=== PATIENT | male | born 1940 | race Caucasian/White ===

== ENCOUNTER → 2016-12-02 | Outpatient (CLI) | payer MEDICARE ==
[2016-12-02 19:44] LABS: Prothrombin Time 19.6 sec (9.0-12.0)
== END ==
LOC: MMGSC 13:55
PROVIDERS: ATTEND Family Medicine
DX: Z51.81 Encounter for therapeutic drug level monitoring (principal); Z79.01 Long term (current) use of anticoagulants
CPT/HCPCS: 36415; 85610

== ENCOUNTER → 2017-01-29 | Outpatient (CLI) | payer MEDICARE ==
[2017-01-29 20:29] LABS: INR 2.3 (<1.2); Prothrombin Time 22.4 sec (9.0-12.0)
== END | disposition home or self-care (01) ==
LOC: MMGSC 10:08
PROVIDERS: ATTEND Family Medicine
DX: Z51.81 Encounter for therapeutic drug level monitoring (principal); Z79.01 Long term (current) use of anticoagulants
CPT/HCPCS: 36415; 85610

== ENCOUNTER → 2017-03-23 | Outpatient (CLI) | payer MEDICARE ==
[2017-03-23 20:25] LABS: INR 3.1 (<1.2); Prothrombin Time 29.9 sec (9.0-12.0)
== END ==
LOC: MMGSC 11:16
PROVIDERS: ATTEND Family Medicine
DX: Z51.81 Encounter for therapeutic drug level monitoring (principal); Z79.01 Long term (current) use of anticoagulants
CPT/HCPCS: 36415; 85610

== ENCOUNTER → 2017-06-02 | Outpatient (CLI) | payer MEDICARE ==
[2017-06-02 19:25] LABS: INR 2.2 (<1.2); Prothrombin Time 19.9 sec (9.0-12.0)
== END | disposition home or self-care (01) ==
LOC: MMGSC 11:02
PROVIDERS: ATTEND Family Medicine
DX: Z51.81 Encounter for therapeutic drug level monitoring (principal); Z79.01 Long term (current) use of anticoagulants
CPT/HCPCS: 36415; 85610

== ENCOUNTER → 2017-08-04 | Outpatient (CLI) | payer MEDICARE ==
[2017-08-04 19:41] LABS: INR 2.3 (<1.2); Prothrombin Time 20.9 sec (9.0-12.0)
== END | disposition home or self-care (01) ==
LOC: MMGSC 13:33
PROVIDERS: ATTEND Family Medicine
DX: Z51.81 Encounter for therapeutic drug level monitoring (principal); Z79.01 Long term (current) use of anticoagulants
CPT/HCPCS: 36415; 85610

== ENCOUNTER 2018-11-29 10:50 | Day surgery (SDC) | payer MEDICARE ==
[2018-11-24 14:55] VITALS: BMI 33.2
[~2018-11-29 10:50] MED LIST: ALBUTEROL NEB (CONC) 2.5 MG/0.5 ML INHALATION ONE; ATROPINE SULFATE 0.4 MG/ML 1 ML VIAL IM ONE; LACTATED RINGERS 1,000 ML IV SCH; LIDOCAINE 2% (PF) 20 MG/ML 5 ML VIAL INHALATION ONE; LIDOCAINE VISCOUS 300 MG/15 ML CUP MUCOUS MEM ONE; SODIUM CHLORIDE 0.9% 1,000 ML IV SCH
[2018-11-29 11:26] LABS: Glucose,Whole Blood 105 mg/dL (75-99)
[2018-11-29 11:27] VITALS: RESP 16; TEMP 97.4
[2018-11-29] MEDS ORDERED: MIDAZOLAM 2 MG/2 ML VIAL ONE (11:53)
[2018-11-29] MEDS ORDERED: KETAMINE 10 MG/ML 20 ML VIAL ONE (11:53)
[2018-11-29] MEDS ORDERED: PROPOFOL 10 MG/ML 20 ML VIAL IV ONE (11:53)
[2018-11-29] MEDS ORDERED: LIDOCAINE 1% INJ 10MG/ML (20 ML MDV) ONE (11:53)
[2018-11-29] MEDS ORDERED: LIDOCAINE 2% INJ 20 MG/ML INTRATRACH ONE (12:01)
--- NOTE | 2018-11-29 12:42 | PCN ---
PROCEDURE NOTE PROCEDURE: Bronchoscopy, airway examination, therapeutic lavage and BAL. PREOPERATIVE DIAGNOSIS: Severe chronic obstructive pulmonary disease, chronic obstructive pulmonary disease exacerbation, retained secretions, rule out infection. POSTOPERATIVE DIAGNOSIS: Severe chronic obstructive pulmonary disease, chronic obstructive pulmonary disease exacerbation, retained secretions, rule out infection. OPERATORS: Dr. Adamson and Dr. Bland. DESCRIPTION OF PROCEDURE: There was informed consent and universal timeout. Anesthesia provided general anesthesia/unconscious sedation. This was provided by both the STOCK ROOM MANAGER and the anesthesiologist. After the patient was adequately sedated and being fully monitored, the bronchoscope was inserted through the right nostril. It passed through the right nasopharynx into the oropharynx. The hypopharynx was then evaluated. The hypopharyngeal structures including anterior commissure, true cords, false cords, arytenoids, piriform sinuses, right and left vallecula and epiglottis all appeared relatively normal. There were some pooled secretions noted in the hypopharynx which were purulent in color. Next, after topicalization, bronchoscope was pushed through the glottic opening into the trachea. There were thick secretions noted throughout the entire trachea. They were difficult for the patient to cough up. Hence, I suctioned them up. They were very thick and viscid. After topicalization of the right and left mainstem, the bronchoscope was used to evaluate the right and left mainstem and the right and left lungs. The right upper lobe and its 3 segments, the right middle lobe and its 2 segments, the right lower lobe and its 5 segments, all appeared relatively normal except for the right middle lobe which did have a fishmouth appearance with its opening. 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 On the left side, the left upper lobe and its 2 segments, the lingula and its 2 segments, the left lower lobe and its 4 segments appeared relatively normal. There was diffuse bronchitis noted throughout. There was mucosal erythema and hyperemia. The mucosa was mildly friable. There were purulent secretions noted throughout. They were suctioned. Afterwards, the bronchoscope was wedged into the right middle lobe. The BAL took place. The patient tolerated the procedure well. After that, the bronchoscope was withdrawn. The patient will be recovered. I will pass on the information to the patient's . MMODL / IJN: [id number] /
[2018-11-29 12:58] VITALS: BP 148/78; PULSE 72
[2018-11-29 16:03] LABS: Color,BF Pink
[2018-11-29 16:04] LABS: Appearance,BF Cloudy; Nucleated Cells, Body Fluid 820 /uL; RBC, Body Fluid 19200 /uL
[2018-11-29 16:11] LABS: Mononuclear WBC,Body Fluid 4 %; Polynuclear WBC,Body Fluid 96 %; Total Cells Counted,Body Fluid 100
== END 2018-11-29 13:10 | disposition home or self-care (01) ==
LOC: ORWHC2ENDO 10:50
PROVIDERS: ATTEND Internal Medicine Critical Care Medicine
DX: J96.11 Chronic respiratory failure with hypoxia (principal); J44.1 Chronic obstructive pulmonary disease with (acute) exacerbation; J40 Bronchitis, not specified as acute or chronic; R05 Cough; I10 Essential (primary) hypertension; E78.5 Hyperlipidemia, unspecified; E11.51 Type 2 diabetes mellitus with diabetic peripheral angiopathy without gangrene; Z79.84 Long term (current) use of oral hypoglycemic drugs; D68.59 Other primary thrombophilia; Z86.718 Personal history of other venous thrombosis and embolism; Z86.73 Personal history of transient ischemic attack (TIA), and cerebral infarction without residual deficits; Z86.711 Personal history of pulmonary embolism; Z99.81 Dependence on supplemental oxygen; Z79.82 Long term (current) use of aspirin; Z79.890 Hormone replacement therapy; Z79.891 Long term (current) use of opiate analgesic; Z79.52 Long term (current) use of systemic steroids; Z79.899 Other long term (current) drug therapy; Z79.01 Long term (current) use of anticoagulants
CPT/HCPCS: 94640; 88108; 88305; 89050; 87252; 87070; 87205; 87116; 87102; 87077; 87186; 87206; 31624; J2001 ×3; J2250; J0461; J2704; 87496; 87498; 87502; 87529; 87634; 87798

== ENCOUNTER 2018-11-30 15:27 | Observation (INO) | payer MEDICARE ==
[2018-11-30] MEDS ORDERED: IPRATROPIUM-ALBUTEROL 3 ML NEB INHALATION STA (15:48)
--- NOTE | 2018-11-30 15:51 | ED ---
General Adult HPI - General Chief complaint: Shortness of Breath Stated complaint: Sob Time Seen by Provider: 11/30/18 15:38 Source: patient, family, RN notes reviewed Mode of arrival: ambulatory Limitations: no limitations - History of Present Illness Initial comments: Patient is a pleasant 78-year-old male presenting to the emergency Department with complaints of difficulty in breathing. Onset of symptoms was this morning. Patient does have chronic dyspnea and COPD. Patient has had cough. Cough has occasional clear/white mucus. Patient did have bronchoscopy done with suctioning yesterday with Dr. Longo. Patient was finally went home however has been short of breath all day today. Patient gets more short of breath with exertion. states patient has been on oxygen all day where normally he only wears it at night. also states patient does have a to the 70s with ambulation. Patient amiss to feeling fatigued as well. No fevers. No chest pain. - Related Data Home Medications Medication Instructions Recorded Confirmed Aspirin 81 mg PO HS 11/24/18 11/30/18 Fluticasone/Salmeterol [Advair 1 puff PO RT-BID 11/24/18 11/30/18 500-50 Diskus] Folic Acid 1 mg PO DAILY 11/24/18 11/30/18 Levothyroxine Sodium [Synthroid] 50 mcg PO DAILY 11/24/18 11/30/18 Metoprolol Succinate (ER) [Toprol 25 mg PO DAILY 11/24/18 11/30/18 Xl] Multivitamins, Thera [Multivitamin 1 tab PO DAILY 11/24/18 11/30/18 (formulary)] Simvastatin [Zocor] 40 mg PO HS 11/24/18 11/30/18 metFORMIN HCL [Glucophage] 500 mg PO HS 11/24/18 11/30/18 predniSONE 5 mg PO DAILY 11/24/18 11/30/18 traMADol HCL [Ultram] 50 mg PO BID 11/24/18 11/30/18 Calcium Carbonate/Vitamin D3 1 tab PO DAILY 11/30/18 11/30/18 [Calcium 600-Vit D3 400 Tablet] Warfarin Sodium [Coumadin] 10 mg PO MOFR 11/30/18 11/30/18 Warfarin Sodium [Coumadin] 10 mg PO SUTUWETHSA 11/30/18 11/30/18 Allergies Allergy/AdvReac Type Severity Reaction Status Date / Time No Known Allergies Allergy Verified 11/30/18 16:39 Review of Systems ROS Statement: Those systems with pertinent positive or pertinent negative responses have been documented in the HPI. ROS Other: All systems not noted in ROS Statement are negative. Constitutional: Denies: fever Eyes: Denies: eye pain Respiratory: Reports: cough, dyspnea Cardiovascular: Denies: chest pain Endocrine: Reports: fatigue Gastrointestinal: Denies: abdominal pain Genitourinary: Denies: dysuria Musculoskeletal: Denies: back pain Skin: Denies: rash Neurological: Denies: headache Past Medical History Past Medical History: COPD, CVA/TIA, Hyperlipidemia, Hypertension, Thyroid Diso rder Additional Past Medical History / Comment(s): Wears oxygen @ 3 L per nc. Hyperhomocysteinemia. Chronic cough. History of Any Multi-Drug Resistant Organisms: MRSA Date of last positivie culture/infection: 02/09/18 MDRO Source:: LEG Past Surgical History: Tonsillectomy Additional Past Surgical History / Comment(s): Carotid Endarterectomy. Past Anesthesia/Blood Transfusion Reactions: No Reported Reaction Past Psychological History: No Psychological Hx Reported Smoking Status: Former smoker Past Alcohol Use History: Daily Past Drug Use History: None Reported - Past Family History Mother Family Medical History: No Reported History General Exam Limitations: no limitations General appearance: alert, in no apparent distress Head exam: Present: atraumatic Eye exam: Present: normal appearance, PERRL ENT exam: Present: normal oropharynx Neck exam: Present: normal inspection Respiratory exam: Present: wheezes, decreased breath sounds Cardiovascular Exam: Present: regular rate, normal rhythm GI/Abdominal exam: Present: soft. Absent: tenderness Extremities exam: Present: normal inspection. Absent: calf tenderness Neurological exam: Present: alert Psychiatric exam: Present: normal affect, normal mood Skin exam: Present: normal color Course Vital Signs 11/30/18 11/30/18 11/30/18 15:32 15:44 15:52 Temperature 98.4 F Pulse Rate 88 86 Respiratory 20 Rate Blood Pressure 107/68 O2 Sat by Pulse 87 L 91 L Oximetry 11/30/18 11/30/18 11/30/18 16:00 16:05 16:30 Temperature Pulse Rate 77 86 79 Respiratory 18 22 12 Rate Blood Pressure 117/87 109/68 O2 Sat by Pulse 95 90 L Oximetry 11/30/18 11/30/18 11/30/18 16:40 17:10 17:40 Temperature Pulse Rate 79 74 78 Respiratory 18 16 14 Rate Blood Pressure 107/66 112/65 114/62 O2 Sat by Pulse 93 L 91 L 92 L Oximetry EKG Findings - EKG Comments: EKG Findings:: Normal sinus rhythm 81. WI 200. QRS 104. QT 378. QTC 439. Left axis. Normal QRS. No acute ST change. Medical Decision Making - Medical Decision Making Patient reevaluated and resting comfortably in bed. Pulse ox low 90s on 2 L. Case was discussed with Dr. Longo, who will consult and recommends admission to medicine. [facility] has been paged. - Lab Data Result diagrams: 11/30/18 16:10 11/30/18 16:10 Lab Results 11/30/18 11/30/18 11/30/18 Range/Units 16:10 16:10 16:10 WBC 18.5 H (3.8-10.6) k/uL RBC 4.72 (4.30-5.90) m/uL Hgb 14.7 (13.0-17.5) gm/dL Hct 43.8 (39.0-53.0) % MCV 92.6 (80.0-100.0) fL MCH 31.1 (25.0-35.0) pg MCHC 33.6 (31.0-37.0) g/dL RDW 13.8 (11.5-15.5) % Plt Count 266 (150-450) k/uL Neutrophils % 83 % Lymphocytes % 8 % Monocytes % 6 % Eosinophils % 1 % Basophils % 0 % Neutrophils # 15.4 H (1.3-7.7) k/uL Lymphocytes # 1.4 (1.0-4.8) k/uL Monocytes # 1.1 H (0-1.0) k/uL Eosinophils # 0.3 (0-0.7) k/uL Basophils # 0.1 (0-0.2) k/uL Sodium 140 (137-145) mmol/L Potassium 4.2 (3.5-5.1) mmol/L Chloride 106 (98-107) mmol/L Carbon Dioxide 28 (22-30) mmol/L Anion Gap 6 mmol/L BUN 28 H (9-20) mg/dL Creatinine 1.02 (0.66-1.25) mg/dL Est GFR (CKD-EPI)AfAm 81 (>60 ml/min/1.73 sqM) Est GFR (CKD-EPI)NonAf 70 (>60 ml/min/1.73 sqM) Glucose 104 H (74-99) mg/dL Calcium 9.5 (8.4-10.2) mg/dL Total Bilirubin 0.5 (0.2-1.3) mg/dL AST 24 (17-59) U/L ALT 31 (21-72) U/L Alkaline Phosphatase 51 (38-126) U/L NT-Pro-B Natriuret Pep 226 pg/mL Total Protein 6.5 (6.3-8.2) g/dL Albumin 3.6 (3.5-5.0) g/dL - Radiology Data Radiology results: image reviewed (Chest x-ray shows COPD. No acute process.) Disposition Clinical Impression: COPD exacerbation Disposition: ADMITTED IP TO THIS HOSP Is patient prescribed a controlled substance at d/c from ED?: No Referrals: Mariza Hou MD [Primary Care Provider] - 1-2 days Decision Time: 18:24
[2018-11-30 16:30] LABS: Basophils # (A) 0.1 k/uL (0-0.2); Basophils % (A) 0 %; Eosinophils # (A) 0.3 k/uL (0-0.7); Eosinophils % (A) 1 %; HCT 43.8 % (39.0-53.0); HGB 14.7 gm/dL (13.0-17.5); Lymphocytes # (A) 1.4 k/uL (1.0-4.8); Lymphocytes % (A) 8 %; MCH 31.1 pg (25.0-35.0); MCHC 33.6 g/dL (31.0-37.0); MCV 92.6 fL (80.0-100.0); Mean Platelet Volume 6.8; Monocytes # (A) 1.1 k/uL (0-1.0); Monocytes % (A) 6 %; Neutrophils # (A) 15.4 k/uL (1.3-7.7); Neutrophils % (A) 83 %; Platelet Count 266 k/uL (150-450); RBC 4.72 m/uL (4.30-5.90); RDW 13.8 % (11.5-15.5); WBC 18.5 k/uL (3.8-10.6)
--- NOTE | 2018-11-30 16:34 | XR ---
EXAMINATION TYPE: XR chest 2V DATE OF EXAM: 11/30/2018 COMPARISON: 07/02/2018 INDICATION: Difficulty breathing TECHNIQUE: Frontal and lateral views of the chest are obtained. FINDINGS: The heart size is normal. The pulmonary vasculature is normal. The lungs are clear. There is hyperinflation flattening the diaphragms compatible COPD IMPRESSION: 1. COPD. 2. An acute pulmonary process not radiographically apparent.
[2018-11-30 16:39] LABS: Albumin 3.6 g/dL (3.5-5.0); Calcium 9.5 mg/dL (8.4-10.2); Potassium 4.2 mmol/L (3.5-5.1); Total Bilirubin 0.5 mg/dL (0.2-1.3); Total Protein 6.5 g/dL (6.3-8.2)
[2018-11-30] MEDS ORDERED: IPRATROPIUM-ALBUTEROL 3 ML NEB INHALATION PRN (18:29)
[2018-11-30] MEDS ORDERED: methylPREDNISolone SOD SUCCI 125 MG/2 ML VIAL IV STA (18:29)
[2018-11-30] MEDS: SODIUM CHLORIDE 0.9% 1,000 ML IV SCH (18:45)
[2018-11-30] MEDS: IPRATROPIUM-ALBUTEROL 3 ML NEB INHALATION SCH (18:52)
[2018-11-30] MEDS ORDERED: SYMBICORT 160-4.5 MCG INHALER INHALATION STA (19:00)
[2018-11-30 19:48] LABS: INR 1.6 (<1.2); Prothrombin Time 15.9 sec (9.0-12.0)
[2018-11-30] MEDS: CEFDINIR 300 MG CAP PO SCH (20:56)
[2018-11-30] MEDS: ATORVASTATIN 20 MG TAB PO SCH (20:56)
[2018-11-30] MEDS: ASPIRIN 81 MG PO SCH (20:56)
[2018-11-30] MEDS ORDERED: traMADol 50 MG TAB PO PRN (21:00)
[2018-11-30] MEDS ORDERED: WARFARIN 10 MG TAB PO ONE (21:00)
[2018-11-30] MEDS: INSULIN ASPART (NovoLOG) 100 UNIT/ML VIAL SQ SCH (21:20)
[2018-11-30 21:30] LABS: Glucose,Whole Blood 227 mg/dL (75-99)
[2018-11-30] MEDS: SYMBICORT 160-4.5 MCG INHALER INHALATION SCH (21:44)
--- NOTE | 2018-11-30 22:53 | P.HPIM ---
History of Present Illness H&P Date: 11/30/18 Chief Complaint: Worsening exertional dyspnea and hypoxemia 78-year-old male with history of diabetes and end-stage COPD the chronic hypoxic respiratory failure Patient presented to the hospital due to worsening exertional dyspnea and acute hypoxic respiratory failure with hypoxemia despite supplemental oxygen at home. Patient reports that yesterday he had bronchoscopy done with BAL due to worsening symptoms since April despite increasing his home oxygen and being: L ow dose maintenance dose of steroids. However over the 7 month his condition has been deteriorating constantly. However since the procedure yesterday he's been having increased shortness of breath and dyspnea with increased oxygen requirements. He was noticing that his oxygen dropping to the 70s percent despite being on supplemental oxygen while walking. However denies any fevers or chills denies any changes in his sputum consistency or color denies any changes in his cough denies any chest pain. Denies any nausea vomiting denies any abdominal pain denies any sick contacts or recent traveling. Review of Systems Pertinent positives as noted in HPI. All other systems were reviewed and are negative Past Medical History Past Medical History: COPD, CVA/TIA, Hyperlipidemia, Hypertension, Thyroid Disorder Additional Past Medical History / Comment(s): Wears oxygen @ 3 L per nc. Hyperhomocysteinemia. Chronic cough. History of Any Multi-Drug Resistant Organisms: MRSA Date of last positivie culture/infection: 02/09/18 MDRO Source:: LEG Past Surgical History: Tonsillectomy Additional Past Surgical History / Comment(s): Carotid Endarterectomy. Past Anesthesia/Blood Transfusion Reactions: No Reported Reaction Past Psychological History: No Psychological Hx Reported Smoking Status: Former smoker Past Alcohol Use History: Daily Past Drug Use History: None Reported - Past Family History Mother Family Medical History: No Reported History Medications and Allergies Home Medications Medication Instructions Recorded Confirmed Type Aspirin 81 mg PO HS 11/24/18 11/30/18 History Fluticasone/Salmeterol [Advair 1 puff PO RT-BID 11/24/18 11/30/18 History 500-50 Diskus] Folic Acid 1 mg PO DAILY 11/24/18 11/30/18 History Levothyroxine Sodium [Synthroid] 50 mcg PO DAILY 11/24/18 11/30/18 History Metoprolol Succinate (ER) [Toprol 25 mg PO DAILY 11/24/18 11/30/18 History Xl] Multivitamins, Thera [Multivitamin 1 tab PO DAILY 11/24/18 11/30/18 History (formulary)] Simvastatin [Zocor] 40 mg PO HS 11/24/18 11/30/18 History metFORMIN HCL [Glucophage] 500 mg PO HS 11/24/18 11/30/18 History predniSONE 5 mg PO DAILY 11/24/18 11/30/18 History traMADol HCL [Ultram] 50 mg PO BID 11/24/18 11/30/18 History Calcium Carbonate/Vitamin D3 1 tab PO DAILY 11/30/18 11/30/18 History [Calcium 600-Vit D3 400 Tablet] Warfarin Sodium [Coumadin] 10 mg PO MOFR 11/30/18 11/30/18 History Warfarin Sodium [Coumadin] 10 mg PO SUTUWETHSA 11/30/18 11/30/18 History Allergies Allergy/AdvReac Type Severity Reaction Status Date / Time No Known Allergies Allergy Verified 11/30/18 16:39 Physical Exam Vitals: Vital Signs Temp Pulse Resp BP Pulse Ox 11/30/18 18:52 72 11/30/18 18:40 74 28 H 117/66 91 L 11/30/18 18:30 73 17 102/75 91 L 11/30/18 18:10 75 19 102/75 92 L 11/30/18 17:50 77 49 H 114/62 92 L 11/30/18 17:40 78 14 114/62 92 L 11/30/18 17:10 74 16 112/65 91 L 11/30/18 16:40 79 18 107/66 93 L 11/30/18 16:30 79 12 109/68 90 L 11/30/18 16:05 86 22 11/30/18 16:00 77 18 117/87 95 11/30/18 15:52 86 11/30/18 15:44 91 L 11/30/18 15:32 98.4 F 88 20 107/68 87 L Intake and Output 11/30/18 11/30/18 11/30/18 06:59 14:59 22:59 Other: Weight 111.13 kg Constitutional: No acute distress, conversant, pleasant Eyes: Anicteric sclerae, moist conjunctiva, no lid-lag Pupils equal round reactive to light ENMT: NC/AT Oropharynx clear, no erythema, exudates Neck: Supple, FROM, no masses, or JVD No carotid bruits No thyromegaly Lungs: Diminished breath sounds throughout, prolonged expiratory phase with wheezing Clear to percussion Normal respiratory effort, no accessory muscle use , oxygen 2 L via nasal cannula Cardiovascular: Distant heart sounds regular, No murmurs, gallops, or rubs No peripheral edema Abdominal: Soft Nontender, no guarding, rebound or rigidity Abdomen moving with respiration Normoactive bowel sounds No hepatomegaly, No splenomegaly No palpable mass No abdominal wall hernia noted Skin: Normal temperature, tone, texture, turgor No induration No subcutaneous nodules No rash, lesions No ulcers Extremities: No digital cyanosis Positive clubbing Pedal pulses intact and symmetrical Radial pulses intact and symmetrical No calf tenderness Psychiatric: Alert and oriented to person, place and time Appropriate affect fair judgment Neuro Muscles Strength 5/5 in all 4 extremities Sensation to light touch grossly present throughout Cranial nerves II-XII grossly intact No focal sensory deficits Lymphatics: no palpable cervical or supraclavicular , or inguinal lymph nodes Results CBC & Chem 7: 11/30/18 16:10 11/30/18 16:10 Labs: Abnormal Lab Results - Last 24 Hours (Table) 11/30/18 11/30/18 Range/Units 16:10 16:10 WBC 18.5 H (3.8-10.6) k/uL Neutrophils # 15.4 H (1.3-7.7) k/uL Monocytes # 1.1 H (0-1.0) k/uL BUN 28 H (9-20) mg/dL Glucose 104 H (74-99) mg/dL Assessment and Plan Assessment: 78-year-old male with advanced COPD and chronic hypoxic respiratory failure on home oxygen. Admitted in inpatient with anticipated length of stay more than 48 hours due to acute hypoxic respiratory failure and ambulatory exertional dyspnea. Patient had bronchoscopy with BAL yesterday since then he's been short of breath with worsening coughing and increased requirement of oxygen for which she decided to come the hospital today. short of breath with worsening coughing and increased requirement of oxygen for which she decided to come the hospital today. 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
[2018-11-30] MEDS: methylPREDNISolone SOD SUCCI 125 MG/2 ML VIAL IV SCH (23:14)
--- NOTE | 2018-11-30 23:26 | P.HPADDEND ---
H&P Addendum H&P Addendum Date: 11/30/18 Advanced Care Planning Active diagnoses: End-stage COPD Chronic hypoxic respiratory failure Background: The patient was admitted for treatment of acute hypoxic respiratory failure and worsening exertional dyspnea Discussion: Person(s) present and participating in discussion: The patient, myself, and RN Summary: Patient does not want long-term respiratory support on a ventilator however he is willing to pursue CPR and resuscitation if needed if outcomes are thought to be positive. He does not want to be disabled or bedridden after any resuscitation measures if outcomes are poor he would not like to continue supportive measures. Patient will be full code for now and patient opted in for all medically necessary measures to to treat his condition at this time Time spent: Total time spent face to face in education and discussion directly related to advanced care plannin minutes
[2018-12-01] MEDS: LEVOTHYROXINE 50 MCG TAB PO SCH (05:19)
[2018-12-01] MEDS: SODIUM CHLORIDE 0.9% 1,000 ML IV SCH ×2 (05:19→12:17)
[2018-12-01] MEDS: methylPREDNISolone SOD SUCCI 125 MG/2 ML VIAL IV SCH ×3 (05:20→17:41)
[2018-12-01 07:03] LABS: Glucose,Whole Blood 181 mg/dL (75-99)
[2018-12-01] MEDS: IPRATROPIUM-ALBUTEROL 3 ML NEB INHALATION SCH ×4 (07:26→20:13)
[2018-12-01] MEDS: SYMBICORT 160-4.5 MCG INHALER INHALATION SCH ×2 (07:26→20:13)
[2018-12-01] MEDS: METOPROLOL SUCCINATE (ER) 25 MG TAB.ER.24H PO SCH (07:53)
[2018-12-01] MEDS: CEFDINIR 300 MG CAP PO SCH ×2 (07:53→21:17)
[2018-12-01] MEDS: INSULIN ASPART (NovoLOG) 100 UNIT/ML VIAL SQ SCH ×4 (07:53→22:05)
[2018-12-01 09:20] LABS: INR 1.6 (<1.2); Prothrombin Time 15.9 sec (9.0-12.0)
--- NOTE | 2018-12-01 09:53 | CONS ---
CONSULTATION PULMONARY/CRITICAL CARE CONSULTATION: DATE OF CONSULTATION: December 01, 2018 This is a pleasant 78-year-old white male who presented to the emergency department with complaints of shortness of breath. I saw him on Thursday for bronchoscopy. Everything was uneventful and went well. He had lots of airway secretions and evidence of acute bronchitis on bronchoscopy. Samples are mostly pending. Anyway, he apparently on Thursday even before the procedure was not feeling well. He describes feeling weak and fatigued. Subsequent to that, he noted that when he walked around his saturations dropped. He felt like he had to wear the oxygen a bit more. He was coughing. Not producing much or any phlegm. Anyway, because of that, the patient went to the emergency room where he saw Dr. Barnard. Dr. Barnard called me on the phone. Because of the patient's desaturations, he was admitted to the hospital. He was started on some IV steroids and breathing treatments and Symbicort and some oral antibiotics. He also was receiving IV Solu-Medrol. Currently, the patient feels well. He looks much better actually that he did on Thursday when I saw him for bronchoscopy. His chest x-ray was normal, did not show any acute disease. Denies any chest pain or chest discomfort. There is no fever or chills. It is mostly shortness of breath, desaturation with exertion, and cough. Occasional white or clear phlegm is produced. HOME MEDICATIONS: His home medications include aspirin, Advair, folic acid, Synthroid, metoprolol, multivitamin, Zocor, metformin, prednisone, tramadol, calcium carbonate, and warfarin. ALLERGIES: Allergies are denied. PAST MEDICAL HISTORY: His past medical history includes COPD, CVA, hyperlipidemia, hypertension, and hypothyroidism. In addition, he has chronic hypoxemic respiratory failure and does have a history of hyperhomocysteinemia. He also has a previous history of MRSA infection. SURGICAL HISTORY: Surgical history includes carotid endarterectomy and tonsillectomy. SOCIAL HISTORY: Positive for previous tobacco use. He drinks alcohol daily. Denies any illicit drug use. FAMILY HISTORY: Family history is unremarkable. States his mother was healthy. REVIEW OF SYSTEMS: CONSTITUTIONAL: Weakness. NEUROLOGIC: Negative. HEENT: Negative. CARDIOVASCULAR: Negative. PULMONARY: Shortness of breath, cough. GI: Negative. : Negative. RHEUMATOLOGIC: Negative. IMMUNOLOGIC: Negative. ENDOCRINOLOGIC: Negative. PHYSICAL EXAMINATION: VITAL SIGNS: Current vital signs are reviewed. Temperature is 97.7, heart rate 73, respiratory rate 20, blood pressure 126/73, mean 90, and 3 L saturation 93%. Appears in no acute distress. Actually looks very well. HEENT: Examination is grossly unremarkable. Membranes are moist. Nasal O2 in place. NECK: Supple. Full range of motion. No adenopathy or thyromegaly. Neck veins are flat. CARDIOVASCULAR: Examination reveals regular rhythm and rate. Heart rate 80. S1, S2 normal. LUNGS: Are surprisingly clear. No wheezes, rhonchi, or crackles. ABDOMEN: Soft bowel sounds are heard. No masses or tenderness. EXTREMITIES: Are intact. No cyanosis, clubbing, or edema. SKIN: Without rash. NEUROLOGIC: Examination is brief but nonfocal. White count 18.5. Hemoglobin, hematocrit and platelet count all normal. PT 15.9. INR 1.6. Sodium, potassium, chloride and CO2 all normal. Anion gap 6. BUN and creatinine were 28 and 1.02. The rest of the labs look good. N terminal proBNP 226. X-RAY: Chest x-ray shows no acute disease. MEDICATIONS: Medications are reviewed. He is on appropriate medications including DuoNeb, Symbicort, Solu-Medrol and antibiotics. ASSESSMENT: 1. Shortness of breath with desaturation on exertion, of unclear etiology. This may relate to his underlying chronic obstructive pulmonary disease or something more ominous such as pulmonary embolism or myocardial ischemia. 2. History of chronic obstructive pulmonary disease. 3. Cerebrovascular accident. 4. Recent bronchoscopy this past Thursday for airway secretion control. 5. Hyperlipidemia. 6. Hypertension. 7. Hypothyroidism. 8. Hyperhomocysteinemia. 9. History of chronic cough. 10.Previous history of methicillin-resistant Staphylococcus aureus infection. PLAN: The patient will have a troponin drawn. In addition, we will order a CT angiogram. Additional recommendations and suggestions are forthcoming. He is on appropriate medications. He might be well enough to be discharged in a day or so. MMODL / IJN: [id number] /
[2018-12-01 11:44] LABS: Glucose,Whole Blood 212 mg/dL (75-99)
--- NOTE | 2018-12-01 12:05 | CT ---
CT CHEST FOR PULMONARY EMBOLISM. EXAMINATION TYPE: CT angio chest DATE OF EXAM: 12/01/2018 INDICATION: PE CT DLP: 481.40 mGycm, Automated exposure control for dose reduction was used. CONTRAST: Patient injected with 100 ML mL of Isovue 370. COMPARISON: None TECHNIQUE: CT of the chest is performed on a spiral scan at 2 mm thick sections. Study is performed with intravenous contrast timed for evaluation for pulmonary embolism. This will limit additional po rtions of the evaluation. 3-D MIP images reconstructed by the technologist are reviewed on the compu ter in the coronal and sagittal planes. FINDINGS: No persistent filling defects are evident to suggest an acute pulmonary embolism. No mediastinal or hilar adenopathy enlarged by CT criteria is evident. The ascending aorta diameter at the level of the main pulmonary artery is 4.1 cm. The main pulmonary artery diameter at the bifur cation is 3.4 cm. On lung windows there is a irregular density with spiculated margins on lung windows measuring 1.4 x 2.5 cm. Underlying soft tissue density is evident on mediastinal windows. Consider PET CT for additio nal workup. Neoplasm is not excluded. Limited CT section through the upper abdomen reflux into the portal system and inferior vena cava is evident suggesting some right heart strain. IMPRESSIONS: 1. No acute pulmonary embolism. Some right heart strain however is noted. 2. Ascending thoracic aortic aneurysm measuring 4.1 cm. 3. Irregular density within the posterior left midlung measuring 1.4 x 2.5 cm. Follow-up CT should be considered. Neoplasm is not excluded.
--- NOTE | 2018-12-01 16:45 | P.PN ---
Subjective Progress Note Date: 12/01/18 Principal diagnosis: COPD exacerbation Patient was seen and examined. No acute events overnight. Patient reports slight improvement in his breathing since admission. He denies any chest pain or palpitations. No nausea or vomiting. No fever or chills. Objective - Vital Signs Vital signs: Vital Signs Temp 98.1 F 12/01/18 13:06 Pulse 89 12/01/18 13:06 Resp 20 12/01/18 13:06 BP 136/75 12/01/18 13:06 Pulse Ox 90 L 12/01/18 13:06 Intake & Output 11/30/18 12/01/18 12/01/18 18:59 06:59 18:59 Intake Total 300 800 Balance 300 800 Weight 111.13 kg Intake: IV 800 Sodium Chloride 0.9% 1, 800 000 ml @ 100 mls/hr IV . Q10H ROBBIE Rx#:[id number] Oral 300 Other: # Voids 1 - Exam General: [non toxic], [no distress], [appears at stated age] Derm: [warm], [dry] Head: [atraumatic], [normocephalic], [symmetric] Eyes: [EOMI], [no lid lag], [anicteric sclera] Mouth: [no lip lesion], [mucus membranes moist] Cardiovascular: [S1S2 reg], [no murmur], [positive posterior tibial pulse bilateral], Lungs: [decreased breath sounds bilateral], [no rhonchi, no rales] , [no accessory muscle use] Ext: [no gross muscle atrophy], [no edema], [no contractures] Neuro: [no focal neuro deficits] Psych: [Alert], [oriented], [appropriate affect] - Labs CBC & Chem 7: 11/30/18 16:10 11/30/18 16:10 Labs: Abnormal Lab Results - Last 24 Hours (Table) 11/30/18 11/30/18 11/30/18 Range/Units 16:10 16:10 21:18 PT 15.9 H (9.0-12.0) sec INR 1.6 H (<1.2) BUN 28 H (9-20) mg/dL Glucose 104 H (74-99) mg/dL POC Glucose (mg/dL) 227 H (75-99) mg/dL 12/01/18 12/01/18 12/01/18 Range/Units 06:55 08:46 11:32 PT 15.9 H (9.0-12.0) sec INR 1.6 H (<1.2) BUN (9-20) mg/dL Glucose (74-99) mg/dL POC Glucose (mg/dL) 181 H 212 H (75-99) mg/dL Assessment and Plan Assessment: Assessment and Plan COPD exacerbation Acute on chronic hypoxic respiratory failure Leukocytosis Hypothyroidism Diabetes mellitus Hyper homocystinemia with history of VTE Plans: Continue Symbicort. DuoNeb scheduled and as needed for shortness of breath and wheezing. Start Solu-Medrol 60 mg IV every 6 hours. Follow pulmonology recommendations. O2 per NC to maintain O2 saturation greater than 92%. Plans: Management as above. Plans: Nothing to do. Likely secondary to steroids. Plans: Continue Synthroid. Plans: Insulin sliding-scale. Regular Accu-Cheks. Hypoglycemic precautions. Diabetic diet. Plans: Continue warfarin, dosing as per pharmacy. Patient has shown mild improvement since admission. He is pending clinical improvement. Follow pulmonology recommendations. Likely DC in 1-2 days.
[2018-12-01 17:16] LABS: Glucose,Whole Blood 233 mg/dL (75-99)
[2018-12-01] MEDS ORDERED: WARFARIN 10 MG TAB PO ONE (18:00)
[2018-12-01] MEDS ORDERED: WARFARIN 1 MG TAB PO ONE (18:00)
[2018-12-01 20:41] LABS: Glucose,Whole Blood 292 mg/dL (75-99)
[2018-12-01] MEDS: ASPIRIN 81 MG PO SCH (21:17)
[2018-12-01] MEDS: ATORVASTATIN 20 MG TAB PO SCH (21:17)
[2018-12-02] MEDS: methylPREDNISolone SOD SUCCI 125 MG/2 ML VIAL IV SCH ×2 (00:40→06:21)
[2018-12-02] MEDS: SODIUM CHLORIDE 0.9% 1,000 ML IV SCH (02:56)
[2018-12-02] MEDS: LEVOTHYROXINE 50 MCG TAB PO SCH (06:21)
[2018-12-02 06:52] LABS: INR 2.1 (<1.2); Prothrombin Time 20.9 sec (9.0-12.0)
[2018-12-02 07:18] LABS: Glucose,Whole Blood 175 mg/dL (75-99)
[2018-12-02] MEDS: CEFDINIR 300 MG CAP PO SCH (07:25)
[2018-12-02] MEDS: METOPROLOL SUCCINATE (ER) 25 MG TAB.ER.24H PO SCH (07:25)
[2018-12-02] MEDS: INSULIN ASPART (NovoLOG) 100 UNIT/ML VIAL SQ SCH (07:25)
[2018-12-02] MEDS: SYMBICORT 160-4.5 MCG INHALER INHALATION SCH (07:34)
[2018-12-02] MEDS: IPRATROPIUM-ALBUTEROL 3 ML NEB INHALATION SCH ×2 (07:34→10:44)
[2018-12-02 07:49] VITALS: BP 138/84; RESP 16; TEMP 97.9
--- NOTE | 2018-12-02 09:06 | PN ---
PROGRESS NOTE PULMONARY/CRITICAL CARE PROGRESS NOTE: DATE OF SERVICE: 12/02/2018 A 78-year-old male who presents to the emergency for shortness of breath. He underwent bronchoscopy Thursday by me. We did this for airway secretion control and therapeutic suction. Apparently, subsequent to that, he developed increasing shortness of breath. He was seen by Dr. Barnard in the emergency room, admitted to the hospital for further treatment and management. The patient did receive IV Solu-Medrol. He did receive some breathing treatments. The patient is doing much better today. I did do a CT angiogram. It did not show a pulmonary embolism. It did show a lesion in the left posterior lung which will have to be followed as an outpatient. He is feeling much better. Off of oxygen. Saturations are 88%, which is about his baseline. He has no other complaints. There is nothing of significance seen on the CT scan. He is currently on appropriate medications. He was admitted to one the hospital group. I told him that he could be discharged home today if okay with the hospital group, but he would have to be at home all day, taking it easy, taking oral prednisone and so forth. PHYSICAL EXAMINATION: Current vital signs are reviewed. Temperature 97.9, heart rate 72, respiratory rate 16, blood pressure 138/84. He has 3 L saturations at 93%. Appears in no acute distress. No tami respiratory distress. No audible wheezing. No use of accessory muscles. No conversational dyspnea. HEENT: Examination is grossly unremarkable. Mucous membranes moist. No oral lesions. NECK: Supple. Full range of motion. No adenopathy or thyromegaly. Neck veins are flat. CARDIOVASCULAR: Examination reveals regular rhythm and rate. Heart rate is 72. Heart sounds distant. S1, S2 normal. LUNGS: Reveal mostly clear breath sounds. Breath sounds are diminished. Very mild high-pitched expiratory wheezes are noted. ABDOMEN: Soft. Bowel sounds are heard. EXTREMITIES: Intact. No cyanosis, clubbing, or edema. SKIN: Without rash. NEUROLOGIC: Examination is brief but nonfocal. LAB DATA: Reviewed. Nothing new from today other than a PT of 20.9 and an INR of 2.1. Troponin was less than 0.012. Chest x-ray and CT scans were reviewed. Medications are reviewed. ASSESSMENT: 1. Shortness of breath, likely related to underlying chronic obstructive pulmonary disease exacerbation. Pulmonary embolism has been ruled out, myocardial ischemia seems much less likely. 2. History of chronic obstructive pulmonary disease. 3. History of cerebrovascular accident. 4. Recent bronchoscopy, this past Thursday for airway secretions, therapeutic lavage. Specimens are currently pending. 5. Hyperlipidemia. 6. Hypertension. 7. Hypothyroidism. 8. Hyperhomocystinemia. 9. History of chronic cough. 10.Previous history of methicillin-resistant Staphylococcus aureus infection. PLAN: The patient could be discharged home. He will be discharged home on his usual medications. A CT angiogram was negative except for a small lesion in the posterior left lung area. This will be followed in the outpatient setting. I told him if he did get discharged home, he would have takes it easy today and stay indoors. He should be discharged home on 40 mg a day and decrease the dose by 10 mg every fourth day until he gets back down to his maintenance dose of 5 mg a day. He could be discharged with a short course of oral antibiotics pending his bronchoscopy results. He should also be using his Advair 500/50 one puff twice a day and his nebulizer machine 4 times a day. I did tell him to wear his oxygen therapy when I saw him in the office. No additional recommendations are made. His prognosis is guarded. MMODL / IJN: [id number] / MTDD
--- NOTE | 2018-12-02 10:01 | P.DS ---
Providers Date of admission: 11/30/18 18:24 Expected date of discharge: 12/02/18 Attending physician: Kristine Bermeo MD Consults: 11/30/18 18:29 Consult Physician Routine Consulting Provider: Aristides Adamson Consult Reason/Comments: dyspnea Do you want consulting provider notified?: Already Contacted Primary care physician: [facility] Course: 78-year-old male with PMH of COPD, hypertension, hypothyroidism, hyperlipidemia on home O2 presents to the ED for worsening exertional dyspnea and hypoxemia despite supplemental oxygen at home. Of note, patient had recently undergone bronchoscopy with BAL due to worsening symptoms April. Patient reports that his condition has been deteriorating over the past 7 months. Patient had noted his O2 saturation to be as low as in the 70s despite being on supplemental oxygen while walking. Patient was admitted for acute on chronic respiratory failure and COPD exacerbation with pulmonology consulted. Chest x-ray showed findings of COPD and no pneumonia. Pulmonology recommended CTA of the chest which showed no PE, ascending thoracic aneurysm 4.1 cm and an irregular density within the posterior left midlung measuring 1.4 x 2.5 cm. Patient was evaluated by pulmonology and cleared for discharge. Patient was seen and examined. No acute events overnight. Patient reports slight improvement in his breathing since admission. Was able to take a shower this morning, desaturated into the 80s but recovered very quickly. He denies any chest pain or palpitations. No nausea or vomiting. No fever or chills. General: [non toxic], [no distress], [appears at stated age] Derm: [warm], [dry] Head: [atraumatic], [normocephalic], [symmetric] Eyes: [EOMI], [no lid lag], [anicteric sclera] Mouth: [no lip lesion], [mucus membranes moist] Cardiovascular: [S1S2 reg], [no murmur] Lungs: [decreased breath sounds bilateral], [no rhonchi, no rales] , [no accessory muscle use] Ext: [no gross muscle atrophy], [no edema], [no contractures] Neuro: [no focal neuro deficits] Psych: [Alert], [oriented], [appropriate affect] Assessment and Plan COPD exacerbation Ascending thoracic aneurysm Pulmonary nodule Acute on chronic hypoxic respiratory failure Leukocytosis Hypothyroidism Diabetes mellitus Hyper homocystinemia with history of VTE Plans: Continue Symbicort. DuoNeb scheduled and as needed for shortness of breath and wheezing. As per pulmonology, DC on prednisone taper. O2 per NC to maintain O2 saturation greater than 92%. Plans: Patient asymptomatic. Vascular surgery outpatient. Plans: As seen on chest CTA. Follow pulmonology outpatient. Plans: Management as above. Plans: Nothing to do. Likely secondary to steroids. Plans: Continue Synthroid. Plans: Insulin sliding-scale. Regular Accu-Cheks. Hypoglycemic precautions. Diabetic diet. Plans: Continue warfarin, dosing as per pharmacy. Patient has shown mild improvement since admission. Cleared by pulmonology. DC today. Pertinent Studies: Chest x-ray, chest CTA Patient Condition at Discharge: Stable Plan - Discharge Summary Discharge Rx Participant: No New Discharge Prescriptions: New Ipratropium-Albuterol Nebulize [Duoneb 0.5 mg-3 mg/3 ml Soln] 3 ml INHALATION RT-QID ampul.neb Ipratropium-Albuterol Nebulize [Duoneb 0.5 mg-3 mg/3 ml Soln] 3 ml INHALATION RT-Q4H PRN ampul.neb PRN Reason: Shortness Of Breath Or Wheezing Cefdinir [Omnicef] 300 mg PO BID #10 cap predniSONE See Taper PO DIRECTED #40 tab Continue Aspirin 81 mg PO HS Simvastatin [Zocor] 40 mg PO HS Multivitamins, Thera [Multivitamin (formulary)] 1 tab PO DAILY Fluticasone/Salmeterol [Advair 500-50 Diskus] 1 puff PO RT-BID traMADol HCL [Ultram] 50 mg PO BID Folic Acid 1 mg PO DAILY Metoprolol Succinate (ER) [Toprol XL] 25 mg PO DAILY Levothyroxine Sodium [Synthroid] 50 mcg PO DAILY metFORMIN HCL [Glucophage] 500 mg PO HS Warfarin Sodium [Coumadin] 10 mg PO MOFR Warfarin Sodium [Coumadin] 10 mg PO SUTUWETHSA Calcium Carbonate/Vitamin D3 [Calcium 600-Vit D3 400 Tablet] 1 tab PO DAILY Discontinued predniSONE 5 mg PO DAILY Discharge Medication List Aspirin 81 mg PO HS 11/24/18 [History] Fluticasone/Salmeterol [Advair 500-50 Diskus] 1 puff PO RT-BID 11/24/18 [History] Folic Acid 1 mg PO DAILY 11/24/18 [History] Levothyroxine Sodium [Synthroid] 50 mcg PO DAILY 11/24/18 [History] Metoprolol Succinate (ER) [Toprol XL] 25 mg PO DAILY 11/24/18 [History] Multivitamins, Thera [Multivitamin (formulary)] 1 tab PO DAILY 11/24/18 [History] Simvastatin [Zocor] 40 mg PO HS 11/24/18 [History] metFORMIN HCL [Glucophage] 500 mg PO HS 11/24/18 [History] traMADol HCL [Ultram] 50 mg PO BID 11/24/18 [History] Calcium Carbonate/Vitamin D3 [Calcium 600-Vit D3 400 Tablet] 1 tab PO DAILY 11/30/18 [History] Warfarin Sodium [Coumadin] 10 mg PO MOFR 11/30/18 [History] Warfarin Sodium [Coumadin] 10 mg PO SUTUWETHSA 11/30/18 [History] Cefdinir [Omnicef] 300 mg PO BID #10 cap 12/02/18 [Rx] Ipratropium-Albuterol Nebulize [Duoneb 0.5 mg-3 mg/3 ml Soln] 3 ml INHALATION RT-Q4H PRN ampul.neb 12/02/18 [Rx] Ipratropium-Albuterol Nebulize [Duoneb 0.5 mg-3 mg/3 ml Soln] 3 ml INHALATION RT -QID ampul.neb 12/02/18 [Rx] predniSONE See Taper PO DIRECTED #40 tab 12/02/18 [Rx] Follow up Appointment(s)/Referral(s): Mariza Hou MD [Primary Care Provider] - 1-2 days Aristides Adamson DO [Doctor of Osteopathic Medicine] - 1 Week Abdifatah Osorio MD [STAFF PHYSICIAN] - 1 Week Patient Instructions/Handouts: COPD (Chronic Obstructive Pulmonary Disease) (DC) Activity/Diet/Wound Care/Special Instructions: Diet: Heart healthy Follow-up PCP within 1-2 days discharge. Follow-up pulmonology within 1 week of discharge. You will need to follow-up the pulmonary nodule with pulmonology. Please take all medications as advised. Please see vascular surgery within 1 week of discharge regarding a descending thoracic aneurysm of 4.1 cm. Discharge Disposition: HOME SELF-CARE
[2018-12-02 10:43] VITALS: PULSE 96
[2018-12-02] MEDS ORDERED: WARFARIN 10 MG TAB PO ONE (18:00)
== END 2018-12-02 11:07 | disposition home or self-care (01) ==
LOC: EC 15:27 → 4MS4W 18:24
PROVIDERS: ADMIT Family Medicine; ATTEND Family Medicine
DX: J44.1 Chronic obstructive pulmonary disease with (acute) exacerbation (principal); I10 Essential (primary) hypertension; E03.9 Hypothyroidism, unspecified; E78.5 Hyperlipidemia, unspecified; Z99.81 Dependence on supplemental oxygen; I71.2 Thoracic aortic aneurysm, without rupture; R91.1 Solitary pulmonary nodule; J96.21 Acute and chronic respiratory failure with hypoxia; E11.9 Type 2 diabetes mellitus without complications; E72.11 Homocystinuria; Z86.718 Personal history of other venous thrombosis and embolism; Z86.14 Personal history of Methicillin resistant Staphylococcus aureus infection; Z86.73 Personal history of transient ischemic attack (TIA), and cerebral infarction without residual deficits; Z87.891 Personal history of nicotine dependence; Z79.82 Long term (current) use of aspirin; Z79.890 Hormone replacement therapy; Z79.84 Long term (current) use of oral hypoglycemic drugs; Z79.899 Other long term (current) drug therapy; Z79.52 Long term (current) use of systemic steroids; Z79.891 Long term (current) use of opiate analgesic; Z79.01 Long term (current) use of anticoagulants
CPT/HCPCS: 96376 ×3; 96361 ×2; 96374; 99285; 36415; 94640 ×5; 93005; 83880; 80053; 84484; 85025; 85610 ×3; 71046; 71275; G0378 ×3; J2930 ×3; Q9967

== ENCOUNTER 2019-01-06 17:37 | Inpatient (IN) | payer MEDICARE ==
[2019-01-06] MEDS ORDERED: SODIUM CHLORIDE 0.9% 1,000 ML IV STA ×2 (17:46)
[2019-01-06] MEDS ORDERED: LORazepam 2 MG/ML INJ IV STA (17:46)
[2019-01-06] MEDS ORDERED: methylPREDNISolone SOD SUCCI 125 MG/2 ML VIAL IV STA (17:46)
[2019-01-06] MEDS ORDERED: ALBUTEROL NEBULIZED 2.5 MG/3 ML INHALATION STA (17:46)
[2019-01-06] MEDS ORDERED: IPRATROPIUM 0.5 MG/2.5 ML NEBU INHALATION STA (17:46)
[2019-01-06] MEDS ORDERED: AZITHROMYCIN 500 MG in SODIUM CHLORIDE 0.9% 250 ML IVPB STA (17:51)
[2019-01-06] MEDS ORDERED: IBUPROFEN 800 MG TAB PO STA (17:53)
[2019-01-06] MEDS ORDERED: ACETAMINOPHEN TAB 500 MG TAB PO STA (17:53)
--- NOTE | 2019-01-06 18:04 | XR ---
EXAMINATION TYPE: XR chest 1V portable DATE OF EXAM: 01/06/2019 COMPARISON: 11/30/2018 HISTORY: Short of breath TECHNIQUE: Single frontal view of the chest is obtained. FINDINGS: Heart size is normal. There is no heart failure. There is some patchy airspace consolidati on right lower lobe. There is a minimal infiltrate and atelectasis left lung base. Thoracic aorta thai ws mild atheromatous change. There are chest leads. IMPRESSION: There is new right lower lobe pneumonia compared to old exam. New mild atelectasis and m inimal infiltrate left lung base compared to old exam.
--- NOTE | 2019-01-06 18:09 | ED ---
SOB HPI - General Chief Complaint: Shortness of Breath Stated Complaint: Chest pain, KRISS Time Seen by Provider: 01/06/19 17:46 Source: patient, RN notes reviewed, old records reviewed Mode of arrival: ambulatory Limitations: no limitations - History of Present Illness Initial Comments: This is a 78-year-old male the ER for evaluation severe shortness of breath increased cough or congestion. No recent travel history severe chest pain. He does have history of severe COPD is on home O2 oxygenation has been decreasing. Patient denies significant swelling of lower extremities. He does feel febrile and diaphoretic. Denies any recent travel history sick contacts. Multiple recent hospitalizations. Patient resents by family to front door but is st eadily shortness of breath difficulty by history secondary to respiratory distress MD Complaint: shortness of breath, cough, pain with inspiration, anxiety -: hour(s) Severity: severe Severity scale (1-10): 9 Consistency: constant Improves With: nothing Worsens With: exertion Known History Of: COPD Context: recent URI, anxiety Associated Symptoms: denies other symptoms, chest pain, fever, cough, sputum production Treatments Prior to Arrival: oxygen, bronchodilator - Related Data Home Medications Medication Instructions Recorded Confirmed Aspirin 81 mg PO HS 11/24/18 01/06/19 Fluticasone/Salmeterol [Advair 1 puff PO RT-BID 11/24/18 01/06/19 500-50 Diskus] Folic Acid 1 mg PO DAILY 11/24/18 01/06/19 Levothyroxine Sodium [Synthroid] 50 mcg PO DAILY 11/24/18 01/06/19 Metoprolol Succinate (ER) [Toprol 25 mg PO DAILY 11/24/18 01/06/19 XL] Multivitamins, Thera [Multivitamin 1 tab PO DAILY 11/24/18 01/06/19 (formulary)] Simvastatin [Zocor] 40 mg PO HS 11/24/18 01/06/19 metFORMIN HCL [Glucophage] 500 mg PO HS 11/24/18 01/06/19 traMADol HCL [Ultram] 50 mg PO BID 11/24/18 01/06/19 Calcium Carbonate/Vitamin D3 1 tab PO DAILY 11/30/18 01/06/19 [Calcium 600-Vit D3 400 Tablet] Warfarin Sodium [Coumadin] 10 mg PO SUTUWETHSA 11/30/18 01/06/19 Warfarin [Coumadin] 5 mg PO MOFR 01/06/19 01/06/19 predniSONE 5 mg PO DAILY 01/06/19 01/06/19 Previous Rx's Medication Instructions Recorded Ipratropium-Albuterol Nebulize 3 ml INHALATION RT-QID ampul.neb 12/02/18 [Duoneb 0.5 mg-3 mg/3 ml Soln] Allergies Allergy/AdvReac Type Severity Reaction Status Date / Time No Known Allergies Allergy Verified 01/06/19 18:12 Review of Systems ROS Statement: Those systems with pertinent positive or pertinent negative responses have been documented in the HPI. ROS Other: All systems not noted in ROS Statement are negative. Past Medical History Past Medical History: COPD, CVA/TIA, Hyperlipidemia, Hypertension, Thyroid Disorder Additional Past Medical History / Comment(s): Wears oxygen @ 3 L per nc. Hyperhomocysteinemia. Chronic cough. History of Any Multi-Drug Resistant Organisms: MRSA Date of last positivie culture/infection: 02/09/18 MDRO Source:: LEG Past Surgical History: Tonsillectomy Additional Past Surgical History / Comment(s): Carotid Endarterectomy. Past Anesthesia/Blood Transfusion Reactions: No Reported Reaction Past Psychological History: No Psychological Hx Reported Smoking Status: Former smoker Past Alcohol Use History: Daily Past Drug Use History: None Reported - Past Family History Mother Family Medical History: No Reported History General Exam Limitations: no limitations General appearance: alert, anxious, in distress Head exam: Present: atraumatic, normocephalic, normal inspection Eye exam: Present: normal appearance, PERRL, EOMI. Absent: scleral icterus, conjunctival injection, periorbital swelling ENT exam: Present: normal exam, mucous membranes moist Neck exam: Present: normal inspection. Absent: tenderness, meningismus, lymphadenopathy Respiratory exam: Present: respiratory distress, wheezes, rhonchi, accessory muscle use, decreased breath sounds, prolonged expiratory. Absent: rales, stridor Cardiovascular Exam: Present: normal rhythm, tachycardia, normal heart sounds. Absent: systolic murmur, diastolic murmur, rubs, gallop, clicks GI/Abdominal exam: Present: soft, normal bowel sounds. Absent: distended, tenderness, guarding, rebound, rigid Extremities exam: Present: normal inspection, full ROM, normal capillary refill. Absent: tenderness, pedal edema, joint swelling, calf tenderness Back exam: Present: normal inspection Neurological exam: Present: alert, oriented X3, CN II-XII intact Psychiatric exam: Present: normal affect, normal mood Skin exam: Present: warm, intact, normal color, diaphoretic. Absent: rash Course Vital Signs 01/06/19 01/06/19 17:39 18:05 Temperature 99.7 F H Pulse Rate 121 H 112 H Respiratory 36 H Rate O2 Sat by Pulse 77 L Oximetry - Reevaluation(s) Reevaluation #1: 01/06/19 18:55 Medical records reviewed, Reevaluation #2: 01/06/19 18:55 Patient placed on BiPAP upon arrival in emergency room, after an hour and half he is feeling better will remain on BiPAP currently due to borderline low oxygen Reevaluation #3: 01/06/19 18:55 Work of breathing is significantly improved - Consultations Consultation #1: Spoke with Dr. Ragland of [facility] who admits for the COPD. We'll admit patient Medical Decision Making - Medical Decision Making 78 male the ER for evaluation of significant respiratory distress, patient of COPD and Pneumonia and respiratory failure, positive fever no signs of significant sepsis or septic shock. Patient will admit for respiratory failure on BiPAP with broad-spectrum antibiotics secondary to hospitalization 1 month ago - Lab Data Result diagrams: 01/06/19 18:01 01/06/19 18:01 Lab Results 01/06/19 01/06/19 01/06/19 Range/Units 18:01 18:01 18:01 WBC 14.6 H (3.8-10.6) k/uL RBC 5.20 (4.30-5.90) m/uL Hgb 15.8 (13.0-17.5) gm/dL Hct 47.3 (39.0-53.0) % MCV 91.0 D (80.0-100.0) fL MCH 30.3 (25.0-35.0) pg MCHC 33.3 (31.0-37.0) g/dL RDW 13.8 (11.5-15.5) % Plt Count 316 (150-450) k/uL Neutrophils % 85 % Lymphocytes % 7 % Monocytes % 3 % Eosinophils % 2 % Basophils % 2 % Neutrophils # 12.5 H (1.3-7.7) k/uL Lymphocytes # 1.1 (1.0-4.8) k/uL Monocytes # 0.5 (0-1.0) k/uL Eosinophils # 0.2 (0-0.7) k/uL Basophils # 0.2 (0-0.2) k/uL PT 17.7 H (9.0-12.0) sec INR 1.8 H (<1.2) APTT 29.0 (22.0-30.0) sec Sodium 140 (137-145) mmol/L Potassium 4.8 (3.5-5.1) mmol/L Chloride 100 (98-107) mmol/L Carbon Dioxide 28 (22-30) mmol/L Anion Gap 12 mmol/L BUN 24 H (9-20) mg/dL Creatinine 0.92 (0.66-1.25) mg/dL Est GFR (CKD-EPI)AfAm >90 (>60 ml/min/1.73 sqM) Est GFR (CKD-EPI)NonAf 79 (>60 ml/min/1.73 sqM) Glucose 118 H (74-99) mg/dL Calcium 10.1 (8.4-10.2) mg/dL Magnesium 1.8 (1.6-2.3) mg/dL Total Bilirubin 0.6 (0.2-1.3) mg/dL AST 36 (17-59) U/L ALT 43 (21-72) U/L Alkaline Phosphatase 85 (38-126) U/L Creatine Kinase 198 H (55-170) U/L Troponin I (0.000-0.034) ng/mL Total Protein 8.3 H (6.3-8.2) g/dL Albumin 4.8 (3.5-5.0) g/dL 01/06/19 Range/Units 18:01 WBC (3.8-10.6) k/uL RBC (4.30-5.90) m/uL Hgb (13.0-17.5) gm/dL Hct (39.0-53.0) % MCV (80.0-100.0) fL MCH (25.0-35.0) pg MCHC (31.0-37.0) g/dL RDW (11.5-15.5) % Plt Count (150-450) k/uL Neutrophils % % Lymphocytes % % Monocytes % % Eosinophils % % Basophils % % Neutrophils # (1.3-7.7) k/uL Lymphocytes # (1.0-4.8) k/uL Monocytes # (0-1.0) k/uL Eosinophils # (0-0.7) k/uL Basophils # (0-0.2) k/uL PT (9.0-12.0) sec INR (<1.2) APTT (22.0-30.0) sec Sodium (137-145) mmol/L Potassium (3.5-5.1) mmol/L Chloride (98-107) mmol/L Carbon Dioxide (22-30) mmol/L Anion Gap mmol/L BUN (9-20) mg/dL Creatinine (0.66-1.25) mg/dL Est GFR (CKD-EPI)AfAm (>60 ml/min/1.73 sqM) Est GFR (CKD-EPI)NonAf (>60 ml/min/1.73 sqM) Glucose (74-99) mg/dL Calcium (8.4-10.2) mg/dL Magnesium (1.6-2.3) mg/dL Total Bilirubin (0.2-1.3) mg/dL AST (17-59) U/L ALT (21-72) U/L Alkaline Phosphatase (38-126) U/L Creatine Kinase (55-170) U/L Troponin I <0.012 (0.000-0.034) ng/mL Total Protein (6.3-8.2) g/dL Albumin (3.5-5.0) g/dL - EKG Data -: EKG Interpreted by Me (EKG shows sinus tachycardia rate of 113, ME 180, QRS 94, QTC 440) - Radiology Data Radiology results: report reviewed (Chest x-rays positive for right lower lobe pneumonia), image reviewed Critical Care Time Critical Care Time: Yes Total Critical Care Time: 31 Disposition Clinical Impression: COPD exacerbation, Acute respiratory failure, Nosocomial pneumonia Disposition: ADMITTED IP TO THIS [facility] Condition: Serious Is patient prescribed a controlled substance at d/c from ED?: No Referrals: Mariza Hou MD [Primary Care Provider] - 1-2 days
[2019-01-06 18:15] LABS: Basophils # (A) 0.2 k/uL (0-0.2); Basophils % (A) 2 %; Eosinophils # (A) 0.2 k/uL (0-0.7); Eosinophils % (A) 2 %; HCT 47.3 % (39.0-53.0); HGB 15.8 gm/dL (13.0-17.5); Lymphocytes # (A) 1.1 k/uL (1.0-4.8); Lymphocytes % (A) 7 %; MCH 30.3 pg (25.0-35.0); MCHC 33.3 g/dL (31.0-37.0); Mean Platelet Volume 6.7; Monocytes # (A) 0.5 k/uL (0-1.0); Monocytes % (A) 3 %; Neutrophils # (A) 12.5 k/uL (1.3-7.7); Neutrophils % (A) 85 %; Platelet Count 316 k/uL (150-450); RDW 13.8 % (11.5-15.5); WBC 14.6 k/uL (3.8-10.6)
[2019-01-06 18:21] LABS: ALT 43 U/L (21-72); AST 36 U/L (17-59); African American GFR (CKD) >90 (>60 ml/min/1.73 sqM); Albumin 4.8 g/dL (3.5-5.0); Alkaline Phosphatase 85 U/L (38-126); Anion Gap 12 mmol/L; Blood Urea Nitrogen 24 mg/dL (9-20); Calcium 10.1 mg/dL (8.4-10.2); Carbon Dioxide 28 mmol/L (22-30); Chloride 100 mmol/L (98-107); Creatine Kinase 198 U/L (55-170); Glucose 118 mg/dL (74-99); Magnesium 1.8 mg/dL (1.6-2.3); Potassium 4.8 mmol/L (3.5-5.1); Sodium 140 mmol/L (137-145); Total Bilirubin 0.6 mg/dL (0.2-1.3); Total Protein 8.3 g/dL (6.3-8.2)
[2019-01-06 18:27] LABS: INR 1.8 (<1.2); Prothrombin Time 17.7 sec (9.0-12.0)
[2019-01-06] MEDS ORDERED: LEVOFLOXACIN 750MG-D5W PMX 750 MG in DEXTROSE/WATER 1 150ML.BAG IVPB STA (18:51)
[2019-01-06] MEDS ORDERED: IPRATROPIUM-ALBUTEROL 3 ML NEB INHALATION STA (18:51)
[2019-01-06] MEDS ORDERED: PNEUMONIA PROTOCOL UTILIZED 1 EACH MISC PO PRN (18:51)
[2019-01-06] MEDS ORDERED: ALBUTEROL NEBULIZED 2.5 MG/3 ML INHALATION PRN (18:51)
[2019-01-06] MEDS ORDERED: PIPERACILLIN-TAZOBACTAM 3.375 GM in SODIUM CHLORIDE 0.9% 100 ML IVPB STA (18:51)
[2019-01-06] MEDS: SODIUM CHLORIDE 0.9% 1,000 ML IV SCH (21:05)
[2019-01-06] MEDS: IPRATROPIUM-ALBUTEROL 3 ML NEB INHALATION SCH (21:37)
[2019-01-06 21:48] VITALS: BMI 33.2
[2019-01-07] MEDS ORDERED: VANCOMYCIN IV PER PHARMACY 1 EACH MISC MISCELLANE PRN (01:26)
[2019-01-07] MEDS ORDERED: VANCOMYCIN 1,750 MG in SODIUM CHLORIDE 0.9% 500 ML 500 ML IVPB SCH ×2 (01:45→12:00)
--- NOTE | 2019-01-07 01:47 | P.HPIM ---
History of Present Illness H&P Date: 01/06/19 Chief Complaint: shortness of breath 78-year-old male with history of COPD and chronic hypoxic respiratory failure on 3 L oxygen throughnasal cannula Patient was having some shortness of breath and currently on BiPAP he was feeling more comfortable well breathing through the BiPAP however that limited his ability to provide meaningful history at this time his provided most of the history at his bedside patient confirmed the information provided by the . 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 Eventually last month he had a bronchoscopy done which identified a bacterial infection for which he received antibiotics. Since then he's been doing fine until today. While driving around the area patient suddenlyhad chills and fevers start sweating and then had some trouble breathing, noticed labored breathing with increased rates of respiration patient looked very sick and febrile he started complaining of sudden onset right-sided pleuritic chest pain with deep breaths rated the pain as 8 out of 10 in severity. Patient concerned and decided to come to the hospital for evaluation. Patient denies any recent traveling or sick contacts no exposure to any allergens for the patient. Denies any trauma to the chest currently denies any chest pain. Denies any hemoptysis or bleeding. Denies any leg swelling or pain. 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 Patient claims to be compliant with his medications he is on a chronic dose of low-dose steroid and he is on home oxygen was has been increased recently he's been using 3 L 24 7, denies any history of cancer or weight loss denies any sick contacts or bleeding denies any hemoptysis. Patient also has history of diabetes hypertension and hypothyroid. In the ED chest x-ray revealed right middle lobe pneumonia and infiltrates, he had an elevated white count fevers and tachycardia patient admitted for treatment of healthcare associated pneumonia. An COPD exacerbation Review of Systems Pertinent positives as noted in HPI. All other systems were reviewed and are negative Past Medical History Past Medical History: COPD, CVA/TIA, Hyperlipidemia, Hypertension, Thyroid Disorder Additional Past Medical History / Comment(s): Wears oxygen @ 3 L per nc. Hyperhomocysteinemia. Chronic cough. History of Any Multi-Drug Resistant Organisms: MRSA Date of last positivie culture/infection: 02/09/18 MDRO Source:: LEG Past Surgical History: Tonsillectomy Additional Past Surgical History / Comment(s): Carotid Endarterectomy. Past Anesthesia/Blood Transfusion Reactions: No Reported Reaction Past Psychological History: No Psychological Hx Reported Smoking Status: Former smoker Past Alcohol Use History: Daily Past Drug Use History: None Reported - Past Family History Mother Family Medical History: No Reported History Medications and Allergies Home Medications Medication Instructions Recorded Confirmed Type Aspirin 81 mg PO HS 11/24/18 01/06/19 History Fluticasone/Salmeterol [Advair 1 puff PO RT-BID 11/24/18 01/06/19 History 500-50 Diskus] Folic Acid 1 mg PO DAILY 11/24/18 01/06/19 History Levothyroxine Sodium [Synthroid] 50 mcg PO DAILY 11/24/18 01/06/19 History Metoprolol Succinate (ER) [Toprol 25 mg PO DAILY 11/24/18 01/06/19 History XL] Multivitamins, Thera [Multivitamin 1 tab PO DAILY 11/24/18 01/06/19 History (formulary)] Simvastatin [Zocor] 40 mg PO HS 11/24/18 01/06/19 History metFORMIN HCL [Glucophage] 500 mg PO HS 11/24/18 01/06/19 History traMADol HCL [Ultram] 50 mg PO BID 11/24/18 01/06/19 History Calcium Carbonate/Vitamin D3 1 tab PO DAILY 11/30/18 01/06/19 History [Calcium 600-Vit D3 400 Tablet] Warfarin Sodium [Coumadin] 10 mg PO SUTUWETHSA 11/30/18 01/06/19 History Ipratropium-Albuterol Nebulize 3 ml INHALATION RT-QID ampul.neb 12/02/18 01/06/19 Rx [Duoneb 0.5 mg-3 mg/3 ml Soln] Warfarin [Coumadin] 5 mg PO MOFR 01/06/19 01/06/19 History predniSONE 5 mg PO DAILY 01/06/19 01/06/19 History Allergies Allergy/AdvReac Type Severity Reaction Status Date / Time No Known Allergies Allergy Verified 01/06/19 18:12 Physical Exam Vitals: Vital Signs Temp Pulse Pulse Resp BP BP Pulse Ox 01/07/19 00:00 85 18 122/78 95 01/06/19 20:00 105 H 20 111/60 95 01/06/19 19:52 98.8 F 95 18 117/72 94 L 01/06/19 19:30 111 H 24 158/94 98 01/06/19 19:25 114 H 01/06/19 19:14 118 H 01/06/19 19:03 118 H 01/06/19 18:45 117 H 01/06/19 18:20 117 H 01/06/19 18:05 112 H 01/06/19 17:39 99.7 F H 121 H 36 H 77 L Intake and Output 01/06/19 01/06/19 01/07/19 14:59 22:59 06:59 Other: Weight 111.13 kg Constitutional: No acute distress, currently breathing comfortably through BiPAP wasn't able to provide much of the history due to shortness of breath Eyes: Anicteric sclerae, moist conjunctiva, no lid-lag Pupils equal round reactive to light ENMT: NC/AT Oropharynx clear, no erythema, exudates Neck: Supple, FROM, no masses, or JVD No carotid bruits No thyromegaly Lungs: prolonged expiratory phase with expiratory wheezes Clear to percussion using accessory muscles of respiration Cardiovascular: Heart rtachycardia, No murmurs, gallops, or rubs No peripheral edema Abdominal: Soft Nontender, no guarding, rebound or rigidity Abdomen moving with respiration Normoactive bowel sounds No hepatomegaly, No splenomegaly No palpable mass No abdominal wall hernia noted Skin: Normal temperature, tone, texture, turgor No induration No subcutaneous nodules No rash, lesions No ulcers Extremities: No digital cyanosis No clubbing Pedal pulses intact and symmetrical Radial pulses intact and symmetrical No calf tenderness Psychiatric: Alert and oriented to person, place and time Appropriate affect fair judgment Neuro Muscles Strength 5/5 in all 4 extremities Sensation to light touch grossly present throughout Cranial nerves II-XII grossly intact No focal sensory deficits Lymphatics: no palpable cervical or supraclavicular , or inguinal lymph nodes Results CBC & Chem 7: 01/06/19 18:01 01/06/19 18:01 Labs: Abnormal Lab Results - Last 24 Hours (Table) 01/06/19 01/06/19 01/06/19 Range/Units 18:01 18:01 18:01 WBC 14.6 H (3.8-10.6) k/uL Neutrophils # 12.5 H (1.3-7.7) k/uL PT 17.7 H (9.0-12.0) sec INR 1.8 H (<1.2) BUN 24 H (9-20) mg/dL Glucose 118 H (74-99) mg/dL Creatine Kinase 198 H (55-170) U/L Total Protein 8.3 H (6.3-8.2) g/dL Thrombosis Risk Factor Assmnt - Choose All That Apply Any of the Below Risk Factors Present?: Yes Each Factor Represents 1 point: Abnormal pulmonary function (COPD), Medical pt on bed rest, Obesity (BMI >25) Other Risk Factors: Yes Each Risk Factor Represents 3 Points: Age 75 years or older Thrombosis Risk Factor Assessment Total Risk Factor Score: 6 Thrombosis Risk Factor Assessment Level: High Risk Assessment and Plan Assessment: 78-year-old male with history of COPD on home oxygen 3 L, hyper-homocystinemia with history of venous thromboembolic's and on Coumadin. Admitted as an inpatient with anticipated length of stay more than 2 midnights due to acute healthcare associated pneumonia recurrent with hypoxemia and difficulty breathing. Plan: acute on chronic hypoxic respiratory failure, patient on home oxygen 3 L nasal cannula Sepsis lobarPneumonia healthcare associated History of venous thromboembolic some with history of hyper-homocystinemia, on Coumadin Hypothyroid Diabetes mellitus Hypertension Thoracic aortic aneurysm 4.1 cm Plan Supportive care supplemental oxygen and BiPAP as needed Follow-up blood cultures Antibiotics with vancomycin and Zosyn IV fluid hydration continue Coumadin dosing by pharmacy for history of venous thromboembolism multiple Resume home medications Breathing treatments around the clock Patient on chronic prednisone will increase that to 40 mg daily Pulmonary consult Insulin sliding scale for history of diabetes Continue statin and aspirin Preformed a thorough record review from recent hospitalization history of chronic cough worsening since April 2018 patient had bronchoscopy done 1 month ago and was given antibiotics for bacterial infection at that time Surrogate decision-maker: patient CODE STATUS:no code Discussed with: Patient, ER, RN Anticipated length of stay more than [address]: home A total of 65minutes was spent on the care of this complex patient more than 50% of the time was spent in counseling and care coordination.
--- NOTE | 2019-01-07 01:50 | P.HPADDEND ---
H&P Addendum H&P Addendum Date: 01/06/19 Advanced Care Planning Active diagnoses: acute on chronic hypoxic respiratory failure secondary to healthcare associated pneumonia resulting in COPD exacerbation Background: The patient was admitted for treatment of acute respiratory distress secondary to pneumonia and COPD exacerbation. Confirmation and clarification of wishes upon admission. Discussion: Person(s) present and participating in discussion: The patient, myself, and Summary: patient has been dealing with recurrent episodes of COPD exacerbations and pneumonia with increased requirement of home oxygen. Since April 2018 with chronic lingering cough productive of clear sputum. He's been on a chronic low dose of steroid. He's been hoping for some improvement in his symptoms however his pulmonary status has been slowly deteriorating. He had a bronchoscopy done last month which identified an infectious process for which she received antibiotics seems like every time he finishes a course of antibiotics he will get worse. Patient also has history of thoracic aortic aneurysm for which he's been following up with cardiology however he decided that he doesn't want to follow-up anymore as he doesn't want any procedures to be done most recent test showed a diameter of 4.1 cm. Patient would like to improve and return back to his baseline where he can function and stay away from hospitals and antibiotics. However he is getting frustrated as he doesn't seem to get better and no more and he's been slowly deteriorating from a pulmonary status. Patient when asked about wishes chose a no CODE STATUS he is not interested in pursuing CPR resuscitation if he sustained a cardiopulmonary arrest. He is willing to continue to try the BiPAP to help get some improvement however if his pulmonary status worsens and he would require intubation then he would rather let go peacefully and declined the option for intubation and ventilatory support even if needed. confirmed patient wishes and being a DO NOT RESUSCITATE and DO NOT INTUBATE status. Time spent: Total time spent face to face in education and discussion directly related to advanced care plannin minutes
[2019-01-07] MEDS: INSULIN ASPART (NovoLOG) 100 UNIT/ML VIAL SQ SCH ×5 (03:07→20:17)
[2019-01-07] MEDS: PIPERACILLIN-TAZOBACTAM 3.375 GM in SODIUM CHLORIDE 0.9% 100 ML IVPB SCH ×3 (05:38→21:52)
[2019-01-07] MEDS: SODIUM CHLORIDE 0.9% 1,000 ML IV SCH ×2 (05:39→12:40)
[2019-01-07] MEDS: LEVOTHYROXINE 50 MCG TAB PO SCH (05:40)
[2019-01-07 05:58] LABS: Glucose,Whole Blood 202 mg/dL (75-99)
[2019-01-07 06:52] LABS: INR 2.2 (<1.2); Prothrombin Time 21.3 sec (9.0-12.0)
[2019-01-07 06:53] LABS: Albumin 3.3 g/dL (3.5-5.0); Potassium 4.6 mmol/L (3.5-5.1); Total Bilirubin 0.3 mg/dL (0.2-1.3)
[2019-01-07 06:59] LABS: HCT 38.3 % (39.0-53.0); MCH 30.8 pg (25.0-35.0); MCHC 33.1 g/dL (31.0-37.0); MCV 93.1 fL (80.0-100.0); Platelet Count 266 k/uL (150-450); RBC 4.11 m/uL (4.30-5.90); WBC 18.4 k/uL (3.8-10.6)
[2019-01-07 07:00] LABS: Basophils % (A) 0 %; Eosinophils % (A) 0 %; Lymphocytes # (A) 0.7 k/uL (1.0-4.8); Lymphocytes % (A) 4 %; Mean Platelet Volume 6.8; Monocytes # (A) 0.6 k/uL (0-1.0); Monocytes % (A) 3 %; Neutrophils # (A) 16.9 k/uL (1.3-7.7); Neutrophils % (A) 92 %
[2019-01-07 07:04] LABS: HGB 12.7 gm/dL (13.0-17.5)
[2019-01-07] MEDS: METOPROLOL SUCCINATE (ER) 25 MG TAB.ER.24H PO SCH (07:54)
[2019-01-07] MEDS: IPRATROPIUM-ALBUTEROL 3 ML NEB INHALATION SCH ×4 (07:55→20:32)
[2019-01-07] MEDS: predniSONE 20 MG TAB PO SCH (07:55)
[2019-01-07] MEDS ORDERED: SYMBICORT 160-4.5 MCG INHALER INHALATION SCH (08:00)
[2019-01-07] MEDS ORDERED: ENOXAPARIN 40 MG/0.4 ML SYRINGE SQ SCH (09:00)
[2019-01-07 12:03] LABS: Glucose,Whole Blood 147 mg/dL (75-99)
--- NOTE | 2019-01-07 14:04 | P.CNPUL ---
History of Present Illness Consult date: 01/07/19 Requesting physician: Tej Nolasco Reason for consult: dyspnea (and cough), cough, COPD, pneumonia, abnormal CXR/CT Chief complaint: Shortness of breath, chills, History of present illness: This is a 78-year-old white male patient with past medical history of advanced COPD oxygen dependent, patient has a baseline FEV1 of 39% of predicted, previous history of MRSA and pseudomonal pulmonary infections, pulmonary embolism on chronic Coumadin related to history of hyperhomocysteinemia, and left mid lung lesion that is being followed in outpatient basis by Dr. Adamson. Patient has a recent admission in November 2018 for shortness of breath related to acute exacerbation of COPD with purulent tracheobronchitis requiring bronchoscopy and BAL with bronchial wash cultures positive for pseudomonas group B streptococcus. Patient was treated with antibiotics and discharged home on Cefdinir, he fol lowed up with Dr. Adamson in the office, and he was clinically improving. Yesterday he was out doing errands, and was feeling good until later in the afternoon he was back in his house, he started having chills, increased shortness of breath, his took his temperature and noted a low-grade fever, in addition patient was coughing and having some right chest discomfort with coughing. Patient normally wears 3 L of oxygen at home, he felt increasingly more short of breath, requiring his oxygen flow increased to 5 L. Patient decided to go to the hospital, and by the time he got to the hospital he was in respiratory distress requiring BiPAP support. His O2 sat was noted to be only 77% on 4 L on arrival, patient was tachycardic, had a low-grade fever of 99.7F. Chest x-ray showed new right lower lobe pneumonia and atelectasis and minimal infiltration at the left lung base. His labs revealed white blood cell count of 14.6, hemoglobin of 15.8, INR of 1.8, electrolytes are within normal limits, BUN of 24 creatinine 0.92. Troponin was negative, proBNP was 113. Patient was started on a combination of Zosyn and Levaquin, steroids, and nebulized bronchodilators. On today's exam patient states his breathing is much improved, he is off the BiPAP, he is tolerating nasal cannula at 3 L and his pulse ox is 92%. Review of Systems All systems: negative Constitutional: Reports chills, Reports malaise, Denies fever Eyes: denies blurred vision, denies pain Ears, nose, mouth and throat: Denies headache, Denies sore throat Cardiovascular: Denies chest pain, Denies shortness of breath Respiratory: Reports cough with sputum, Reports dyspnea, Reports home oxygen, Reports pain on inspiration, Reports respiratory infections, Reports wheezing, Denies cough Gastrointestinal: Denies abdominal pain, Denies diarrhea, Denies nausea, Denies vomiting Musculoskeletal: Denies myalgias Integumentary: Denies pruritus, Denies rash Neurological: Denies numbness, Denies weakness Psychiatric: Denies anxiety, Denies depression Endocrine: Denies fatigue, Denies weight change Past Medical History Past Medical History: COPD, CVA/TIA, Hyperlipidemia, Hypertension, Thyroid Disorder Additional Past Medical History / Comment(s): Wears oxygen @ 3 L per nc. Hyperhomocysteinemia. Chronic cough. History of Any Multi-Drug Resistant Organisms: MRSA Date of last positivie culture/infection: 02/09/18 MDRO Source:: LEG Past Surgical History: Tonsillectomy Additional Past Surgical History / Comment(s): Carotid Endarterectomy. Past Anesthesia/Blood Transfusion Reactions: No Reported Reaction Past Psychological History: No Psychological Hx Reported Smoking Status: Former smoker Past Alcohol Use History: Daily Past Drug Use History: None Reported - Past Family History Mother Family Medical History: No Reported History Medications and Allergies Home Medications Medication Instructions Recorded Confirmed Type Aspirin 81 mg PO HS 11/24/18 01/06/19 History Fluticasone/Salmeterol [Advair 1 puff PO RT-BID 11/24/18 01/06/19 History 500-50 Diskus] Folic Acid 1 mg PO DAILY 11/24/18 01/06/19 History Levothyroxine Sodium [Synthroid] 50 mcg PO DAILY 11/24/18 01/06/19 History Metoprolol Succinate (ER) [Toprol 25 mg PO DAILY 11/24/18 01/06/19 History XL] Multivitamins, Thera [Multivitamin 1 tab PO DAILY 11/24/18 01/06/19 History (formulary)] Simvastatin [Zocor] 40 mg PO HS 11/24/18 01/06/19 History metFORMIN HCL [Glucophage] 500 mg PO HS 11/24/18 01/06/19 History traMADol HCL [Ultram] 50 mg PO BID 11/24/18 01/06/19 History Calcium Carbonate/Vitamin D3 1 tab PO DAILY 11/30/18 01/06/19 History [Calcium 600-Vit D3 400 Tablet] Warfarin Sodium [Coumadin] 10 mg PO SUTUWETHSA 11/30/18 01/06/19 History Ipratropium-Albuterol Nebulize 3 ml INHALATION RT-QID ampul.neb 12/02/18 01/06/19 Rx [Duoneb 0.5 mg-3 mg/3 ml Soln] Warfarin [Coumadin] 5 mg PO MOFR 01/06/19 01/06/19 History predniSONE 5 mg PO DAILY 01/06/19 01/06/19 History Allergies Allergy/AdvReac Type Severity Reaction Status Date / Time No Known Allergies Allergy Verified 01/06/19 18:12 Physical Exam Vitals: Vital Signs Temp Pulse Pulse Resp BP BP Pulse Ox 01/07/19 12:40 84 01/07/19 12:26 84 01/07/19 11:38 98.0 F 81 20 134/76 92 L 01/07/19 11:31 85 22 01/07/19 08:09 88 01/07/19 08:00 98.0 F 85 22 127/77 95 01/07/19 07:56 84 01/07/19 03:13 98.2 F 82 18 128/72 96 01/07/19 00:00 85 18 122/78 95 01/06/19 20:00 105 H 20 111/60 95 01/06/19 19:52 98.8 F 95 18 117/72 94 L 01/06/19 19:30 111 H 24 158/94 98 01/06/19 19:25 114 H 01/06/19 19:14 118 H 01/06/19 19:03 118 H 01/06/19 18:45 117 H 01/06/19 18:20 117 H 01/06/19 18:05 112 H 01/06/19 17:39 99.7 F H 121 H 36 H 77 L Intake and Output 01/06/19 01/07/19 01/07/19 22:59 06:59 14:59 Intake Total 2280 Output Total 300 450 Balance -300 1830 Intake: Intake, IV Titration 1800 Amount Piperacillin-Tazobactam 3 100 .375 gm In Sodium Chloride 0.9% 100 ml @ 200 mls/hr IVPB ONCE STA Rx#:[id number] Sodium Chloride 0.9% 1, 1200 000 ml @ 100 mls/hr IV . Q10H STA Rx#:[id number] Vancomycin 1,750 mg In 500 Sodium Chloride 0.9% 500 ml 500 ml @ 167 mls/hr IVPB Q12H ROBBIE Rx#: [id number] Oral 480 Output: Urine 300 450 Other: Voiding Method Toilet # Voids 1 1 # Bowel Movements 1 Weight 111.13 kg 114.5 kg GENERAL EXAM: Alert, pleasant, 78-year-old white male, osteoarthritis of oxygen with a pulse ox of 92% comfortable in no apparent distress. HEAD: Normocephalic/atraumatic. EYES: Normal reaction of pupils, equal size. Conjunctiva pink, sclera white. NOSE: Clear with pink turbinates. THROAT: No erythema or exudates. NECK: No masses, no JVD, no thyroid enlargement, no adenopathy. CHEST: No chest wall deformity. Symmetrical expansion. LUNGS: Equal air entry with diminished air entry, expiratory wheezes, and diffuse rhonchi and rales CVS: Regular rate and rhythm, normal S1 and S2, no gallops, no murmurs, no rubs ABDOMEN: Soft, nontender. No hepatosplenomegaly, normal bowel sounds, no guarding or rigidity. EXTREMITIES: No clubbing, no edema, no cyanosis, 2+ pulses and upper and lower extremities. Chronic venous stasis changes noted to bilateral lower extremities MUSCULOSKELETAL: Muscle strength and tone normal. SPINE: No scoliosis or deformity SKIN: No rashes CENTRAL NERVOUS SYSTEM: Alert and oriented -3. No focal deficits, tone is normal in all 4 extremities. PSYCHIATRIC: Alert and oriented -3. Appropriate affect. Intact judgment and insight. Results - Laboratory Findings CBC and BMP: 01/07/19 06:14 01/07/19 06:14 PT/INR, D-dimer PT 21.3 sec (9.0-12.0) H 01/07/19 06:14 INR 2.2 (<1.2) H 01/07/19 06:14 Abnormal lab findings: Abnormal Labs 01/06/19 01/06/19 01/06/19 18:01 18:01 18:01 WBC 14.6 H RBC Hgb Hct Neutrophils # 12.5 H Lymphocytes # PT 17.7 H INR 1.8 H BUN 24 H Glucose 118 H POC Glucose (mg/dL) Creatine Kinase 198 H Total Protein 8.3 H Albumin 01/07/19 01/07/19 01/07/19 05:56 06:14 06:14 WBC 18.4 H RBC 4.11 L Hgb 12.7 L D Hct 38.3 L Neutrophils # 16.9 H Lymphocytes # 0.7 L PT INR BUN 23 H Glucose 211 H POC Glucose (mg/dL) 202 H Creatine Kinase Total Protein 6.0 L Albumin 3.3 L 01/07/19 01/07/19 06:14 11:57 WBC RBC Hgb Hct Neutrophils # Lymphocytes # PT 21.3 H INR 2.2 H BUN Glucose POC Glucose (mg/dL) 147 H Creatine Kinase Total Protein Albumin - Diagnostic Findings Chest x-ray: report reviewed, image reviewed Additional studies: EKG reviewed Assessment and Plan Plan: Assessment: #1. Acute pneumonia, possibly healthcare acquired, involving the right lower lobe and possibly left lung base #2. Recent admission for COPD and tracheobronchitis, patient had a broad with bronchoalveolar lavage with cultures positive for pseudomonas and group B strep #3. Advanced stage III COPD, with a baseline FEV1 of 39% of predicted with home oxygen #4. Chronic hypoxemic respiratory failure #5. 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 Hypothyroidism #8. Hypertension #9. Hyperlipidemia #10. Previous history of methicillin-resistant Staphylococcus aureus infection Plan: Patient is feeling better today, he is tolerating nasal cannula, off the BiPAP support, sputum culture has been sent and is pending at this time, continue Levaquin and Zosyn, continue steroids, nebulized bronchodilators, was switched to Symbicort to Pulmicort and Perforomist. Today's follow-up chest x-ray shows some improvement in the appearance of right lower lobe infiltrate. Influenza screen has been negative. Will await the results of the cultures, we'll c ontinue with medical treatment. Will follow I performed a history & physical examination of the patient and discussed their management with my nurse practitioner, Keren To. I reviewed the nurse practitioner's note and agree with the documented findings and plan of care. Lung sounds are positive for end expiratory wheezes, rhonchi and rales. The findings and the impression was discussed with the patient. I attest to the documentation by the nurse practitioner. Time with Patient: Greater than 30
[2019-01-07 14:40] LABS: Appearance,Urine Clear (Clear); Bilirubin,Urine Negative (Negative); Blood,Urine Trace (Negative); Color,Urine Light Yellow; Glucose,Urine (UA) 2+ (Negative); Ketones,Urine Negative (Negative); Leukocyte Esterase,Urine Negative (Negative); Mucus,Urine Rare /hpf; Nitrite,Urine Negative (Negative); PH, Urine 5.5 (5.0-8.0); Protein,Urine Negative (Negative); RBC,Urine 3 /hpf (0-5); Specific Gravity,Urine 1.016 (1.001-1.035); Urobilinogen,Urine <2.0 mg/dL (<2.0)
--- NOTE | 2019-01-07 16:27 | XR ---
EXAMINATION TYPE: XR chest 2V DATE OF EXAM: 01/07/2019 COMPARISON: Prior chest x-ray dated 01/06/2019 HISTORY: Pneumonia TECHNIQUE: Frontal and lateral views of the chest are obtained. FINDINGS: Some improvement in aeration at the lung bases is suspected allowing for differences in te chnique, patient is rotated, there is spinal curvature. No evident pneumothorax. Aorta is dense. Hear t size is stable. There are overlying cardiac leads. IMPRESSION: There is some improvement in aeration. Additional follow-up is recommended.
[2019-01-07 17:04] LABS: Glucose,Whole Blood 144 mg/dL (75-99)
--- NOTE | 2019-01-07 17:13 | P.PN ---
Subjective Progress Note Date: 01/07/19 Patient seen and examined follow-up, the patient seems to be breathing much better reports that he is back down to his baseline of 3 L via nasal cannula, the white count was up from 14.6-18.4, chest x-ray showed right middle lobe pneumonia. No acute events overnight, the patient continues to be afebrile Objective - Vital Signs Vital signs: Vital Signs Temp 98.2 F 01/07/19 15:56 Pulse 92 01/07/19 16:46 Resp 20 01/07/19 15:56 BP 130/69 01/07/19 15:56 Pulse Ox 95 01/07/19 15:56 Intake & Output 01/06/19 01/07/19 01/07/19 18:59 06:59 18:59 Intake Total 2280 Output Total 300 450 Balance -300 1830 Weight 111.13 kg 114.5 kg Intake: Intake, IV Titration 1800 Amount Piperacillin-Tazobactam 3 100 .375 gm In Sodium Chloride 0.9% 100 ml @ 200 mls/hr IVPB ONCE STA Rx#:[id number] Sodium Chloride 0.9% 1, 1200 000 ml @ 100 mls/hr IV . Q10H STA Rx#:[id number] Vancomycin 1,750 mg In 500 Sodium Chloride 0.9% 500 ml 500 ml @ 167 mls/hr IVPB Q12H ROBBIE Rx#: [id number] Oral 480 Output: Urine 300 450 Other: Voiding Method Toilet # Voids 1 1 # Bowel Movements 1 - Exam Constitutional: No acute distress, conversant, pleasant Eyes: Anicteric sclerae, moist conjunctiva, no lid-lag, PERRLA ENMT: NC/AT,Oropharynx clear, no erythema, exudates Neck:Supple, FROM, no masses, or JVD, No carotid bruits; No thyromegaly Lungs: Mild expiratory wheezes with diffuse rhonchi and diminished in the bases on 3 L via nasal cannula with pulse ox of 92% Cardiovascular: Heart regular in rate and rhythm, No murmurs, gallops, or rubs no peripheral edema Abdominal: Soft Nontender, nom distended, no guarding, no rebound or rigidity, Normoactive bowel sounds No hepatomegaly, No splenomegaly, No palpable mass No abdominal wall hernia noted Skin: Normal temperature, tone, texture, turgor, No induration No subcutaneous n odules, No rash, lesions, No ulcers Extremities:No digital cyanosis No clubbing, Pedal pulses intact and symmetrical Radial pulses intact and symmetrical Normal gait and station, No calf tenderness Psychiatric: Alert and oriented to person, place and time, Appropriate affect Intact judgement Neuro: Muscles Strength 5/5 in all 4 extremities, Sensation to light touch grossly present throughout, Cranial nerves II-XII grossly intact. No focal sensory deficits - Labs CBC & Chem 7: 01/07/19 06:14 01/07/19 06:14 Labs: Abnormal Lab Results - Last 24 Hours (Table) 01/06/19 01/06/19 01/06/19 Range/Units 18:01 18:01 18:01 WBC 14.6 H (3.8-10.6) k/uL RBC (4.30-5.90) m/uL Hgb (13.0-17.5) gm/dL Hct (39.0-53.0) % Neutrophils # 12.5 H (1.3-7.7) k/uL Lymphocytes # (1.0-4.8) k/uL PT 17.7 H (9.0-12.0) sec INR 1.8 H (<1.2) BUN 24 H (9-20) mg/dL Glucose 118 H (74-99) mg/dL POC Glucose (mg/dL) (75-99) mg/dL Creatine Kinase 198 H (55-170) U/L Total Protein 8.3 H (6.3-8.2) g/dL Albumin (3.5-5.0) g/dL Urine Glucose (UA) (Negative) Urine Blood (Negative) Urine Mucus (None) /hpf 01/07/19 01/07/19 01/07/19 Range/Units 05:56 06:14 06:14 WBC 18.4 H (3.8-10.6) k/uL RBC 4.11 L (4.30-5.90) m/uL Hgb 12.7 L D (13.0-17.5) gm/dL Hct 38.3 L (39.0-53.0) % Neutrophils # 16.9 H (1.3-7.7) k/uL Lymphocytes # 0.7 L (1.0-4.8) k/uL PT (9.0-12.0) sec INR (<1.2) BUN 23 H (9-20) mg/dL Glucose 211 H (74-99) mg/dL POC Glucose (mg/dL) 202 H (75-99) mg/dL Creatine Kinase (55-170) U/L Total Protein 6.0 L (6.3-8.2) g/dL Albumin 3.3 L (3.5-5.0) g/dL Urine Glucose (UA) (Negative) Urine Blood (Negative) Urine Mucus (None) /hpf 01/07/19 01/07/19 01/07/19 Range/Units 06:14 11:57 14:05 WBC (3.8-10.6) k/uL RBC (4.30-5.90) m/uL Hgb (13.0-17.5) gm/dL Hct (39.0-53.0) % Neutrophils # (1.3-7.7) k/uL Lymphocytes # (1.0-4.8) k/uL PT 21.3 H (9.0-12.0) sec INR 2.2 H (<1.2) BUN (9-20) mg/dL Glucose (74-99) mg/dL POC Glucose (mg/dL) 147 H (75-99) mg/dL Creatine Kinase (55-170) U/L Total Protein (6.3-8.2) g/dL Albumin (3.5-5.0) g/dL Urine Glucose (UA) 2+ H (Negative) Urine Blood Trace H (Negative) Urine Mucus Rare H (None) /hpf Microbiology - Last 24 Hours (Table) 01/07/19 11:01 Sputum Culture - Preliminary Sputum Assessment and Plan (1) Sepsis Narrative/Plan: * Likely secondary to pneumonia possibly healthcare associated * Patient afebrile leukocytosis worsening to 18.2 possibly related to steroids patient afebrile * Continue on empiric IV antibiotic treatment with Zosyn and Levaquin and vancomycin * Appreciate ID recommendations patient to have CT of his chest without contrast * Blood cultures sputum culture is pending Current Visit: Yes Status: Acute Code(s): A41.9 - SEPSIS, UNSPECIFIED ORGANISM SNOMED Code(s): 45062986 (2) Pneumonia Narrative/Plan: * Antibiotic regimen above * We'll follow-up CT chest results Current Visit: Yes Status: Acute Code(s): J18.9 - PNEUMONIA, UNSPECIFIED ORGANISM SNOMED Code(s): 436341418 (3) Chronic respiratory failure Narrative/Plan: * Presented with dyspnea of multifactorial etiology secondary to pneumonia superimposed on a COPD exacerbation now back to baseline O2 requirements * Continue supplemental oxygen at 3 L by nasal cannula, continue breathing treatments, we'll add Mucinex Current Visit: Yes Status: Chronic Code(s): J96.10 - CHRONIC RESPIRATORY FAILURE, UNSP W HYPOXIA OR HYPERCAPNIA SNOMED Code(s): 62532114 (4) COPD with acute exacerbation Narrative/Plan: * History of advanced stage III COPD with a baseline FEV1 of 39% of predicted with home oxygen * Triggered by pneumonia and sepsis * Antibiotic regimen above, continue systemic steroids with prednisone, sche duled and PRN duo Nebs breating treatments, Pulmicort and Perforomist * Appreciate pulmonary recommendations Current Visit: Yes Status: Acute Code(s): J44.1 - CHRONIC OBSTRUCTIVE PULMONARY DISEASE W (ACUTE) EXACERBATION SNOMED Code(s): 262329010 (5) Essential hypertension Narrative/Plan: * Blood pressure stable at goal * Continue current regimen Current Visit: Yes Status: Chronic Code(s): I10 - ESSENTIAL (PRIMARY) HYPERTENSION SNOMED Code(s): 12213562 (6) Personal history of thromboembolic disease Narrative/Plan: * Continue anticoagulation regimen with Coumadin Current Visit: Yes Status: Acute Code(s): Z86.718 - PERSONAL HISTORY OF OTHER VENOUS THROMBOSIS AND EMBOLISM SNOMED Code(s): 415505297 Plan: * Disposition * Patient stabilizing continue current treatment plan follow-up consultants recommendations and imaging studies * Anticipated discharge 2-3 days
--- NOTE | 2019-01-07 17:28 | CT ---
EXAMINATION TYPE: CT chest wo con DATE OF EXAM: 01/07/2019 COMPARISON: CTA chest December 01, 2018 HISTORY: dyspnea, pneumonia CT DLP: 644.6 mGycm. Automated Exposure Control for Dose Reduction was Utilized. TECHNIQUE: CT scan of the thorax is performed without IV contrast. FINDINGS: LUNGS: Background moderate chronic emphysematous changes redemonstrated. New dependent atelectasis al angelo the fissure right upper lobe. Increasing right middle lobe masslike consolidation is present. New tiny right pleural effusion. New dependent atelectasis and/or consolidation left lung base. New mult ifocal areas of irregular consolidation in the lingula. No pneumothorax is seen bilaterally. MEDIASTINUM: Lack of IV contrast is noted to limit evaluation for mediastinal and especially hilar ad enopathy. There are no definitive greater than 1 cm hilar or mediastinal lymph nodes. No cardiomega ly or pericardial effusion is seen. Enlarged main pulmonary artery at 3.5 cm axial image 28. Coronary artery calcification. Adjacent ascending aorta measures up to 3.8 cm in diameter. OTHER: Spine is straightened with multilevel spurring. Slight scoliotic curvature. IMPRESSION: New tiny right pleural effusion. Background moderate underlying emphysematous change rede monstrated. Increasing multifocal bilateral lower lung areas of irregular consolidation and/or atelec tatic change. Of most suspicion is worsening right middle lobe consolidation. Underlying neoplasm is not excluded. Bronchoscopy follow-up should be considered.
[2019-01-07] MEDS ORDERED: WARFARIN 10 MG TAB PO ONE (18:00)
[2019-01-07] MEDS: guaiFENesin 600 MG TABLET.ER PO SCH (20:18)
[2019-01-07] MEDS: ASPIRIN 81 MG PO SCH (20:18)
[2019-01-07] MEDS: ATORVASTATIN 20 MG TAB PO SCH (20:18)
[2019-01-07 20:23] LABS: Glucose,Whole Blood 159 mg/dL (75-99)
[2019-01-07] MEDS: FORMOTEROL FUMARATE 20 MCG/2 ML NEBU INHALATION SCH (20:32)
[2019-01-07] MEDS: BUDESONIDE 1 MG/2 ML NEBU INHALATION SCH (20:32)
[2019-01-07] MEDS ORDERED: LEVOFLOXACIN 750MG-D5W PMX 750 MG in DEXTROSE/WATER 1 150ML.BAG IVPB SCH (21:00)
--- NOTE | 2019-01-08 00:02 | P.CONS ---
History of Present Illness - Reason for Consult Consult date: 01/07/19 antibiotic recommendation Requesting physician: Tej Nolasco - Chief Complaint rigors chills and shortness of breath x one day - History of Present Illness patient is 78 year male with a past medical history signifant for COPD in this patient who was recently admitted at this facility in the beginning of November 2018 with an episode of COPD exacerbation with tracheobronchitis, patient did have bronchoscopy done that admission which grew pseudomonas aeruginosa strep and the patient apparently was discharged on oral Cefdinar, apparently the patient was doing well until yesterdaywhen he still having rigors and chillsand the patient did have increasing shortness of breath, the patient also have a cough which is moderate in intensity and is productive of sputum not clear about the color, but denies hemoptysis, patient did have right-sided chest discomfort more of a dull aching pain about 3 out of 10 and no radiation, the patient denies any nausea no vomiting no choking on the food and no diarrhea, with these symptoms the patient presented to [facility], patient on arrival to the ER did have low-grade ever of 99.7, did have elevated white count, chest x-ray with right middle lobe pneumonia, follow-up chest x-ray today did show some improvement in aeration, the patient has been treated with Zosyn and Levaquin infectious disease was consulted for further recommendation regarding antibiotic therapy Review of Systems Positive points has been mentioned in HPI rest of the systems are negative Past Medical History Past Medical History: COPD, CVA/TIA, Hyperlipidemia, Hypertension, Thyroid Disorder Additional Past Medical History / Comment(s): Wears oxygen @ 3 L per nc. Hyperhomocysteinemia. Chronic cough. History of Any Multi-Drug Resistant Organisms: MRSA Year Discovered:: 02/09/18 MDRO Source:: LEG Past Surgical History: Tonsillectomy Additional Past Surgical History / Comment(s): Carotid Endarterectomy. Past Anesthesia/Blood Transfusion Reactions: No Reported Reaction Past Psychological History: No Psychological Hx Reported Smoking Status: Former smoker Past Alcohol Use History: Daily Past Drug Use History: None Reported - Past Family History Mother Family Medical History: No Reported History Medications and Allergies Home Medications Medication Instructions Recorded Confirmed Type Aspirin 81 mg PO HS 11/24/18 01/06/19 History Fluticasone/Salmeterol [Advair 1 puff PO RT-BID 11/24/18 01/06/19 History 500-50 Diskus] Folic Acid 1 mg PO DAILY 11/24/18 01/06/19 History Levothyroxine Sodium [Synthroid] 50 mcg PO DAILY 11/24/18 01/06/19 History Metoprolol Succinate (ER) [Toprol 25 mg PO DAILY 11/24/18 01/06/19 History XL] Multivitamins, Thera [Multivitamin 1 tab PO DAILY 11/24/18 01/06/19 History (formulary)] Simvastatin [Zocor] 40 mg PO HS 11/24/18 01/06/19 History metFORMIN HCL [Glucophage] 500 mg PO HS 11/24/18 01/06/19 History traMADol HCL [Ultram] 50 mg PO BID 11/24/18 01/06/19 History Calcium Carbonate/Vitamin D3 1 tab PO DAILY 11/30/18 01/06/19 History [Calcium 600-Vit D3 400 Tablet] Warfarin Sodium [Coumadin] 10 mg PO SUTUWETHSA 11/30/18 01/06/19 History Ipratropium-Albuterol Nebulize 3 ml INHALATION RT-QID ampul.neb 12/02/18 01/06/19 Rx [Duoneb 0.5 mg-3 mg/3 ml Soln] Warfarin [Coumadin] 5 mg PO MOFR 01/06/19 01/06/19 History predniSONE 5 mg PO DAILY 01/06/19 01/06/19 History Allergies Allergy/AdvReac Type Severity Reaction Status Date / Time No Known Allergies Allergy Verified 01/06/19 18:12 Physical Exam Vitals: Vital Signs Temp Pulse Pulse Resp BP BP Pulse Ox 01/07/19 12:40 84 01/07/19 12:26 84 01/07/19 11:38 98.0 F 81 20 134/76 92 L 01/07/19 11:31 85 22 01/07/19 08:09 88 01/07/19 08:00 98.0 F 85 22 127/77 95 01/07/19 07:56 84 01/07/19 03:13 98.2 F 82 18 128/72 96 01/07/19 00:00 85 18 122/78 95 01/06/19 20:00 105 H 20 111/60 95 01/06/19 19:52 98.8 F 95 18 117/72 94 L 01/06/19 19:30 111 H 24 158/94 98 01/06/19 19:25 114 H 01/06/19 19:14 118 H 01/06/19 19:03 118 H 01/06/19 18:45 117 H 01/06/19 18:20 117 H 01/06/19 18:05 112 H 01/06/19 17:39 99.7 F H 121 H 36 H 77 L Intake and Output 01/06/19 01/07/19 01/07/19 22:59 06:59 14:59 Intake Total 2040 Output Total 300 450 Balance -300 1590 Intake: Intake, IV Titration 1800 Amount Piperacillin-Tazobactam 3 100 .375 gm In Sodium Chloride 0.9% 100 ml @ 200 mls/hr IVPB ONCE STA Rx#:[id number] Sodium Chloride 0.9% 1, 1200 000 ml @ 100 mls/hr IV . Q10H STA Rx#:[id number] Vancomycin 1,750 mg In 500 Sodium Chloride 0.9% 500 ml 500 ml @ 167 mls/hr IVPB Q12H ROBBIE Rx#: [id number] Oral 240 Output: Urine 300 450 Other: Voiding Method Toilet # Voids 1 1 # Bowel Movements 1 Weight 111.13 kg 114.5 kg GENERAL DESCRIPTION: anteriorly male lying in bed, no distress. No tachypnea or accessory muscle of respiration use. HEENT: Shows Pallor , no scleral icterus. Oral mucous membrane is dry. No pharyngeal erythema or thrush NECK: Trachea central, no thyromegaly. LUNGS: Unlabored breathing. decreased breath sound at the base. No wheeze or crackle. HEART: S1, S2, regular rate and rhythm. No loud murmur ABDOMEN: Soft, no tenderness , guarding or rigidity, no organomegaly EXTREMITIES: No edema of feet. SKIN: No rash, no masses palpable. NEUROLOGICAL: The patient is awake, alert, oriented x3, mood and affect normal. Results CBC & Chem 7: 01/07/19 06:14 01/07/19 06:14 Labs: Abnormal Lab Results - Last 24 Hours (Table) 01/06/19 01/06/19 01/06/19 Range/Units 18:01 18:01 18:01 WBC 14.6 H (3.8-10.6) k/uL RBC (4.30-5.90) m/uL Hgb (13.0-17.5) gm/dL Hct (39.0-53.0) % Neutrophils # 12.5 H (1.3-7.7) k/uL Lymphocytes # (1.0-4.8) k/uL PT 17.7 H (9.0-12.0) sec INR 1.8 H (<1.2) BUN 24 H (9-20) mg/dL Glucose 118 H (74-99) mg/dL POC Glucose (mg/dL) (75-99) mg/dL Creatine Kinase 198 H (55-170) U/L Total Protein 8.3 H (6.3-8.2) g/dL Albumin (3.5-5.0) g/dL 01/07/19 01/07/19 01/07/19 Range/Units 05:56 06:14 06:14 WBC 18.4 H (3.8-10.6) k/uL RBC 4.11 L (4.30-5.90) m/uL Hgb 12.7 L D (13.0-17.5) gm/dL Hct 38.3 L (39.0-53.0) % Neutrophils # 16.9 H (1.3-7.7) k/uL Lymphocytes # 0.7 L (1.0-4.8) k/uL PT (9.0-12.0) sec INR (<1.2) BUN 23 H (9-20) mg/dL Glucose 211 H (74-99) mg/dL POC Glucose (mg/dL) 202 H (75-99) mg/dL Creatine Kinase (55-170) U/L Total Protein 6.0 L (6.3-8.2) g/dL Albumin 3.3 L (3.5-5.0) g/dL 01/07/19 01/07/19 Range/Units 06:14 11:57 WBC (3.8-10.6) k/uL RBC (4.30-5.90) m/uL Hgb (13.0-17.5) gm/dL Hct (39.0-53.0) % Neutrophils # (1.3-7.7) k/uL Lymphocytes # (1.0-4.8) k/uL PT 21.3 H (9.0-12.0) sec INR 2.2 H (<1.2) BUN (9-20) mg/dL Glucose (74-99) mg/dL POC Glucose (mg/dL) 147 H (75-99) mg/dL Creatine Kinase (55-170) U/L Total Protein (6.3-8.2) g/dL Albumin (3.5-5.0) g/dL Assessment and Plan Assessment: 1-patient presenting to the hospital with increasing shortness of breath or productive cough and right-sided chest pain, patient did have rigors and chills and low-grade fever with evidence of right middle lobe pneumonia, and this patient recently bronchoscopy did show Pseudomonas could be the same pathogen 2-the patient bronchoscopy done in November also show some penicillium species , questionable contamination as patient is not immunocompromised and apparently he did well until yes which could not have been the case in an untreated case of fungal pneumonia (1) Pneumonia Current Visit: Yes Status: Acute Code(s): J18.9 - PNEUMONIA, UNSPECIFIED ORGANISM SNOMED Code(s): 353293177 (2) Sepsis Current Visit: Yes Status: Acute Code(s): A41.9 - SEPSIS, UNSPECIFIED ORGANISM SNOMED Code(s): 97951455 Plan: 1-obtain sputum for Gram stain and cultures 2-check a CT of the chest for better identification of his lung pathology 3-zosyn 3.375 g every 8 hours we will follow on clinical condition and culture to further adjust medication if needed Thank you for this consultation will follow this patient along with you Time with Patient: Greater than 30
[2019-01-08] MEDS: PIPERACILLIN-TAZOBACTAM 3.375 GM in SODIUM CHLORIDE 0.9% 100 ML IVPB SCH ×3 (04:55→19:35)
[2019-01-08 06:07] LABS: Glucose,Whole Blood 116 mg/dL (75-99)
[2019-01-08] MEDS: LEVOTHYROXINE 50 MCG TAB PO SCH (06:16)
[2019-01-08] MEDS: INSULIN ASPART (NovoLOG) 100 UNIT/ML VIAL SQ SCH ×4 (06:16→20:09)
[2019-01-08 07:29] LABS: INR 2.7 (<1.2); Prothrombin Time 26.5 sec (9.0-12.0)
[2019-01-08] MEDS: IPRATROPIUM-ALBUTEROL 3 ML NEB INHALATION SCH ×4 (07:58→19:48)
[2019-01-08] MEDS: FORMOTEROL FUMARATE 20 MCG/2 ML NEBU INHALATION SCH ×2 (07:59→19:48)
[2019-01-08] MEDS: BUDESONIDE 1 MG/2 ML NEBU INHALATION SCH ×2 (07:59→19:48)
[2019-01-08] MEDS: METOPROLOL SUCCINATE (ER) 25 MG TAB.ER.24H PO SCH (09:00)
[2019-01-08] MEDS: predniSONE 20 MG TAB PO SCH (09:00)
[2019-01-08] MEDS: guaiFENesin 600 MG TABLET.ER PO SCH ×2 (09:00→19:36)
[2019-01-08] MEDS: SODIUM CHLORIDE 0.9% 1,000 ML IV SCH ×2 (09:01→12:12)
[2019-01-08 09:42] LABS: Basophils # (A) 0.2 k/uL (0-0.2); Basophils % (A) 1 %; Eosinophils # (A) 0.1 k/uL (0-0.7); Eosinophils % (A) 1 %; HCT 41.4 % (39.0-53.0); HGB 13.3 gm/dL (13.0-17.5); Lymphocytes # (A) 1.6 k/uL (1.0-4.8); Lymphocytes % (A) 10 %; MCH 30.1 pg (25.0-35.0); MCHC 32.3 g/dL (31.0-37.0); MCV 93.4 fL (80.0-100.0); Mean Platelet Volume 7.4; Monocytes # (A) 0.9 k/uL (0-1.0); Monocytes % (A) 6 %; Neutrophils # (A) 12.1 k/uL (1.3-7.7); Neutrophils % (A) 80 %; Platelet Count 304 k/uL (150-450); RBC 4.43 m/uL (4.30-5.90); RDW 14.1 % (11.5-15.5); WBC 15.1 k/uL (3.8-10.6)
[2019-01-08 09:55] LABS: Calcium 9.4 mg/dL (8.4-10.2); Potassium 4.3 mmol/L (3.5-5.1)
--- NOTE | 2019-01-08 11:20 | P.PN ---
Subjective Progress Note Date: 01/08/19 Patient today's exam and follow up sitting up bedside and reports that he's been up and ambulatory to the restroom with some desaturations, currently on baseline O2 requirements of 3 L and reports to be feeling much better and that his breathing is not as labored. White count down from 18.4-15.1, afebrile overnight. CT of the chest suggesting multifocal pneumonia with some atelectatic changes and worsening right middle lobe consolidation. No acute events overnight Objective - Vital Signs Vital signs: Vital Signs Temp 97.8 F 01/08/19 08:00 Pulse 84 01/08/19 08:24 Resp 16 01/08/19 08:24 BP 137/74 01/08/19 08:00 Pulse Ox 92 L 01/08/19 08:00 Intake & Output 01/07/19 01/08/19 01/08/19 18:59 06:59 18:59 Intake Total 2640 100 Output Total 450 Balance 2190 100 Weight 112.8 kg Intake: Intake, IV Titration 1800 100 Amount Piperacillin-Tazobactam 3 100 .375 gm In Sodium Chloride 0.9% 100 ml @ 200 mls/hr IVPB ONCE STA Rx#:[id number] Piperacillin-Tazobactam 3 100 .375 gm In Sodium Chloride 0.9% 100 ml @ 25 mls/hr IVPB Q8H ROBBIE Rx#: [id number] Sodium Chloride 0.9% 1, 1200 000 ml @ 100 mls/hr IV . Q10H STA Rx#:[id number] Vancomycin 1,750 mg In 500 Sodium Chloride 0.9% 500 ml 500 ml @ 167 mls/hr IVPB Q12H ROBBIE Rx#: [id number] Oral 840 Output: Urine 450 Other: Voiding Method Toilet Toilet # Voids 1 3 # Bowel Movements 1 - Exam Constitutional: No acute distress, conversant, pleasant Eyes: Anicteric sclerae, moist conjunctiva, no lid-lag, PERRLA ENMT: NC/AT,Oropharynx clear, no erythema, exudates Neck:Supple, FROM, no masses, or JVD, No carotid bruits; No thyromegaly Lungs: Mild expiratory wheezes with diffuse rhonchi and diminished in the bases on 3 L via nasal cannula with pulse ox of 92% Cardiovascular: Heart regular in rate and rhythm, No murmurs, gallops, or rubs no peripheral edema Abdominal: Soft Nontender, nom distended, no guarding, no rebound or rigidity, Normoactive bowel sounds No hepatomegaly, No splenomegaly, No palpable mass No abdominal wall hernia noted Skin: Normal temperature, tone, texture, turgor, No induration No subcutaneous nodules, No rash, lesions, No ulcers Extremities:No digital cyanosis No clubbing, Pedal pulses intact and symmetrical Radial pulses intact and symmetrical Normal gait and station, No calf tenderness Psychiatric: Alert and oriented to person, place and time, Appropriate affect Intact judgement Neuro: Muscles Strength 5/5 in all 4 extremities, Sensation to light touch grossly present throughout, Cranial nerves II-XII grossly intact. No focal sensory deficits - Labs CBC & Chem 7: 01/08/19 06:38 01/08/19 06:38 Labs: Abnormal Lab Results - Last 24 Hours (Table) 01/07/19 01/07/19 01/07/19 Range/Units 11:57 14:05 16:54 WBC (3.8-10.6) k/uL Neutrophils # (1.3-7.7) k/uL PT (9.0-12.0) sec INR (<1.2) BUN (9-20) mg/dL Glucose (74-99) mg/dL POC Glucose (mg/dL) 147 H 144 H (75-99) mg/dL Urine Glucose (UA) 2+ H (Negative) Urine Blood Trace H (Negative) Urine Mucus Rare H (None) /hpf 01/07/19 01/08/19 01/08/19 Range/Units 20:13 06:06 06:38 WBC (3.8-10.6) k/uL Neutrophils # (1.3-7.7) k/uL PT 26.5 H (9.0-12.0) sec INR 2.7 H (<1.2) BUN (9-20) mg/dL Glucose (74-99) mg/dL POC Glucose (mg/dL) 159 H 116 H (75-99) mg/dL Urine Glucose (UA) (Negative) Urine Blood (Negative) Urine Mucus (None) /hpf 01/08/19 01/08/19 Range/Units 06:38 06:38 WBC 15.1 H (3.8-10.6) k/uL Neutrophils # 12.1 H (1.3-7.7) k/uL PT (9.0-12.0) sec INR (<1.2) BUN 22 H (9-20) mg/dL Glucose 117 H (74-99) mg/dL POC Glucose (mg/dL) (75-99) mg/dL Urine Glucose (UA) (Negative) Urine Blood (Negative) Urine Mucus (None) /hpf Microbiology - Last 24 Hours (Table) 01/07/19 11:01 Gram Stain - Preliminary Sputum Sputum Culture - Preliminary 01/06/19 18:01 Blood Culture - Preliminary Blood No Growth after 24 hours Assessment and Plan (1) Sepsis Narrative/Plan: * Likely secondary to pneumonia possibly healthcare associated * Patient afebrile leukocytosis trending down to 15.3 from 18.2 * Continue on empiric IV antibiotic treatment with Zosyn and Levaquin and vancomycin * CT of the chest suggesting multifocal pneumonia and worsening right middle lobe consolidation * Blood cultures sputum culture is pending Current Visit: Yes Status: Acute Code(s): A41.9 - SEPSIS, UNSPECIFIED ORGANISM SNOMED Code(s): 28093775 (2) Pneumonia Narrative/Plan: * Antibiotic regimen above * We'll follow-up CT chest results Current Visit: Yes Status: Acute Code(s): J18.9 - PNEUMONIA, UNSPECIFIED ORGANISM SNOMED Code(s): 701790041 (3) Chronic respiratory failure Narrative/Plan: * Presented with dyspnea of multifactorial etiology secondary to pneumonia superimposed on a COPD exacerbation now back to baseline O2 requirements * Continue supplemental oxygen at 3 L by nasal cannula, continue breathing treatments, we'll add Mucinex Current Visit: Yes Status: Chronic Code(s): J96.10 - CHRONIC RESPIRATORY FAILURE, UNSP W HYPOXIA OR HYPERCAPNIA SNOMED Code(s): 30419826 (4) COPD with acute exacerbation Narrative/Plan: * History of advanced stage III COPD with a baseline FEV1 of 39% of predicted with home oxygen * Triggered by pneumonia and sepsis * Antibiotic regimen above, continue systemic steroids with prednisone, scheduled and PRN duo Nebs breating treatments, Pulmicort and Perforomist * Appreciate pulmonary recommendations Current Visit: Yes Status: Acute Code(s): J44.1 - CHRONIC OBSTRUCTIVE PULMONARY DISEASE W (ACUTE) EXACERBATION SNOMED Code(s): 347391282 (5) Essential hypertension Narrative/Plan: * Blood pressure stable at goal * Continue current regimen Current Visit: Yes Status: Chronic Code(s): I10 - ESSENTIAL (PRIMARY) HYPERTENSION SNOMED Code(s): 24224098 (6) Personal history of thromboembolic disease Narrative/Plan: * Continue anticoagulation regimen with Coumadin * INR therapeutic at 2.7 Current Visit: Yes Status: Chronic Code(s): Z86.718 - PERSONAL HISTORY OF OTHER VENOUS THROMBOSIS AND EMBOLISM SNOMED Code(s): 209912734 Plan: * Disposition * Patient stabilizing continue current treatment plan follow-up consultants recommendations * Anticipated discharge 2-3 days
[2019-01-08 12:10] LABS: Glucose,Whole Blood 126 mg/dL (75-99)
--- NOTE | 2019-01-08 14:11 | P.PN ---
Subjective Progress Note Date: 01/08/19 Principal diagnosis: Acute pneumonia, suspect healthcare acquired. This is a 78-year-old white male patient with past medical history of advanced COPD oxygen dependent, patient has a baseline FEV1 of 39% of predicted, previous history of MRSA and pseudomonal pulmonary infections, pulmonary embolism on chronic Coumadin related to history of hyperhomocysteinemia, and left mid lung lesion that is being followed in outpatient basis by Dr. Adamson. Patient has a recent admission in November 2018 for shortness of breath related to acute exacerbation of COPD with purulent tracheobronchitis requiring bronchoscopy and BAL with bronchial wash cultures positive for pseudomonas group B streptococcus. Patient was treated with antibiotics and discharged home on Cefdinir, he followed up with Dr. Adamson in the office, and he was clinically improving. Yesterday he was out doing errands, and was feeling good until later in the afternoon he was back in his house, he started having chills, increased shortness of breath, his took his temperature and noted a low-grade fever, in addition patient was coughing and having some right chest discomfort with coughing. Patient normally wears 3 L of oxygen at home, he felt increasingly more short of breath, requiring his oxygen flow increased to 5 L. Patient decided to go to the hospital, and by the time he got to the hospital he was in respiratory distress requiring BiPAP support. His O2 sat was noted to be only 77% on 4 L on arrival, patient was tachycardic, had a low-grade fever of 99.7F. Chest x-ray showed new right lower lobe pneumonia and atelectasis and minimal infiltration at the left lung base. His labs revealed white blood cell count of 14.6, hemoglobin of 15.8, INR of 1.8, electrolytes are within normal limits, BUN of 24 creatinine 0.92. Troponin was negative, proBNP was 113. Patient was started on a combination of Zosyn and Levaquin, steroids, and nebulized bronchodilators. On today's exam patient states his breathing is much improved, he is off the BiPAP, he is tolerating nasal cannula at 3 L and his pulse ox is 92%. The patient is seen today 01/08/2019 in follow-up on the selective care unit. Brittny whitley is currently sitting up in a chair at the bedside. Awake and alert in no acute distress. He is breathing a bit easier today as compared to yesterday. Continues with a loose productive cough. Sputum cultures pending. He is afebrile. Hemodynamic stable. Maintaining O2 saturations in the low 90s on 3 L/m per nasal cannula. White count 15.1. Hemoglobin 13.3. INR 2.7. Creatinine 0.96. Currently on Zosyn and Levaquin along with DuoNeb inhalations, Pulmicort and Perforomist inhalations. Objective - Vital Signs Vital signs: Vital Signs Temp 97 F L 01/08/19 12:00 Pulse 77 01/08/19 12:00 Resp 20 01/08/19 12:00 BP 142/81 01/08/19 12:00 Pulse Ox 92 L 01/08/19 12:00 Intake & Output 01/07/19 01/08/19 01/08/19 18:59 06:59 18:59 Intake Total 2640 100 Output Total 450 Balance 2190 100 Weight 112.8 kg Intake: Intake, IV Titration 1800 100 Amount Piperacillin-Tazobactam 3 100 .375 gm In Sodium Chloride 0.9% 100 ml @ 200 mls/hr IVPB [facility] Rx#:[id number] Piperacillin-Tazobactam 3 100 .375 gm In Sodium Chloride 0.9% 100 ml @ 25 mls/hr IVPB Q8H [facility] Rx#: [id number] Sodium Chloride 0.9% 1, 1200 000 ml @ 100 mls/hr IV . Q10H [facility] Rx#:[id number] Vancomycin 1,750 mg In 500 Sodium Chloride 0.9% 500 ml 500 ml @ 167 mls/hr IVPB Q12H [facility] Rx#: [id number] Oral 840 Output: Urine 450 Other: Voiding Method Toilet Toilet # Voids 1 3 # Bowel Movements 1 - Exam GENERAL EXAM: Alert, pleasant, 78-year-old gentleman, on 3 L of oxygen with a pulse ox of 92%, comfortable in no apparent distress. HEAD: Normocephalic/atraumatic. EYES: Normal reaction of pupils, equal size. Conjunctiva pink, sclera white. NOSE: Clear with pink turbinates. THROAT: No erythema or exudates. NECK: No masses, no JVD, no thyroid enlargement, no adenopathy. CHEST: No chest wall deformity. Symmetrical expansion. LUNGS: Equal air entry with diminished air entry, expiratory wheezes, and diffuse rhonchi and rales CVS: Regular rate and rhythm, normal S1 and S2, no gallops, no murmurs, no rubs ABDOMEN: Soft, nontender. No hepatosplenomegaly, normal bowel sounds, no guarding or rigidity. EXTREMITIES: No clubbing, no edema, no cyanosis, 2+ pulses and upper and lower extremities. Chronic venous stasis changes noted to bilateral lower extremities MUSCULOSKELETAL: Muscle strength and tone normal. SPINE: No scoliosis or deformity SKIN: No rashes CENTRAL NERVOUS SYSTEM: No focal deficits, tone is normal in all 4 extremities. PSYCHIATRIC: Alert and oriented -3. Appropriate affect. Intact judgment and insight. - Labs CBC & Chem 7: 01/08/19 06:38 01/08/19 06:38 Labs: Abnormal Lab Results - Last 24 Hours (Table) 01/07/19 01/07/19 01/07/19 Range/Units 14:05 16:54 20:13 WBC (3.8-10.6) k/uL Neutrophils # (1.3-7.7) k/uL PT (9.0-12.0) sec INR (<1.2) BUN (9-20) mg/dL Glucose (74-99) mg/dL POC Glucose (mg/dL) 144 H 159 H (75-99) mg/dL Urine Glucose (UA) 2+ H (Negative) Urine Blood Trace H (Negative) Urine Mucus Rare H (None) /hpf 01/08/19 01/08/19 01/08/19 Range/Units 06:06 06:38 06:38 WBC (3.8-10.6) k/uL Neutrophils # (1.3-7.7) k/uL PT 26.5 H (9.0-12.0) sec INR 2.7 H (<1.2) BUN 22 H (9-20) mg/dL Glucose 117 H (74-99) mg/dL POC Glucose (mg/dL) 116 H (75-99) mg/dL Urine Glucose (UA) (Negative) Urine Blood (Negative) Urine Mucus (None) /hpf 01/08/19 01/08/19 Range/Units 06:38 11:48 WBC 15.1 H (3.8-10.6) k/uL Neutrophils # 12.1 H (1.3-7.7) k/uL PT (9.0-12.0) sec INR (<1.2) BUN (9-20) mg/dL Glucose (74-99) mg/dL POC Glucose (mg/dL) 126 H (75-99) mg/dL Urine Glucose (UA) (Negative) Urine Blood (Negative) Urine Mucus (None) /hpf Microbiology - Last 24 Hours (Table) 01/07/19 11:01 Gram Stain - Preliminary Sputum Sputum Culture - Preliminary 01/06/19 18:01 Blood Culture - Preliminary Blood No Growth after 24 hours Assessment and Plan Assessment: Assessment: #1. Acute pneumonia, possibly healthcare acquired, involving the right lower lobe and possibly left lung base #2. Recent admission for COPD and tracheobronchitis, patient had a broad with bronchoalveolar lavage with cultures positive for pseudomonas and group B strep #3. Advanced stage III COPD, with a baseline FEV1 of 39% of predicted with home oxygen #4. Chronic hypoxemic respiratory failure #5. 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 Hypothyroidism #8. Hypertension #9. Hyperlipidemia #10. Previous history of methicillin-resistant Staphylococcus aureus infection Plan: The patient was seen and evaluated by Dr. Breaux. He is improved today as compared to yesterday. Computed tomography scan and labs reviewed. Sputum culture pending. We'll continue with the current treatment plan for now. Increase his activity as tolerated. We'll continue to follow make further recommendations based on his clinical status. I, the cosigning physician, performed a history & physical examination of the patient. Lungs sounds bilateral scattered rhonchi, wheeze. Maintaining good O2 saturations in the 90s on 3 L/m per nasal cannula I discussed the assessment and plan of care with my nurse practitioner, Juanita Bland. I attest to the above note as dictated by her.
[2019-01-08 17:28] LABS: Glucose,Whole Blood 204 mg/dL (75-99)
[2019-01-08] MEDS ORDERED: WARFARIN 7.5 MG TAB PO ONE (18:00)
[2019-01-08] MEDS: ASPIRIN 81 MG PO SCH (19:36)
[2019-01-08] MEDS: LEVOFLOXACIN 750 MG TAB PO SCH (19:36)
[2019-01-08] MEDS: ATORVASTATIN 20 MG TAB PO SCH (19:36)
[2019-01-08 20:08] LABS: Glucose,Whole Blood 197 mg/dL (75-99)
--- NOTE | 2019-01-08 23:37 | PN ---
PROGRESS NOTE DATE OF SERVICE: 01/08/2019 REASON FOR FOLLOWUP: Pneumonia. INTERVAL HISTORY: The patient is currently afebrile. Patient has been breathing more comfortably. The patient denies having any chest pain. He currently has some cough, bringing up some sputum. No nausea, no vomiting. No abdominal pain. No diarrhea. PHYSICAL EXAMINATION: Blood pressure 143/80 with a pulse of 87, temperature 98.7. She is 91% on 3 L nasal cannula. General description is an elderly male lying in bed in no distress. Respiratory system: Unlabored breathing with decreased breath sounds at bases. No wheeze. Heart S1, S2. Regular rate and rhythm. Abdomen soft. No tenderness. Extremities: No edema of the feet. LABS: Hemoglobin 13.1, white count 15.9, BUN of 22, creatinine 0.96. Sputum cultures currently pending. Blood cultures so far negative. DIAGNOSTIC IMPRESSION AND PLAN: Patient with left lower lobe pneumonia with . Culture positive for Pseudomonas and strep concern for possible gram-negative pneumonia. The patient at this time is to continue with Zosyn, Levaquin, waiting for the culture to finalize. Continue supportive care. MMODL / IJN: [id number] /
[2019-01-09] MEDS: PIPERACILLIN-TAZOBACTAM 3.375 GM in SODIUM CHLORIDE 0.9% 100 ML IVPB SCH ×3 (04:33→19:54)
[2019-01-09] MEDS: INSULIN ASPART (NovoLOG) 100 UNIT/ML VIAL SQ SCH ×4 (06:20→20:04)
[2019-01-09 06:21] LABS: Glucose,Whole Blood 113 mg/dL (75-99)
[2019-01-09] MEDS: LEVOTHYROXINE 50 MCG TAB PO SCH (06:21)
[2019-01-09 06:41] LABS: INR 2.9 (<1.2)
[2019-01-09 06:52] LABS: African American GFR (CKD) >90 (>60 ml/min/1.73 sqM)
[2019-01-09] MEDS: BUDESONIDE 1 MG/2 ML NEBU INHALATION SCH ×2 (07:48→18:49)
[2019-01-09] MEDS: IPRATROPIUM-ALBUTEROL 3 ML NEB INHALATION SCH ×4 (07:48→18:49)
[2019-01-09] MEDS: FORMOTEROL FUMARATE 20 MCG/2 ML NEBU INHALATION SCH ×2 (07:48→18:49)
[2019-01-09] MEDS: SODIUM CHLORIDE 0.9% 1,000 ML IV SCH ×2 (08:25→08:26)
[2019-01-09] MEDS: guaiFENesin 600 MG TABLET.ER PO SCH ×2 (08:38→20:04)
[2019-01-09] MEDS: predniSONE 20 MG TAB PO SCH (08:38)
[2019-01-09] MEDS: METOPROLOL SUCCINATE (ER) 25 MG TAB.ER.24H PO SCH (08:38)
[2019-01-09] MEDS ORDERED: VANCOMYCIN TROUGH DUE 1 EACH MISC MISCELLANE ONE (11:00)
--- NOTE | 2019-01-09 11:00 | P.PN ---
Subjective Progress Note Date: 01/09/19 Patient today's exam and follow up sitting up bedside and reports that he's been up and ambulatory down the [facility] with desaturation into the mid 80s on 4 L nasal cannula, at rest he feels pretty good and is able to be at his baseline O2 requirements at 3 L and that his breathing is not as labored. White count down from 18.4-15.1, afebrile overnight. CT of the chest suggesting multifocal pneumonia with some atelectatic changes and worsening right middle lobe consolidation. No acute events overnight Objective - Vital Signs Vital signs: Vital Signs Temp 97.6 F 01/09/19 08:42 Pulse 82 01/09/19 08:44 Resp 18 01/09/19 08:44 BP 118/66 01/09/19 08:42 Pulse Ox 92 L 01/09/19 08:42 Intake & Output 01/08/19 01/09/19 01/09/19 18:59 06:59 18:59 Intake Total 530 340 Output Total 500 350 Balance 530 -500 -10 Weight 111.4 kg Intake: Intake, IV Titration 100 100 Amount Piperacillin-Tazobactam 3 100 100 .375 gm In Sodium Chloride 0.9% 100 ml @ 25 mls/hr IVPB Q8H [facility] Rx#: [id number] Oral 430 240 Output: Urine 500 350 Other: Voiding Method Toilet Toilet Urinal # Voids 3 1 - Exam Constitutional: No acute distress, conversant, pleasant Eyes: Anicteric sclerae, moist conjunctiva, no lid-lag, PERRLA ENMT: NC/AT,Oropharynx clear, no erythema, exudates Neck:Supple, FROM, no masses, or JVD, No carotid bruits; No thyromegaly Lungs: Mild expiratory wheezes with diffuse rhonchi and diminished in the bases on 3 L via nasal cannula with pulse ox of 92% Cardiovascular: Heart regular in rate and rhythm, No murmurs, gallops, or rubs no peripheral edema Abdominal: Soft Nontender, nom distended, no guarding, no rebound or rigidity, Normoactive bowel sounds No hepatomegaly, No splenomegaly, No palpable mass No abdominal wall hernia noted Skin: Normal temperature, tone, texture, turgor, No induration No subcutaneous nodules, No rash, lesions, No ulcers Extremities:No digital cyanosis No clubbing, Pedal pulses intact and symmetrical Radial pulses intact and symmetrical Normal gait and station, No calf tenderness Psychiatric: Alert and oriented to person, place and time, Appropriate affect Intact judgement Neuro: Muscles Strength 5/5 in all 4 extremities, Sensation to light touch grossly present throughout, Cranial nerves II-XII grossly intact. No focal se nsory deficits - Labs CBC & Chem 7: 01/08/19 06:38 01/09/19 06:26 Labs: Abnormal Lab Results - Last 24 Hours (Table) 01/08/19 01/08/19 01/08/19 Range/Units 11:48 17:11 20:07 PT (9.0-12.0) sec INR (<1.2) POC Glucose (mg/dL) 126 H 204 H 197 H (75-99) mg/dL 01/09/19 01/09/19 Range/Units 06:19 06:26 PT 28.0 H (9.0-12.0) sec INR 2.9 H (<1.2) POC Glucose (mg/dL) 113 H (75-99) mg/dL Microbiology - Last 24 Hours (Table) 01/07/19 11:01 Gram Stain - Final Sputum Sputum Culture - Final 01/06/19 18:01 Blood Culture - Preliminary Blood No Growth after 48 hours Assessment and Plan (1) Sepsis Narrative/Plan: * Likely secondary to pneumonia possibly healthcare associated * Patient afebrile leukocytosis trending down to 15.3 from 18.2 * Continue on empiric IV antibiotic treatment with Zosyn and Levaquin * CT of the chest suggesting multifocal pneumonia and worsening right middle lobe consolidation * Blood cultures negative 2 days, sputum culture grew moderate normal chidi and Gram stain with moderate gram-positive bacilli Current Visit: Yes Status: Acute Code(s): A41.9 - SEPSIS, UNSPECIFIED OR GANISM SNOMED Code(s): 03841866 (2) Pneumonia Narrative/Plan: * Antibiotic regimen above * We'll follow-up CT chest results Current Visit: Yes Status: Acute Code(s): J18.9 - PNEUMONIA, UNSPECIFIED ORGANISM SNOMED Code(s): 203157593 (3) Chronic respiratory failure Narrative/Plan: * Presented with dyspnea of multifactorial etiology secondary to pneumonia superimposed on a COPD exacerbation now back to baseline O2 requirements * Continue supplemental oxygen at 3 L by nasal cannula, continue breathing treatments, we'll add Mucinex Current Visit: Yes Status: Chronic Code(s): J96.10 - CHRONIC RESPIRATORY FAILURE, UNSP W HYPOXIA OR HYPERCAPNIA SNOMED Code(s): 67947120 (4) COPD with acute exacerbation Narrative/Plan: * History of advanced stage III COPD with a baseline FEV1 of 39% of predicted with home oxygen * Triggered by pneumonia and sepsis * Antibiotic regimen above, continue systemic steroids with prednisone, scheduled and PRN duo Nebs breating treatments, Pulmicort and Perforomist * Appreciate pulmonary recommendations Current Visit: Yes Status: Acute Code(s): J44.1 - CHRONIC OBSTRUCTIVE PULMONARY DISEASE W (ACUTE) EXACERBATION SNOMED Code(s): 473160336 (5) Essential hypertension Narrative/Plan: * Blood pressure stable at goal * Continue current regimen Current Visit: Yes Status: Chronic Code(s): I10 - ESSENTIAL (PRIMARY) HYPERTENSION SNOMED Code(s): 50680986 (6) Personal history of thromboembolic disease Narrative/Plan: * Continue anticoagulation regimen with Coumadin * INR therapeutic at 2.9 Current Visit: Yes Status: Chronic Code(s): Z86.718 - PERSONAL HISTORY OF OTHER VENOUS THROMBOSIS AND EMBOLISM SNOMED Code(s): 778850720 Plan: * Disposition * Patient stabilizing continue current treatment plan follow-up consultants recommendations * Anticipated discharge 1-2 days
--- NOTE | 2019-01-09 11:28 | P.PN ---
Subjective Progress Note Date: 01/09/19 Principal diagnosis: Acute pneumonia, suspect healthcare acquired This is a 78-year-old white male patient with past medical history of advanced COPD oxygen dependent, patient has a baseline FEV1 of 39% of predicted, previous history of MRSA and pseudomonal pulmonary infections, pulmonary embolism on chronic Coumadin related to history of hyperhomocysteinemia, and left mid lung lesion that is being followed in outpatient basis by Dr. Adamson. Patient has a recent admission in November 2018 for shortness of breath related to acute exacerbation of COPD with purulent tracheobronchitis requiring bronchoscopy and BAL with bronchial wash cultures positive for pseudomonas group B streptococcus. Patient was treated with antibiotics and discharged home on Cefdinir, he followed up with Dr. Adamson in the office, and he was clinically improving. Yesterday he was out doing errands, and was feeling good until later in the afternoon he was back in his house, he started having chills, increased shortness of breath, his took his temperature and noted a low-grade fever, in addition patient was coughing and having some right chest discomfort with coughing. Patient normally wears 3 L of oxygen at home, he felt increasingly more short of breath, requiring his oxygen flow increased to 5 L. Patient decided to go to the hospital, and by the time he got to the hospital he was in respiratory distress requiring BiPAP support. His O2 sat was noted to be only 77% on 4 L on arrival, patient was tachycardic, had a low-grade fever of 99.7F. Chest x-ray showed new right lower lobe pneumonia and atelectasis and minimal infiltration at the left lung base. His labs revealed white blood cell count of 14.6, hemoglobin of 15.8, INR of 1.8, electrolytes are within normal limits, BUN of 24 creatinine 0.92. Troponin was negative, proBNP was 113. Patient was started on a combination of Zosyn and Levaquin, steroids, and nebulized bronchodilators. On today's exam patient states his breathing is much improved, he is off the BiPAP, he is tolerating nasal cannula at 3 L and his pulse ox is 92%. The patient is seen today 01/08/2019 in follow-up on the selective care unit. He is currently sitting up in a chair at the bedside. Awake and alert in no acute distress. He is breathing a bit easier today as compared to yesterday. Continues with a loose productive cough. Sputum cultures pending. He is afebrile. Hemodynamic stable. Maintaining O2 saturations in the low 90s on 3 L/m per nasal cannula. White count 15.1. Hemoglobin 13.3. INR 2.7. Creatinine 0.96. Currently on Zosyn and Levaquin along with DuoNeb inhalations, Pulmicort and Perforomist inhalations. On 01/09/2019 patient seen in follow-up on selective care unit, he is awake and alert, he is up in the recliner, he is on 3 L of oxygen and the pulse ox of 92%, he is afebrile, hemodynamically stable, he states his breathing is improving, no fever or chills, his blood and sputum cultures showed no growth at the 48 hour jabier. He is on a combination of Levaquin and Zosyn. His IV steroids have been transitioned to oral prednisone. No acute complaints, has not required BiPAP support last night. Complaints of chest pain, chest wall tenderness or hemoptysis. Cough is improving. Objective - Vital Signs Vital signs: Vital Signs Temp 97.6 F 01/09/19 08:42 Pulse 82 01/09/19 08:44 Resp 18 01/09/19 08:44 BP 118/66 01/09/19 08:42 Pulse Ox 92 L 01/09/19 08:42 Intake & Output 01/08/19 01/09/19 01/09/19 18:59 06:59 18:59 Intake Total 530 340 Output Total 500 350 Balance 530 -500 -10 Weight 111.4 kg Intake: Intake, IV Titration 100 100 Amount Piperacillin-Tazobactam 3 100 100 .375 gm In Sodium Chloride 0.9% 100 ml @ 25 mls/hr IVPB Q8H [facility] Rx#: [id number] Oral 430 240 Output: Urine 500 350 Other: Voiding Method Toilet Toilet Urinal # Voids 3 1 - Exam GENERAL EXAM: Alert, pleasant, 78-year-old white male, osteoarthritis of oxygen with a pulse ox of 92% comfortable in no apparent distress. HEAD: Normocephalic/atraumatic. EYES: Normal reaction of pupils, equal size. Conjunctiva pink, sclera white. NOSE: Clear with pink turbinates. THROAT: No erythema or exudates. NECK: No masses, no JVD, no thyroid enlargement, no adenopathy. CHEST: No chest wall deformity. Symmetrical expansion. LUNGS: Equal air entry with diminished air entry, a few expiratory wheezes CVS: Regular rate and rhythm, normal S1 and S2, no gallops, no murmurs, no rubs ABDOMEN: Soft, nontender. No hepatosplenomegaly, normal bowel sounds, no guarding or rigidity. EXTREMITIES: No clubbing, no edema, no cyanosis, 2+ pulses and upper and lower extremities. Chronic venous stasis changes noted to bilateral lower extremities MUSCULOSKELETAL: Muscle strength and tone normal. SPINE: No scoliosis or deformity SKIN: No rashes CENTRAL NERVOUS SYSTEM: Alert and oriented -3. No focal deficits, tone is normal in all 4 extremities. PSYCHIATRIC: Alert and oriented -3. Appropriate affect. Intact judgment and insight. - Labs CBC & Chem 7: 01/08/19 06:38 01/09/19 06:26 Labs: Abnormal Lab Results - Last 24 Hours (Table) 01/08/19 01/08/19 01/08/19 Range/Units 11:48 17:11 20:07 PT (9.0-12.0) sec INR (<1.2) POC Glucose (mg/dL) 126 H 204 H 197 H (75-99) mg/dL 01/09/19 01/09/19 Range/Units 06:19 06:26 PT 28.0 H (9.0-12.0) sec INR 2.9 H (<1.2) POC Glucose (mg/dL) 113 H (75-99) mg/dL Microbiology - Last 24 Hours (Table) 01/07/19 11:01 Gram Stain - Final Sputum Sputum Culture - Final 01/06/19 18:01 Blood Culture - Preliminary Blood No Growth after 48 hours Assessment and Plan Plan: Assessment: #1. Acute pneumonia, possibly healthcare acquired, involving the right lower lobe and possibly left lung base #2. Recent admission for COPD and tracheobronchitis, patient had a broad with bronchoalveolar lavage with cultures positive for pseudomonas and group B strep #3. Advanced stage III COPD, with a baseline FEV1 of 39% of predicted with home oxygen #4. Chronic hypoxemic respiratory failure #5. 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 Hypothyroidism #8. Hypertension #9. Hyperlipidemia #10. Previous history of methicillin-resistant Staphylococcus aureus infection Plan: Patient continues to improve, breathing easier, his cough is improving, continue oral prednisone, continue current antibiotic coverage, nebulized bronchodilators, cultures are negative thus far, clinically feeling better. We'll obtain follow-up chest x-ray tomorrow, increase activity as tolerated, possible discharge home in the next 24 hours. I performed a history & physical examination of the patient and discussed their management with my nurse practitioner, Keren To. I reviewed the nurse practitioner's note and agree with the documented findings and plan of care. Lung sounds are positive for end expiratory wheezes, rhonchi and rales. The findings and the impression was discussed with the patient. I attest to the documentation by the nurse practitioner. Time with Patient: Less than 30
[2019-01-09 12:06] LABS: Glucose,Whole Blood 139 mg/dL (75-99)
[2019-01-09 16:42] LABS: Glucose,Whole Blood 208 mg/dL (75-99)
[2019-01-09] MEDS ORDERED: WARFARIN 5 MG TAB PO ONE (18:00)
[2019-01-09 19:59] LABS: Glucose,Whole Blood 236 mg/dL (75-99)
[2019-01-09] MEDS: ASPIRIN 81 MG PO SCH (20:04)
[2019-01-09] MEDS: LEVOFLOXACIN 750 MG TAB PO SCH (20:04)
[2019-01-09] MEDS: ATORVASTATIN 20 MG TAB PO SCH (20:04)
--- NOTE | 2019-01-09 23:24 | PN ---
PROGRESS NOTE DATE OF SERVICE: 01/09/2019. REASON FOR FOLLOWUP: Pneumonia. INTERVAL HISTORY: The patient is currently afebrile. The patient has been breathing more comfortably. The patient's cough has decreased in intensity. No productive. No hemoptysis. No chest pain. No nausea, no vomiting. No abdominal pain. No diarrhea. PHYSICAL EXAMINATION: Blood pressure 133/66, pulse of 79, temperature 97.7. He is 92% on 3 L nasal cannula. General description is an elderly male up in the chair in no distress. Respiratory system: Unlabored breathing with decreased intensity of breath sounds. No wheeze. Heart S1, S2. Regular rate and rhythm. Abdomen soft. No tenderness. LAB: Creatinine 0.855. INR is 2.9. Sputum has been usual respiratory chidi. DIAGNOSTIC IMPRESSION AND PLAN: Patient admitted to the hospital with pneumonia. Previous sputum positive for Pseudomonas and strep. However culture has been negative for any resistant pathogen on this admission. Currently on Zosyn and Levaquin. Will be able to finish a course of oral antibiotics on discharge. Continue supportive care. MMODL / IJN: [id number] /
[2019-01-10] MEDS: PIPERACILLIN-TAZOBACTAM 3.375 GM in SODIUM CHLORIDE 0.9% 100 ML IVPB SCH ×2 (02:56→13:16)
[2019-01-10] MEDS: LEVOTHYROXINE 50 MCG TAB PO SCH (05:12)
[2019-01-10 05:57] LABS: INR 2.7 (<1.2); Prothrombin Time 26.3 sec (9.0-12.0)
[2019-01-10 06:31] LABS: Glucose,Whole Blood 116 mg/dL (75-99)
[2019-01-10] MEDS: INSULIN ASPART (NovoLOG) 100 UNIT/ML VIAL SQ SCH ×2 (06:35→12:04)
--- NOTE | 2019-01-10 07:45 | XR ---
EXAMINATION TYPE: XR chest 2V DATE OF EXAM: 01/10/2019 COMPARISON: Prior chest x-ray and chest CT 01/07/2019 HISTORY: Follow-up pneumonia TECHNIQUE: Frontal and lateral views of the chest are obtained. FINDINGS: Patchy density noted at the right lung base greater than left, there is blunting the right costophrenic angle, right middle lobe airspace disease. No pneumothorax. Heart size is stable. Patie nt is rotated. Aorta is dense. There are overlying cardiac leads. IMPRESSION: Findings similar to prior exam.
[2019-01-10] MEDS: BUDESONIDE 1 MG/2 ML NEBU INHALATION SCH (08:45)
[2019-01-10] MEDS: FORMOTEROL FUMARATE 20 MCG/2 ML NEBU INHALATION SCH (08:45)
[2019-01-10] MEDS: IPRATROPIUM-ALBUTEROL 3 ML NEB INHALATION SCH ×2 (08:45→12:38)
[2019-01-10] MEDS: METOPROLOL SUCCINATE (ER) 25 MG TAB.ER.24H PO SCH (09:49)
[2019-01-10] MEDS: guaiFENesin 600 MG TABLET.ER PO SCH (09:49)
[2019-01-10] MEDS: predniSONE 20 MG TAB PO SCH (09:49)
[2019-01-10 11:55] LABS: Glucose,Whole Blood 111 mg/dL (75-99)
[2019-01-10 14:08] VITALS: BP 120/66; PULSE 83; RESP 18; TEMP 97.1
--- NOTE | 2019-01-10 15:19 | P.PN ---
Subjective Progress Note Date: 01/10/19 Principal diagnosis: Acute pneumonia, suspect healthcare acquired This is a 78-year-old white male patient with past medical history of advanced COPD oxygen dependent, patient has a baseline FEV1 of 39% of predicted, previous history of MRSA and pseudomonal pulmonary infections, pulmonary embolism on chronic Coumadin related to history of hyperhomocysteinemia, and left mid lung lesion that is being followed in outpatient basis by Dr. Adamson. Patient has a recent admission in November 2018 for shortness of breath related to acute exacerbation of COPD with purulent tracheobronchitis requiring bronchoscopy and BAL with bronchial wash cultures positive for pseudomonas group B streptococcus. Patient was treated with antibiotics and discharged home on Cefdinir, he followed up with Dr. Adamson in the office, and he was clinically improving. Yesterday he was out doing errands, and was feeling good until later in the afternoon he was back in his house, he started having chills, increased shortness of breath, his took his temperature and noted a low-grade fever, in addition patient was coughing and having some right chest discomfort with coughing. Patient normally wears 3 L of oxygen at home, he felt increasingly more short of breath, requiring his oxygen flow increased to 5 L. Patient decided to go to the hospital, and by the time he got to the hospital he was in respiratory distress requiring BiPAP support. His O2 sat was noted to be only 77% on 4 L on arrival, patient was tachycardic, had a low-grade fever of 99.7F. Chest x-ray showed new right lower lobe pneumonia and atelectasis and minimal infiltration at the left lung base. His labs revealed white blood cell count of 14.6, hemoglobin of 15.8, INR of 1.8, electrolytes are within normal limits, BUN of 24 creatinine 0.92. Troponin was negative, proBNP was 113. Patient was started on a combination of Zosyn and Levaquin, steroids, and nebulized bronchodilators. On today's exam patient states his breathing is much improved, he is off the BiPAP, he is tolerating nasal cannula at 3 L and his pulse ox is 92%. The patient is seen today 01/08/2019 in follow-up on the selective care unit. He is currently sitting up in a chair at the bedside. Awake and alert in no acute distress. He is breathing a bit easier today as compared to yesterday. Continues with a loose productive cough. Sputum cultures pending. He is afebrile. Hemodynamic stable. Maintaining O2 saturations in the low 90s on 3 L/m per nasal cannula. White count 15.1. Hemoglobin 13.3. INR 2.7. Creatinine 0.96. Currently on Zosyn and Levaquin along with DuoNeb inhalations, Pulmicort and Perforomist inhalations. On 01/09/2019 patient seen in follow-up on selective care unit, he is awake and alert, he is up in the recliner, he is on 3 L of oxygen and the pulse ox of 92%, he is afebrile, hemodynamically stable, he states his breathing is improving, no fever or chills, his blood and sputum cultures showed no growth at the 48 hour jabier. He is on a combination of Levaquin and Zosyn. His IV steroids have been transitioned to oral prednisone. No acute complaints, has not required BiPAP support last night. Complaints of chest pain, chest wall tenderness or hemoptysis. Cough is improving. On 01/10/2019 patient seen in follow-up on selective care unit, he is awake and alert, feeling much better, breathing easier, has been up ambulating, tolerating it quite well. He is on 3 L of oxygen and his pulse ox is 90%, afebrile, no significant cough or congestion, follow-up chest x-ray shows patchy density at the right lung base greater than the left overall his chest x-ray findings are improving, as well as his clinical condition. He is on commission of Levaquin and Zosyn. Blood and sputum culture showed no growth. Objective - Vital Signs Vital signs: Vital Signs Temp 97.1 F L 01/10/19 12:00 Pulse 80 01/10/19 12:48 Resp 18 01/10/19 12:00 BP 120/66 01/10/19 12:00 Pulse Ox 90 L 01/10/19 12:00 Intake & Output 01/09/19 01/10/19 01/10/19 18:59 06:59 18:59 Intake Total 1880 460 222 Output Total 750 150 Balance 1130 310 222 Weight 110.4 kg Intake: Intake, IV Titration 1400 100 Amount Piperacillin-Tazobactam 3 200 100 .375 gm In Sodium Chloride 0.9% 100 ml @ 25 mls/hr IVPB Q8H ROBBIE Rx#: [id number] Sodium Chloride 0.9% 1, 1200 000 ml @ 100 mls/hr IV . Q10H ROBBIE Rx#:[id number] Oral 480 360 222 Output: Urine 750 150 Other: Voiding Method Toilet Toilet # Voids 1 1 - Exam GENERAL EXAM: Alert, pleasant, 78-year-old white male, on 3 L of oxygen with a pulse ox of 93% comfortable in no apparent distress. HEAD: Normocephalic/atraumatic. EYES: Normal reaction of pupils, equal size. Conjunctiva pink, sclera white. NOSE: Clear with pink turbinates. THROAT: No erythema or exudates. NECK: No masses, no JVD, no thyroid enlargement, no adenopathy. CHEST: No chest wall deformity. Symmetrical expansion. LUNGS: Equal air entry with diminished air entry, minimal scattered crackles at the bases CVS: Regular rate and rhythm, normal S1 and S2, no gallops, no murmurs, no rubs ABDOMEN: Soft, nontender. No hepatosplenomegaly, normal bowel sounds, no guarding or rigidity. EXTREMITIES: No clubbing, no edema, no cyanosis, 2+ pulses and upper and lower extremities. Chronic venous stasis changes noted to bilateral lower extremities MUSCULOSKELETAL: Muscle strength and tone normal. SPINE: No scoliosis or deformity SKIN: No rashes CENTRAL NERVOUS SYSTEM: Alert and oriented -3. No focal deficits, tone is normal in all 4 extremities. PSYCHIATRIC: Alert and oriented -3. Appropriate affect. Intact judgment and insight. - Labs CBC & Chem 7: 01/08/19 06:38 01/09/19 06:26 Labs: Abnormal Lab Results - Last 24 Hours (Table) 01/09/19 01/09/19 01/10/19 Range/Units 16:41 19:58 05:37 PT 26.3 H (9.0-12.0) sec INR 2.7 H (<1.2) POC Glucose (mg/dL) 208 H 236 H (75-99) mg/dL 01/10/19 01/10/19 Range/Units 06:30 11:53 PT (9.0-12.0) sec INR (<1.2) POC Glucose (mg/dL) 116 H 111 H (75-99) mg/dL Microbiology - Last 24 Hours (Table) 01/06/19 18:01 Blood Culture - Preliminary Blood No Growth after 72 hours Assessment and Plan Plan: Assessment: #1. Acute pneumonia, possibly healthcare acquired, involving the right lower lobe and possibly left lung base #2. Recent admission for COPD and tracheobronchitis, patient had a broad with bronchoalveolar lavage with cultures positive for pseudomonas and group B strep #3. Advanced stage III COPD, with a baseline FEV1 of 39% of predicted with home oxygen #4. Chronic hypoxemic respiratory failure #5. 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 Hypothyroidism #8. Hypertension #9. Hyperlipidemia #10. Previous history of methicillin-resistant Staphylococcus aureus infection Plan: Follow-up chest x-ray reviewed showing some patchy density at the right lung base and right middle lobe airspace disease, clinically patient is improving, tolerating ambulation, he is afebrile, cultures have shown no growth. His been treated with a combination of Zosyn and Levaquin, he complete outpatient course of oral antibiotics, he will need close follow-up with Dr. Adamson next week. I performed a history & physical examination of the patient and discussed their management with my nurse practitioner, Keren To. I reviewed the nurse pr actitioner's note and agree with the documented findings and plan of care. Lung sounds are positive for end expiratory wheezes, rhonchi and rales. The findings and the impression was discussed with the patient. I attest to the documentation by the nurse practitioner. Time with Patient: Less than 30
[2019-01-10] MEDS ORDERED: WARFARIN 5 MG TAB PO ONE (18:00)
--- NOTE | 2019-01-10 18:26 | PN ---
PROGRESS NOTE DATE OF SERVICE: 01/10/2019. REASON FOR FOLLOWUP: Pneumonia. INTERVAL HISTORY: The patient is currently afebrile. The patient has been breathing comfortably. The patient denies having any chest pain or shortness of breath, cough has decreased in intensity. No nausea, no vomiting. No abdominal pain. No diarrhea. PHYSICAL EXAMINATION: Blood pressure 120/56, pulse of 83. Temperature 97.1. He is 90% on 3 L nasal cannula. General description is an elderly male lying in bed in no distress. Respiratory system: Unlabored breathing. Decreased breath sounds in the bases. No wheeze. Heart S1, S2. Regular rate and rhythm. ABDOMEN: Soft. No tenderness. LABS: No new labs have been obtained. Sputum has been usual respiratory chidi. Blood culture has been negative. DIAGNOSTIC IMPRESSION AND PLAN: Patient admitted to the hospital with pneumonia, previous history of Pseudomonas and strep. However, culture this admission has been negative. He will be able to finish therapy with short course of oral Ceftin and close outpatient followup. MMODL / IJN: [id number] /
--- NOTE | 2019-01-10 21:17 | P.DS ---
Providers Date of admission: 01/06/19 18:51 Expected date of discharge: 01/10/19 Attending physician: Tej Nolasco MD Consults: 01/06/19 18:51 Consult Physician Routine Consulting Provider: Kristen Talley Consult Reason/Comments: known Do you want consulting provider notified?: Yes 01/07/19 13:00 Consult Physician Routine Consulting Provider: Hernan Lino Consult Reason/Comments: antibitoic guidance Do you want consulting provider notified?: Yes Primary care physician: Mariza Hou [facility] Course: Discharge Diagnosis: Pneumonia, possibly healthcare acquired and gram-negative involving the right base Acute exacerbation for COPD with tracheobronchitis Acute on chronic hypoxic respiratory failure Hyperhomocystinemia Hypothyroidism Hypertension Dyslipidemia Sepsis ruled out Hospital Course: Patient is a 78-year-old male past medical history of COPD, chronic hypoxic respiratory failure on 3 L nasal cannula, hypertension, dyslipidemia, and hypothyroidism who presented to the emergency Department complaints of shortness of breath. In the ER he was found have significant worsening of reading and was hypoxic and was subsequently placed on BiPAP therapy. He was found have an acute exacerbation of COPD and a right-sided pneumonia. He was started on IV antibiotics, steroids, bronchodilators and was admitted for further monitoring and care. Pulmonary was consulted and he sees Dr. Jackson at baseline. Infectious disease was consulted. Sputum culture came back with normal chidi. He quickly improved with the use of IV steroids and bronchodilators. She was transitioned to oral steroids. By the morning of 01/10 he was back to his home 3 L, was up and walking in the hallways, and felt significantly improved. He was determined stable for discharge home. Per ID recommendations he will complete an additional 7 days of Ceftin. He'll also complete a course of oral steroids. He'll follow-up with Dr. Adamson on 01/[address] Hou 01/11. Patient seen and examined at bedside. Shortness of breath improved, no chest pain, no nausea, no vomiting, no diarrhea Vital signs reviewed and stable. General: non toxic, no distress, appears at stated age Derm: warm, dry Head: atraumatic, normocephalic, symmetric Eyes: EOMI, no lid lag, anicteric sclera Mouth: no lip lesion, mucus membranes moist Cardiovascular: S1S2 reg, no murmur, positive posterior tibial pulse bilateral, Lungs: Decreased breath sounds bilateral , no accessory muscle use Abdominal: soft, nontender to palpation, no guarding, no appreciable organomegaly Ext: no gross muscle atrophy, no edema, no contractures Neuro: CN II-XI grossly intact, no focal neuro deficits Psych: Alert, oriented, appropriate affect A total of 25 minutes of time were spent preparing this complex discharge summary . Pertinent Studies: Chest CT-right pleural effusion, underlying emphysematous changes, multifocal bilateral lower lung consolidation or atelectasis, worsening right middle lobe consolidation, underlying neoplasm not excluded Patient Condition at Discharge: Stable Plan - Discharge Summary New Discharge Prescriptions: New predniSONE 40 mg PO DAILY #8 tab Cefuroxime Axetil [Ceftin] 500 mg PO BID #14 tab Continue Aspirin 81 mg PO HS Simvastatin [Zocor] 40 mg PO HS Multivitamins, Thera [Multivitamin (formulary)] 1 tab PO DAILY Fluticasone/Salmeterol [Advair 500-50 Diskus] 1 puff PO RT-BID traMADol HCL [Ultram] 50 mg PO BID Folic Acid 1 mg PO DAILY Metoprolol Succinate (ER) [Toprol XL] 25 mg PO DAILY Levothyroxine Sodium [Synthroid] 50 mcg PO DAILY metFORMIN HCL [Glucophage] 500 mg PO HS Warfarin Sodium [Coumadin] 10 mg PO SUTUWETHSA Calcium Carbonate/Vitamin D3 [Calcium 600-Vit D3 400 Tablet] 1 tab PO DAILY Ipratropium-Albuterol Nebulize [Duoneb 0.5 mg-3 mg/3 ml Soln] 3 ml INHALATION RT-QID ampul.neb predniSONE 5 mg PO DAILY Warfarin [Coumadin] 5 mg PO MOFR Discharge Medication List Aspirin 81 mg PO HS 11/24/18 [History] Fluticasone/Salmeterol [Advair 500-50 Diskus] 1 puff PO RT-BID 11/24/18 [History] Folic Acid 1 mg PO DAILY 11/24/18 [History] Levothyroxine Sodium [Synthroid] 50 mcg PO DAILY 11/24/18 [History] Metoprolol Succinate (ER) [Toprol XL] 25 mg PO DAILY 11/24/18 [History] Multivitamins, Thera [Multivitamin (formulary)] 1 tab PO DAILY 11/24/18 [History] Simvastatin [Zocor] 40 mg PO HS 11/24/18 [History] metFORMIN HCL [Glucophage] 500 mg PO HS 11/24/18 [History] traMADol HCL [Ultram] 50 mg PO BID 11/24/18 [History] Calcium Carbonate/Vitamin D3 [Calcium 600-Vit D3 400 Tablet] 1 tab PO DAILY 11/30/18 [History] Warfarin Sodium [Coumadin] 10 mg PO SUTUWETHSA 11/30/18 [History] Ipratropium-Albuterol Nebulize [Duoneb 0.5 mg-3 mg/3 ml Soln] 3 ml INHALATION RT-QID ampul.neb 12/02/18 [Rx] Warfarin [Coumadin] 5 mg PO MOFR 01/06/19 [History] predniSONE 5 mg PO DAILY 01/06/19 [History] Cefuroxime Axetil [Ceftin] 500 mg PO BID #14 tab 01/10/19 [Rx] predniSONE 40 mg PO DAILY #8 tab 01/10/19 [Rx] Follow up Appointment(s)/Referral(s): Mariza Hou MD [Primary Care Provider] - 01/11/19 10:15 am Aristides Adamson DO [Doctor of Osteopathic Medicine] - 01/18/19 9:45 am [facility] Visiting Nurse, [NON-STAFF] - Patient Instructions/Handouts: Heart Healthy Diet (DC), Pneumonia (DC), Chronic Lung Disease and Infection Prevention (DC) Activity/Diet/Wound Care/Special Instructions: Activity: tolerated Diet: Heart Healthy Special Instructions: Resume your Prednisone 5 mg daily once you have completed your Prednisone 40 mg Daily for 4 days Discharge Disposition: HOME WITH HOME HEALTH SERVICES
== END 2019-01-10 15:08 | disposition home health service (06) | DRG 177 ==
LOC: EC 17:37 → 3SCARD 18:51
PROVIDERS: ADMIT Family Medicine; ATTEND Family Medicine
PROC: 5A09457 Assistance with Respiratory Ventilation, 24-96 Consecutive Hours, Continuous Positive Airway Pressure (ICD-10-PCS; principal; 2019-01-06)
DX: J15.6 Pneumonia due to other Gram-negative bacteria (principal); J96.21 Acute and chronic respiratory failure with hypoxia; E72.11 Homocystinuria; J98.11 Atelectasis; J44.0 Chronic obstructive pulmonary disease with (acute) lower respiratory infection; J44.1 Chronic obstructive pulmonary disease with (acute) exacerbation; I71.2 Thoracic aortic aneurysm, without rupture; E11.9 Type 2 diabetes mellitus without complications; Y95 Nosocomial condition; Z66 Do not resuscitate; I87.8 Other specified disorders of veins; I10 Essential (primary) hypertension; E03.9 Hypothyroidism, unspecified; E78.5 Hyperlipidemia, unspecified; F41.9 Anxiety disorder, unspecified; Z99.81 Dependence on supplemental oxygen; Z79.82 Long term (current) use of aspirin; Z79.51 Long term (current) use of inhaled steroids; Z79.890 Hormone replacement therapy; Z79.84 Long term (current) use of oral hypoglycemic drugs; Z79.52 Long term (current) use of systemic steroids; Z79.01 Long term (current) use of anticoagulants; Z79.899 Other long term (current) drug therapy; Z86.73 Personal history of transient ischemic attack (TIA), and cerebral infarction without residual deficits; Z86.14 Personal history of Methicillin resistant Staphylococcus aureus infection; Z98.890 Other specified postprocedural states; Z86.79 Personal history of other diseases of the circulatory system; Z87.891 Personal history of nicotine dependence; Z86.718 Personal history of other venous thrombosis and embolism; Z86.711 Personal history of pulmonary embolism
CPT/HCPCS: 36415; 71045; 71046; 71250; 80048; 80053; 81001; 82550; 82565; 83735; 83880; 84484; 85025; 85610; 85730; 87040; 87070; 87205; 87502; 93005; 94640; 94644; 94660; 96365; 96366; 96367; 96368; 96375; 99291

== ENCOUNTER 2019-02-22 10:58 | Day surgery (SDC) | payer MEDICARE ==
[2019-02-21 09:05] VITALS: BMI 32.8
[~2019-02-22 10:58] MED LIST changes: +LIDOCAINE 1% 20 ML VIAL (10MG/ML) FOR IV START INTRADERMA PRN
[2019-02-22 11:39] VITALS: TEMP 97.1
[2019-02-22 11:51] LABS: Glucose,Whole Blood 93 mg/dL (75-99)
[2019-02-22] MEDS ORDERED: LIDOCAINE 1% INJ 10MG/ML (20 ML MDV) ONE (12:18)
[2019-02-22] MEDS ORDERED: PROPOFOL 10 MG/ML 20 ML VIAL IV ONE (12:18)
[2019-02-22] MEDS ORDERED: LIDOCAINE 2% INJ 20 MG/ML INTRATRACH ONE (12:26)
[2019-02-22 12:40] VITALS: RESP 16
[2019-02-22 12:53] VITALS: BP 127/71; PULSE 83
[2019-02-22 18:11] LABS: Appearance,BF Cloudy; Color,BF Red
[2019-02-22 18:39] LABS: Nucleated Cells, Body Fluid 160 /uL; RBC, Body Fluid 1080 /uL
[2019-02-22 18:41] LABS: Mononuclear WBC,Body Fluid 2 %; Polynuclear WBC,Body Fluid 98 %; Total Cells Counted,Body Fluid 100
--- NOTE | 2019-02-22 22:46 | PCN ---
PROCEDURE NOTE PROCEDURE PERFORMED: Bronchoscopy, airway examination, therapeutic lavage, BAL. PREOP DIAGNOSIS: Acute bronchitis and right middle lobe syndrome. POSTOP DIAGNOSIS: Acute bronchitis and right middle lobe syndrome. COLOR CONTROL SUPERVISOR: Dr. Adamson and Dr. Bland. DESCRIPTION OF PROCEDURE: There was informed consent. There was universal timeout. The museum director was Romana Crews. She provided unconscious sedation and general anesthesia. After the patient was adequately sedated and being fully monitored, the bronchoscope was inserted through the left nostril. It passed through the left nasopharynx into the oropharynx. The hypopharynx was identified and topicalized. The hypopharyngeal structures appeared relatively normal including anterior commissure, true cords, false cords, arytenoids, piriform sinuses, right and left valleculae and epiglottis. There appeared to be some yeast noted in the hypopharyngeal area. That will be treated before his discharge. After topicalization, bronchoscope was pushed through the glottic opening into the trachea. Trachea appeared relatively normal. There was some thick purulent secretions noted in the trachea, though. Tracheal sofia was sharp. The right and left mainstem were topicalized. There were thick secretions noted throughout both lungs. The right upper lobe and its 3 segments, right middle lobe and its 2 segments, right lower lobe and its 5 segments, the left upper lobe proper and its 2 segments, the lingula and its 2 segments and left lower lobe and its 4 segments all had similar findings of diffuse airway erythema and hyperemia. The mucosa was friable. It bled easily. There were thick secretions noted throughout. The patient tolerated the procedure well. The secretions were suctioned. The bronchoscope was wedged into the right middle lobe/right lower lobe area. The BAL took place. The patient's any additional secretions were suctioned. The bronchoscope was withdrawn. The patient tolerated the procedure well. There was no immediate complication. The patient will be recovered. MMODL / IJN: [id number] /
== END 2019-02-22 13:10 | disposition home or self-care (01) ==
LOC: ORWHC2ENDO 10:58
PROVIDERS: ATTEND Internal Medicine Critical Care Medicine
DX: J44.0 Chronic obstructive pulmonary disease with (acute) lower respiratory infection (principal); J20.9 Acute bronchitis, unspecified; J98.19 Other pulmonary collapse; B37.89 Other sites of candidiasis; J96.11 Chronic respiratory failure with hypoxia; E66.9 Obesity, unspecified; Z68.33 Body mass index [BMI] 33.0-33.9, adult; E78.5 Hyperlipidemia, unspecified; H40.9 Unspecified glaucoma; E03.9 Hypothyroidism, unspecified; E11.9 Type 2 diabetes mellitus without complications; I10 Essential (primary) hypertension; E72.11 Homocystinuria; Z79.51 Long term (current) use of inhaled steroids; Z79.82 Long term (current) use of aspirin; Z79.899 Other long term (current) drug therapy; Z79.890 Hormone replacement therapy; Z79.84 Long term (current) use of oral hypoglycemic drugs; Z79.01 Long term (current) use of anticoagulants; Z87.891 Personal history of nicotine dependence; Z98.890 Other specified postprocedural states; Z90.89 Acquired absence of other organs; Z86.2 Personal history of diseases of the blood and blood-forming organs and certain disorders involving the immune mechanism; Z86.711 Personal history of pulmonary embolism; Z86.718 Personal history of other venous thrombosis and embolism; Z99.81 Dependence on supplemental oxygen; Z86.19 Personal history of other infectious and parasitic diseases; Z79.52 Long term (current) use of systemic steroids; Z86.73 Personal history of transient ischemic attack (TIA), and cerebral infarction without residual deficits; Z79.891 Long term (current) use of opiate analgesic
CPT/HCPCS: 94640; 87798 ×3; 87496; 87498; 87529; 88108; 88305; 89050; 87252; 87502; 87634; 87070; 87205; 87116; 87102; 87077; 87186; 87206; 31624; J2001 ×3; J0461; J2704

== ENCOUNTER → 2020-02-20 | Outpatient (CLI) | payer MEDICARE ==
[2020-02-20 09:41] LABS: Prothrombin Time 10.6 sec (9.0-12.0)
== END | disposition home or self-care (01) ==
LOC: LABWHC1 09:03
PROVIDERS: ATTEND Dentist Oral and Maxillofacial Surgery
DX: Z51.81 Encounter for therapeutic drug level monitoring (principal); Z79.01 Long term (current) use of anticoagulants
CPT/HCPCS: 36415; 85610

== ENCOUNTER → 2020-07-20 | Outpatient (CLI) | payer MEDICARE ==
--- NOTE | 2020-07-20 17:04 | CT ---
EXAMINATION TYPE: CT urogram wo/w con DATE OF EXAM: 07/20/2020 COMPARISON: CT chest 01/07/2019. HISTORY: hematuria CT DLP: 5752.3 mGycm, Automated Exposure Control for Dose Reduction was Utilized. CONTRAST: CT scan of the abdomen and pelvis is performed with oral and without and with IV Contrast, patient in jected with 100 mL of Isovue 300. FINDINGS: LUNG BASES: Focal opacity in the right lower lobe. Additional mild bibasilar peripheral hazy opacity. No pleural effusions. LIVER/GB: Hepatic steatosis. Otherwise no significant abnormality is appreciated. PANCREAS: No significant abnormality is seen. SPLEEN: No significant abnormality is seen. ADRENALS: No significant abnormality is seen. KIDNEYS: Few nonobstructing bilateral renal calculi measuring up to 4 mm on the left and 3 mm on the right. Mild right hydroureteronephrosis with transition point in the distal ureter and without obstru cting calculus seen. No left hydronephrosis. Urinary bladder is grossly unremarkable. A few low atten uating right renal cortical foci measuring up to 0.4 cm and statistically favored to represent benign cysts BOWEL: No significant abnormality is seen. PROSTATE/SEMINAL VESICLES: No gross abnormality seen. LYMPH NODES: No greater than 1cm abdominal or pelvic lymph nodes are appreciated. OSSEOUS STRUCTURES: No acute abnormality is seen. Moderate to severe lumbar spondylosis. OTHER: Advanced atherosclerotic disease is seen. IMPRESSION: Mild right hydronephrosis with transition point in the distal ureter and without obstruct ing calculus seen. Findings may relate to stricture. Recommend follow-up. Bilateral nonobstructing renal calculi. Right renal cysts. Focal right lower lobe opacity with additional mild bibasilar opacities. Correlate for infiltrates. A ttention on follow-up.
== END | disposition home or self-care (01) ==
LOC: RADCTMAIN 14:53
PROVIDERS: ATTEND Urology
DX: N20.0 Calculus of kidney (principal); N28.1 Cyst of kidney, acquired; N13.30 Unspecified hydronephrosis
CPT/HCPCS: 82565; 84520; 74178; 36415; 74400; Q9967

== ENCOUNTER 2020-11-08 03:04 | Inpatient (IN) | payer MEDICARE ==
[2020-11-08] MEDS ORDERED: NITROGLYCERIN SL TABS 0.4 MG TAB SUBLINGUAL PRN (03:12)
[2020-11-08] MEDS ORDERED: NITROGLYCERIN SL TABS 0.4 MG TAB SUBLINGUAL STA (03:13)
[2020-11-08] MEDS ORDERED: MORPHINE SULFATE 4 MG/ML SYRINGE IV STA (03:13)
--- NOTE | 2020-11-08 03:22 | ED ---
SOB HPI - General Chief Complaint: Shortness of Breath Stated Complaint: STEMI Time Seen by Provider: 11/08/20 03:10 Source: patient, EMS Mode of arrival: EMS Limitations: no limitations - History of Present Illness Initial Comments: This patient is an 80-year-old man with history of COPD and homocysteinemia, who states that he started becoming more short of breath than his usual around midnight. The patient states that the symptoms worsened and they phoned EMS. EMS arrived to find the patient very take hip neck, hypertensive and in respiratory distress. They placed the patient on CPAP, administered albuterol treatment and transported him here. The patient states she is feeling a little better since being placed on the mask. Patient denies having had fever or chills. No change in cough. Patient denies chest or back pain. MD Complaint: shortness of breath Onset/Timin -: hour(s) Improves With: nothing Worsens With: lying flat Known History Of: COPD Associated Symptoms: denies other symptoms Treatments Prior to Arrival: oxygen, NIPPV - Related Data Home Oxygen Therapy: No Home Medications Medication Instructions Recorded Confirmed Aspirin 81 mg PO HS 11/24/18 11/08/20 Fluticasone/Salmeterol [Advair 2 puff PO RT-BID 11/24/18 11/08/20 500-50 Diskus] Folic Acid 1 mg PO DAILY 11/24/18 11/08/20 Levothyroxine Sodium [Synthroid] 50 mcg PO DAILY 11/24/18 11/08/20 Metoprolol Succinate (ER) [Toprol 25 mg PO DAILY 11/24/18 11/08/20 XL] Simvastatin [Zocor] 40 mg PO HS 11/24/18 11/08/20 metFORMIN HCL [Glucophage] 500 mg PO HS 11/24/18 11/08/20 traMADol HCL [Ultram] 50 mg PO BID 11/24/18 11/08/20 Calcium Carbonate/Vitamin D3 1 tab PO DAILY 11/30/18 11/08/20 [Calcium 600-Vit D3 10 mcg (400 Iu)] Warfarin Sodium [Coumadin] 10 mg PO HS 11/30/18 11/08/20 Acetaminophen [Tylenol Arthritis] 650 mg PO BID 11/08/20 11/08/20 Albuterol Nebulized [Ventolin 2.5 mg INHALATION RT-Q6H PRN 11/08/20 11/08/20 Nebulized] Azithromycin [Zithromax] 250 mg PO MOWEFR 11/08/20 11/08/20 Multivit-Min/FA/Lycopen/Lutein 1 tab PO DAILY 11/08/20 11/08/20 [Centrum Silver Tablet] Ubidecarenone [Co Q-10] 100 mg PO DAILY 11/08/20 11/08/20 predniSONE 30 mg PO DAILY 11/08/20 11/08/20 Allergies Allergy/AdvReac Type Severity Reaction Status Date / Time No Known Allergies Allergy Verified 11/08/20 08:50 Review of Systems ROS Statement: Those systems with pertinent positive or pertinent negative responses have been documented in the HPI. ROS Other: All systems not noted in ROS Statement are negative. Constitutional: Denies: fever, chills Respiratory: Reports: cough (Chronic), dyspnea. Denies: wheezes, hemoptysis Cardiovascular: Reports: orthopnea. Denies: chest pain, palpitations, edema Gastrointestinal: Denies: abdominal pain, nausea, vomiting, diarrhea Genitourinary: Denies: dysuria, hematuria Musculoskeletal: Denies: back pain Skin: Denies: rash Neurological: Denies: headache, weakness Past Medical History Past Medical History: COPD, CVA/TIA, Hyperlipidemia, Hypertension, Thyroid Disorder Additional Past Medical History / Comment(s): Wears oxygen @ 3 L per nc.-17/11, Hyperhomocysteinemia. Chronic cough. History of Any Multi-Drug Resistant Organisms: MRSA Date of last positivie culture/infection: 02/09/18 MDRO Source:: LT LEG Past Surgical History: Tonsillectomy Additional Past Surgical History / Comment(s): Carotid Endarterectomy. BRONCH OSCOPY, COLONOSCOPY, BILAT CATARACTS REMOVED Past Anesthesia/Blood Transfusion Reactions: No Reported Reaction Past Psychological History: No Psychological Hx Reported Smoking Status: Former smoker Past Alcohol Use History: None Reported, Occasional Past Drug Use History: None Reported - Past Family History Mother Family Medical History: No Reported History General Exam Limitations: no limitations General appearance: alert, in distress Head exam: Present: atraumatic, normocephalic Eye exam: Present: normal appearance. Absent: scleral icterus, conjunctival injection Neck exam: Present: normal inspection Respiratory exam: Present: respiratory distress, rales, accessory muscle use. Absent: wheezes, rhonchi, stridor, chest wall tenderness, decreased breath sounds Cardiovascular Exam: Present: tachycardia. Absent: systolic murmur, diastolic murmur, rubs, gallop GI/Abdominal exam: Present: soft. Absent: distended, tenderness, guarding, rebound, rigid, mass Extremities exam: Present: normal inspection, normal capillary refill. Absent: pedal edema, calf tenderness Back exam: Present: normal inspection. Absent: CVA tenderness (R), CVA tend erness (L) Neurological exam: Present: alert Skin exam: Present: warm, dry, intact, normal color. Absent: rash Course Vital Signs 11/08/20 11/08/20 11/08/20 03:05 03:15 03:23 Temperature 100.1 F H Pulse Rate 125 H 122 H Respiratory 38 H 38 H 38 H Rate Blood Pressure 169/109 143/96 O2 Sat by Pulse 96 92 L Oximetry 11/08/20 03:29 Temperature Pulse Rate 117 H Respiratory 34 H Rate Blood Pressure 137/85 O2 Sat by Pulse 92 L Oximetry Medical Decision Making - Lab Data Result diagrams: 11/09/20 04:43 11/10/20 03:18 Lab Results 11/08/20 11/08/20 11/08/20 Range/Units 03:15 03:15 03:15 WBC 10.2 (3.8-10.6) k/uL RBC 4.94 (4.30-5.90) m/uL Hgb 14.9 (13.0-17.5) gm/dL Hct 45.6 (39.0-53.0) % MCV 92.4 (80.0-100.0) fL MCH 30.2 (25.0-35.0) pg MCHC 32.6 (31.0-37.0) g/dL RDW 14.2 (11.5-15.5) % Plt Count 229 (150-450) k/uL MPV 7.3 Neutrophils % 84 % Lymphocytes % 11 % Monocytes % 3 % Eosinophils % 1 % Basophils % 0 % Neutrophils # 8.6 H (1.3-7.7) k/uL Lymphocytes # 1.1 (1.0-4.8) k/uL Monocytes # 0.3 (0-1.0) k/uL Eosinophils # 0.1 (0-0.7) k/uL Basophils # 0.0 (0-0.2) k/uL PT 40.2 H (9.0-12.0) sec INR 4.2 H (<1.2) APTT 30.7 H (22.0-30.0) sec Sodium 140 (137-145) mmol/L Potassium 4.5 (3.5-5.1) mmol/L Chloride 100 (98-107) mmol/L Carbon Dioxide 32 H (22-30) mmol/L Anion Gap 8 mmol/L BUN 33 H (9-20) mg/dL Creatinine 0.97 (0.66-1.25) mg/dL Est GFR (CKD-EPI)AfAm 85 (>60 ml/min/1.73 sqM) Est GFR (CKD-EPI)NonAf 74 (>60 ml/min/1.73 sqM) Glucose 178 H (74-99) mg/dL POC Glucose (mg/dL) (75-99) mg/dL POC Glu Gasoline Tester ID Calcium 9.3 (8.4-10.2) mg/dL Total Bilirubin 0.4 (0.2-1.3) mg/dL AST 43 (17-59) U/L ALT 33 (4-49) U/L Alkaline Phosphatase 65 (38-126) U/L Troponin I (0.000-0.034) ng/mL NT-Pro-B Natriuret Pep pg/mL Total Protein 6.7 (6.3-8.2) g/dL Albumin 4.0 (3.5-5.0) g/dL 11/08/20 11/08/20 11/08/20 Range/Units 03:15 03:15 03:21 WBC (3.8-10.6) k/uL RBC (4.30-5.90) m/uL Hgb (13.0-17.5) gm/dL Hct (39.0-53.0) % MCV (80.0-100.0) fL MCH (25.0-35.0) pg MCHC (31.0-37.0) g/dL RDW (11.5-15.5) % Plt Count (150-450) k/uL MPV Neutrophils % % Lymphocytes % % Monocytes % % Eosinophils % % Basophils % % Neutrophils # (1.3-7.7) k/uL Lymphocytes # (1.0-4.8) k/uL Monocytes # (0-1.0) k/uL Eosinophils # (0-0.7) k/uL Basophils # (0-0.2) k/uL PT (9.0-12.0) sec INR (<1.2) APTT (22.0-30.0) sec Sodium (137-145) mmol/L Potassium (3.5-5.1) mmol/L Chloride (98-107) mmol/L Carbon Dioxide (22-30) mmol/L Anion Gap mmol/L BUN (9-20) mg/dL Creatinine (0.66-1.25) mg/dL Est GFR (CKD-EPI)AfAm (>60 ml/min/1.73 sqM) Est GFR (CKD-EPI)NonAf (>60 ml/min/1.73 sqM) Glucose (74-99) mg/dL POC Glucose (mg/dL) 160 H (75-99) mg/dL POC Glu Gasoline Tester ID Deanna Waterman Calcium (8.4-10.2) mg/dL Total Bilirubin (0.2-1.3) mg/dL AST (17-59) U/L ALT (4-49) U/L Alkaline Phosphatase (38-126) U/L Troponin I 0.079 H* (0.000-0.034) ng/mL NT-Pro-B Natriuret Pep 176 pg/mL Total Protein (6.3-8.2) g/dL Albumin (3.5-5.0) g/dL - EKG Data -: EKG Interpreted by [facility] EKG shows normal: sinus rhythm, axis (Normal), intervals (Normal), ST-T waves (In comparison with the previous ECG from 2019, the patient does appear to have some ST elevations in 2, aVF, and V3 V4.) Rate: tachycardia Critical Care Time Critical Care Time: Yes (30 minutes) Disposition Clinical Impression: Pneumonia, Hypertension, Acute coronary syndrome Disposition: ADMITTED IP TO THIS [facility] Condition: Serious
[2020-11-08 03:24] LABS: Glucose,Whole Blood 160 mg/dL (75-99)
[2020-11-08 03:34] LABS: Calcium 9.3 mg/dL (8.4-10.2); Potassium 4.5 mmol/L (3.5-5.1); Total Bilirubin 0.4 mg/dL (0.2-1.3); Total Protein 6.7 g/dL (6.3-8.2)
--- NOTE | 2020-11-08 03:36 | XR ---
EXAMINATION TYPE: XR chest 1V portable DATE OF EXAM: 11/08/2020 COMPARISON: 01/10/2019 HISTORY: Chest pain TECHNIQUE: Single view FINDINGS: There is airspace consolidation in the right lower lobe. Left lung shows coarse interstitia l density. There is no heart failure. Heart size is normal. Mediastinum appears normal. IMPRESSION: There is right lower lobe pneumonia that is significantly increased compared to old exam. No heart failure.
[2020-11-08] MEDS ORDERED: LIDOCAINE 1% INJ 10MG/ML (20 ML MDV) ONE (03:44)
[2020-11-08] MEDS ORDERED: VERAPAMIL 2.5 MG/ML 2 ML AMP ONE (03:44)
[2020-11-08] MEDS ORDERED: HEPARIN SODIUM 1,000 UN/ML (10ML VL) ONE (03:44)
[2020-11-08 03:55] LABS: Basophils % (A) 0 %; Eosinophils # (A) 0.1 k/uL (0-0.7); Eosinophils % (A) 1 %; HCT 45.6 % (39.0-53.0); HGB 14.9 gm/dL (13.0-17.5); Lymphocytes # (A) 1.1 k/uL (1.0-4.8); Lymphocytes % (A) 11 %; MCH 30.2 pg (25.0-35.0); MCHC 32.6 g/dL (31.0-37.0); MCV 92.4 fL (80.0-100.0); Mean Platelet Volume 7.3; Monocytes # (A) 0.3 k/uL (0-1.0); Monocytes % (A) 3 %; Neutrophils # (A) 8.6 k/uL (1.3-7.7); Neutrophils % (A) 84 %; Platelet Count 229 k/uL (150-450); RBC 4.94 m/uL (4.30-5.90); RDW 14.2 % (11.5-15.5); WBC 10.2 k/uL (3.8-10.6)
[2020-11-08] MEDS ORDERED: MIDAZOLAM 2 MG/2 ML VIAL IVP ONE (04:01)
[2020-11-08] MEDS ORDERED: LIDOCAINE 1% INJ 10MG/ML (10 ML MDV) SQ ONE (04:02)
[2020-11-08] MEDS ORDERED: IV FLUID CONTINUATION 1,000 ML IV ONE ×2 (04:05→08:23)
[2020-11-08 04:12] LABS: INR 4.2 (<1.2); Partial Thromboplastin Time 30.7 sec (22.0-30.0); Prothrombin Time 40.2 sec (9.0-12.0)
[2020-11-08] MEDS ORDERED: fentaNYL (PF) 50 MCG/ML 2 ML AMP ONE (04:14)
[2020-11-08] MEDS ORDERED: fentaNYL (PF) 50 MCG/ML 2 ML AMP IVP ONE (04:15)
[2020-11-08] MEDS ORDERED: RX INFO: IV CONTRAST WAS GIVEN 1 EACH MISC MISCELLANE PRN (04:29)
[2020-11-08] MEDS ORDERED: ATORVASTATIN 40 MG TAB PO STA (04:31)
[2020-11-08] MEDS ORDERED: ASPIRIN 81 MG PO STA (04:31)
[2020-11-08] MEDS ORDERED: IOPAMIDOL-370 100ML BTL INJ ONE ×2 (04:33→09:37)
[2020-11-08 04:51] LABS: Glucose,Whole Blood 154 mg/dL (75-99)
[2020-11-08] MEDS: SODIUM CHLORIDE 0.9% 1,000 ML IV SCH ×2 (06:08→22:15)
--- NOTE | 2020-11-08 06:23 | CONS ---
CONSULTATION CHIEF COMPLAINT: Shortness of breath. HISTORY OF PRESENT ILLNESS: This is an 80-year-old gentleman with history of hypertension, diabetes, and coronary artery disease, who presented to hospital complaining of sudden onset of shortness of breath. He did not have any chest pain. His EKG showed a subtle ST elevation in the inferolateral leads due to which a STEMI team was activated and we were called in. At the time of my evaluation in the [place] patient appears comfortable at rest. He has a BiPAP on. His shortness of breath was improving. PAST MEDICAL HISTORY: Significant for coronary artery disease, diabetes and hypertension. MEDICATIONS: I do not have the list with me. ALLERGIES: None. FAMILY HISTORY: Negative for premature coronary artery disease. SOCIAL HISTORY: Negative for smoking, EtOH abuse, or drug abuse. REVIEW OF SYSTEMS: HEENT: Is unremarkable. CARDIAC: As described above. RESPIRATORY: Negative. GI: Negative. : Negative. ALLERGY/IMMUNOLOGY: Negative. SKIN: Negative. MUSCULOSKELETAL: Significant for arthritis. PSYCHOSOCIAL: Negative. CONSTITUTIONAL: Negative. DERM: Negative. CONSTITUTIONAL: Negative. ONCOLOGICAL: Negative. ENVELOPE ADDRESSER: Negative. PHYSICAL EXAM: Comfortable at rest in mild respiratory distress. Chest exam reveals good air entry bilaterally. I do not hear any crackles or rhonchi. Heart exam reveals first and second heart sounds. An S4 is heard. Abdomen is soft. Examination of extremities reveals mild bilateral leg edema with chronic stasis changes and pigmentation. Foot pulses are diminished. ASSESSMENT: 1. Shortness of breath with possible inferolateral myocardial infarction in a patient with known coronary artery disease. 2. Uncontrolled hypertension. PLAN: The patient will undergo emergent cardiac catheterization with a view to performing angioplasty. MMODL / IJN: [id number] /
--- NOTE | 2020-11-08 06:27 | CC ---
CARDIAC CATHETERIZATION REPORT PROCEDURE: Cardiac catheterization. INDICATION: Acute coronary syndrome. PROCEDURE NOTE: After obtaining informed consent, left heart catheterization and coronary angiogram were performed via the right femoral artery using standard Amber catheters. Patient tolerated the procedure well without any obvious immediate complications. We obtained subselective images of the right coronary artery. I could not selectively engage it even with a destiny catheter. Patient received moderate conscious sedation. Total sedation time was 15 minutes. The femoral artery catheter was sutured in place with a view to performing an IVUS on him later in the day. HEMODYNAMICS: 1. Left ventricular end-diastolic pressure is 16-18 mm. There is no significant gradient across the aortic valve. 2. Left ventriculogram is not performed. ANGIOGRAPHIC DATA: Left main coronary artery: Left main coronary artery is a normal-sized vessel, appears calcified, divides into left anterior descending coronary artery and circumflex coronary artery. Distal left main appears stenosed and there is at least a 50% stenosis. Proximal LAD right at the origin of the diagonal branch also has a 70% stenosis. Circumflex coronary artery and its branches are free of significant stenosis. There are collaterals to the distal right coronary artery from the left system. Right coronary artery appears subtotally occluded proximally. CONCLUSIONS: 1. Distal left main stenosis with significant proximal LAD disease. 2. Chronic subtotal occlusion of the proximal LAD with extensive [id number] collaterals. PLAN: The exact significance of left main is not clear. However, we have a second STEMI in the emergency room at this time. The patient has good SHAWNA-3 flow distally and does not have any acute ST-segment elevation at the moment and he is doing much better. He does not have any chest pain and shortness of breath is improving. The plan is to sutures the sheath in, take him off the table, continue to treat him with IV heparin and bring him back later in the morning with a view to performing an IVUS to assess the significance of the left main stenosis. If it is significant then consult surgery for bypass or consider high risk left main stenosis. If it is not, then tackle the proximal LAD lesion. I discussed these issues with the patient. He understands and is in agreement with the plan. MMODL / IJN: [id number] /
[2020-11-08] MEDS: MIDAZOLAM 2 MG/2 ML VIAL IV ONE ×2 (08:33→08:39)
[2020-11-08] MEDS ORDERED: HYDROmorphone 0.5 MG/0.5 ML SYRINGE IVP ONE ×3 (08:33→09:12)
[2020-11-08] MEDS ORDERED: FLUMAZENIL 0.1 MG/ML 5 ML VIAL IVP ONE (08:47)
[2020-11-08] MEDS ORDERED: IOPAMIDOL-370 125ML BTL INJ ONE (09:15)
[2020-11-08] MEDS ORDERED: CLOPIDOGREL 75 MG TAB PO ONE (09:28)
[2020-11-08] MEDS ORDERED: SODIUM CHLORIDE 0.9% 1,000 ML IV ONE (09:37)
--- NOTE | 2020-11-08 10:16 | PTCA ---
PERCUTANEOUSTRANS CORORONARY ANGIOGRAPHY DATE OF SERVICE: November 08, 2020. PERFORMING PHYSICIAN: Jese Kahn MD. PROCEDURE PERFORMED: 1. Successful stenting of the proximal left anterior descending artery using a 4.0 x 15 mm Xience drug-eluting stent with an excellent angiographic results and reduction of stenosis from 70% to 0%. 2. Fractional flow reserve FFR of the LAD and left main coronary artery. 3. Intravascular ultrasound (IVUS) of the left main and left anterior descending artery. 4. Selective right common femoral artery angiogram. INDICATION: This is a pleasant 80-year-old gentleman who presented earlier today complaining of chest discomfort and also complaining of shortness of breath. The EKG showed ST changes concerning for ischemia. The troponin came in to be abnormal. He underwent earlier a heart catheterization by Dr. Melendez and that revealed intermediate lesion involving the left main coronary artery and intermediate to severe lesion involving the LAD. The decision was made towards bring the patient back for IVUS/FFR. APPROACH: Right common femoral artery. COMPLICATION: None. LEVEL OF SEDATION: Moderate with sedation length of 15 minutes. PROCEDURE DESCRIPTION: After obtaining an informed consent, the patient was brought to the cardiac lab technician. I did exchange the old sheath using wire and I placed a 6-Georgian sheath there. Anticoagulation was continued using heparin with continuous ACT monitoring throughout the case. I did engage the left main using an EBU guide. I did wire the LAD initially using a run-through wire. I did intravascular ultrasound initially and that showed minimal luminal area of the left main of 8.0 mm2 and for the LAD 4.2 mm2. Because the LAD lesion was quite concerning, angiographically, we decided to do an FFR and we did after zeroing the Doppler wire and equalizing between the Doppler wire and the guiding catheter, IFR was performed and came into be at 0.80 for the LAD and was normal for the left main. Because of that, I decided to go after the LAD. I did predilatation using 3.5 x 12 mm balloon before I deployed 4.0 x 15 mm Xience drug-eluting stent where the stent was positioned under fluoroscopy guidance and deployed under 14 atmospheres for 20 seconds with the following angiogram showing excellent angiographic results. CONCLUSION: 1. Mild to moderate disease involving the left main coronary artery confirmed to be non flow-limiting using IVUS as well as FFR. 2. Severe disease involving the proximal LAD confirmed to be flow-limiting using an IFR. 3. Successful stenting of the LAD as described above. MMODL / IJN: [id number] /
[2020-11-08] MEDS ORDERED: FUROSEMIDE 10 MG/ML 4 ML VIAL IV STA (10:19)
[2020-11-08] MEDS ORDERED: MORPHINE SULFATE 2 MG/ML SYRINGE IVP STA (10:19)
--- NOTE | 2020-11-08 10:53 | XR ---
EXAMINATION TYPE: XR chest 1V portable DATE OF EXAM: 11/08/2020 COMPARISON: 11/08/2020 INDICATION: Short of breath, lung crackles previous abnormal TECHNIQUE: Single frontal view of the chest is obtained. FINDINGS: The heart size is normal. The pulmonary vasculature is normal. Right lower lobe consolidation is present. This is smaller but more focal in the comparison. Correlat e for pneumonia. Continued follow-up is recommended to clearing IMPRESSION: 1. Right lower lobe consolidation. Correlate for pneumonia. Follow-up to clearing is recommended.
[2020-11-08 11:45] LABS: Glucose,Whole Blood 203 mg/dL (75-99)
[2020-11-08] MEDS: METOPROLOL SUCCINATE (ER) 25 MG TAB.ER.24H PO SCH (12:36)
--- NOTE | 2020-11-08 13:01 | ECHOF ---
Referral Reason:STEMI, LV function MEASUREMENTS -------- HEIGHT: 182.9 cm WEIGHT: 116.1 kg BP: 113/75 IVSd: 1.5 cm (0.6 - 1.1) LVIDd: 4.1 cm (3.9 - 5.3) LVPWd: 1.4 cm (0.6 - 1.1) EDV(Teich): 76 ml IVSs: 2.1 cm LVIDs: 3.4 cm LVPWs: 1.4 cm %IVS Thck: 43 % ESV(Teich): 47 ml EF(Teich): 39 % %FS: 19 % SV(Teich): 29 ml LA Diam: 3.2 cm (2.7 - 3.8) RVIDd: 3.5 cm (< 3.3) IVC: 18.32 mm LALs A4C: 4.0 cm LAAs A4C: 12.1 cm LAESV A-L A4C: 31 ml LAESV MOD A4C: 25 ml Ao Diam: 3.8 cm (2.0 - 3.7) AV Cusp: 1.6 cm (1.5 - 2.6) EPSS: 1.2 cm MV E Ernie: 0.63 m/s MV DecT: 152 ms MV Dec Mifflin: 4.1 m/s MV A Ernie: 1.35 m/s MV E/A Ratio: 0.47 MV PHT: 44 ms AV Vmax: 1.44 m/s AV maxP.25 mmHg MV EF SLOPE: 199.74 mm/s (70 - 150) MV EXCURSION: 20.48 mm (> 18.000) FINDINGS -------- Resting tachycardia (HR>100bpm). This was a technically difficult study with suboptimal views. The left ventricular size is normal. There is moderate concentric left ventricular hypertrophy. O verall left ventricular systolic function is moderate-severely impaired with, an EF between 30 - 35 % . Apical anterior LV wall motion is hypokinetic. Apical lateral LV wall motion is hypokinetic. Apical inferior LV wall motion is hypokinetic. Apical septum LV wall motion is hypokinetic. The right ventricle is mildly enlarged. The left atrium is normal in size. The right atrium was not well visualized. 5 ml of Lumason was utilized for enhancement of images. Interatrial and interventricular septum intact. The aortic valve is trileaflet, and appears structurally normal. No aortic stenosis or regurgitation. Mild mitral annular calcification present. Unable to estimate RVSP due to inadequate TR jet spectral doppler profile. The pulmonic valve was not well visualized. The aortic root is dilated measuring 3.8cm. Echo free space indicative of a pericardial fat pad. There is no pericardial effusion. CONCLUSIONS -------- 1. The left ventricular size is normal. 2. There is moderate concentric left ventricular hypertrophy. 3. Overall left ventricular systolic function is moderate-severely impaired with, an EF between 30 - 35 %. 4. Apical anterior LV wall motion is hypokinetic. 5. Apical lateral LV wall motion is hypokinetic. 6. Apical inferior LV wall motion is hypokinetic. 7. Apical septum LV wall motion is hypokinetic. 8. The right ventricle is mildly enlarged. 9. 5 ml of Lumason was utilized for enhancement of images. 10. The aortic valve is trileaflet, and appears structurally normal. No aortic stenosis or regurgitat ion. 11. Mild mitral annular calcification present. 12. The aortic root is dilated measuring 3.8cm. 13. Echo free space indicative of a pericardial fat pad. 14. There is no pericardial effusion. SIDEWALK INSPECTOR: Cristine Pina RDCS
--- NOTE | 2020-11-08 14:56 | P.HPIM ---
History of Present Illness H&P Date: 11/08/20 Chief Complaint: Shortness of breath This is a 80-year-old male with complex past medical history noted below significant for severe COPD on home O2 that presented to the emergency room with worsening shortness of breath. Patient was evaluated in the ER and 12-lead EKG showed nonspecific ST segment changes. Troponin was found to be elevated and patient was taken by cardiology to the [facility] where he underwent left heart catheterization with successful stent placement to the proximal LAD using drug- eluting stents. Patient was seen and evaluated by me this morning in the ICU. He was wearing a BiPAP. His and son at bedside. Patient is awake and alert. He denies any chest pain. He said that he is feeling comfortable. His was surprised that patient had a heart attack despite not having chest pain. Patient himself does not have any specific complaints at this time. Review of Systems Review of system: 14 points review of systems were obtained and were negative except to what were mentioned in the HPI. Past Medical History Past Medical History: COPD, CVA/TIA, Hyperlipidemia, Hypertension, Thyroid Disorder Additional Past Medical History / Comment(s): Wears oxygen @ 3 L per nc.-17/11, Hyperhomocysteinemia. Chronic cough. History of Any Multi-Drug Resistant Organisms: MRSA Date of last positivie culture/infection: 02/09/18 MDRO Source:: LT LEG Past Surgical History: Tonsillectomy Additional Past Surgical History / Comment(s): Carotid Endarterectomy. BRONCHOSCOPY, COLONOSCOPY, BILAT CATARACTS REMOVED Past Anesthesia/Blood Transfusion Reactions: No Reported Reaction Past Psychological History: No Psychological Hx Reported Smoking Status: Former smoker Past Alcohol Use History: None Reported, Occasional Past Drug Use History: None Reported - Past Family History Mother Family Medical History: No Reported History Medications and Allergies Home Medications Medication Instructions Recorded Confirmed Type Aspirin 81 mg PO HS 11/24/18 11/08/20 History Fluticasone/Salmeterol [Advair 2 puff PO RT-BID 11/24/18 11/08/20 History 500-50 Diskus] Folic Acid 1 mg PO DAILY 11/24/18 11/08/20 History Levothyroxine Sodium [Synthroid] 50 mcg PO DAILY 11/24/18 11/08/20 History Metoprolol Succinate (ER) [Toprol 25 mg PO DAILY 11/24/18 11/08/20 History XL] Simvastatin [Zocor] 40 mg PO HS 11/24/18 11/08/20 History metFORMIN HCL [Glucophage] 500 mg PO HS 11/24/18 11/08/20 History traMADol HCL [Ultram] 50 mg PO BID 11/24/18 11/08/20 History Calcium Carbonate/Vitamin D3 1 tab PO DAILY 11/30/18 11/08/20 History [Calcium 600-Vit D3 10 mcg (400 Iu)] Warfarin Sodium [Coumadin] 10 mg PO HS 11/30/18 11/08/20 History Acetaminophen [Tylenol Arthritis] 650 mg PO BID 11/08/20 11/08/20 History Albuterol Nebulized [Ventolin 2.5 mg INHALATION RT-Q6H PRN 11/08/20 11/08/20 History Nebulized] Azithromycin [Zithromax] 250 mg PO MOWEFR 11/08/20 11/08/20 History Multivit-Min/FA/Lycopen/Lutein 1 tab PO DAILY 11/08/20 11/08/20 History [Centrum Silver Tablet] Ubidecarenone [Co Q-10] 100 mg PO DAILY 11/08/20 11/08/20 History predniSONE 30 mg PO DAILY 11/08/20 11/08/20 History Allergies Allergy/AdvReac Type Severity Reaction Status Date / Time No Known Allergies Allergy Verified 11/08/20 08:50 Physical Exam Vitals: Vital Signs Temp Pulse Resp BP Pulse Ox 11/08/20 14:00 84 15 107/63 94 L 11/08/20 13:45 87 18 92/63 94 L 11/08/20 13:30 84 15 85/58 96 11/08/20 13:15 87 23 126/89 94 L 11/08/20 13:00 94 22 117/73 92 L 11/08/20 12:45 90 20 110/68 94 L 11/08/20 12:30 88 11 L 117/75 94 L 11/08/20 12:15 87 12 105/74 93 L 11/08/20 12:00 98.0 F 89 12 106/74 93 L 11/08/20 11:45 90 12 117/77 93 L 11/08/20 11:30 92 22 133/84 93 L 11/08/20 11:15 93 15 116/76 95 07/15/21 11:00 92 12 128/82 93 L 11/08/20 10:45 91 12 120/78 93 L 11/08/20 10:30 95 22 147/90 92 L 11/08/20 10:15 95 14 125/80 92 L 11/08/20 10:00 97 14 125/80 85 L 11/08/20 07:30 99.3 F 100 18 103/61 88 L 11/08/20 07:00 98 14 113/75 92 L 11/08/20 06:30 98 15 111/71 93 L 11/08/20 06:00 100 15 115/72 93 L 11/08/20 05:30 105 H 15 91 L 11/08/20 05:00 110 H 24 133/76 92 L 11/08/20 04:51 112 H 21 11/08/20 03:29 117 H 34 H 137/85 92 L 11/08/20 03:23 38 H 11/08/20 03:15 122 H 38 H 143/96 92 L 11/08/20 03:05 100.1 F H 125 H 38 H 169/109 96 Intake and Output 11/07/20 11/08/20 11/08/20 22:59 06:59 14:59 Intake Total 125 900 Output Total 200 850 Balance -75 50 Intake: IV 50 825 Sodium Chloride 0.9% 1, 375 000 ml @ 75 mls/hr IV . [id number] [facility] Rx#:[id number] Intake, IV Titration 75 75 Amount Sodium Chloride 0.9% 1, 75 75 000 ml @ 75 mls/hr IV . [id number] [facility] Rx#:[id number] Output: Urine 200 850 Other: Voiding Method Urinal Urinal # Voids 1 Weight 116.12 kg General: The patient is awake and alert, in no distress Eye: there is normal conjunctiva bilaterally. Neck: The neck is supple, there is no JVD. Cardiovascular: Normal S1-S2, no S3-S4, no murmurs. Respiratory: Lungs clear to auscultation bilaterally Gastrointestinal: Abdomen is soft, nontender Musculoskeletal: There is no pedal edema. Neurological:. Speech is normal. Skin: Skin is warm and dry Results CBC & Chem 7: 11/08/20 03:15 11/08/20 03:15 Labs: Abnormal Lab Results - Last 24 Hours (Table) 11/08/20 11/08/20 11/08/20 Range/Units 03:15 03:15 03:15 Neutrophils # 8.6 H (1.3-7.7) k/uL PT 40.2 H (9.0-12.0) sec INR 4.2 H (<1.2) APTT 30.7 H (22.0-30.0) sec Carbon Dioxide 32 H (22-30) mmol/L BUN 33 H (9-20) mg/dL Glucose 178 H (74-99) mg/dL POC Glucose (mg/dL) (75-99) mg/dL Troponin I (0.000-0.034) ng/mL 11/08/20 11/08/20 11/08/20 Range/Units 03:15 03:21 04:50 Neutrophils # (1.3-7.7) k/uL PT (9.0-12.0) sec INR (<1.2) APTT (22.0-30.0) sec Carbon Dioxide (22-30) mmol/L BUN (9-20) mg/dL Glucose (74-99) mg/dL POC Glucose (mg/dL) 160 H 154 H (75-99) mg/dL Troponin I 0.079 H* (0.000-0.034) ng/mL 11/08/20 Range/Units 11:34 Neutrophils # (1.3-7.7) k/uL PT (9.0-12.0) sec INR (<1.2) APTT (22.0-30.0) sec Carbon Dioxide (22-30) mmol/L BUN (9-20) mg/dL Glucose (74-99) mg/dL POC Glucose (mg/dL) 203 H (75-99) mg/dL Troponin I (0.000-0.034) ng/mL Thrombosis Risk Factor Assmnt - Choose All That Apply Any of the Below Risk Factors Present?: Yes Each Factor Represents 1 point: Abnormal pulmonary function (COPD), Obesity (BMI >25) Other Risk Factors: Yes Each Risk Factor Represents 3 Points: Age 75 years or older Thrombosis Risk Factor Assessment Total Risk Factor Score: 5 Thrombosis Risk Factor Assessment Level: High Risk Assessment and Plan Assessment: This is a 80-year-old male with complex past medical history noted below who presented to the hospital with worsening shortness of breath. Patient was evaluated in the ER and admitted for further management of his medical problems noted below. 1. Non-ST elevation ID status post left heart catheterization with successful stenting of the proximal LAD. Patient is on optimal medical management. Dual antiplatelet therapy with aspirin and Plavix. Continue metoprolol and Lipitor. Cardiology following closely. 2. Ischemic cardiomyopathy with ejection fraction of 30-35%. There is also diffuse hypokinesia involving left ventricular wall. 3. Severe COPD on home O2, chronically maintained on prednisone 10 mg daily and azithromycin 3 times a week. Prednisone dose increased during this hospitalization by pulmonology 4. Chronic hypoxic respiratory failure on 3 L of oxygen at home. Patient was put on BiPAP this morning secondary to increased work of breathing. He is relatively stable otherwise. 5. Chronic medical problems: Hypothyroidism, hypertension, hyperlipidemia Today, I reviewed his medication list and lab work results. Continue current re gimen. Repeat lab work in the morning. Patient and his family updated about his current clinical condition. All of their questions answered to their satisfaction.
[2020-11-08 16:45] LABS: Glucose,Whole Blood 185 mg/dL (75-99)
[2020-11-08] MEDS: INSULIN ASPART (NovoLOG) 100 UNIT/ML VIAL SQ SCH ×2 (16:46→22:15)
[2020-11-08 18:03] LABS: Glucose,Whole Blood 177 mg/dL (75-99)
[2020-11-08 21:12] LABS: Glucose,Whole Blood 132 mg/dL (75-99)
[2020-11-08] MEDS: ALBUTEROL NEBULIZED 2.5 MG/3 ML INHALATION PRN (21:37)
[2020-11-08] MEDS: SYMBICORT 160-4.5 MCG INHALER INHALATION SCH (21:37)
[2020-11-08] MEDS: traMADol 50 MG TAB PO SCH (22:13)
[2020-11-09 05:31] LABS: Basophils # (A) 0.1 k/uL (0-0.2); Basophils % (A) 0 %; Eosinophils # (A) 0.1 k/uL (0-0.7); Eosinophils % (A) 1 %; HCT 40.1 % (39.0-53.0); HGB 13.1 gm/dL (13.0-17.5); Lymphocytes % (A) 7 %; MCH 30.6 pg (25.0-35.0); MCHC 32.7 g/dL (31.0-37.0); MCV 93.3 fL (80.0-100.0); Mean Platelet Volume 7.4; Monocytes # (A) 0.6 k/uL (0-1.0); Monocytes % (A) 4 %; Neutrophils # (A) 12.7 k/uL (1.3-7.7); Neutrophils % (A) 87 %; Platelet Count 175 k/uL (150-450); RDW 14.1 % (11.5-15.5); WBC 14.6 k/uL (3.8-10.6)
[2020-11-09 05:43] LABS: INR 4.7 (<1.2); Prothrombin Time 44.9 sec (9.0-12.0)
[2020-11-09 05:47] LABS: African American GFR (CKD) >90 (>60 ml/min/1.73 sqM); Anion Gap 2 mmol/L; Blood Urea Nitrogen 24 mg/dL (9-20); Carbon Dioxide 37 mmol/L (22-30); Chloride 100 mmol/L (98-107); Glucose 134 mg/dL (74-99); Non-African American GFR(CKD) 83 (>60 ml/min/1.73 sqM); Potassium 4.1 mmol/L (3.5-5.1); Sodium 139 mmol/L (137-145)
[2020-11-09 06:54] LABS: Glucose,Whole Blood 138 mg/dL (75-99)
[2020-11-09] MEDS: LEVOTHYROXINE 50 MCG TAB PO SCH (07:08)
[2020-11-09] MEDS: INSULIN ASPART (NovoLOG) 100 UNIT/ML VIAL SQ SCH ×4 (07:11→21:30)
[2020-11-09] MEDS: SYMBICORT 160-4.5 MCG INHALER INHALATION SCH ×2 (07:44→20:01)
[2020-11-09] MEDS: ALBUTEROL NEBULIZED 2.5 MG/3 ML INHALATION PRN (07:44)
[2020-11-09] MEDS: SODIUM CHLORIDE 0.9% 1,000 ML IV SCH (08:06)
[2020-11-09] MEDS: ATORVASTATIN 40 MG TAB PO SCH (08:21)
[2020-11-09] MEDS: traMADol 50 MG TAB PO SCH ×2 (08:21→20:47)
[2020-11-09] MEDS: FOLIC ACID 1 MG TAB PO SCH (08:22)
[2020-11-09] MEDS: MULTIVITAMINS, THERA 1 EACH TAB PO SCH (08:22)
[2020-11-09] MEDS: CLOPIDOGREL 75 MG TAB PO SCH (08:22)
[2020-11-09] MEDS: CALCIUM CARB-VIT D 500 MG-5 MCG TAB PO SCH (08:22)
[2020-11-09] MEDS: METOPROLOL SUCCINATE (ER) 25 MG TAB.ER.24H PO SCH (08:22)
[2020-11-09] MEDS ORDERED: AZITHROMYCIN 250 MG TAB PO SCH (09:00)
[2020-11-09] MEDS ORDERED: predniSONE 10 MG TAB PO SCH ×2 (09:00)
[2020-11-09] MEDS ORDERED: FUROSEMIDE 10 MG/ML 4 ML VIAL IV STA (09:24)
[2020-11-09] MEDS: PIPERACILLIN-TAZOBACTAM 3.375 GM in SODIUM CHLORIDE 0.9% 100 ML IVPB SCH ×2 (09:36→17:20)
--- NOTE | 2020-11-09 10:15 | XR ---
EXAMINATION TYPE: XR chest 1V portable DATE OF EXAM: 11/09/2020 CLINICAL HISTORY: PNA. TECHNIQUE: Portable frontal view of the chest. COMPARISON: 11/08/2020 chest x-ray. CT urogram 07/20/2020. CT chest 01/07/2019. FINDINGS: The cardiomediastinal silhouette is within normal limits for size. Pulmonary vasculature i s normal. Focal airspace opacity over the right lung base. Right basilar interstitial reticular opaci ties and coarsening. No pleural effusion. No pneumothorax seen. No acute displaced osseous fracture. IMPRESSION: Redemonstrated focal airspace opacity over the right lung base and interstitial reticular opacities. Spiculated opacity seen on 07/20/2020 CT urogram was suspicious for infiltrates, however given persist ence, differential includes neoplastic etiology. Recommend CT of the chest for further characterizati on and assessment of stability.
[2020-11-09] MEDS: SPIRONOLACTONE 25 MG TAB PO SCH (10:56)
[2020-11-09] MEDS ORDERED: predniSONE 20 MG TAB PO STA (11:12)
[2020-11-09 11:23] LABS: Glucose,Whole Blood 153 mg/dL (75-99)
[2020-11-09] MEDS: IPRATROPIUM-ALBUTEROL 3 ML NEB INHALATION SCH ×3 (12:14→20:01)
--- NOTE | 2020-11-09 13:22 | P.CNPUL ---
History of Present Illness Consult date: 11/09/20 Requesting physician: Chichi Mora Reason for consult: COPD Chief complaint: Shortness of breath History of present illness: This is an 80-year-old white male with history of hypertension, diabetes, COPD, normally sees Dr. Adamson for COPD, patient is known to be on home oxygen at 3 L/m, FEV1 is in the range of 39%, patient has been on a course of prednisone taper for recent symptoms of COPD exacerbation, his prednisone was prescribed by Dr. Adamson over the phone. Patient is presently on 25 mg of prednisone daily. He presented to the ER on 11/08/2020, and he was complaining of worsening shortness of breath. No chest pain, he had chronic cough, no fever, no chills, no hemoptysis. Patient was seen by cardiology on consultation for his abnormal EKG which showed subtle ST elevation in the inferior lateral leads, and he was felt to have an acute ST elevation myocardial infarction. Patient underwent successful stenting of the proximal LAD, he was found to have a 70% stenosis. He also underwent selective right common femoral artery arteriogram. According to the note by cardiology, patient had some selective images of the right coronary artery, could not selectively engage it even with a destiny catheter. Post cardiac catheterization and stenting, patient was sent to the ICU, he is now on BiPAP, with IPAP of 12 and EPAP of 6, FiO2 of 60%, O2 saturation is in the low 90s, chest x-ray is showing right lower lobe airspace disease, and going back to recent CT of the chest, which was done a few months ago, there is a spiculated opacity seen on 07/20/2020, and the radiologist raised the possibility of neoplastic etiology, patient is being followed closely by Dr. Adamson on outpa tient basis. He did have previous bronchoscopies for his right lower lobe pneumonia. Considering the findings on the chest x-ray and recent CT of the, I am recommending empiric antibiotics. His WBC count is 14.6 hemoglobin is 13.1 INR is 4.7, patient is on Coumadin. He'll try some normal renal profile is normal. Review of Systems Constitutional: Negative. Eyes: denies blurred vision, denies pain Ears, nose, mouth and throat: Denies headache, Denies sore throat Cardiovascular: As noted in HPI mostly shortness of breath but no chest pain. Respiratory: Intermittent cough and wheezing. Relatively chronic. Gastrointestinal: Denies abdominal pain, Denies diarrhea, Denies nausea, Denies vomiting Musculoskeletal: Denies myalgias Integumentary: Denies pruritus, Denies rash Neurological: Denies numbness, Denies weakness Psychiatric: Denies anxiety, Denies depression Endocrine: Denies fatigue, Denies weight change Past Medical History Past Medical History: COPD, CVA/TIA, Hyperlipidemia, Hypertension, Thyroid Disorder Additional Past Medical History / Comment(s): Wears oxygen @ 3 L per nc.-17/11, Hyperhomocysteinemia. Chronic cough. History of Any Multi-Drug Resistant Organisms: MRSA Date of last positivie culture/infection: 02/09/18 MDRO Source:: LT LEG Past Surgical History: Tonsillectomy Additional Past Surgical History / Comment(s): Carotid Endarterectomy. BRONCHOSCOPY, COLONOSCOPY, BILAT CATARACTS REMOVED Past Anesthesia/Blood Transfusion Reactions: No Reported Reaction Past Psychological History: No Psychological Hx Reported Smoking Status: Former smoker Past Alcohol Use History: None Reported, Occasional Past Drug Use History: None Reported - Past Family History Mother Family Medical History: No Reported History Medications and Allergies Home Medications Medication Instructions Recorded Confirmed Type Aspirin 81 mg PO HS 11/24/18 11/08/20 History Fluticasone/Salmeterol [Advair 2 puff PO RT-BID 11/24/18 11/08/20 History 500-50 Diskus] Folic Acid 1 mg PO DAILY 11/24/18 11/08/20 History Levothyroxine Sodium [Synthroid] 50 mcg PO DAILY 11/24/18 11/08/20 History Metoprolol Succinate (ER) [Toprol 25 mg PO DAILY 11/24/18 11/08/20 History XL] Simvastatin [Zocor] 40 mg PO HS 11/24/18 11/08/20 History metFORMIN HCL [Glucophage] 500 mg PO HS 11/24/18 11/08/20 History traMADol HCL [Ultram] 50 mg PO BID 11/24/18 11/08/20 History Calcium Carbonate/Vitamin D3 1 tab PO DAILY 11/30/18 11/08/20 History [Calcium 600-Vit D3 10 mcg (400 Iu)] Warfarin Sodium [Coumadin] 10 mg PO HS 11/30/18 11/08/20 History Acetaminophen [Tylenol Arthritis] 650 mg PO BID 11/08/20 11/08/20 History Albuterol Nebulized [Ventolin 2.5 mg INHALATION RT-Q6H PRN 11/08/20 11/08/20 History Nebulized] Azithromycin [Zithromax] 250 mg PO MOWEFR 11/08/20 11/08/20 History Multivit-Min/FA/Lycopen/Lutein 1 tab PO DAILY 11/08/20 11/08/20 History [Centrum Silver Tablet] Ubidecarenone [Co Q-10] 100 mg PO DAILY 11/08/20 11/08/20 History predniSONE 30 mg PO DAILY 11/08/20 11/08/20 History Allergies Allergy/AdvReac Type Severity Reaction Status Date / Time No Known Allergies Allergy Verified 11/08/20 08:50 Physical Exam Vitals: Vital Signs Temp Pulse Pulse Resp BP Pulse Ox 11/09/20 12:27 100 11/09/20 12:14 97 11/09/20 12:00 98.0 F 98 25 H 101/62 85 L 11/09/20 11:00 96 28 H 125/76 86 L 11/09/20 10:00 85 17 112/68 93 L 11/09/20 09:00 91 20 115/65 93 L 11/09/20 08:00 98.9 F 92 17 104/60 92 L 11/09/20 07:58 90 11/09/20 07:44 90 11/09/20 07:00 88 16 116/70 95 11/09/20 06:30 84 15 116/70 96 11/09/20 06:00 85 16 107/66 95 11/09/20 05:30 85 18 107/66 96 11/09/20 05:00 85 26 H 123/71 96 11/09/20 04:30 84 17 123/71 95 11/09/20 04:00 98.3 F 82 15 112/64 97 11/09/20 03:30 84 17 112/64 95 11/09/20 03:00 86 17 110/69 96 11/09/20 02:30 93 18 110/69 95 11/09/20 02:00 87 13 106/64 97 11/09/20 01:30 84 16 106/64 96 11/09/20 01:00 85 17 108/61 96 11/09/20 00:30 86 16 108/61 96 11/09/20 00:00 97.8 F 87 83 17 125/74 96 11/08/20 23:30 90 18 125/74 96 11/08/20 23:00 90 18 124/71 95 11/08/20 22:30 90 19 124/71 95 11/08/20 22:00 90 20 125/78 96 11/08/20 21:38 89 11/08/20 21:30 90 18 125/78 94 L 11/08/20 21:00 90 23 124/75 96 11/08/20 20:30 89 18 124/75 96 11/08/20 20:00 99 F 89 18 115/67 96 11/08/20 19:30 87 18 115/67 97 11/08/20 19:02 93 39 H 115/67 96 11/08/20 19:00 93 19 124/85 96 11/08/20 18:00 100 26 H 108/65 92 L 11/08/20 17:00 88 18 100/67 94 L 11/08/20 16:30 90 16 97/59 93 L 11/08/20 16:00 98.4 F 92 29 H 123/73 94 L 11/08/20 15:30 87 14 118/72 93 L 11/08/20 15:00 84 14 119/77 95 11/08/20 14:30 84 14 111/74 96 11/08/20 14:00 84 15 107/63 94 L 11/08/20 13:45 87 18 92/63 94 L 11/08/20 13:30 84 15 85/58 96 11/08/20 13:15 87 23 126/89 94 L Intake and Output 11/08/20 11/09/20 11/09/20 22:59 06:59 14:59 Intake Total 600 565 100 Output Total 274 085 1352 Balance -375 40 -1425 Intake: IV 600 525 100 Piperacillin-Tazobactam 3 100 .375 gm In Sodium Chloride 0.9% 100 ml @ 25 mls/hr IVPB Q8HR [facility] Rx# :[id number] Sodium Chloride 0.9% 1, 600 525 000 ml @ 75 mls/hr IV . [id number] [facility] Rx#:[id number] Oral 40 Output: Urine [id number] Other: Voiding Method Urinal Urinal Urinal # Voids 1 # Bowel Movements 1 Weight 123.3 kg GENERAL EXAM: Revealed 80-year-old white male on BiPAP, in no distress. HEAD: Normocephalic/atraumatic. EYES: Normal reaction of pupils, equal size. Conjunctiva pink, sclera white. NOSE: Clear with pink turbinates. THROAT: No erythema or exudates. NECK: No masses, no JVD, no thyroid enlargement, no adenopathy. CHEST: No chest wall deformity. Symmetrical expansion. LUNGS: Her ankles and rhonchi noted especially at the right base. CVS: Regular rate and rhythm, normal S1 and S2, no gallops, no murmurs, no rubs ABDOMEN: Soft, nontender. No hepatosplenomegaly, normal bowel sounds, no guarding or rigidity. EXTREMITIES: No clubbing, no edema, no cyanosis, 2+ pulses and upper and lower extremities. Chronic venous stasis changes noted to bilateral lower extremities MUSCULOSKELETAL: Muscle strength and tone normal. SKIN: No rashes CENTRAL NERVOUS SYSTEM: Alert and oriented 3, no focal deficits. PSYCHIATRIC: Normal mood, affect and normal mental status examination. Results - Laboratory Findings CBC and BMP: 11/09/20 04:43 11/09/20 04:43 PT/INR, D-dimer PT 44.9 sec (9.0-12.0) H 11/09/20 04:43 INR 4.7 (<1.2) H 11/09/20 04:43 Abnormal lab findings: Abnormal Labs 11/08/20 11/08/20 11/08/20 03:15 03:15 03:15 WBC Neutrophils # 8.6 H PT 40.2 H INR 4.2 H APTT 30.7 H Carbon Dioxide 32 H BUN 33 H Glucose 178 H POC Glucose (mg/dL) Troponin I 11/08/20 11/08/20 11/08/20 03:15 03:21 04:50 WBC Neutrophils # PT INR APTT Carbon Dioxide BUN Glucose POC Glucose (mg/dL) 160 H 154 H Troponin I 0.079 H* 11/08/20 11/08/20 11/08/20 11:34 16:43 18:01 WBC Neutrophils # PT INR APTT Carbon Dioxide BUN Glucose POC Glucose (mg/dL) 203 H 185 H 177 H Troponin I 11/08/20 11/09/20 11/09/20 21:10 04:43 04:43 WBC 14.6 H Neutrophils # 12.7 H PT 44.9 H INR 4.7 H APTT Carbon Dioxide BUN Glucose POC Glucose (mg/dL) 132 H Troponin I 11/09/20 11/09/20 11/09/20 04:43 06:53 11:22 WBC Neutrophils # PT INR APTT Carbon Dioxide 37 H BUN 24 H Glucose 134 H POC Glucose (mg/dL) 138 H 153 H Troponin I - Diagnostic Findings Chest x-ray: image reviewed (As noted in HPI, the chest x-ray is suspicious for right lower lobe pneumonia however considering the persistent abnormality, malignancy is not entirely ruled out.) Assessment and Plan Assessment: Impression: Possible acute inferolateral wall myocardial infarction. Status post cardiac catheterization, PCI of LAD. History of underlying coronary artery disease. Acute exacerbation of COPD. Suspect a right lower lobe pneumonia however considering the chronicity of the problem, malignancy would have to be seriously considered in the differential diagnosis. Community acquired right lower lobe pneumonia. Severe COPD Gold stage III. Acute on chronic hypoxic respiratory failure secondary to above. Mostly second trace to COPD and right lower lobe pneumonia. History of pulmonary embolism maintained on Coumadin on outpatient basis. Hyper homocystinemia Hypothyroidism Benign essential hypertension. Previous MRSA infection. Recommendation: Continue BiPAP. Continue bronchodilators. Start patient on antibiotics in the form of Zosyn. Gentle diuresis Start patient on prednisone at 30 mg daily and tapered every 5 days. Check sputum cultures. Cut down IV fluid to KVO. Ordered pro-calcitonin. Resume Coumadin once his INR is below 3. Continue Plavix and aspirin. Resume home meds including diuretics. The without updrafts 4 times a day and when necessary. Monitor sugars and address accordingly with insulin. Resume Synthroid. We'll continue to follow. Prognosis is relatively guarded. Time with Patient: Greater than 30
--- NOTE | 2020-11-09 14:35 | P.PN ---
Subjective This is a 80-year-old male with a past medical history of hypertension, type 2 diabetes, non-obstructive coronary artery disease, hyperlipidemia, Pulmonary embolisms on Coumadin at home. He does not follow with a media promoter. He presents to the hospital on 11/08/2020 with complaints of shortness of breath. EKG showed ST elevation in the inferolateral leads. Patient underwent cardiac catheterization with Dr. Melendez which revealed distal left main 50% stenosis, Proximal LAD right at the origin of diagnoal branch 70% stenosis, RCA appears subtotally occluded proximally. Patient underwent PCI to the proximal LAD with Dr. Kahn. Echocardiogram revealed EF 30-35%, apical LV wall hypokinetic, RV is mildly enlarged. 11/09/2020: Patient seen and examined at bedside, no acute distress. He is requiring BIPAP. Pulmonary has been consulted. Chest Xray this morning, right basilar interstitial reticular opacities, focal airspace opacity right lung base, given persistence from CXR 06/2020, different includes neoplastic etiology. Blood pressure 101/62, heart rate 98, afebrile, he currently requiring BIPAP to maintain oxygen saturations. Laboratory reviewed, WBC 14.6, hemoglobin 13.1, platelets 35, sodium 139, potassium 4.1, BUN 24, serum creatinine 0.83, magnesium 2.0 GENERAL: In no acute distress. NECK: Supple without JVD or thyromegaly. LUNGS: Breath sounds with crackles bilateral bases. Respiration equal and unlabored. HEART: Regular rate and rhythm without murmurs, rubs or gallops. S1 and S2 heard. SKIN: Right groin cath site clean dry intact, no hematoma EXTREMITIES: Normal range of motion, no edema. No clubbing or cyanosis. Peripheral pulses intact. NEURO: Alert and oriented x 3. ASSESSMENT ST elevation myocardial infarction s/p PCI to proximal LAD Ischemic cardiomyopathy EF 30-35% Type 2 Diabetes History of Hypertension Hyperlipidemia History of non-obstructive coronary artery disease History of Pulmonary embolisms- on coumadin Supratherapeutic INR- coumadin bein held PLAN Start Lisinopril 2.5mg daily Start spironolactone 25mg daily Continue dual antiplatelet therapy with aspirin 81 mg daily and Plavix 75 mg daily Continue statin Continue metoprolol succinate 25mg daily Pulmonary consulted- Patient started on bronchodilators, IV Lasix 40mg x 1, IV Zosyn, prednisone taper Further recommendations based on clinical course Nurse Practitioner note has been reviewed, I agree with a documented findings a nd plan of care. Patient was seen and examined. Objective - Vital Signs Vital signs: Vital Signs Temp 98.3 F 11/09/20 04:00 Pulse 84 11/09/20 06:30 Resp 15 11/09/20 06:30 BP 116/70 11/09/20 06:30 Pulse Ox 96 11/09/20 06:30 Intake & Output 11/08/20 11/09/20 11/09/20 18:59 06:59 18:59 Intake Total 1350 750 Output Total 1350 1000 Balance 0 -250 Weight 123.3 kg Intake: IV 1275 750 Sodium Chloride 0.9% 1, 825 750 000 ml @ 75 mls/hr IV . [id number] [facility] Rx#:[id number] Intake, IV Titration 75 Amount Sodium Chloride 0.9% 1, 75 000 ml @ 75 mls/hr IV . [id number] [facility] Rx#:[id number] Output: Urine 1350 1000 Other: Voiding Method Urinal Urinal # Voids 1 1 - Labs CBC & Chem 7: 11/09/20 04:43 11/09/20 04:43 Labs: Abnormal Lab Results - Last 24 Hours (Table) 11/08/20 11/08/20 11/08/20 Range/Units 11:34 16:43 18:01 WBC (3.8-10.6) k/uL Neutrophils # (1.3-7.7) k/uL PT (9.0-12.0) sec INR (<1.2) Carbon Dioxide (22-30) mmol/L BUN (9-20) mg/dL Glucose (74-99) mg/dL POC Glucose (mg/dL) 203 H 185 H 177 H (75-99) mg/dL 11/08/20 11/09/20 11/09/20 Range/Units 21:10 04:43 04:43 WBC 14.6 H (3.8-10.6) k/uL Neutrophils # 12.7 H (1.3-7.7) k/uL PT 44.9 H (9.0-12.0) sec INR 4.7 H (<1.2) Carbon Dioxide (22-30) mmol/L BUN (9-20) mg/dL Glucose (74-99) mg/dL POC Glucose (mg/dL) 132 H (75-99) mg/dL 11/09/20 11/09/20 Range/Units 04:43 06:53 WBC (3.8-10.6) k/uL Neutrophils # (1.3-7.7) k/uL PT (9.0-12.0) sec INR (<1.2) Carbon Dioxide 37 H (22-30) mmol/L BUN 24 H (9-20) mg/dL Glucose 134 H (74-99) mg/dL POC Glucose (mg/dL) 138 H (75-99) mg/dL Microbiology - Last 24 Hours (Table) 11/08/20 04:05 Blood Culture - Preliminary Blood No Growth after 24 hours
[2020-11-09 17:15] LABS: Glucose,Whole Blood 184 mg/dL (75-99)
[2020-11-09] MEDS: ASPIRIN 81 MG PO SCH (20:46)
[2020-11-09 20:53] LABS: Glucose,Whole Blood 237 mg/dL (75-99)
--- NOTE | 2020-11-09 21:15 | P.PN ---
Subjective Progress Note Date: 11/09/20 (delayed charting seen at 1445) Principal diagnosis: cheat pain Patient is an 80-year-old male for history of severe COPD on home O2, dyslipidemia, hypertension, prior CVA who presented to the emergency department with worsening shortness of breath. Patient was found have an elevated troponin and some nonspecific ST segment changes and was subsequently diagnosed with a non-STEMI and taken to the cardiac [employer] [facility] where he underwent successful stent placement to the proximal LAD. Patient seen and examined at bedside. He continues to have some shortness of breath, no chest pain, no nausea, no vomiting. also present at bedside. All questions answered. He has been diagnosed with possible pneumonia and COPD exacerbation. They're aware that he will need to change his eating habits and follow his weights daily with newly discovered ischemic cardiomyopathy. General: Ill appearing, no distress, appears at stated age Derm: warm, dry Head: atraumatic, normocephalic, symmetric Eyes: EOMI, no lid lag, anicteric sclera Mouth: no lip lesion, mucus membranes moist Cardiovascular: S1S2 reg, no murmur, positive posterior tibial pulse bilateral, Lungs: [Wheezing bilaterally, 3 word conversational dyspnea, no accessory muscle use Abdominal: soft, nontender to palpation, no guarding, no appreciable organomegaly Ext: no gross muscle atrophy, no edema, no contractures Neuro: CN II-XI grossly intact, no focal neuro deficits Psych: Alert, oriented, appropriate affect Non-ST segment elevated myocardial infarction status post left heart cath successful stenting of the LAD, ischemic cardiomyopathy with ejection fraction 30-35% -Continue with metoprolol -Cardiology recommendations appreciated -Patient was started on lisinopril and spironolactone -Continue with aspirin, Plavix -Continue statin Diabetes mellitus type 2 -Hold Glucophage -Check A1c -Follow blood sugars, sliding scale insulin Right lower lobe pneumonia, severe COPD gold stage III, acute on chronic hypoxic respiratory failure -Pulmonary recommendations appreciated -BiPAP as needed -Zosyn -Patient was started on prednisone 30 mg daily 3 taper every 5 days -Await sputum culture, pro-calcitonin Coagulopathy with INR 4.7 -Monitor INR daily -Resume Coumadin once less than 3 Chronic: Hypertension Dyslipidemia Hypothyroidism Hyper homocystinemia History of pulmonary embolism maintained on Coumadin Objective - Vital Signs Vital signs: Vital Signs Temp 98.8 F 11/09/20 16:00 Pulse 86 07/16/21 20:01 Resp 20 11/09/20 19:00 BP 98/63 11/09/20 19:00 Pulse Ox 86 L 11/09/20 19:00 Intake & Output 11/09/20 11/09/20 11/10/20 06:59 18:59 06:59 Intake Total 790 100 100 Output Total 1000 1725 0 Balance -210 -1625 100 Weight 123.3 kg Intake: IV 750 100 100 Piperacillin-Tazobactam 3 100 100 .375 gm In Sodium Chloride 0.9% 100 ml @ 25 mls/hr IVPB Q8HR [facility] Rx# :[id number] Sodium Chloride 0.9% 1, 750 000 ml @ 75 mls/hr IV . [id number] [facility] Rx#:[id number] Oral 40 Output: Urine 1000 1725 0 Other: Voiding Method Urinal Urinal # Voids 1 # Bowel Movements 1 - Labs CBC & Chem 7: 11/09/20 04:43 11/09/20 04:43 Labs: Abnormal Lab Results - Last 24 Hours (Table) 11/09/20 11/09/20 11/09/20 Range/Units 04:43 04:43 04:43 WBC 14.6 H (3.8-10.6) k/uL Neutrophils # 12.7 H (1.3-7.7) k/uL PT 44.9 H (9.0-12.0) sec INR 4.7 H (<1.2) Carbon Dioxide 37 H (22-30) mmol/L BUN 24 H (9-20) mg/dL Glucose 134 H (74-99) mg/dL POC Glucose (mg/dL) (75-99) mg/dL Procalcitonin (0.02-0.09) ng/mL 11/09/20 11/09/20 11/09/20 Range/Units 04:43 06:53 11:22 WBC (3.8-10.6) k/uL Neutrophils # (1.3-7.7) k/uL PT (9.0-12.0) sec INR (<1.2) Carbon Dioxide (22-30) mmol/L BUN (9-20) mg/dL Glucose (74-99) mg/dL POC Glucose (mg/dL) 138 H 153 H (75-99) mg/dL Procalcitonin 10.06 H (0.02-0.09) ng/mL 11/09/20 11/09/20 Range/Units 17:13 20:51 WBC (3.8-10.6) k/uL Neutrophils # (1.3-7.7) k/uL PT (9.0-12.0) sec INR (<1.2) Carbon Dioxide (22-30) mmol/L BUN (9-20) mg/dL Glucose (74-99) mg/dL POC Glucose (mg/dL) 184 H 237 H (75-99) mg/dL Procalcitonin (0.02-0.09) ng/mL Microbiology - Last 24 Hours (Table) 11/08/20 04:05 Blood Culture - Preliminary Blood No Growth after 24 hours
[2020-11-10] MEDS: PIPERACILLIN-TAZOBACTAM 3.375 GM in SODIUM CHLORIDE 0.9% 100 ML IVPB SCH ×3 (00:02→16:12)
[2020-11-10 04:24] LABS: INR 2.6 (<1.2); Prothrombin Time 25.1 sec (9.0-12.0)
[2020-11-10 04:29] LABS: Calcium 9.3 mg/dL (8.4-10.2); Magnesium 2.2 mg/dL (1.6-2.3); Potassium 4.2 mmol/L (3.5-5.1)
[2020-11-10] MEDS: LEVOTHYROXINE 50 MCG TAB PO SCH (05:54)
[2020-11-10 07:01] LABS: Glucose,Whole Blood 123 mg/dL (75-99)
[2020-11-10] MEDS: INSULIN ASPART (NovoLOG) 100 UNIT/ML VIAL SQ SCH ×4 (07:08→21:34)
[2020-11-10] MEDS: IPRATROPIUM-ALBUTEROL 3 ML NEB INHALATION SCH ×4 (07:48→19:17)
[2020-11-10] MEDS: SYMBICORT 160-4.5 MCG INHALER INHALATION SCH ×2 (07:48→19:17)
[2020-11-10] MEDS: CLOPIDOGREL 75 MG TAB PO SCH (08:24)
[2020-11-10] MEDS: CALCIUM CARB-VIT D 500 MG-5 MCG TAB PO SCH (08:24)
[2020-11-10] MEDS: ATORVASTATIN 40 MG TAB PO SCH (08:24)
[2020-11-10] MEDS: METOPROLOL SUCCINATE (ER) 25 MG TAB.ER.24H PO SCH (08:25)
[2020-11-10] MEDS: SPIRONOLACTONE 25 MG TAB PO SCH (08:25)
[2020-11-10] MEDS: predniSONE 10 MG TAB PO SCH (08:25)
[2020-11-10] MEDS: MULTIVITAMINS, THERA 1 EACH TAB PO SCH (08:25)
[2020-11-10] MEDS: FOLIC ACID 1 MG TAB PO SCH (08:25)
[2020-11-10] MEDS: traMADol 50 MG TAB PO SCH ×3 (08:25→21:09)
--- NOTE | 2020-11-10 09:08 | P.PN ---
Subjective Progress Note Date: 11/10/20 This is an 80-year-old gentleman who was admitted to the hospital with acute coronary syndrome and underwent PCI of the LAD. The patient was seen this morning. He is feeling overall better. He denies any chest pain or chest discomfort. The echo showed severe cardiomyopathy was EF between 30-35%. He is on dual antiplatelet therapy and yesterday he was started on Aldactone as well. He was given Lasix as well by the critical care team. Overall the patient seems stable and bending in the right direction. The chest x-ray showed right base infiltrate and possible small bilateral pleural effusion. Pulmonary/critical care team is on the case as well. Objective - Vital Signs Vital signs: Vital Signs Temp 98.1 F 11/10/20 08:00 Pulse 81 11/10/20 09:00 Resp 12 11/10/20 09:00 BP 92/53 11/10/20 09:00 Pulse Ox 86 L 11/10/20 09:00 Intake & Output 11/09/20 11/10/20 11/10/20 18:59 06:59 18:59 Intake Total 100 560 160 Output Total 1725 650 0 Balance -1625 -90 160 Weight 116.9 kg Intake: IV 100 200 100 Piperacillin-Tazobactam 3 100 200 100 .375 gm In Sodium Chloride 0.9% 100 ml @ 25 mls/hr IVPB Q8HR [facility] Rx# :[id number] Oral 360 60 Output: Urine 1725 650 0 Other: Voiding Method Urinal Urinal Urinal # Bowel Movements 1 - Constitutional General appearance: Present: no acute distress - Respiratory Respiratory: bilateral: diminished - Cardiovascular Rhythm: regular - Labs CBC & Chem 7: 11/09/20 04:43 11/10/20 03:18 Labs: Abnormal Lab Results - Last 24 Hours (Table) 11/09/20 11/09/20 11/09/20 Range/Units 04:43 11:22 17:13 PT (9.0-12.0) sec INR (<1.2) Chloride (98-107) mmol/L Carbon Dioxide (22-30) mmol/L BUN (9-20) mg/dL Creatinine (0.66-1.25) mg/dL Glucose (74-99) mg/dL POC Glucose (mg/dL) 153 H 184 H (75-99) mg/dL Procalcitonin 10.06 H (0.02-0.09) ng/mL 11/09/20 11/10/20 11/10/20 Range/Units 20:51 03:18 03:18 PT 25.1 H (9.0-12.0) sec INR 2.6 H (<1.2) Chloride 97 L (98-107) mmol/L Carbon Dioxide 38 H (22-30) mmol/L BUN 38 H (9-20) mg/dL Creatinine 1.42 H (0.66-1.25) mg/dL Glucose 134 H (74-99) mg/dL POC Glucose (mg/dL) 237 H (75-99) mg/dL Procalcitonin (0.02-0.09) ng/mL 11/10/20 Range/Units 06:57 PT (9.0-12.0) sec INR (<1.2) Chloride (98-107) mmol/L Carbon Dioxide (22-30) mmol/L BUN (9-20) mg/dL Creatinine (0.66-1.25) mg/dL Glucose (74-99) mg/dL POC Glucose (mg/dL) 123 H (75-99) mg/dL Procalcitonin (0.02-0.09) ng/mL Microbiology - Last 24 Hours (Table) 11/08/20 04:05 Blood Culture - Preliminary Blood No Growth after 48 hours 11/09/20 15:30 Sputum Culture - Preliminary Sputum Assessment and Plan Assessment: Assessment #1 acute coronary syndrome and status post PCI of the LAD #2 ischemic cardiomyopathy #3 hypertension #4 dyslipidemia #5 morbid obesity #6 possible pneumonia Plan #1 continue the dual antiplatelet therapy #2 continue the medication for cardiomyopathy and that include beta kelli as well as BRENDA inhibitor as well as although still on antibiotics #3 continue high intensity statin #4 follow-up with the patient
--- NOTE | 2020-11-10 10:11 | XR ---
EXAMINATION TYPE: XR chest 1V portable DATE OF EXAM: 11/10/2020 COMPARISON: 11/09/2020 INDICATION: Follow-up pneumonia TECHNIQUE: Single frontal view of the chest is obtained. FINDINGS: The heart size is normal. The pulmonary vasculature is normal. Right lower lobe consolidation is worsening. IMPRESSION: 1. Right lower lobe consolidation can be compatible with pneumonia. Continued follow-up is recommended
[2020-11-10 11:36] LABS: Glucose,Whole Blood 147 mg/dL (75-99)
--- NOTE | 2020-11-10 12:12 | P.PN ---
Subjective Progress Note Date: 11/10/20 Principal diagnosis: Acute coronary syndrome status post PCI of the LAD. This is an 80-year-old white male with history of hypertension, diabetes, COPD, normally sees Dr. Adamson for COPD, patient is known to be on home oxygen at 3 L/m, FEV1 is in the range of 39%, patient has been on a course of prednisone taper for recent symptoms of COPD exacerbation, his prednisone was prescribed by Dr. Adamson over the phone. Patient is presently on 25 mg of prednisone daily. He presented to the ER on 11/08/2020, and he was complaining of worsening shortness of breath. No chest pain, he had chronic cough, no fever, no chills, no hemoptysis. Patient was seen by cardiology on consultation for his abnormal EKG which showed subtle ST elevation in the inferior lateral leads, and he was f elt to have an acute ST elevation myocardial infarction. Patient underwent successful stenting of the proximal LAD, he was found to have a 70% stenosis. He also underwent selective right common femoral artery arteriogram. According to the note by cardiology, patient had some selective images of the right coronary artery, could not selectively engage it even with a destiny catheter. Post cardiac catheterization and stenting, patient was sent to the ICU, he is now on BiPAP, with IPAP of 12 and EPAP of 6, FiO2 of 60%, O2 saturation is in the low 90s, chest x-ray is showing right lower lobe airspace disease, and going back to recent CT of the chest, which was done a few months ago, there is a spiculated opacity seen on 07/20/2020, and the radiologist raised the possibility of neoplastic etiology, patient is being followed closely by Dr. Adamson on outpatient basis. He did have previous bronchoscopies for his right lower lobe pneumonia. Considering the findings on the chest x-ray and recent CT of the, I am recommending empiric antibiotics. His WBC count is 14.6 hemoglobin is 13.1 INR is 4.7, patient is on Coumadin. He'll try some normal renal profile is normal. Reevaluated today on 11/10/2020, patient remains in the ICU, he is off BiPAP, he is presently on 5 L nasal cannula. Pro-calcitonin came back significantly high at 10, chest x-ray showed right lower lobe pneumonia, patient remains on Zosyn. Remains on bronchodilators and he remains on prednisone at 30 mg daily. Clinica mariony the patient felt that he is feeling much better, breathing a lot easier, able to clear his secretions much better. Labs today showed relatively normal electrolytes however his BUN is 38 creatinine is up to 1.42. Hence no more diuretics to be given today. Patient remains on bronchodilators, he was given 1 dose of Lasix yesterday. He is back on his cardiac meds, he is not on any nephrotoxic medications. Chest x-ray continues to show somedisease in the right lower lobe. But slightly better today compared to yesterday. INR is therapeutic. WBC count was 14.6 yesterday, but no CBC was done today. Objective - Vital Signs Vital signs: Vital Signs Temp 98.1 F 11/10/20 08:00 Pulse 80 11/10/20 11:40 Resp 18 11/10/20 11:00 BP 95/60 11/10/20 11:00 Pulse Ox 86 L 11/10/20 11:00 Intake & Output 11/09/20 11/10/20 11/10/20 18:59 06:59 18:59 Intake Total 100 560 160 Output Total 1725 650 0 Balance -1625 -90 160 Weight 116.9 kg Intake: IV 100 200 100 Piperacillin-Tazobactam 3 100 200 100 .375 gm In Sodium Chloride 0.9% 100 ml @ 25 mls/hr IVPB Q8HR [facility] Rx# :[id number] Oral 360 60 Output: Urine 1725 650 0 Other: Voiding Method Urinal Urinal Urinal # Bowel Movements 1 - Exam GENERAL EXAM: Revealed 80-year-old white male on 5 L nasal cannula. Sitting at a bedside chair, in no distress, family is at bedside. HEAD: Normocephalic/atraumatic. EYES: Normal reaction of pupils, equal size. Conjunctiva pink, sclera white. NOSE: Clear with pink turbinates. THROAT: No erythema or exudates. NECK: No masses, no JVD, no thyroid enlargement, no adenopathy. CHEST: No chest wall deformity. Symmetrical expansion. LUNGS: Crackles and rhonchi noted especially at the right base. CVS: Regular rate and rhythm, normal S1 and S2, no gallops, no murmurs, no rubs ABDOMEN: Soft, nontender. No hepatosplenomegaly, normal bowel sounds, no guarding or rigidity. EXTREMITIES: No clubbing, no edema, no cyanosis, 2+ pulses and upper and lower extremities. Chronic venous stasis changes noted to bilateral lower extremities MUSCULOSKELETAL: Muscle strength and tone normal. SKIN: No rashes CENTRAL NERVOUS SYSTEM: Alert and oriented 3, no focal deficits. PSYCHIATRIC: Normal mood, affect and normal mental status examination. - Labs CBC & Chem 7: 11/09/20 04:43 11/10/20 03:18 Labs: Abnormal Lab Results - Last 24 Hours (Table) 11/09/20 11/09/20 11/09/20 Range/Units 04:43 17:13 20:51 PT (9.0-12.0) sec INR (<1.2) Chloride (98-107) mmol/L Carbon Dioxide (22-30) mmol/L BUN (9-20) mg/dL Creatinine (0.66-1.25) mg/dL Glucose (74-99) mg/dL POC Glucose (mg/dL) 184 H 237 H (75-99) mg/dL Procalcitonin 10.06 H (0.02-0.09) ng/mL 11/10/20 11/10/20 11/10/20 Range/Units 03:18 03:18 06:57 PT 25.1 H (9.0-12.0) sec INR 2.6 H (<1.2) Chloride 97 L (98-107) mmol/L Carbon Dioxide 38 H (22-30) mmol/L BUN 38 H (9-20) mg/dL Creatinine 1.42 H (0.66-1.25) mg/dL Glucose 134 H (74-99) mg/dL POC Glucose (mg/dL) 123 H (75-99) mg/dL Procalcitonin (0.02-0.09) ng/mL 11/10/20 Range/Units 11:34 PT (9.0-12.0) sec INR (<1.2) Chloride (98-107) mmol/L Carbon Dioxide (22-30) mmol/L BUN (9-20) mg/dL Creatinine (0.66-1.25) mg/dL Glucose (74-99) mg/dL POC Glucose (mg/dL) 147 H (75-99) mg/dL Procalcitonin (0.02-0.09) ng/mL Microbiology - Last 24 Hours (Table) 11/09/20 15:30 Gram Stain - Preliminary Sputum Sputum Culture - Preliminary 11/08/20 04:05 Blood Culture - Preliminary Blood No Growth after 48 hours Assessment and Plan Assessment: Impression: Acute coronary syndrome, Status post cardiac catheterization, PCI of LAD. Acute community acquired pneumonia involving the right lower lobe. Seems to be recurrent, patient had bronchoscopies 2 in the past by Dr. Adamson. History of underlying coronary artery disease. Acute exacerbation of COPD. Severe COPD Gold stage III. Acute on chronic hypoxic respiratory failure secondary to above. Mostly se condary to COPD and right lower lobe pneumonia. History of pulmonary embolism maintained on Coumadin on outpatient basis. Hyperhomocystinemia Hypothyroidism Benign essential hypertension. Previous MRSA infection. Recommendation: Continue oxygen and titrate accordingly. Continue bronchodilators. Continue Zosyn. Continue prednisone. Awaiting sputum cultures. Continue IV fluids. Elevated level of pro calcitonin level was noted Resume Coumadin Continue Plavix and aspirin. Continue updrafts 4 times a day and when necessary. Monitor sugars and address accordingly with insulin. Continue Synthroid. We'll continue to follow. Continue to monitor in the ICU. Discussed his condition with him and with his family at bedside. Time with Patient: Less than 30
[2020-11-10 14:37] LABS: Hemoglobin A1C 7.3 % (4.0-6.0)
--- NOTE | 2020-11-10 16:49 | P.PN ---
Subjective Progress Note Date: 11/10/20 Principal diagnosis: cheat pain Patient is an 80-year-old male for history of severe COPD on home O2, dyslipidemia, hypertension, prior CVA who presented to the emergency department with worsening shortness of breath. Patient was found have an elevated troponin and some nonspecific ST segment changes and was subsequently diagnosed with a non-STEMI and taken to the cardiac [facility] where he underwent successful stent placement to the proximal LAD. He developed significant respiratory distress afterward and pulmonary was consulted. He was found have a probable right lower lobe pneumonia along with severe COPD currently on steroid taper from outpatient pulmonary. Patient seen and examined at bedside. Breathing is still not back to baseline but is better than yesterday. No additional chest pain. No nausea or vomiting. General: Ill appearing, no distress, appears at stated age Derm: warm, dry Head: atraumatic, normocephalic, symmetric Eyes: EOMI, no lid lag, anicteric sclera Mouth: no lip lesion, mucus membranes moist Cardiovascular: S1S2 reg, no murmur, positive posterior tibial pulse bilateral, Lungs: Rhonchi bilateral bases, 3 word conversational dyspnea, mild sternal retractions Abdominal: soft, nontender to palpation, no guarding, no appreciable organomegaly Ext: no gross muscle atrophy, no edema, no contractures Neuro: CN II-XI grossly intact, no focal neuro deficits Psych: Alert, oriented, appropriate affect Non-ST segment elevated myocardial infarction status post left heart cath successful stenting of the LAD, ischemic cardiomyopathy with ejection fraction 30-35% -Continue with metoprolol -Cardiology recommendations appreciated -Patient was started on lisinopril and spironolactone -Continue with aspirin, Plavix -Continue statin Elevated creatinine, -Patient off Lasix today -Not significant enough increased to be determined to be AK at this point in time -Follow creatinine closely with patient on spironolactone and lisinopril Diabetes mellitus type 2 -Hold Glucophage -A1c 7.3 -Follow blood sugars, sliding scale insulin Right lower lobe pneumonia, severe COPD gold stage III, acute on chronic hypoxic respiratory failure -Pulmonary recommendations appreciated -BiPAP as needed -Zosyn -Patient was started on prednisone 30 mg daily 3 taper every 5 days -Await sputum culture, pro-calcitonin > 2 Coagulopathy with INR 4.7 -Monitor INR daily -Resume Coumadin once less than 3 Chronic: Hypertension Dyslipidemia Hypothyroidism Hyper homocystinemia History of pulmonary embolism maintained on Coumadin DVT prophylaxis: Coumadin Discussed with: nursing, patient Anticipated discharge: 3-[address]: home A total of 35 minutes was spent on the care of this complex patient more than 50% of the time was spent in counseling and care coordination. Objective - Vital Signs Vital signs: Vital Signs Temp 98.2 F 11/10/20 16:00 Pulse 82 11/10/20 16:00 Resp 13 11/10/20 16:00 BP 89/60 11/10/20 16:00 Pulse Ox 94 L 11/10/20 16:00 Intake & Output 11/09/20 11/10/20 11/10/20 18:59 06:59 18:59 Intake Total 100 560 260 Output Total 1725 650 250 Balance -1625 -90 10 Weight 116.9 kg Intake: IV 100 200 200 Piperacillin-Tazobactam 3 100 200 200 .375 gm In Sodium Chloride 0.9% 100 ml @ 25 mls/hr IVPB Q8HR [facility] Rx# :[id number] Oral 360 60 Output: Urine 1725 650 250 Other: Voiding Method Urinal Urinal Urinal # Bowel Movements 1 - Labs CBC & Chem 7: 11/09/20 04:43 11/10/20 03:18 Labs: Abnormal Lab Results - Last 24 Hours (Table) 11/09/20 11/09/20 11/10/20 Range/Units 17:13 20:51 03:18 PT 25.1 H (9.0-12.0) sec INR 2.6 H (<1.2) Chloride (98-107) mmol/L Carbon Dioxide (22-30) mmol/L BUN (9-20) mg/dL Creatinine (0.66-1.25) mg/dL Glucose (74-99) mg/dL POC Glucose (mg/dL) 184 H 237 H (75-99) mg/dL Hemoglobin A1c (4.0-6.0) % 11/10/20 11/10/20 11/10/20 Range/Units 03:18 03:18 06:57 PT (9.0-12.0) sec INR (<1.2) Chloride 97 L (98-107) mmol/L Carbon Dioxide 38 H (22-30) mmol/L BUN 38 H (9-20) mg/dL Creatinine 1.42 H (0.66-1.25) mg/dL Glucose 134 H (74-99) mg/dL POC Glucose (mg/dL) 123 H (75-99) mg/dL Hemoglobin A1c 7.3 H (4.0-6.0) % 11/10/20 Range/Units 11:34 PT (9.0-12.0) sec INR (<1.2) Chloride (98-107) mmol/L Carbon Dioxide (22-30) mmol/L BUN (9-20) mg/dL Creatinine (0.66-1.25) mg/dL Glucose (74-99) mg/dL POC Glucose (mg/dL) 147 H (75-99) mg/dL Hemoglobin A1c (4.0-6.0) % Microbiology - Last 24 Hours (Table) 11/09/20 15:30 Gram Stain - Preliminary Sputum Sputum Culture - Preliminary 11/08/20 04:05 Blood Culture - Preliminary Blood No Growth after 48 hours
[2020-11-10 17:02] LABS: Glucose,Whole Blood 191 mg/dL (75-99)
[2020-11-10] MEDS: ASPIRIN 81 MG PO SCH (21:08)
[2020-11-10 21:16] LABS: Glucose,Whole Blood 219 mg/dL (75-99)
[2020-11-11] MEDS: PIPERACILLIN-TAZOBACTAM 3.375 GM in SODIUM CHLORIDE 0.9% 100 ML IVPB SCH ×3 (00:09→16:16)
--- NOTE | 2020-11-11 05:35 | XR ---
EXAMINATION TYPE: XR chest 1V DATE OF EXAM: 11/11/2020 COMPARISON: Yesterday HISTORY: Short of breath TECHNIQUE: FINDINGS: There is some airspace consolidation right lower lobe. Left lung is fairly clear. There is no heart failure. Heart size is normal. There are chest leads. IMPRESSION: Right lower lobe pneumonia is improved compared to exam yesterday.
[2020-11-11 06:17] LABS: Basophils % (A) 0 %; Calcium 9.5 mg/dL (8.4-10.2); Eosinophils # (A) 0.2 k/uL (0-0.7); Eosinophils % (A) 2 %; HCT 39.4 % (39.0-53.0); HGB 12.8 gm/dL (13.0-17.5); Lymphocytes # (A) 1.3 k/uL (1.0-4.8); Lymphocytes % (A) 10 %; MCH 30.4 pg (25.0-35.0); MCHC 32.6 g/dL (31.0-37.0); MCV 93.3 fL (80.0-100.0); Mean Platelet Volume 7.5; Monocytes # (A) 0.6 k/uL (0-1.0); Monocytes % (A) 5 %; Neutrophils # (A) 9.8 k/uL (1.3-7.7); Neutrophils % (A) 81 %; Platelet Count 214 k/uL (150-450); Potassium 4.4 mmol/L (3.5-5.1); RBC 4.22 m/uL (4.30-5.90); WBC 12.2 k/uL (3.8-10.6)
[2020-11-11] MEDS: LEVOTHYROXINE 50 MCG TAB PO SCH (06:24)
--- NOTE | 2020-11-11 06:27 | P.PN ---
Subjective Progress Note Date: 11/11/20 Principal diagnosis: Acute coronary syndrome This is an 80-year-old gentleman with obesity and diabetes and hypertension and multiple comorbid conditions including history of PE who presented to the hospital complaining of increasing shortness of breath and EKG changes concernin g for acute coronary syndrome. He underwent a heart catheterization and was found to have disease in the left main and LAD. The left main disease was further assessed and was not flow limiting but the LAD was flow-limiting and for that reason he underwent successful stenting of the LAD with a good angiographic results. The echo showed cardiomyopathy with EF between 30-35%. The patient was seen today. He is asymptomatic from a cardiovascular standpoint. He is on dual antiplatelet therapy along with high intensity statin along with medications for the cardiomyopathy. The chest x-ray showed infiltrate and currently he is getting treated for pneumonia. Pulmonary/critical-care T on the case. From the cardiovascular standpoint of view, the patient can be transferred out of the ICU. Objective - Vital Signs Vital signs: Vital Signs Temp 97.5 F L 11/11/20 04:00 Pulse 73 11/11/20 06:00 Resp 14 11/11/20 06:00 BP 124/77 11/11/20 06:00 Pulse Ox 91 L 11/11/20 06:00 Intake & Output 11/10/20 11/10/20 11/11/20 06:59 18:59 06:59 Intake Total 560 260 100 Output Total 650 375 475 Balance -90 -115 -375 Weight 116.9 kg 118.1 kg Intake: IV 200 200 100 Piperacillin-Tazobactam 3 200 200 100 .375 gm In Sodium Chloride 0.9% 100 ml @ 25 mls/hr IVPB Q8HR [facility] Rx# :[id number] Oral 360 60 Output: Urine 650 375 475 Other: Voiding Method Urinal Urinal Urinal - Constitutional General appearance: Present: no acute distress - Respiratory Respiratory: bilateral: diminished - Cardiovascular Rhythm: regular Heart sounds: normal: S1, S2 - Labs CBC & Chem 7: 11/11/20 05:44 11/11/20 05:44 Labs: Abnormal Lab Results - Last 24 Hours (Table) 11/10/20 11/10/20 11/10/20 Range/Units 03:18 06:57 11:34 WBC (3.8-10.6) k/uL RBC (4.30-5.90) m/uL Hgb (13.0-17.5) gm/dL Neutrophils # (1.3-7.7) k/uL Carbon Dioxide (22-30) mmol/L BUN (9-20) mg/dL Glucose (74-99) mg/dL POC Glucose (mg/dL) 123 H 147 H (75-99) mg/dL Hemoglobin A1c 7.3 H (4.0-6.0) % 11/10/20 11/10/20 11/11/20 Range/Units 17:00 21:14 05:44 WBC 12.2 H (3.8-10.6) k/uL RBC 4.22 L (4.30-5.90) m/uL Hgb 12.8 L (13.0-17.5) gm/dL Neutrophils # 9.8 H (1.3-7.7) k/uL Carbon Dioxide (22-30) mmol/L BUN (9-20) mg/dL Glucose (74-99) mg/dL POC Glucose (mg/dL) 191 H 219 H (75-99) mg/dL Hemoglobin A1c (4.0-6.0) % 11/11/20 Range/Units 05:44 WBC (3.8-10.6) k/uL RBC (4.30-5.90) m/uL Hgb (13.0-17.5) gm/dL Neutrophils # (1.3-7.7) k/uL Carbon Dioxide 35 H (22-30) mmol/L BUN 41 H (9-20) mg/dL Glucose 127 H (74-99) mg/dL POC Glucose (mg/dL) (75-99) mg/dL Hemoglobin A1c (4.0-6.0) % Microbiology - Last 24 Hours (Table) 11/08/20 04:05 Blood Culture - Preliminary Blood No Growth after 72 hours 11/09/20 15:30 Gram Stain - Preliminary Sputum Sputum Culture - Preliminary Assessment and Plan Assessment: Assessment #1 acute coronary syndrome and status post PCI of the LAD #2 cardiomyopathy with EF around 35% #3 morbid obesity #4 history of PE/DVT #5 multiple comorbid conditions Plan #1 continue the current medical regimen #2 restart the patient back on Coumadin for the prior history of PE #3 continue dual antiplatelet therapy #4 continue Toprol-XL along with lisinopril along with Aldactone #5 the patient can be transferred out of the ICU #6 follow-up with the patient
[2020-11-11] MEDS: INSULIN ASPART (NovoLOG) 100 UNIT/ML VIAL SQ SCH ×4 (06:28→21:49)
[2020-11-11 06:37] LABS: Glucose,Whole Blood 114 mg/dL (75-99)
[2020-11-11] MEDS: SYMBICORT 160-4.5 MCG INHALER INHALATION SCH ×2 (07:26→21:08)
[2020-11-11] MEDS: IPRATROPIUM-ALBUTEROL 3 ML NEB INHALATION SCH ×4 (07:26→21:06)
[2020-11-11 08:13] LABS: INR 1.6 (<1.2); Prothrombin Time 16.2 sec (9.0-12.0)
[2020-11-11] MEDS: CALCIUM CARB-VIT D 500 MG-5 MCG TAB PO SCH (09:23)
[2020-11-11] MEDS: MULTIVITAMINS, THERA 1 EACH TAB PO SCH (09:23)
[2020-11-11] MEDS: ATORVASTATIN 40 MG TAB PO SCH (09:23)
[2020-11-11] MEDS: CLOPIDOGREL 75 MG TAB PO SCH (09:23)
[2020-11-11] MEDS: SPIRONOLACTONE 25 MG TAB PO SCH (09:23)
[2020-11-11] MEDS: METOPROLOL SUCCINATE (ER) 25 MG TAB.ER.24H PO SCH (09:24)
[2020-11-11] MEDS: predniSONE 10 MG TAB PO SCH (09:24)
[2020-11-11] MEDS: FOLIC ACID 1 MG TAB PO SCH (09:24)
[2020-11-11 11:04] LABS: Glucose,Whole Blood 130 mg/dL (75-99)
--- NOTE | 2020-11-11 11:06 | P.PN ---
Subjective Progress Note Date: 11/11/20 Principal diagnosis: Acute coronary syndrome status post PCI of the LAD. This is an 80-year-old white male with history of hypertension, diabetes, COPD, normally sees Dr. Adamson for COPD, patient is known to be on home oxygen at 3 L/m, FEV1 is in the range of 39%, patient has been on a course of prednisone taper for recent symptoms of COPD exacerbation, his prednisone was prescribed by Dr. Adamson over the phone. Patient is presently on 25 mg of prednisone daily. He presented to the ER on 11/08/2020, and he was complaining of worsening shortness of breath. No chest pain, he had chronic cough, no fever, no chills, no hemoptysis. Patient was seen by cardiology on consultation for his abnormal EKG which showed subtle ST elevation in the inferior lateral leads, and he was f elt to have an acute ST elevation myocardial infarction. Patient underwent successful stenting of the proximal LAD, he was found to have a 70% stenosis. He also underwent selective right common femoral artery arteriogram. According to the note by cardiology, patient had some selective images of the right coronary artery, could not selectively engage it even with a destiny catheter. Post cardiac catheterization and stenting, patient was sent to the ICU, he is now on BiPAP, with IPAP of 12 and EPAP of 6, FiO2 of 60%, O2 saturation is in the low 90s, chest x-ray is showing right lower lobe airspace disease, and going back to recent CT of the chest, which was done a few months ago, there is a spiculated opacity seen on 07/20/2020, and the radiologist raised the possibility of neoplastic etiology, patient is being followed closely by Dr. Adamson on outpatient basis. He did have previous bronchoscopies for his right lower lobe pneumonia. Considering the findings on the chest x-ray and recent CT of the, I am recommending empiric antibiotics. His WBC count is 14.6 hemoglobin is 13.1 INR is 4.7, patient is on Coumadin. He'll try some normal renal profile is normal. Reevaluated today on 11/10/2020, patient remains in the ICU, he is off BiPAP, he is presently on 5 L nasal cannula. Pro-calcitonin came back significantly high at 10, chest x-ray showed right lower lobe pneumonia, patient remains on Zosyn. Remains on bronchodilators and he remains on prednisone at 30 mg daily. Cholo schultzy the patient felt that he is feeling much better, breathing a lot easier, able to clear his secretions much better. Labs today showed relatively normal electrolytes however his BUN is 38 creatinine is up to 1.42. Hence no more diuretics to be given today. Patient remains on bronchodilators, he was given 1 dose of Lasix yesterday. He is back on his cardiac meds, he is not on any nephrotoxic medications. Chest x-ray continues to show somedisease in the right lower lobe. But slightly better today compared to yesterday. INR is therapeutic. WBC count was 14.6 yesterday, but no CBC was done today. Reevaluated today on 11/11/2020, remains in the ICU, he is on 5 L nasal cannula, intermittently on BiPAP with IPAP of 12 EPAP of 6 and FiO2 of 60%, patient tells me that he is feeling much per her today compared to how he felt in the last couple of days. Chest x-ray continues to show significant consolidation in the right lower lobe consistent with right lower lobe pneumonia, again underlying malignancy is not entirely ruled out, however patient did have previous bronchoscopies 2 and he had negative findings for malignancy. Patient remains on antibiotics, sputum cultures are pending. Remains on bronchodilators. His pro-calcitonin level was significantly elevated. And he is on Zosyn. Cardiac- rees the patient is on did UL antiplatelet therapy, he is also on statins, and I plan to keep the patient today in the ICU since his pulmonary status is rather marginal. WBC count is slightly better today 12.2 compared to 14.62 days ago. Basic metabolic profile is normal BUN is 41 creatinine 1.07 INR is 1.6, patient is back on Coumadin. Objective - Vital Signs Vital signs: Vital Signs Temp 97.7 F 11/11/20 08:00 Pulse 80 11/11/20 10:00 Resp 16 11/11/20 10:00 BP 116/68 11/11/20 10:00 Pulse Ox 89 L 11/11/20 10:00 Intake & Output 11/10/20 11/11/20 11/11/20 18:59 06:59 18:59 Intake Total 260 100 200 Output Total 375 600 150 Balance -115 -500 50 Weight 118.1 kg Intake: IV 200 100 0 Piperacillin-Tazobactam 3 200 100 0 .375 gm In Sodium Chloride 0.9% 100 ml @ 25 mls/hr IVPB Q8HR [facility] Rx# :[id number] Oral 60 200 Output: Urine 375 600 150 Other: Voiding Method Urinal Urinal Urinal # Bowel Movements 1 - Exam GENERAL EXAM: Revealed 80-year-old white male on 5 L nasal cannula. Does not seem to be in distress. HEAD: Normocephalic/atraumatic. EYES: Normal reaction of pupils, equal size. Conjunctiva pink, sclera white. NOSE: Clear with pink turbinates. THROAT: No erythema or exudates. NECK: No masses, no JVD, no thyroid enlargement, no adenopathy. CHEST: No chest wall deformity. Symmetrical expansion. LUNGS: Crackles and rhonchi noted especially at the right base. CVS: Regular rate and rhythm, normal S1 and S2, no gallops, no murmurs, no rubs ABDOMEN: Soft, nontender. No hepatosplenomegaly, normal bowel sounds, no guarding or rigidity. EXTREMITIES: No clubbing, no edema, no cyanosis, 2+ pulses and upper and lower extremities. Chronic venous stasis changes noted to bilateral lower extremities MUSCULOSKELETAL: Muscle strength and tone normal. SKIN: No rashes CENTRAL NERVOUS SYSTEM: Alert and oriented 3, no focal deficits. PSYCHIATRIC: Normal mood, affect and normal mental status examination. - Labs CBC & Chem 7: 11/11/20 05:44 11/11/20 05:44 Labs: Abnormal Lab Results - Last 24 Hours (Table) 11/10/20 11/10/20 11/10/20 Range/Units 03:18 11:34 17:00 WBC (3.8-10.6) k/uL RBC (4.30-5.90) m/uL Hgb (13.0-17.5) gm/dL Neutrophils # (1.3-7.7) k/uL PT (9.0-12.0) sec INR (<1.2) Carbon Dioxide (22-30) mmol/L BUN (9-20) mg/dL Glucose (74-99) mg/dL POC Glucose (mg/dL) 147 H 191 H (75-99) mg/dL Hemoglobin A1c 7.3 H (4.0-6.0) % 11/10/20 11/11/20 11/11/20 Range/Units 21:14 05:44 05:44 WBC 12.2 H (3.8-10.6) k/uL RBC 4.22 L (4.30-5.90) m/uL Hgb 12.8 L (13.0-17.5) gm/dL Neutrophils # 9.8 H (1.3-7.7) k/uL PT (9.0-12.0) sec INR (<1.2) Carbon Dioxide 35 H (22-30) mmol/L BUN 41 H (9-20) mg/dL Glucose 127 H (74-99) mg/dL POC Glucose (mg/dL) 219 H (75-99) mg/dL Hemoglobin A1c (4.0-6.0) % 11/11/20 11/11/20 Range/Units 06:27 07:51 WBC (3.8-10.6) k/uL RBC (4.30-5.90) m/uL Hgb (13.0-17.5) gm/dL Neutrophils # (1.3-7.7) k/uL PT 16.2 H (9.0-12.0) sec INR 1.6 H (<1.2) Carbon Dioxide (22-30) mmol/L BUN (9-20) mg/dL Glucose (74-99) mg/dL POC Glucose (mg/dL) 114 H (75-99) mg/dL Hemoglobin A1c (4.0-6.0) % Microbiology - Last 24 Hours (Table) 11/08/20 04:05 Blood Culture - Preliminary Blood No Growth after 72 hours 11/09/20 15:30 Gram Stain - Preliminary Sputum Sputum Culture - Preliminary Assessment and Plan Assessment: Impression: Acute coronary syndrome, Status post cardiac catheterization, PCI of LAD. Acute community acquired pneumonia involving the right lower lobe. Seems to be recurrent, patient had bronchoscopies 2 in the past by Dr. Adamson. History of underlying coronary artery disease. Acute exacerbation of COPD. Severe COPD Gold stage III. Acute on chronic hypoxic respiratory failure secondary to above. Mostly secondary to COPD and right lower lobe pneumonia. History of pulmonary embolism maintained on Coumadin on outpatient basis. Hyperhomocystinemia Hypothyroidism Benign essential hypertension. Previous MRSA infection. Recommendation: Continue oxygen and titrate accordingly. Continue bronchodilators. Continue Zosyn. Sputum so far is nondiagnostic. Gram stain is showing gram- positive cocci and gram-positive bacilli with moderate PMNs. Continue prednisone. Presently on 30 mg daily. Continue IV fluids. Resume Coumadin adjusted dose to maintain INR between 2 and 3. Continue Plavix and aspirin. Continue updrafts 4 times a day and when necessary. Continue Synthroid. Continue to monitor in the ICU. Patient will be evaluated by Dr. Adamson tomorrow who is very familiar with the patient, he sees him on a regular basis. For his underlying severe COPD. Time with Patient: Less than 30
--- NOTE | 2020-11-11 14:58 | P.PN ---
Subjective Progress Note Date: 11/11/20 Principal diagnosis: chest pain Patient is an 80-year-old male for history of severe COPD on home O2, dyslipidemia, hypertension, prior CVA who presented to the emergency department with worsening shortness of breath. Patient was found have an elevated troponin and some nonspecific ST segment changes and was subsequently diagnosed with a non-STEMI and taken to the cardiac [facility] where he underwent successful stent placement to the proximal LAD. He developed significant respiratory distress afterward and pulmonary was consulted. He was found have a probable right lower lobe pneumonia along with severe COPD currently on steroid taper from outpatient pulmonary. He was placed on diuresis and continued to improve. Echocardiogram demonstrated an ejection fraction of 30-35% and he was started on lisinopril and spironolactone. He continued to improve daily and his O2 requirements were decreasing. Patient seen and examined at bedside. Feeling much better today. No nausea or vomiting. His appetite is coming back. Had a BM today. No chest pain. Katrin thing is much improved but still not quite back to baseline. General: Ill appearing, no distress, appears at stated age Derm: Chronic ulcer on his right lower extremity that appears to have a pressure in place without drainage or warmth, warm, dry Head: atraumatic, normocephalic, symmetric Eyes: EOMI, no lid lag, anicteric sclera Mouth: no lip lesion, mucus membranes moist Cardiovascular: S1S2 reg, no murmur, positive posterior tibial pulse bilateral, Lungs: Rhonchi bilateral bases, 3 word conversational dyspnea, mild sternal retractions Abdominal: soft, nontender to palpation, no guarding, no appreciable organomegaly Ext: no gross muscle atrophy, no edema, no contractures Neuro: CN II-XI grossly intact, no focal neuro deficits Psych: Alert, oriented, appropriate affect Non-ST segment elevated myocardial infarction status post left heart cath successful stenting of the LAD, ischemic cardiomyopathy with ejection fraction 30-35% -Continue with metoprolol -Cardiology recommendations appreciated -Patient was started on lisinopril and spironolactone -Continue with aspirin, Plavix -Continue statin Diabetes mellitus type 2 -Hold Glucophage -A1c 7.3 -Follow blood sugars, sliding scale insulin Right lower lobe pneumonia, severe COPD gold stage III, acute on chronic hypoxic respiratory failure -Pulmonary recommendations appreciated -BiPAP as needed -Zosyn -Patient was started on prednisone 30 mg daily taper every 5 days -sputum culture with normal chidi -pro-calcitonin > 2 Coagulopathy -Monitor INR daily -Resume Coumadin Nonhealing wound right lower extremity -Consult wound care Chronic: Hypertension Dyslipidemia Hypothyroidism Hyper homocystinemia History of pulmonary embolism maintained on Coumadin DVT prophylaxis: Coumadin Discussed with: nursing, patient Anticipated discharge: 2-[address]: home A total of 35 minutes was spent on the care of this complex patient more than 50% of the time was spent in counseling and care coordination. Objective - Vital Signs Vital signs: Vital Signs Temp 97.7 F 11/11/20 08:00 Pulse 86 11/11/20 11:40 Resp 16 11/11/20 11:00 BP 137/68 11/11/20 11:00 Pulse Ox 90 L 11/11/20 11:00 Intake & Output 11/10/20 11/11/20 11/11/20 18:59 06:59 18:59 Intake Total 260 100 200 Output Total 375 600 150 Balance -115 -500 50 Weight 118.1 kg Intake: IV 200 100 0 Piperacillin-Tazobactam 3 200 100 0 .375 gm In Sodium Chloride 0.9% 100 ml @ 25 mls/hr IVPB Q8HR [facility] Rx# :[id number] Oral 60 200 Output: Urine 375 600 150 Other: Voiding Method Urinal Urinal Urinal # Bowel Movements 1 - Labs CBC & Chem 7: 11/11/20 05:44 11/11/20 05:44 Labs: Abnormal Lab Results - Last 24 Hours (Table) 11/10/20 11/10/20 11/11/20 Range/Units 17:00 21:14 05:44 WBC 12.2 H (3.8-10.6) k/uL RBC 4.22 L (4.30-5.90) m/uL Hgb 12.8 L (13.0-17.5) gm/dL Neutrophils # 9.8 H (1.3-7.7) k/uL PT (9.0-12.0) sec INR (<1.2) Carbon Dioxide (22-30) mmol/L BUN (9-20) mg/dL Glucose (74-99) mg/dL POC Glucose (mg/dL) 191 H 219 H (75-99) mg/dL 11/11/20 11/11/20 11/11/20 Range/Units 05:44 06:27 07:51 WBC (3.8-10.6) k/uL RBC (4.30-5.90) m/uL Hgb (13.0-17.5) gm/dL Neutrophils # (1.3-7.7) k/uL PT 16.2 H (9.0-12.0) sec INR 1.6 H (<1.2) Carbon Dioxide 35 H (22-30) mmol/L BUN 41 H (9-20) mg/dL Glucose 127 H (74-99) mg/dL POC Glucose (mg/dL) 114 H (75-99) mg/dL 11/11/20 Range/Units 11:03 WBC (3.8-10.6) k/uL RBC (4.30-5.90) m/uL Hgb (13.0-17.5) gm/dL Neutrophils # (1.3-7.7) k/uL PT (9.0-12.0) sec INR (<1.2) Carbon Dioxide (22-30) mmol/L BUN (9-20) mg/dL Glucose (74-99) mg/dL POC Glucose (mg/dL) 130 H (75-99) mg/dL Microbiology - Last 24 Hours (Table) 11/09/20 15:30 Gram Stain - Final Sputum Sputum Culture - Final 11/08/20 04:05 Blood Culture - Preliminary Blood No Growth after 72 hours
[2020-11-11 17:01] LABS: Glucose,Whole Blood 219 mg/dL (75-99)
[2020-11-11] MEDS: WARFARIN 2.5 MG TAB PO SCH (17:06)
[2020-11-11] MEDS: ASPIRIN 81 MG PO SCH (20:51)
[2020-11-11] MEDS: traMADol 50 MG TAB PO SCH (20:51)
[2020-11-11 20:55] LABS: Glucose,Whole Blood 246 mg/dL (75-99)
[2020-11-12] MEDS: PIPERACILLIN-TAZOBACTAM 3.375 GM in SODIUM CHLORIDE 0.9% 100 ML IVPB SCH ×4 (01:16→23:52)
[2020-11-12 04:13] LABS: INR 1.2 (<1.2); Prothrombin Time 12.2 sec (9.0-12.0)
[2020-11-12 04:15] LABS: African American GFR (CKD) >90 (>60 ml/min/1.73 sqM); Anion Gap 3 mmol/L; Blood Urea Nitrogen 36 mg/dL (9-20); Calcium 9.4 mg/dL (8.4-10.2); Carbon Dioxide 35 mmol/L (22-30); Chloride 99 mmol/L (98-107); Glucose 114 mg/dL (74-99); Non-African American GFR(CKD) 80 (>60 ml/min/1.73 sqM); Potassium 4.7 mmol/L (3.5-5.1); Sodium 137 mmol/L (137-145)
[2020-11-12 04:22] LABS: HCT 40.4 % (39.0-53.0); HGB 12.6 gm/dL (13.0-17.5); MCH 29.4 pg (25.0-35.0); MCHC 31.3 g/dL (31.0-37.0); Mean Platelet Volume 7.9; Platelet Count 202 k/uL (150-450); RDW 14.3 % (11.5-15.5); WBC 13.1 k/uL (3.8-10.6)
[2020-11-12] MEDS: LEVOTHYROXINE 50 MCG TAB PO SCH (06:17)
[2020-11-12 06:20] LABS: Glucose,Whole Blood 110 mg/dL (75-99)
[2020-11-12] MEDS: INSULIN ASPART (NovoLOG) 100 UNIT/ML VIAL SQ SCH ×4 (06:21→20:41)
[2020-11-12] MEDS ORDERED: FUROSEMIDE 10 MG/ML 4 ML VIAL IV STA (08:30)
[2020-11-12] MEDS: IPRATROPIUM-ALBUTEROL 3 ML NEB INHALATION SCH ×4 (08:38→19:30)
[2020-11-12] MEDS: SYMBICORT 160-4.5 MCG INHALER INHALATION SCH (08:42)
[2020-11-12] MEDS: predniSONE 10 MG TAB PO SCH (08:56)
--- NOTE | 2020-11-12 08:56 | XR ---
EXAMINATION TYPE: XR chest 1V portable DATE OF EXAM: 11/12/2020 COMPARISON: 11/11/2020 HISTORY: Short of breath TECHNIQUE: Single frontal view of the chest is obtained. FINDINGS: There is unchanged airspace disease of the right lower lung zone. The costophrenic angles are excluded from this image. Cardiac silhouette is unchanged. IMPRESSION: No significant change in right lower lung zone airspace disease.
[2020-11-12] MEDS: CLOPIDOGREL 75 MG TAB PO SCH (08:57)
[2020-11-12] MEDS: MULTIVITAMINS, THERA 1 EACH TAB PO SCH (08:57)
[2020-11-12] MEDS: traMADol 50 MG TAB PO SCH ×2 (08:57→20:42)
[2020-11-12] MEDS: SPIRONOLACTONE 25 MG TAB PO SCH (08:57)
[2020-11-12] MEDS: CALCIUM CARB-VIT D 500 MG-5 MCG TAB PO SCH (08:58)
[2020-11-12] MEDS: ATORVASTATIN 40 MG TAB PO SCH (08:58)
[2020-11-12] MEDS: METOPROLOL SUCCINATE (ER) 25 MG TAB.ER.24H PO SCH (08:58)
[2020-11-12] MEDS: FOLIC ACID 1 MG TAB PO SCH (09:01)
--- NOTE | 2020-11-12 11:01 | P.PN ---
Subjective Progress Note Date: 11/12/20 Principal diagnosis: Acute coronary syndrome, status post PCI of the LAD This is an 80-year-old white male with history of hypertension, diabetes, COPD, normally sees Dr. Adamson for COPD, patient is known to be on home oxygen at 3 L/m, FEV1 is in the range of 39%, patient has been on a course of prednisone taper for recent symptoms of COPD exacerbation, his prednisone was prescribed by Dr. Adamson over the phone. Patient is presently on 25 mg of prednisone daily. He presented to the ER on 11/08/2020, and he was complaining of worsening shortness of breath. No chest pain, he had chronic cough, no fever, no chills, no hemoptysis. Patient was seen by cardiology on consultation for his abnormal EKG which showed subtle ST elevation in the inferior lateral leads, and he was felt to have an acute ST elevation myocardial infarction. Patient underwent successful stenting of the proximal LAD, he was found to have a 70% stenosis. He also underwent selective right common femoral artery arteriogram. According to the note by cardiology, patient had some selective images of the right coronary artery, could not selectively engage it even with a destiny catheter. Post cardiac catheterization and stenting, patient was sent to the ICU, he is now on BiPAP, with IPAP of 12 and EPAP of 6, FiO2 of 60%, O2 saturation is in the low 90s, chest x-ray is showing right lower lobe airspace disease, and going back to recent CT of the chest, which was done a few months ago, there is a spiculated opacity seen on 07/20/2020, and the radiologist raised the possibility of neoplastic etiology, patient is being followed closely by Dr. Adamson on outpatient basis. He did have previous bronchoscopies for his right lower lobe pneumonia. Considering the findings on the chest x-ray and recent CT of the, I am recommending empiric antibiotics. His WBC count is 14.6 hemoglobin is 13.1 INR is 4.7, patient is on Coumadin. He'll try some normal renal profile is normal. Reevaluated today on 11/10/2020, patient remains in the ICU, he is off BiPAP, he is presently on 5 L nasal cannula. Pro-calcitonin came back significantly high at 10, chest x-ray showed right lower lobe pneumonia, patient remains on Zosyn. Remains on bronchodilators and he remains on prednisone at 30 mg daily. Clinic ally the patient felt that he is feeling much better, breathing a lot easier, able to clear his secretions much better. Labs today showed relatively normal electrolytes however his BUN is 38 creatinine is up to 1.42. Hence no more diuretics to be given today. Patient remains on bronchodilators, he was given 1 dose of Lasix yesterday. He is back on his cardiac meds, he is not on any nephrotoxic medications. Chest x-ray continues to show somedisease in the right lower lobe. But slightly better today compared to yesterday. INR is therapeutic. WBC count was 14.6 yesterday, but no CBC was done today. Reevaluated today on 11/11/2020, remains in the ICU, he is on 5 L nasal cannula, intermittently on BiPAP with IPAP of 12 EPAP of 6 and FiO2 of 60%, patient tells me that he is feeling much per her today compared to how he felt in the last couple of days. Chest x-ray continues to show significant consolidation in the right lower lobe consistent with right lower lobe pneumonia, again underlying malignancy is not entirely ruled out, however patient did have previous bronchoscopies 2 and he had negative findings for malignancy. Patient remains on antibiotics, sputum cultures are pending. Remains on bronchodilators. His pro-calcitonin level was significantly elevated. And he is on Zosyn. Cardiac- rees the patient is on did UL antiplatelet therapy, he is also on statins, and I plan to keep the patient today in the ICU since his pulmonary status is rather marginal. WBC count is slightly better today 12.2 compared to 14.62 days ago. Basic metabolic profile is normal BUN is 41 creatinine 1.07 INR is 1.6, patient is back on Coumadin. On 11/12/2020 patient seen in follow-up in the intensive care unit. He sitting up in the recliner, he is currently on 6 L of oxygen, pulse ox between 88 and 90%. He did wear BiPAP last night, with pressures of 12/6 and FiO2 of 40%, he is awake and alert, oriented 3. Seems very dyspneic with conversation. However in no acute distress, vital signs have been stable overnight, no fever or chills, he is currently in sinus mechanism with a rate of 89 BPM, she was given a dose of IV Lasix this morning, she remains on antibiotics form of Zosyn. His sputum culture has shown no growth, blood cultures have been negative, his right leg wound has been cultured, and cultures are pending at this time, wound care service has been consulted. However patient is breathing a bit easier today, he denies any chest discomfort. No hemoptysis. He is receiving breathing treatments. Chest x-ray has been obtained showing stable if not slightly improved right lower lung airspace disease. Objective - Vital Signs Vital signs: Vital Signs Temp 98.2 F 11/12/20 08:00 Pulse 87 11/12/20 10:00 Resp 20 11/12/20 10:00 BP 125/75 11/12/20 10:00 Pulse Ox 89 L 11/12/20 10:00 Intake & Output 11/11/20 11/12/20 11/12/20 18:59 06:59 18:59 Intake Total 500 160 220 Output Total 650 1000 550 Balance -150 -840 -330 Weight 118.3 kg Intake: IV 0 100 Piperacillin-Tazobactam 3 0 100 .375 gm In Sodium Chloride 0.9% 100 ml @ 25 mls/hr IVPB Q8HR [facility] Rx# :[id number] Intake, IV Titration 100 Amount Piperacillin-Tazobactam 3 100 .375 gm In Sodium Chloride 0.9% 100 ml @ 25 mls/hr IVPB Q8HR [facility] Rx# :[id number] Oral 500 60 120 Output: Urine 650 1000 550 Other: Voiding Method Urinal Urinal # Bowel Movements 1 - Exam GENERAL EXAM: Alert, very pleasant, 80-year-old white male, on 6 L of oxygen, sitting up in the recliner, patient is dyspneic with conversation, however appears to be in no acute distress, does wear BiPAP support is needed and at bedtime, with pressures of 12/6 and FiO2 of 40%, appears to be fairly comfortable in no apparent distress. HEAD: Normocephalic/atraumatic. EYES: Normal reaction of pupils, equal size. Conjunctiva pink, sclera white. NOSE: Clear with pink turbinates. THROAT: No erythema or exudates. NECK: No masses, no JVD, no thyroid enlargement, no adenopathy. CHEST: No chest wall deformity. Symmetrical expansion. LUNGS: Equal air entry with basilar crackles, and mild wheezes CVS: Regular rate and rhythm, normal S1 and S2, no gallops, no murmurs, no rubs ABDOMEN: Soft, nontender. No hepatosplenomegaly, normal bowel sounds, no guarding or rigidity. EXTREMITIES: No clubbing, plus lower extremity edema, no cyanosis, 2+ pulses and upper and lower extremities. MUSCULOSKELETAL: Muscle strength and tone normal. SPINE: No scoliosis or deformity SKIN: No rashes CENTRAL NERVOUS SYSTEM: Alert and oriented -3. No focal deficits, tone is normal in all 4 extremities. PSYCHIATRIC: Alert and oriented -3. Appropriate affect. Intact judgment and insight. - Labs CBC & Chem 7: 11/12/20 03:12 11/12/20 03:12 Labs: Abnormal Lab Results - Last 24 Hours (Table) 11/11/20 11/11/20 11/11/20 Range/Units 11:03 16:49 20:53 WBC (3.8-10.6) k/uL Hgb (13.0-17.5) gm/dL PT (9.0-12.0) sec INR (<1.2) Carbon Dioxide (22-30) mmol/L BUN (9-20) mg/dL Glucose (74-99) mg/dL POC Glucose (mg/dL) 130 H 219 H 246 H (75-99) mg/dL 11/12/20 11/12/20 11/12/20 Range/Units 03:12 03:12 03:12 WBC 13.1 H (3.8-10.6) k/uL Hgb 12.6 L (13.0-17.5) gm/dL PT 12.2 H (9.0-12.0) sec INR 1.2 H (<1.2) Carbon Dioxide 35 H (22-30) mmol/L BUN 36 H (9-20) mg/dL Glucose 114 H (74-99) mg/dL POC Glucose (mg/dL) (75-99) mg/dL 11/12/20 Range/Units 06:18 WBC (3.8-10.6) k/uL Hgb (13.0-17.5) gm/dL PT (9.0-12.0) sec INR (<1.2) Carbon Dioxide (22-30) mmol/L BUN (9-20) mg/dL Glucose (74-99) mg/dL POC Glucose (mg/dL) 110 H (75-99) mg/dL Microbiology - Last 24 Hours (Table) 11/11/20 09:40 Gram Stain - Preliminary Leg - Right Wound Culture - Preliminary 11/08/20 04:05 Blood Culture - Preliminary Blood No Growth after 96 hours 11/11/20 09:40 Anaerobic Culture - Preliminary Leg - Right 11/09/20 15:30 Gram Stain - Final Sputum Sputum Culture - Final Assessment and Plan Plan: Assessment: #1. Acute coronary syndrome and status post PCI of the LAD #2. Acute community acquired pneumonia involving the right lower lobe, recurrent, patient is status post 2 bronchoscopies in the past by Dr. Jackson #3. History of underlying coronary artery disease #4. Acute exacerbation of COPD #5. Severe COPD gold stage III #6. Acute on chronic hypoxic respiratory failure secondary to the ACS, and pneumonia and acute exacerbation of COPD #7. History of pulmonary embolism maintained on Coumadin on an outpatient basis #8. History of hyperhomocysteinemia #9. Hypothyroidism #10. Benign essential hypertension #11. Previous MRSA infection #12. Right leg chronic wound Plan: Continue Zosyn Continue prednisone 30 mg daily We'll switch Symbicort to Pulmicort and Perforomist Cultures are negative thus far, bone culture is pending BiPAP support as needed, Continue weaning FiO2 Patient is still very short of breath, and still requiring 6 L of oxygen Today's chest x-ray has been reviewed showing stable right lung pneumonia, with possibility of slight improvement We'll keep the patient in the ICU for closer monitoring I performed a history & physical examination of the patient and discussed their management with my nurse practitioner, Keren To. I reviewed the nurse practitioner's note and agree with the documented findings and plan of care. Lung sounds are positive for diminished breath sounds with wheezes and rhonchi. The findings and the impression was discussed with the patient. I attest to the documentation by the nurse practitioner. Time with Patient: Less than 30
[2020-11-12 11:44] LABS: Glucose,Whole Blood 144 mg/dL (75-99)
--- NOTE | 2020-11-12 13:29 | P.CONS ---
History of Present Illness - Reason for Consult Consult date: 11/12/20 wound care - History of Present Illness this is an 80-year-old patient with a nonhealing ulceration to the right lower extremity medial aspect. Patient states that the ulceration has been there for about 2-3 months. He is today on a patio chair previously. He did have home care coming in putting Hydrofera Blue on the site. It did heal a few times however his reopen. Ulceration measures approximately: 1.5 x 1.5 x 0.2 cm, with fat layer exposure. Patient has significant amount of slough to the wound was no granulation seen to the wound bed. The wound edges are attached to the wound base with no tunneling or undermining. Patient's past medical history significant for COPD, CVA, hyperlipidemia, hypertension, hypothyroidism. Patient is former smoker quit approximately 30 years ago. Patient denies diabetes. Review Of Systems: Constitutional: No fever, no chills, no night sweats. No weight change. No weakness, fatigue or lethargy. No daytime sleepiness. Integumentary:reports wounds, no lesions. No rash or pruritus. No unusual bruising. No change in hair or nails. Physical exam: General Appearance: Alert, cooperative, no distress, appears stated age. Skin: See HPI all other Skin color, texture, tugor normal, no rashes or lesions. Neurologic: Alert oriented x3 Assessment: 1. Nonhealing ulceration right lower extremity medial aspect with fatty layer exposure 2. Trauma to right lower extremity with laceration Plan: 1.Apply honey alginate, saline moistened gauze, border foam. Wrape with gauze and stacey wrap. Secure with tape. Patient would benefit from weekly wound debridements. We'll be happy to see him in the wound care center upon discharge. Patient would also benefit from CircAid compression garment. thank you for the consultation any questions please contact the wound care ce nter DNP note has been reviewed and discussed with Dr. Starr and the impression and plan of care has been directed as dictated. Past Medical History Past Medical History: COPD, CVA/TIA, Hyperlipidemia, Hypertension, Thyroid Disorder Additional Past Medical History / Comment(s): Wears oxygen @ 3 L per nc.-17/11, Hyperhomocysteinemia. Chronic cough. History of Any Multi-Drug Resistant Organisms: MRSA Year Discovered:: 02/09/18 MDRO Source:: LT LEG Past Surgical History: Tonsillectomy Additional Past Surgical History / Comment(s): Carotid Endarterectomy. BRONCHOSCOPY, COLONOSCOPY, BILAT CATARACTS REMOVED Past Anesthesia/Blood Transfusion Reactions: No Reported Reaction Past Psychological History: No Psychological Hx Reported Smoking Status: Former smoker Past Alcohol Use History: None Reported, Occasional Past Drug Use History: None Reported - Past Family History Mother Family Medical History: No Reported History Medications and Allergies Home Medications Medication Instructions Recorded Confirmed Type Aspirin 81 mg PO HS 11/24/18 11/08/20 History Fluticasone/Salmeterol [Advair 2 puff PO RT-BID 11/24/18 11/08/20 History 500-50 Diskus] Folic Acid 1 mg PO DAILY 11/24/18 11/08/20 History Levothyroxine Sodium [Synthroid] 50 mcg PO DAILY 11/24/18 11/08/20 History Metoprolol Succinate (ER) [Toprol 25 mg PO DAILY 11/24/18 11/08/20 History XL] Simvastatin [Zocor] 40 mg PO HS 11/24/18 11/08/20 History metFORMIN HCL [Glucophage] 500 mg PO HS 11/24/18 11/08/20 History traMADol HCL [Ultram] 50 mg PO BID 11/24/18 11/08/20 History Calcium Carbonate/Vitamin D3 1 tab PO DAILY 11/30/18 11/08/20 History [Calcium 600-Vit D3 10 mcg (400 Iu)] Warfarin Sodium [Coumadin] 10 mg PO HS 11/30/18 11/08/20 History Acetaminophen [Tylenol Arthritis] 650 mg PO BID 11/08/20 11/08/20 History Albuterol Nebulized [Ventolin 2.5 mg INHALATION RT-Q6H PRN 11/08/20 11/08/20 History Nebulized] Azithromycin [Zithromax] 250 mg PO MOWEFR 11/08/20 11/08/20 History Multivit-Min/FA/Lycopen/Lutein 1 tab PO DAILY 11/08/20 11/08/20 History [Centrum Silver Tablet] Ubidecarenone [Co Q-10] 100 mg PO DAILY 11/08/20 11/08/20 History predniSONE 30 mg PO DAILY 11/08/20 11/08/20 History Allergies Allergy/AdvReac Type Severity Reaction Status Date / Time No Known Allergies Allergy Verified 11/08/20 08:50 Physical Exam Vitals: Vital Signs Temp Pulse Resp BP Pulse Ox 11/12/20 13:00 98 22 117/81 86 L 11/12/20 12:21 98 11/12/20 12:07 100 11/12/20 12:00 98.5 F 101 H 24 125/65 89 L 11/12/20 11:35 92 28 H 125/65 87 L 11/12/20 10:00 87 20 125/75 89 L 11/12/20 09:00 85 26 H 133/72 88 L 11/12/20 08:49 85 11/12/20 08:38 84 11/12/20 08:10 20 11/12/20 08:00 98.2 F 86 20 116/72 91 L 11/12/20 07:00 79 52 H 117/70 86 L 11/12/20 06:00 77 16 117/70 89 L 11/12/20 05:00 77 16 117/70 91 L 11/12/20 04:00 97.7 F 70 12 117/70 92 L 11/12/20 03:00 66 12 117/70 88 L 11/12/20 02:00 70 12 117/70 90 L 11/12/20 01:00 73 18 117/70 91 L 11/12/20 00:00 97.8 F 73 13 117/70 93 L 11/11/20 23:34 97.8 F 79 17 117/70 92 L 11/11/20 23:00 78 26 H 117/70 92 L 11/11/20 22:00 84 15 117/70 90 L 11/11/20 21:37 83 11/11/20 21:08 80 96 11/11/20 21:00 82 20 117/70 93 L 11/11/20 20:00 98.3 F 84 13 117/70 93 L 11/11/20 19:00 90 15 117/70 92 L 11/11/20 18:00 91 16 117/70 91 L 11/11/20 17:00 92 20 117/70 90 L 11/11/20 16:00 98.9 F 91 37 H 117/70 89 L 11/11/20 15:47 83 11/11/20 15:33 82 11/11/20 15:00 87 29 H 117/70 90 L 11/11/20 14:00 93 19 117/70 90 L Intake and Output 11/11/20 11/12/20 11/12/20 22:59 06:59 14:59 Intake Total 160 100 338 Output Total 276 880 7775 Balance -184 -322 -622 Intake: IV 100 Piperacillin-Tazobactam 3 100 .375 gm In Sodium Chloride 0.9% 100 ml @ 25 mls/hr IVPB Q8HR [facility] Rx# :[id number] Intake, IV Titration 100 Amount Piperacillin-Tazobactam 3 100 .375 gm In Sodium Chloride 0.9% 100 ml @ 25 mls/hr IVPB Q8HR [facility] Rx# :[id number] Oral 160 238 Output: Urine 262 562 8232 Other: Voiding Method Urinal Urinal Urinal Weight 118.3 kg Results CBC & Chem 7: 11/12/20 03:12 11/12/20 03:12 Labs: Abnormal Lab Results - Last 24 Hours (Table) 11/11/20 11/11/20 11/12/20 Range/Units 16:49 20:53 03:12 WBC (3.8-10.6) k/uL Hgb (13.0-17.5) gm/dL PT 12.2 H (9.0-12.0) sec INR 1.2 H (<1.2) Carbon Dioxide (22-30) mmol/L BUN (9-20) mg/dL Glucose (74-99) mg/dL POC Glucose (mg/dL) 219 H 246 H (75-99) mg/dL 11/12/20 11/12/20 11/12/20 Range/Units 03:12 03:12 06:18 WBC 13.1 H (3.8-10.6) k/uL Hgb 12.6 L (13.0-17.5) gm/dL PT (9.0-12.0) sec INR (<1.2) Carbon Dioxide 35 H (22-30) mmol/L BUN 36 H (9-20) mg/dL Glucose 114 H (74-99) mg/dL POC Glucose (mg/dL) 110 H (75-99) mg/dL 11/12/20 Range/Units 11:42 WBC (3.8-10.6) k/uL Hgb (13.0-17.5) gm/dL PT (9.0-12.0) sec INR (<1.2) Carbon Dioxide (22-30) mmol/L BUN (9-20) mg/dL Glucose (74-99) mg/dL POC Glucose (mg/dL) 144 H (75-99) mg/dL Microbiology - Last 24 Hours (Table) 11/11/20 09:40 Gram Stain - Preliminary Leg - Right Wound Culture - Preliminary 11/08/20 04:05 Blood Culture - Preliminary Blood No Growth after 96 hours 11/11/20 09:40 Anaerobic Culture - Preliminary Leg - Right 11/09/20 15:30 Gram Stain - Final Sputum Sputum Culture - Final Assessment and Plan (1) Nonhealing ulcer of right lower leg with fat layer exposed Current Visit: Yes Status: Acute Code(s): L97.912 - NON-PRS CHR ULC UNSP PRT OF R LOW LEG W FAT LAYER EXPOSED SNOMED Code(s): 94088640 (2) Laceration of right lower leg with complication Current Visit: Yes Status: Acute Code(s): S81.811A - LACERATION W/O FOREIGN BODY, RIGHT LOWER LEG, INIT ENCNTR SNOMED Code(s): 30256955909560218 (3) Venous insufficiency of right lower extremity Current Visit: Yes Status: Acute Code(s): I87.2 - VENOUS INSUFFICIENCY (CHRONIC) (PERIPHERAL) SNOMED Code(s): 990791269
--- NOTE | 2020-11-12 13:39 | P.PN ---
Subjective This is a 80-year-old male with a past medical history of hypertension, type 2 diabetes, non-obstructive coronary artery disease, hyperlipidemia, Pulmonary embolisms on Coumadin at home. He does not follow with a crm specialist. He presents to the hospital on 11/08/2020 with complaints of shortness of breath. EKG showed ST elevation in the inferolateral leads. Patient underwent cardiac catheterization with Dr. Melendez which revealed distal left main 50% stenosis, Proximal LAD right at the origin of diagnoal branch 70% stenosis, RCA appears subtotally occluded proximally. Patient underwent PCI to the proximal LAD with Dr. Kahn. Echocardiogram revealed EF 30-35%, apical LV wall hypokinetic, RV is mildly enlarged. 11/12/2020: Patient seen and examined at bedside, sitting in the bedside chair, no acute distress. He denies chest pain. Did have some shortness of breath earlier this morning. He does wear BIPAP overnight. Hypoxic SpO2 87% on 6 L nasal cannula this morning requiring increase in oxygen requirements. Chest Xray this morning, right lower lobe airspace disease. Blood pressure 125/65, heart rate 92, afebrile. He's currently maintained on aspirin 81 mg nightly, atorvastatin 40 mg daily, Plavix 75 mg daily, IV Lasix 40 mg 1, lisinopril 2.5 mg daily , metoprolol XL 25 mg daily, spironolactone 25 mg daily, Coumadin 2.5 mg daily. Labs revealed WBC 13.1, hemoglobin 12.6, platelets 22, INR 1.2, sodium 137, potassium 4.7, BUN 36, serum creatinine 0.90 GENERAL: In no acute distress. NECK: Supple without JVD or thyromegaly. LUNGS: Breath sounds diminished bilaterally with expiratory wheezes. Respiration equal and unlabored. HEART: Regular rate and rhythm without murmurs, rubs or gallops. S1 and S2 heard. SKIN: Right groin cath site clean dry intact, no hematoma EXTREMITIES: Normal range of motion, no edema. No clubbing or cyanosis. Peripheral pulses intact. NEURO: Alert and oriented x 3. ASSESSMENT ST elevation myocardial infarction s/p PCI to proximal LAD Ischemic cardiomyopathy EF 30-35% Type 2 Diabetes History of Hypertension Hyperlipidemia History of non-obstructive coronary artery disease History of Pulmonary embolisms- on coumadin Supratherapeutic INR- coumadin bein held PLAN Lisinopril 2.5mg BID Continue spironolactone 25mg daily Continue dual antiplatelet therapy with aspirin 81 mg daily and Plavix 75 mg daily Continue statin Continue metoprolol succinate 25mg daily Continue coumadin for patient history of PE Pulmonary following Further recommendations based on clinical course Nurse Practitioner note has been reviewed, I agree with a documented findings and plan of care. Patient was seen and examined. Objective - Vital Signs Vital signs: Vital Signs Temp 98.2 F 11/12/20 08:00 Pulse 85 11/12/20 09:00 Resp 26 H 11/12/20 09:00 BP 133/72 11/12/20 09:00 Pulse Ox 88 L 11/12/20 09:00 Intake & Output 11/11/20 11/12/20 11/12/20 18:59 06:59 18:59 Intake Total 500 160 220 Output Total 650 1000 150 Balance -150 -840 70 Weight 118.3 kg Intake: IV 0 100 Piperacillin-Tazobactam 3 0 100 .375 gm In Sodium Chloride 0.9% 100 ml @ 25 mls/hr IVPB Q8HR [facility] Rx# :[id number] Intake, IV Titration 100 Amount Piperacillin-Tazobactam 3 100 .375 gm In Sodium Chloride 0.9% 100 ml @ 25 mls/hr IVPB Q8HR [facility] Rx# :[id number] Oral 500 60 120 Output: Urine 650 1000 150 Other: Voiding Method Urinal Urinal # Bowel Movements 1 - Labs CBC & Chem 7: 11/12/20 03:12 11/12/20 03:12 Labs: Abnormal Lab Results - Last 24 Hours (Table) 11/11/20 11/11/20 11/11/20 Range/Units 11:03 16:49 20:53 WBC (3.8-10.6) k/uL Hgb (13.0-17.5) gm/dL PT (9.0-12.0) sec INR (<1.2) Carbon Dioxide (22-30) mmol/L BUN (9-20) mg/dL Glucose (74-99) mg/dL POC Glucose (mg/dL) 130 H 219 H 246 H (75-99) mg/dL 11/12/20 11/12/20 11/12/20 Range/Units 03:12 03:12 03:12 WBC 13.1 H (3.8-10.6) k/uL Hgb 12.6 L (13.0-17.5) gm/dL PT 12.2 H (9.0-12.0) sec INR 1.2 H (<1.2) Carbon Dioxide 35 H (22-30) mmol/L BUN 36 H (9-20) mg/dL Glucose 114 H (74-99) mg/dL POC Glucose (mg/dL) (75-99) mg/dL 11/12/20 Range/Units 06:18 WBC (3.8-10.6) k/uL Hgb (13.0-17.5) gm/dL PT (9.0-12.0) sec INR (<1.2) Carbon Dioxide (22-30) mmol/L BUN (9-20) mg/dL Glucose (74-99) mg/dL POC Glucose (mg/dL) 110 H (75-99) mg/dL Microbiology - Last 24 Hours (Table) 11/11/20 09:40 Gram Stain - Preliminary Leg - Right Wound Culture - Preliminary 11/08/20 04:05 Blood Culture - Preliminary Blood No Growth after 96 hours 11/11/20 09:40 Anaerobic Culture - Preliminary Leg - Right 11/09/20 15:30 Gram Stain - Final Sputum Sputum Culture - Final
--- NOTE | 2020-11-12 13:56 | P.PN ---
Subjective Progress Note Date: 11/12/20 (delayed charting seen at 9 am) Principal diagnosis: chest pain Patient is an 80-year-old male for history of severe COPD on home O2, dyslipidemia, hypertension, prior CVA who presented to the emergency department with worsening shortness of breath. Patient was found have an elevated troponin and some nonspecific ST segment changes and was subsequently diagnosed with a non-STEMI and taken to the cardiac [facility] where he underwent successful stent placement to the proximal LAD. He developed significant respiratory distress afterward and pulmonary was consulted. He was found have a probable right lower lobe pneumonia along with severe COPD currently on steroid taper from outpatient pulmonary. He was placed on diuresis and continued to improve. Echocardiogram demonstrated an ejection fraction of 30-35% and he was started on lisinopril and spironolactone. He continued to improve daily and his O2 requirements were decreasing. Patient seen and examined at bedside. Feeling a little bit better now but felt very short of breath this morning. No chest pain, no nausea, no diarrhea. General: Ill appearing, no distress, appears at stated age Derm: Chronic ulcer on his right lower extremity that appears to have a pressure in place without drainage or warmth, warm, dry Head: atraumatic, normocephalic, symmetric Eyes: EOMI, no lid lag, anicteric sclera Mouth: no lip lesion, mucus membranes moist Cardiovascular: S1S2 reg, no murmur, positive posterior tibial pulse bilateral, Lungs: Rhonchi bilateral bases, no conversational dyspnea, no sternal retra ctions Abdominal: soft, nontender to palpation, no guarding, no appreciable organomegaly Ext: no gross muscle atrophy, no edema, no contractures Neuro: CN II-XI grossly intact, no focal neuro deficits Psych: Alert, oriented, appropriate affect ST segment elevated myocardial infarction status post left heart cath successful stenting of the LAD, ischemic cardiomyopathy with ejection fraction 30-35% -Continue with metoprolol -Cardiology recommendations appreciated -Patient was started on lisinopril and spironolactone -Continue with aspirin, Plavix -Continue statin Diabetes mellitus type 2 -Hold Glucophage -A1c 7.3 -Follow blood sugars, sliding scale insulin Right lower lobe pneumonia, severe COPD gold stage III, acute on chronic hypoxic respiratory failure -Pulmonary recommendations appreciated -BiPAP as needed -Zosyn -Patient was started on prednisone 30 mg daily taper every 5 days -sputum culture with normal chidi -pro-calcitonin > 2 Coagulopathy -Monitor INR daily -Coumadin Nonhealing wound right lower extremity -Consult wound care Chronic: Hypertension Dyslipidemia Hypothyroidism Hyperhomocystinemia History of pulmonary embolism maintained on Coumadin DVT prophylaxis: Coumadin Discussed with: nursing, patient Anticipated discharge: 2-[address]: home A total of 35 minutes was spent on the care of this complex patient more than 50% of the time was spent in counseling and care coordination. Objective - Vital Signs Vital signs: Vital Signs Temp 98.5 F 11/12/20 12:00 Pulse 98 11/12/20 13:00 Resp 22 11/12/20 13:00 BP 117/81 11/12/20 13:00 Pulse Ox 86 L 11/12/20 13:00 Intake & Output 11/11/20 11/12/20 11/12/20 18:59 06:59 18:59 Intake Total 500 160 338 Output Total 650 1000 1050 Balance -150 -590 712 Weight 118.3 kg Intake: IV 0 100 Piperacillin-Tazobactam 3 0 100 .375 gm In Sodium Chloride 0.9% 100 ml @ 25 mls/hr IVPB Q8HR [facility] Rx# :[id number] Intake, IV Titration 100 Amount Piperacillin-Tazobactam 3 100 .375 gm In Sodium Chloride 0.9% 100 ml @ 25 mls/hr IVPB Q8HR [facility] Rx# :[id number] Oral 500 60 238 Output: Urine 650 1000 1050 Other: Voiding Method Urinal Urinal Urinal # Bowel Movements 1 - Labs CBC & Chem 7: 11/12/20 03:12 11/12/20 03:12 Labs: Abnormal Lab Results - Last 24 Hours (Table) 11/11/20 11/11/20 11/12/20 Range/Units 16:49 20:53 03:12 WBC (3.8-10.6) k/uL Hgb (13.0-17.5) gm/dL PT 12.2 H (9.0-12.0) sec INR 1.2 H (<1.2) Carbon Dioxide (22-30) mmol/L BUN (9-20) mg/dL Glucose (74-99) mg/dL POC Glucose (mg/dL) 219 H 246 H (75-99) mg/dL 11/12/20 11/12/20 11/12/20 Range/Units 03:12 03:12 06:18 WBC 13.1 H (3.8-10.6) k/uL Hgb 12.6 L (13.0-17.5) gm/dL PT (9.0-12.0) sec INR (<1.2) Carbon Dioxide 35 H (22-30) mmol/L BUN 36 H (9-20) mg/dL Glucose 114 H (74-99) mg/dL POC Glucose (mg/dL) 110 H (75-99) mg/dL 11/12/20 Range/Units 11:42 WBC (3.8-10.6) k/uL Hgb (13.0-17.5) gm/dL PT (9.0-12.0) sec INR (<1.2) Carbon Dioxide (22-30) mmol/L BUN (9-20) mg/dL Glucose (74-99) mg/dL POC Glucose (mg/dL) 144 H (75-99) mg/dL Microbiology - Last 24 Hours (Table) 11/11/20 09:40 Gram Stain - Preliminary Leg - Right Wound Culture - Preliminary 11/08/20 04:05 Blood Culture - Preliminary Blood No Growth after 96 hours 11/11/20 09:40 Anaerobic Culture - Preliminary Leg - Right 11/09/20 15:30 Gram Stain - Final Sputum Sputum Culture - Final
[2020-11-12 16:34] LABS: Glucose,Whole Blood 229 mg/dL (75-99)
[2020-11-12] MEDS: WARFARIN 2.5 MG TAB PO SCH (17:27)
[2020-11-12] MEDS: BUDESONIDE 1 MG/2 ML NEBU INHALATION SCH (19:30)
[2020-11-12] MEDS: FORMOTEROL FUMARATE 20 MCG/2 ML NEBU INHALATION SCH (19:30)
[2020-11-12 20:33] LABS: Glucose,Whole Blood 166 mg/dL (75-99)
[2020-11-12] MEDS: ASPIRIN 81 MG PO SCH (20:42)
[2020-11-13 04:13] LABS: Prothrombin Time 11.1 sec (9.0-12.0)
[2020-11-13 04:19] LABS: Calcium 9.5 mg/dL (8.4-10.2)
[2020-11-13 07:05] LABS: Glucose,Whole Blood 113 mg/dL (75-99)
[2020-11-13] MEDS: INSULIN ASPART (NovoLOG) 100 UNIT/ML VIAL SQ SCH ×4 (07:06→21:00)
[2020-11-13] MEDS: LEVOTHYROXINE 50 MCG TAB PO SCH (07:07)
--- NOTE | 2020-11-13 07:25 | P.PN ---
Subjective Progress Note Date: 11/13/20 Principal diagnosis: Myocardial infarction. Acute coronary syndrome, status post PCI of the LAD This is an 80-year-old white male with history of hypertension, diabetes, COPD, normally sees Dr. Adamson for COPD, patient is known to be on home oxygen at 3 L/m, FEV1 is in the range of 39%, patient has been on a course of prednisone taper for recent symptoms of COPD exacerbation, his prednisone was prescribed by Dr. Adamson over the phone. Patient is presently on 25 mg of prednisone daily. He presented to the ER on 11/08/2020, and he was complaining of worsening shortness of breath. No chest pain, he had chronic cough, no fever, no chills, no hemoptysis. Patient was seen by cardiology on consultation for his abnormal EKG which showed subtle ST elevation in the inferior lateral leads, and he was felt to have an acute ST elevation myocardial infarction. Patient underwent successful stenting of the proximal LAD, he was found to have a 70% stenosis. He also underwent selective right common femoral artery arteriogram. According to the note by cardiology, patient had some selective images of the right coronary artery, could not selectively engage it even with a destiny catheter. Post cardiac catheterization and stenting, patient was sent to the ICU, he is now on BiPAP, with IPAP of 12 and EPAP of 6, FiO2 of 60%, O2 saturation is in the low 90s, chest x-ray is showing right lower lobe airspace disease, and going back to recent CT of the chest, which was done a few months ago, there is a spiculated opacity seen on 07/20/2020, and the radiologist raised the possibility of neoplastic etiology, patient is being followed closely by Dr. Adamson on outpatient basis. He did have previous bronchoscopies for his right lower lobe pneumonia. Considering the findings on the chest x-ray and recent CT of the, I am recommending empiric antibiotics. His WBC count is 14.6 hemoglobin is 13.1 INR is 4.7, patient is on Coumadin. He'll try some normal renal profile is norm al. Reevaluated today on 11/10/2020, patient remains in the ICU, he is off BiPAP, he is presently on 5 L nasal cannula. Pro-calcitonin came back significantly high at 10, chest x-ray showed right lower lobe pneumonia, patient remains on Zosyn. Remains on bronchodilators and he remains on prednisone at 30 mg daily. Clinically the patient felt that he is feeling much better, breathing a lot easier, able to clear his secretions much better. Labs today showed relatively normal electrolytes however his BUN is 38 creatinine is up to 1.42. Hence no more diuretics to be given today. Patient remains on bronchodilators, he was given 1 dose of Lasix yesterday. He is back on his cardiac meds, he is not on any nephrotoxic medications. Chest x-ray continues to show somedisease in the right lower lobe. But slightly better today compared to yesterday. INR is therapeutic. WBC count was 14.6 yesterday, but no CBC was done today. Reevaluated today on 11/11/2020, remains in the ICU, he is on 5 L nasal cannula, intermittently on BiPAP with IPAP of 12 EPAP of 6 and FiO2 of 60%, patient tells me that he is feeling much per her today compared to how he felt in the last couple of days. Chest x-ray continues to show significant consolidation in the right lower lobe consistent with right lower lobe pneumonia, again underlying malignancy is not entirely ruled out, however patient did have previous bronchoscopies 2 and he had negative findings for malignancy. Patient remains on antibiotics, sputum cultures are pending. Remains on bronchodilators. His pro-calcitonin level was significantly elevated. And he is on Zosyn. Cardiac- rees the patient is on did UL antiplatelet therapy, he is also on statins, and I plan to keep the patient today in the ICU since his pulmonary status is rather marginal. WBC count is slightly better today 12.2 compared to 14.62 days ago. Basic metabolic profile is normal BUN is 41 creatinine 1.07 INR is 1.6, patient is back on Coumadin. On 11/12/2020 patient seen in follow-up in the intensive care unit. He sitting up in the recliner, he is currently on 6 L of oxygen, pulse ox between 88 and 90%. He did wear BiPAP last night, with pressures of 12/6 and FiO2 of 40%, he is awake and alert, oriented 3. Seems very dyspneic with conversation. Serrato maura in no acute distress, vital signs have been stable overnight, no fever or chills, he is currently in sinus mechanism with a rate of 89 BPM, she was given a dose of IV Lasix this morning, she remains on antibiotics form of Zosyn. His sputum culture has shown no growth, blood cultures have been negative, his right leg wound has been cultured, and cultures are pending at this time, wound care service has been consulted. However patient is breathing a bit easier today, he denies any chest discomfort. No hemoptysis. He is receiving breathing treatments. Chest x-ray has been obtained showing stable if not slightly improved right lower lung airspace disease. Progress note dated 11/13/2020. The patient is again seen in the intensive care unit. The patient's on 6 L nasal cannula receiving saline at 5 mL an hour. Last night, he was on BiPAP settings of IPAP 12, EPAP 6, and 40%. The patient's feeling much better. He states that he slept like a rock last night. His breathing is also much improved. The nurse confirms all of this. Today's labs include a sodium 137, potassium 5, chlorides 96, CO2 35, anion gap 6, BUN 40, creatinine 1.01. No chest x-ray today. A chest x-ray was done yesterday and reviewed by our team Objective - Vital Signs Vital signs: Vital Signs Temp 98.0 F 11/13/20 04:00 Pulse 84 11/13/20 07:00 Resp 24 11/13/20 07:00 BP 121/63 11/13/20 07:00 Pulse Ox 90 L 11/13/20 07:00 Intake & Output 11/12/20 11/13/20 11/13/20 18:59 06:59 18:59 Intake Total 456 100 Output Total 1450 400 Balance -994 -300 Weight 116.8 kg Intake: IV 100 100 Piperacillin-Tazobactam 3 100 100 .375 gm In Sodium Chloride 0.9% 100 ml @ 25 mls/hr IVPB Q8HR [facility] Rx# :[id number] Oral 356 Output: Urine 1450 400 Other: Voiding Method Urinal Urinal # Voids 0 # Bowel Movements 1 1 - Exam No acute distress, oriented 3. Currently on 6 L nasal cannula. Saturations are between 90 and 92%. HEENT examination is grossly unremarkable. Neck supple. Full range of motion. No adenopathy thyromegaly or neck vein distention. Cardiovascular examination reveals regular rhythm rate. S1-S2 normal. No S3 or S4. No discernible murmur noted. Heart sounds are distant. Heart rate is 84 bpm. Lungs reveal mostly clear breath sounds. Mild scattered rhonchi are noted bilaterally. There are no wheezes or crackles. Breath sounds are equal bi laterally. Abdomen soft bowel sounds are heard. No masses or tenderness. Extremities are intact. Minimal lower extremity edema. No cyanosis or clubbing. Skin is without rash or lesion. Neurologic examination is brief but nonfocal. - Labs CBC & Chem 7: 11/12/20 03:12 11/13/20 03:18 Labs: Abnormal Lab Results - Last 24 Hours (Table) 11/12/20 11/12/20 11/12/20 Range/Units 11:42 16:33 20:30 Chloride (98-107) mmol/L Carbon Dioxide (22-30) mmol/L BUN (9-20) mg/dL Glucose (74-99) mg/dL POC Glucose (mg/dL) 144 H 229 H 166 H (75-99) mg/dL 11/13/20 11/13/20 Range/Units 03:18 07:04 Chloride 96 L (98-107) mmol/L Carbon Dioxide 35 H (22-30) mmol/L BUN 40 H (9-20) mg/dL Glucose 121 H (74-99) mg/dL POC Glucose (mg/dL) 113 H (75-99) mg/dL Microbiology - Last 24 Hours (Table) 11/08/20 04:05 Blood Culture - Preliminary Blood No Growth after 120 hours 11/11/20 09:40 Gram Stain - Preliminary Leg - Right Wound Culture - Preliminary Assessment and Plan Assessment: #1. Acute coronary syndrome and status post PCI of the LAD. #2. Acute community acquired pneumonia involving the right lower lobe, recurrent, patient is status post 2 bronchoscopies in the past by Dr. Adamson. #3. History of underlying coronary artery disease. #4. Acute exacerbation of COPD. #5. Severe COPD, Gold stage III. #6. Acute on chronic hypoxic respiratory failure secondary to the ACS, and pneumonia and acute exacerbation of COPD. #7. History of pulmonary embolism maintained on Coumadin on an outpatient basis. #8. History of hyperhomocysteinemia. #9. Hypothyroidism. #10. Benign essential hypertension. #11. Previous MRSA infection. #12. Right leg chronic wound. Plan: Plan dated 11/13/2020. The patient's doing much better today. The patient could be transferred out to the 3 S. floor or the cardiac stepdown unit. His Symbicort yesterday was switched to Pulmicort and Perforomist area we continue prednisone 30 mg a day. He uses BiPAP at nighttime. He is on 6 L during the daytime. Additional recommendations and suggestions are forthcoming. We will continue to follow and make recommendations where appropriate. Overall prognosis remains guarded. Time with Patient: Less than 30
[2020-11-13] MEDS: IPRATROPIUM-ALBUTEROL 3 ML NEB INHALATION SCH ×4 (07:32→20:18)
[2020-11-13] MEDS: FORMOTEROL FUMARATE 20 MCG/2 ML NEBU INHALATION SCH ×2 (07:32→20:18)
[2020-11-13] MEDS: BUDESONIDE 1 MG/2 ML NEBU INHALATION SCH ×2 (07:32→20:18)
[2020-11-13] MEDS ORDERED: FUROSEMIDE 10 MG/ML 4 ML VIAL IV STA (08:46)
[2020-11-13] MEDS: traMADol 50 MG TAB PO SCH ×2 (09:56→20:59)
[2020-11-13] MEDS: CLOPIDOGREL 75 MG TAB PO SCH (09:56)
[2020-11-13] MEDS: CALCIUM CARB-VIT D 500 MG-5 MCG TAB PO SCH (09:56)
[2020-11-13] MEDS: MULTIVITAMINS, THERA 1 EACH TAB PO SCH (09:56)
[2020-11-13] MEDS: METOPROLOL SUCCINATE (ER) 25 MG TAB.ER.24H PO SCH (09:56)
[2020-11-13] MEDS: ATORVASTATIN 40 MG TAB PO SCH (09:56)
[2020-11-13] MEDS: SPIRONOLACTONE 25 MG TAB PO SCH (09:56)
[2020-11-13] MEDS: FOLIC ACID 1 MG TAB PO SCH (09:57)
[2020-11-13] MEDS: PIPERACILLIN-TAZOBACTAM 3.375 GM in SODIUM CHLORIDE 0.9% 100 ML IVPB SCH ×2 (09:57→18:19)
[2020-11-13] MEDS: predniSONE 10 MG TAB PO SCH (09:57)
--- NOTE | 2020-11-13 10:31 | P.PN ---
Subjective This is a 80-year-old male with a past medical history of hypertension, type 2 diabetes, non-obstructive coronary artery disease, hyperlipidemia, Pulmonary embolisms on Coumadin at home. 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 He presents to the hospital on 11/08/2020 with complaints of shortness of breath. EKG showed ST elevation in the inferolateral leads. Patient underwent cardiac catheterization with Dr. Melendez which revealed distal left main 50% stenosis, Proximal LAD right at the origin of diagnoal branch 70% stenosis, RCA appears subtotally occluded proximally. Patient underwent PCI to the proximal LAD with Dr. Kahn. Echocardiogram revealed EF 30-35%, apical LV wall hypokinetic, RV is mildly enlarged. 11/13/2020: Patient seen and examined at bedside, sitting in the bedside chair, no acute distress. He denies chest pain. He denies shortness of breath, states his breathing has improved. Hypoxic SpO2 87% on room air this morning, continues to require oxygen. Blood pressure 111/66, heart rate 92, afebrile. He's currently maintained on aspirin 81 mg nightly, atorvastatin 40 mg daily, Plavix 75 mg daily, IV Lasix 40 mg 1, lisinopril 2.5 mg daily , metoprolol XL 25 mg daily, spironolactone 25 mg daily, Coumadin 2.5 mg daily. Labs revealed INR 1.0, sodium 137 potassium 4.0, BUN 40, serum creatinine 1.01 GENERAL: In no acute distress. NECK: Supple without JVD or thyromegaly. LUNGS: Breath sounds diminished bilaterally with expiratory wheezes bilaterally. Respiration equal and unlabored. HEART: Regular rate and rhythm without murmurs, rubs or gallops. S1 and S2 heard. SKIN: Right groin cath site clean dry intact, no hematoma EXTREMITIES: Normal range of motion, no edema. No clubbing or cyanosis. Peripheral pulses intact. NEURO: Alert and oriented x 3. ASSESSMENT ST elevation myocardial infarction s/p PCI to proximal LAD Ischemic cardiomyopathy EF 30-35% Type 2 Diabetes History of Hypertension Hyperlipidemia History of non-obstructive coronary artery disease History of Pulmonary embolisms- on coumadin Supratherapeutic INR- coumadin bein held PLAN We will continue current medical therapy with lisinopril 2.5mg BID, spironolactone 25mg daily, metoprolol succinate 25mg daily, and statin Continue dual antiplatelet therapy with aspirin 81 mg daily and Plavix 75 mg daily Continue coumadin for patient history of PE, patient's INR subtherapeutic at INR 1.0 Pulmonary following Daily INR and monitor renal function and electrolytes From a cardiology perspective, if patient continues to be hemodynamically stable for the next 24 hours, patient can be discharged. Patient is stable to go to 3S cardiac stepdown unit from a cardiology standpoint. Nurse Practitioner note has been reviewed, I agree with a documented findings and plan of care. Patient was seen and examined. Objective - Vital Signs Vital signs: Vital Signs Temp 98.0 F 11/13/20 04:00 Pulse 92 11/13/20 07:52 Resp 24 11/13/20 07:00 BP 121/63 11/13/20 07:00 Pulse Ox 91 L 11/13/20 07:32 Intake & Output 11/12/20 11/13/20 11/13/20 18:59 06:59 18:59 Intake Total 456 100 Output Total 1450 400 Balance -994 -300 Weight 116.8 kg Intake: IV 100 100 Piperacillin-Tazobactam 3 100 100 .375 gm In Sodium Chloride 0.9% 100 ml @ 25 mls/hr IVPB Q8HR [facility] Rx# :[id number] Oral 356 Output: Urine 1450 400 Other: Voiding Method Urinal Urinal # Voids 0 # Bowel Movements 1 1 - Labs CBC & Chem 7: 11/12/20 03:12 11/13/20 03:18 Labs: Abnormal Lab Results - Last 24 Hours (Table) 11/12/20 11/12/20 11/12/20 Range/Units 11:42 16:33 20:30 Chloride (98-107) mmol/L Carbon Dioxide (22-30) mmol/L BUN (9-20) mg/dL Glucose (74-99) mg/dL POC Glucose (mg/dL) 144 H 229 H 166 H (75-99) mg/dL 11/13/20 11/13/20 Range/Units 03:18 07:04 Chloride 96 L (98-107) mmol/L Carbon Dioxide 35 H (22-30) mmol/L BUN 40 H (9-20) mg/dL Glucose 121 H (74-99) mg/dL POC Glucose (mg/dL) 113 H (75-99) mg/dL Microbiology - Last 24 Hours (Table) 11/08/20 04:05 Blood Culture - Preliminary Blood No Growth after 120 hours 11/11/20 09:40 Gram Stain - Preliminary Leg - Right Wound Culture - Preliminary
[2020-11-13 11:23] LABS: Glucose,Whole Blood 123 mg/dL (75-99)
--- NOTE | 2020-11-13 13:20 | P.PN ---
Subjective Progress Note Date: 11/13/20 Principal diagnosis: chest pain Patient is an 80-year-old male for history of severe COPD on home O2, dyslipidemia, hypertension, prior CVA who presented to the emergency department with worsening shortness of breath. Patient was found have an elevated troponin and some nonspecific ST segment changes and was subsequently diagnosed with a non-STEMI and taken to the cardiac [employer] where he underwent successful stent placement to the proximal LAD. He developed significant respiratory distress afterward and pulmonary was consulted. He was found have a probable right lower lobe pneumonia along with severe COPD currently on steroid taper from outpatient pulmonary. He was placed on diuresis and continued to improve. Echocardiogram demonstrated an ejection fraction of 30-35% and he was started on lisinopril and spironolactone. He continued to improve daily and his O2 requirements were decreasing. Patient seen and examined at bedside. Breathing is better today, cough is less productive, No chest pain, no shortness of breath, no nausea. General: Ill appearing, no distress, appears at stated age Derm: warm, dry Head: atraumatic, normocephalic, symmetric Eyes: EOMI, no lid lag, anicteric sclera Mouth: no lip lesion, mucus membranes moist Cardiovascular: S1S2 reg, no murmur, positive posterior tibial pulse bilateral, + JVD Lungs: Rhonchi bilateral bases, no conversational dyspnea, no sternal retractions Abdominal: soft, nontender to palpation, no guarding, no appreciable organomegaly Ext: no gross muscle atrophy, 2+ edema, no contractures Neuro: CN II-XI grossly intact, no focal neuro deficits Psych: Alert, oriented, appropriate affect ST segment elevated myocardial infarction status post left heart cath successful stenting of the LAD, ischemic cardiomyopathy with ejection fraction 30-35% -Cardiology recommendations appreciated -Continue with lisinopril, metoprolol and spironolactone -Continue with aspirin, Plavix, statin - Lasix X 1 today Diabetes mellitus type 2 -Hold Glucophage -A1c 7.3 -Follow blood sugars, sliding scale insulin Right lower lobe pneumonia, severe COPD gold stage III, acute on chronic hypoxic respiratory failure -Pulmonary recommendations appreciated -BiPAP as needed -Zosyn -Steroid taper -sputum culture with normal chidi -pro-calcitonin > 2 Coagulopathy -Monitor INR daily -Coumadin Nonhealing wound right lower extremity -Consult wound care Chronic: Hypertension Dyslipidemia Hypothyroidism Hyperhomocystinemia History of pulmonary embolism maintained on Coumadin Transfer to selective DVT prophylaxis: Coumadin Discussed with: nursing, patient Anticipated discharge: 2-[address]: home A total of 35 minutes was spent on the care of this complex patient more than 50% of the time was spent in counseling and care coordination. Objective - Vital Signs Vital signs: Vital Signs Temp 97.4 F L 11/13/20 12:00 Pulse 97 11/13/20 12:00 Resp 62 H 11/13/20 12:00 BP 88/62 11/13/20 12:00 Pulse Ox 85 L 11/13/20 12:00 Intake & Output 11/12/20 11/13/20 11/13/20 18:59 06:59 18:59 Intake Total 456 100 Output Total 1450 400 Balance -994 -300 Weight 116.8 kg Intake: IV 100 100 Piperacillin-Tazobactam 3 100 100 .375 gm In Sodium Chloride 0.9% 100 ml @ 25 mls/hr IVPB Q8HR [facility] Rx# :[id number] Oral 356 Output: Urine 1450 400 Other: Voiding Method Urinal Urinal Urinal # Voids 0 0 # Bowel Movements 1 1 - Labs CBC & Chem 7: 11/12/20 03:12 11/13/20 03:18 Labs: Abnormal Lab Results - Last 24 Hours (Table) 11/12/20 11/12/20 11/13/20 Range/Units 16:33 20:30 03:18 Chloride 96 L (98-107) mmol/L Carbon Dioxide 35 H (22-30) mmol/L BUN 40 H (9-20) mg/dL Glucose 121 H (74-99) mg/dL POC Glucose (mg/dL) 229 H 166 H (75-99) mg/dL 11/13/20 11/13/20 Range/Units 07:04 11:21 Chloride (98-107) mmol/L Carbon Dioxide (22-30) mmol/L BUN (9-20) mg/dL Glucose (74-99) mg/dL POC Glucose (mg/dL) 113 H 123 H (75-99) mg/dL Microbiology - Last 24 Hours (Table) 11/11/20 09:40 Gram Stain - Preliminary Leg - Right Wound Culture - Preliminary 11/08/20 04:05 Blood Culture - Preliminary Blood No Growth after 120 hours
[2020-11-13] MEDS ORDERED: WARFARIN 5 MG TAB PO ONE (18:00)
[2020-11-13 20:42] LABS: Glucose,Whole Blood 144 mg/dL (75-99)
[2020-11-13] MEDS: ASPIRIN 81 MG PO SCH (20:58)
[2020-11-14 04:26] LABS: HCT 42.8 % (39.0-53.0); HGB 13.4 gm/dL (13.0-17.5); MCH 30.4 pg (25.0-35.0); MCHC 31.3 g/dL (31.0-37.0); MCV 97.2 fL (80.0-100.0); Mean Platelet Volume 7.4; Platelet Count 317 k/uL (150-450); RBC 4.41 m/uL (4.30-5.90); RDW 14.3 % (11.5-15.5); WBC 9.7 k/uL (3.8-10.6)
[2020-11-14 04:37] LABS: Calcium 9.5 mg/dL (8.4-10.2); Potassium 4.6 mmol/L (3.5-5.1)
[2020-11-14 04:50] LABS: Prothrombin Time 10.6 sec (9.0-12.0)
[2020-11-14] MEDS: PIPERACILLIN-TAZOBACTAM 3.375 GM in SODIUM CHLORIDE 0.9% 100 ML IVPB SCH ×3 (05:51→16:27)
[2020-11-14 06:55] LABS: Glucose,Whole Blood 125 mg/dL (75-99)
[2020-11-14] MEDS: INSULIN ASPART (NovoLOG) 100 UNIT/ML VIAL SQ SCH ×4 (07:03→21:00)
[2020-11-14] MEDS: LEVOTHYROXINE 50 MCG TAB PO SCH (07:03)
[2020-11-14] MEDS: BUDESONIDE 1 MG/2 ML NEBU INHALATION SCH ×2 (07:56→19:59)
[2020-11-14] MEDS: FORMOTEROL FUMARATE 20 MCG/2 ML NEBU INHALATION SCH ×2 (07:56→19:59)
[2020-11-14] MEDS: IPRATROPIUM-ALBUTEROL 3 ML NEB INHALATION SCH ×4 (07:56→19:59)
--- NOTE | 2020-11-14 08:54 | P.PN ---
Subjective Progress Note Date: 11/14/20 Principal diagnosis: Myocardial infarction. Acute coronary syndrome, status post PCI of the LAD This is an 80-year-old white male with history of hypertension, diabetes, COPD, normally sees Dr. Adamson for COPD, patient is known to be on home oxygen at 3 L/m, FEV1 is in the range of 39%, patient has been on a course of prednisone taper for recent symptoms of COPD exacerbation, his prednisone was prescribed by Dr. Adamson over the phone. Patient is presently on 25 mg of prednisone daily. He presented to the ER on 11/08/2020, and he was complaining of worsening shortness of breath. No chest pain, he had chronic cough, no fever, no chills, no hemoptysis. Patient was seen by cardiology on consultation for his abnormal EKG which showed subtle ST elevation in the inferior lateral leads, and he was felt to have an acute ST elevation myocardial infarction. Patient underwent successful stenting of the proximal LAD, he was found to have a 70% stenosis. He also underwent selective right common femoral artery arteriogram. According to the note by cardiology, patient had some selective images of the right coronary artery, could not selectively engage it even with a destiny catheter. Post cardiac catheterization and stenting, patient was sent to the ICU, he is now on BiPAP, with IPAP of 12 and EPAP of 6, FiO2 of 60%, O2 saturation is in the low 90s, chest x-ray is showing right lower lobe airspace disease, and going back to recent CT of the chest, which was done a few months ago, there is a spiculated opacity seen on 07/20/2020, and the radiologist raised the possibility of neoplastic etiology, patient is being followed closely by Dr. Adamson on outpatient basis. He did have previous bronchoscopies for his right lower lobe pneumonia. Considering the findings on the chest x-ray and recent CT of the, I am recommending empiric antibiotics. His WBC count is 14.6 hemoglobin is 13.1 INR is 4.7, patient is on Coumadin. He'll try some normal renal profile is norm al. Reevaluated today on 11/10/2020, patient remains in the ICU, he is off BiPAP, he is presently on 5 L nasal cannula. Pro-calcitonin came back significantly high at 10, chest x-ray showed right lower lobe pneumonia, patient remains on Zosyn. Remains on bronchodilators and he remains on prednisone at 30 mg daily. Clinically the patient felt that he is feeling much better, breathing a lot easier, able to clear his secretions much better. Labs today showed relatively normal electrolytes however his BUN is 38 creatinine is up to 1.42. Hence no more diuretics to be given today. Patient remains on bronchodilators, he was given 1 dose of Lasix yesterday. He is back on his cardiac meds, he is not on any nephrotoxic medications. Chest x-ray continues to show somedisease in the right lower lobe. But slightly better today compared to yesterday. INR is therapeutic. WBC count was 14.6 yesterday, but no CBC was done today. Reevaluated today on 11/11/2020, remains in the ICU, he is on 5 L nasal cannula, intermittently on BiPAP with IPAP of 12 EPAP of 6 and FiO2 of 60%, patient tells me that he is feeling much per her today compared to how he felt in the last couple of days. Chest x-ray continues to show significant consolidation in the right lower lobe consistent with right lower lobe pneumonia, again underlying malignancy is not entirely ruled out, however patient did have previous bronchoscopies 2 and he had negative findings for malignancy. Patient remains on antibiotics, sputum cultures are pending. Remains on bronchodilators. His pro-calcitonin level was significantly elevated. And he is on Zosyn. Cardiac- rees the patient is on did UL antiplatelet therapy, he is also on statins, and I plan to keep the patient today in the ICU since his pulmonary status is rather marginal. WBC count is slightly better today 12.2 compared to 14.62 days ago. Basic metabolic profile is normal BUN is 41 creatinine 1.07 INR is 1.6, patient is back on Coumadin. On 11/12/2020 patient seen in follow-up in the intensive care unit. He sitting up in the recliner, he is currently on 6 L of oxygen, pulse ox between 88 and 90%. He did wear BiPAP last night, with pressures of 12/6 and FiO2 of 40%, he is awake and alert, oriented 3. Seems very dyspneic with conversation. Serrato maura in no acute distress, vital signs have been stable overnight, no fever or chills, he is currently in sinus mechanism with a rate of 89 BPM, she was given a dose of IV Lasix this morning, she remains on antibiotics form of Zosyn. His sputum culture has shown no growth, blood cultures have been negative, his right leg wound has been cultured, and cultures are pending at this time, wound care service has been consulted. However patient is breathing a bit easier today, he denies any chest discomfort. No hemoptysis. He is receiving breathing treatments. Chest x-ray has been obtained showing stable if not slightly improved right lower lung airspace disease. Progress note dated 11/13/2020. The patient is again seen in the intensive care unit. The patient's on 6 L nasal cannula receiving saline at 5 mL an hour. Last night, he was on BiPAP settings of IPAP 12, EPAP 6, and 40%. The patient's feeling much better. He states that he slept like a rock last night. His breathing is also much improved. The nurse confirms all of this. Today's labs include a sodium 137, potassium 5, chlorides 96, CO2 35, anion gap 6, BUN 40, creatinine 1.01. No chest x-ray today. A chest x-ray was done yesterday and reviewed by our team. Progress note dated 11/14/2020. This 80-year-old male is again seen in the intensive care unit, room 257. He is resting comfortably. He's down to 5 L nasal cannula. He was sent home. The patient's getting saline at 5 mL an hour. I told the nurse that can be discontinued. In addition, at nighttime, he is using BiPAP with settings of IPAP 12, EPAP 6, FiO2 40%. The patient will be transitioned to Coumadin to Eliquis, as per cardiology. He started 5 mg twice a day. Certainly monitoring will be much easier. White count 9.7, hemoglobin 13.4, hematocrit 42.8, and platelet count 317,000. Sodium 138, potassium 4.6, chlorides 93, CO2 37, anion gap 8, BUN 46, and creatinine 1.21. Objective - Vital Signs Vital signs: Vital Signs Temp 97.8 F 11/14/20 07:57 Pulse 84 11/14/20 08:23 Resp 16 11/14/20 08:23 BP 117/68 11/14/20 07:57 Pulse Ox 91 L 11/14/20 07:59 Intake & Output 11/13/20 11/14/20 11/14/20 18:59 06:59 18:59 Intake Total 25 5 Output Total 900 600 Balance -900 -575 5 Weight 115.4 kg Intake: IV 25 5 0.9 NS KVO 25 5 Output: Urine 900 600 Other: Voiding Method Urinal Urinal # Voids 0 - Exam No acute distress, oriented 3. Currently on 5 L nasal cannula. Saturations are between 90 and 92%. HEENT examination is grossly unremarkable. Neck supple. Full range of motion. No adenopathy thyromegaly or neck vein distention. Cardiovascular examination reveals regular rhythm rate. S1-S2 normal. No S3 or S4. No discernible murmur noted. Heart sounds are distant. Heart rate is 84 bpm. Lungs reveal mostly clear breath sounds. Mild scattered rhonchi are noted bilaterally. There are no wheezes or crackles. Breath sounds are equal bilaterally. Abdomen soft bowel sounds are heard. No masses or tenderness. Extremities are intact. Minimal lower extremity edema. No cyanosis or clubbing. Skin is without rash or lesion. Neurologic examination is brief but nonfocal. - Labs CBC & Chem 7: 11/14/20 03:21 11/14/20 03:21 Labs: Abnormal Lab Results - Last 24 Hours (Table) 11/13/20 11/13/20 11/14/20 Range/Units 11:21 20:41 03:21 Chloride 93 L (98-107) mmol/L Carbon Dioxide 37 H (22-30) mmol/L BUN 46 H (9-20) mg/dL Glucose 132 H (74-99) mg/dL POC Glucose (mg/dL) 123 H 144 H (75-99) mg/dL 11/14/20 Range/Units 06:53 Chloride (98-107) mmol/L Carbon Dioxide (22-30) mmol/L BUN (9-20) mg/dL Glucose (74-99) mg/dL POC Glucose (mg/dL) 125 H (75-99) mg/dL Microbiology - Last 24 Hours (Table) 11/08/20 04:05 Blood Culture - Final Blood No Growth after 144 hours 11/11/20 09:40 Anaerobic Culture - Preliminary Leg - Right 11/11/20 09:40 Gram Stain - Preliminary Leg - Right Wound Culture - Preliminary Assessment and Plan Assessment: #1. Acute coronary syndrome and status post PCI of the LAD. #2. Acute community acquired pneumonia involving the right lower lobe, recurrent, patient is status post 2 bronchoscopies in the past by Dr. Adamson. #3. History of underlying coronary artery disease. #4. Acute exacerbation of COPD. #5. Severe COPD, Gold stage III. #6. Acute on chronic hypoxic respiratory failure secondary to the ACS, and pneumonia and acute exacerbation of COPD. #7. History of pulmonary embolism maintained on Coumadin on an outpatient basis. #8. History of hyperhomocysteinemia. #9. Hypothyroidism. #10. Benign essential hypertension. #11. Previous MRSA infection. #12. Right leg chronic wound. Plan: Plan dated 11/13/2020. The patient's doing much better today. The patient could be transferred out to the 3 S. floor or the cardiac stepdown unit. His Symbicort yesterday was switched to Pulmicort and Perforomist area we continue prednisone 30 mg a day. He uses BiPAP at nighttime. He is on 6 L during the daytime. Additional recommendations and suggestions are forthcoming. We will continue to follow and make recommendations where appropriate. Overall prognosis remains guarded. Plan dated 11/14/2020. The patient is and continues to do much better. He's down to 5 L nasal cannula. He is getting saline at 5 mL an hour which can be discontinued. The patient will be transitioned from Coumadin factor X a inhibitor, specifically, Eliquis. The patient is feeling well. We him at prednisone 30 mg a day. He is also on Pulmicort and Perforomist. We will continue to follow make recommendations where appropriate. The patient could be discharged to the telemetry unit today. Time with Patient: Less than 30
[2020-11-14] MEDS: predniSONE 10 MG TAB PO SCH (09:12)
[2020-11-14] MEDS: APIXABAN 5 MG TAB PO SCH ×2 (09:13→21:00)
[2020-11-14] MEDS: METOPROLOL SUCCINATE (ER) 25 MG TAB.ER.24H PO SCH (09:14)
[2020-11-14] MEDS: ATORVASTATIN 40 MG TAB PO SCH (09:14)
[2020-11-14] MEDS: FOLIC ACID 1 MG TAB PO SCH (09:15)
[2020-11-14] MEDS: MULTIVITAMINS, THERA 1 EACH TAB PO SCH (09:15)
[2020-11-14] MEDS: lisinopriL 5 MG TAB PO SCH ×2 (09:15→21:00)
[2020-11-14] MEDS: CALCIUM CARB-VIT D 500 MG-5 MCG TAB PO SCH (09:15)
[2020-11-14] MEDS: CLOPIDOGREL 75 MG TAB PO SCH (09:16)
[2020-11-14] MEDS: traMADol 50 MG TAB PO SCH ×2 (09:17→20:59)
[2020-11-14] MEDS: SPIRONOLACTONE 25 MG TAB PO SCH (09:18)
--- NOTE | 2020-11-14 09:28 | PN ---
PROGRESS NOTE Mr. Lorenzana is an 80-year-old male who presented with an episode of discomfort and dyspnea. Underwent cardiac catheterization and subsequently stenting of the LAD. He is doing well this morning. His breathing is stable. He has a known history of obstructive lung disease. His cough is better. He denies any dizziness or palpitation. He denies any nausea. 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 During his admission, an echocardiogram revealed an ejection fraction of 30-35% with segmental wall motion abnormality. He continues to be in sinus mechanism and hemodynamically he is stable. He has been followed by Dr. Adamson regarding his lung status. He continues to be at this time on aspirin once a day, Lipitor 40 mg daily, Plavix 75 mg daily, insulin, lisinopril 2.5 mg twice a day, metoprolol succinate 25 mg daily, and Coumadin for prior history of pulmonary embolism. PHYSICAL EXAMINATION: VITAL SIGNS: Blood pressure 110/60 with a heart rate in the 80s. LUNGS: No wheezes with scattered rhonchi. HEART: Regular rhythm S1, S2. No S3 with systolic murmur. No diastolic murmur, no rub. ABDOMEN: Soft and nontender. Positive bowel sounds. No organomegaly. EXTREMITIES: No edema. LAB DATA: Lab data revealed BUN and creatinine 46 and 1.1, potassium 4.6, stable. Hemoglobin of 13.4. IMPRESSION: 1. Status post a stenting of the left anterior descending. 2. Chronic obstructive lung disease. 3. History of pulmonary embolism. 4. Non-STEMI. 5. Ischemic cardiomyopathy. RECOMMENDATION: From the cardiac standpoint, I will continue present therapy. We will follow his INR and increase his level activity. I would expect he should be able to be discharged home when stable from the pulmonary standpoint and he will be followed as an outpatient with Dr. Melendez. His aspirin can be stopped in a week and we will continue on Plavix and Coumadin. Otherwise, the other option is to start the Coumadin and switch him to direct oral anticoagulant. MMODL / IJN: [id number] /
--- NOTE | 2020-11-14 10:54 | P.PN ---
Subjective Progress Note Date: 11/14/20 Principal diagnosis: NSTEMI 80-year-old male for history of severe COPD on home O2, dyslipidemia, hypertension, prior CVA who presented to the emergency department with worsening shortness of breath. Patient was found have an elevated troponin and some nonspecific ST segment changes and was subsequently diagnosed with a non-STEMI and taken to the cardiac [employer] where he underwent successful stent placement to the proximal LAD. He developed significant respiratory distress afterward and pulmonary was consulted. He was found have a probable right lower lobe pn eum[place] along with severe COPD currently on steroid taper from outpatient pulmonary. He was placed on diuresis and continued to improve. Echocardiogram demonstrated an ejection fraction of 30-35% and he was started on lisinopril and spironolactone. He continued to improve daily and his O2 requirements were decreasing. 721 Doing well, breathing is better today, No chest pain, no shortness of breath, no nausea. Objective - Vital Signs Vital signs: Vital Signs Temp 97.8 F 11/14/20 07:57 Pulse 84 11/14/20 08:23 Resp 16 11/14/20 08:23 BP 117/68 11/14/20 07:57 Pulse Ox 91 L 11/14/20 07:59 Intake & Output 11/13/20 11/14/20 11/14/20 18:59 06:59 18:59 Intake Total 25 245 Output Total 900 600 Balance -900 -575 245 Weight 115.4 kg Intake: IV 25 5 0.9 NS KVO 25 5 Oral 240 Output: Urine 900 600 Other: Voiding Method Urinal Urinal # Voids 0 - Exam Constitutional: No acute distress, conversant, pleasant Eyes:Anicteric sclerae, moist conjunctiva, no lid-lag, PERRLA, ENMT: Oropharynx clear, no erythema, exudates Neck: Supple, FROM, no masses, or JVD, No carotid bruits, No thyromegaly Lungs: scattered rhonchi, Clear to percussion, Normal respiratory effort, no accessory muscle use Cardiovascular: Heart regular in rate and rhythm, No murmurs, gallops, or rubs, No peripheral edema Abdominal: Soft, Nontender, no guarding, rebound or rigidity, Normoactive bowel sounds, No hepatomegaly, No splenomegaly, No palpable mass Skin: Normal temperature, tone, texture, turgor, no induration, No subcutaneous nodules, No rash, lesions, No ulcers Extremities: No digital cyanosis, No clubbing, Pedal pulses intact and symmetrical, Radial pulses intact and symmetrical, No calf tenderness Psychiatric: Alert and oriented to person, place and time, appropriate affect, intact judgement Neuro: Muscles Strength 5/5 in all 4 extremities, Sensation to light touch grossly present throughout, Cranial nerves II-XII grossly intact, no focal sensory deficits - Labs CBC & Chem 7: 11/14/20 03:21 11/14/20 03:21 Labs: Abnormal Lab Results - Last 24 Hours (Table) 11/13/20 11/13/20 11/14/20 Range/Units 11:21 20:41 03:21 Chloride 93 L (98-107) mmol/L Carbon Dioxide 37 H (22-30) mmol/L BUN 46 H (9-20) mg/dL Glucose 132 H (74-99) mg/dL POC Glucose (mg/dL) 123 H 144 H (75-99) mg/dL 11/14/20 Range/Units 06:53 Chloride (98-107) mmol/L Carbon Dioxide (22-30) mmol/L BUN (9-20) mg/dL Glucose (74-99) mg/dL POC Glucose (mg/dL) 125 H (75-99) mg/dL Microbiology - Last 24 Hours (Table) 11/11/20 09:40 Gram Stain - Final Leg - Right Wound Culture - Final 11/08/20 04:05 Blood Culture - Final Blood No Growth after 144 hours 11/11/20 09:40 Anaerobic Culture - Preliminary Leg - Right Assessment and Plan Plan: ST segment elevated myocardial infarction status post left heart cath successful stenting of the LAD, ischemic cardiomyopathy with ejection fraction 30-35% -Cardiology recommendations appreciated -Continue with lisinopril, metoprolol and spironolactone -Continue with aspirin, Plavix, statin Diabetes mellitus type 2 -Hold Glucophage -A1c 7.3 -Follow blood sugars, sliding scale insulin Right lower lobe pneumonia, severe COPD gold stage III, acute on chronic hypoxic respiratory failure -Pulmonary recommendations appreciated -BiPAP as needed -Zosyn -Steroid taper, now on prednisone 30mg daily -sputum culture with normal chidi -pro-calcitonin > 2 Coagulopathy sec to coumadin -Monitor INR daily Nonhealing wound right lower extremity -wound care Chronic: Hypertension Dyslipidemia Hypothyroidism Hyperhomocystinemia History of pulmonary embolism maintained on Coumadin Transfer to selective DVT prophylaxis: Coumadin Discussed with: nursing, patient Anticipated discharge: 1-[address]: home A total of 35 minutes was spent on the care of this complex patient more than 50% of the time was spent in counseling and care coordination.
[2020-11-14 11:11] LABS: Glucose,Whole Blood 158 mg/dL (75-99)
[2020-11-14 15:16] VITALS: BMI 34.4
[2020-11-14 16:38] LABS: Glucose,Whole Blood 214 mg/dL (75-99)
[2020-11-14 20:57] LABS: Glucose,Whole Blood 289 mg/dL (75-99)
[2020-11-14] MEDS: ASPIRIN 81 MG PO SCH (20:59)
[2020-11-15 05:22] LABS: Calcium 9.5 mg/dL (8.4-10.2); Potassium 4.9 mmol/L (3.5-5.1)
[2020-11-15] MEDS: PIPERACILLIN-TAZOBACTAM 3.375 GM in SODIUM CHLORIDE 0.9% 100 ML IVPB SCH ×3 (06:48→17:00)
[2020-11-15 07:03] LABS: Glucose,Whole Blood 155 mg/dL (75-99)
[2020-11-15] MEDS: BUDESONIDE 1 MG/2 ML NEBU INHALATION SCH (08:16)
[2020-11-15] MEDS: FORMOTEROL FUMARATE 20 MCG/2 ML NEBU INHALATION SCH (08:16)
[2020-11-15] MEDS: IPRATROPIUM-ALBUTEROL 3 ML NEB INHALATION SCH ×3 (08:16→16:05)
[2020-11-15] MEDS: LEVOTHYROXINE 50 MCG TAB PO SCH (09:03)
[2020-11-15] MEDS: FOLIC ACID 1 MG TAB PO SCH (09:04)
[2020-11-15] MEDS: APIXABAN 5 MG TAB PO SCH (09:04)
[2020-11-15] MEDS: SPIRONOLACTONE 25 MG TAB PO SCH (09:04)
[2020-11-15] MEDS: CALCIUM CARB-VIT D 500 MG-5 MCG TAB PO SCH (09:04)
[2020-11-15] MEDS: MULTIVITAMINS, THERA 1 EACH TAB PO SCH (09:04)
[2020-11-15] MEDS: CLOPIDOGREL 75 MG TAB PO SCH (09:04)
[2020-11-15] MEDS: lisinopriL 5 MG TAB PO SCH (09:04)
[2020-11-15] MEDS: traMADol 50 MG TAB PO SCH (09:05)
[2020-11-15] MEDS: METOPROLOL SUCCINATE (ER) 25 MG TAB.ER.24H PO SCH (09:05)
[2020-11-15] MEDS: ATORVASTATIN 40 MG TAB PO SCH (09:05)
[2020-11-15] MEDS: predniSONE 10 MG TAB PO SCH (09:06)
[2020-11-15] MEDS: INSULIN ASPART (NovoLOG) 100 UNIT/ML VIAL SQ SCH ×3 (09:06→17:46)
--- NOTE | 2020-11-15 10:23 | P.PN ---
Subjective Progress Note Date: 11/15/20 Principal diagnosis: Myocardial infarction. Acute coronary syndrome, status post PCI of the LAD This is an 80-year-old white male with history of hypertension, diabetes, COPD, normally sees Dr. Adamson for COPD, patient is known to be on home oxygen at 3 L/m, FEV1 is in the range of 39%, patient has been on a course of prednisone taper for recent symptoms of COPD exacerbation, his prednisone was prescribed by Dr. Adamson over the phone. Patient is presently on 25 mg of prednisone daily. He presented to the ER on 11/08/2020, and he was complaining of worsening shortness of breath. No chest pain, he had chronic cough, no fever, no chills, no hemoptysis. Patient was seen by cardiology on consultation for his abnormal EKG which showed subtle ST elevation in the inferior lateral leads, and he was felt to have an acute ST elevation myocardial infarction. Patient underwent successful stenting of the proximal LAD, he was found to have a 70% stenosis. He also underwent selective right common femoral artery arteriogram. According to the note by cardiology, patient had some selective images of the right coronary artery, could not selectively engage it even with a destiny catheter. Post cardiac catheterization and stenting, patient was sent to the ICU, he is now on BiPAP, with IPAP of 12 and EPAP of 6, FiO2 of 60%, O2 saturation is in the low 90s, chest x-ray is showing right lower lobe airspace disease, and going back to recent CT of the chest, which was done a few months ago, there is a spiculated opacity seen on 07/20/2020, and the radiologist raised the possibility of neoplastic etiology, patient is being followed closely by Dr. Adamson on outpatient basis. He did have previous bronchoscopies for his right lower lobe pneumonia. Considering the findings on the chest x-ray and recent CT of the, I am recommending empiric antibiotics. His WBC count is 14.6 hemoglobin is 13.1 INR is 4.7, patient is on Coumadin. He'll try some normal renal profile is norm al. Reevaluated today on 11/10/2020, patient remains in the ICU, he is off BiPAP, he is presently on 5 L nasal cannula. Pro-calcitonin came back significantly high at 10, chest x-ray showed right lower lobe pneumonia, patient remains on Zosyn. Remains on bronchodilators and he remains on prednisone at 30 mg daily. Clinically the patient felt that he is feeling much better, breathing a lot easier, able to clear his secretions much better. Labs today showed relatively normal electrolytes however his BUN is 38 creatinine is up to 1.42. Hence no more diuretics to be given today. Patient remains on bronchodilators, he was given 1 dose of Lasix yesterday. He is back on his cardiac meds, he is not on any nephrotoxic medications. Chest x-ray continues to show somedisease in the right lower lobe. But slightly better today compared to yesterday. INR is therapeutic. WBC count was 14.6 yesterday, but no CBC was done today. Reevaluated today on 11/11/2020, remains in the ICU, he is on 5 L nasal cannula, intermittently on BiPAP with IPAP of 12 EPAP of 6 and FiO2 of 60%, patient tells me that he is feeling much per her today compared to how he felt in the last couple of days. Chest x-ray continues to show significant consolidation in the right lower lobe consistent with right lower lobe pneumonia, again underlying malignancy is not entirely ruled out, however patient did have previous bronchoscopies 2 and he had negative findings for malignancy. Patient remains on antibiotics, sputum cultures are pending. Remains on bronchodilators. His pro-calcitonin level was significantly elevated. And he is on Zosyn. Cardiac- rees the patient is on did UL antiplatelet therapy, he is also on statins, and I plan to keep the patient today in the ICU since his pulmonary status is rather marginal. WBC count is slightly better today 12.2 compared to 14.62 days ago. Basic metabolic profile is normal BUN is 41 creatinine 1.07 INR is 1.6, patient is back on Coumadin. On 11/12/2020 patient seen in follow-up in the intensive care unit. He sitting up in the recliner, he is currently on 6 L of oxygen, pulse ox between 88 and 90%. He did wear BiPAP last night, with pressures of 12/6 and FiO2 of 40%, he is awake and alert, oriented 3. Seems very dyspneic with conversation. Serrato maura in no acute distress, vital signs have been stable overnight, no fever or chills, he is currently in sinus mechanism with a rate of 89 BPM, she was given a dose of IV Lasix this morning, she remains on antibiotics form of Zosyn. His sputum culture has shown no growth, blood cultures have been negative, his right leg wound has been cultured, and cultures are pending at this time, wound care service has been consulted. However patient is breathing a bit easier today, he denies any chest discomfort. No hemoptysis. He is receiving breathing treatments. Chest x-ray has been obtained showing stable if not slightly improved right lower lung airspace disease. Progress note dated 11/13/2020. The patient is again seen in the intensive care unit. The patient's on 6 L nasal cannula receiving saline at 5 mL an hour. Last night, he was on BiPAP settings of IPAP 12, EPAP 6, and 40%. The patient's feeling much better. He states that he slept like a rock last night. His breathing is also much improved. The nurse confirms all of this. Today's labs include a sodium 137, potassium 5, chlorides 96, CO2 35, anion gap 6, BUN 40, creatinine 1.01. No chest x-ray today. A chest x-ray was done yesterday and reviewed by our team. Progress note dated 11/14/2020. This 80-year-old male is again seen in the intensive care unit, room 257. He is resting comfortably. He's down to 5 L nasal cannula. He was sent home. The patient's getting saline at 5 mL an hour. I told the nurse that can be discontinued. In addition, at nighttime, he is using BiPAP with settings of IPAP 12, EPAP 6, FiO2 40%. The patient will be transitioned to Coumadin to Eliquis, as per cardiology. He started 5 mg twice a day. Certainly monitoring will be much easier. White count 9.7, hemoglobin 13.4, hematocrit 42.8, and platelet count 317,000. Sodium 138, potassium 4.6, chlorides 93, CO2 37, anion gap 8, BUN 46, and creatinine 1.21. Progress note dated 11/15/2020. 80-year-old male, who is again seen in the intensive care unit, room 257. The patient is currently on 5 L nasal cannula. The patient is not receiving any IV fluids. The patient apparently has a bed so he can be transferred to room 378. That has not happened as yet. Clinically, he is doing well. He feels much improved. His breathing is much improved. Today's labs include a sodium 137, potassium 4.9, chlorides 97, CO2 36, anion gap 4, BUN 55, and creatinine 1.10. Objective - Vital Signs Vital signs: Vital Signs Temp 97.7 F 11/15/20 08:00 Pulse 85 11/15/20 08:40 Resp 19 11/15/20 08:00 BP 129/58 11/15/20 08:00 Pulse Ox 88 L 11/15/20 08:00 Intake & Output 11/14/20 11/15/20 11/15/20 18:59 06:59 18:59 Intake Total 605 5 100 Output Total 400 325 Balance 205 -320 100 Weight 115.4 kg 116.7 kg Intake: IV 5 5 100 0.9 NS KVO 5 5 Piperacillin-Tazobactam 3 100 .375 gm In Sodium Chloride 0.9% 100 ml @ 25 mls/hr IVPB Q8HR [facility] Rx# :[id number] Oral 600 Output: Urine 400 325 Other: Voiding Method Urinal Urinal Urinal # Voids 1 2 1 # Bowel Movements 1 - Exam No acute distress, oriented 3. Currently on 5 L nasal cannula. Saturations are between 90 and 94%. Clinically, the patient appears very comfortable. HEENT examination is grossly unremarkable. Neck supple. Full range of motion. No adenopathy thyromegaly or neck vein distention. Cardiovascular examination reveals regular rhythm rate. S1-S2 normal. No S3 or S4. No discernible murmur noted. Heart sounds are distant. Heart rate is 85 bpm. Lungs reveal mostly clear breath sounds. Mild scattered rhonchi are noted bilaterally. There are no wheezes or crackles. Breath sounds are equal bilaterally. Abdomen soft bowel sounds are heard. No masses or tenderness. Extremities are intact. Minimal lower extremity edema. No cyanosis or clubbing. Skin is without rash or lesion. Neurologic examination is brief but nonfocal. - Labs CBC & Chem 7: 11/14/20 03:21 11/15/20 04:20 Labs: Abnormal Lab Results - Last 24 Hours (Table) 11/14/20 11/14/20 11/14/20 Range/Units 11:10 16:35 20:55 Chloride (98-107) mmol/L Carbon Dioxide (22-30) mmol/L BUN (9-20) mg/dL Glucose (74-99) mg/dL POC Glucose (mg/dL) 158 H 214 H 289 H (75-99) mg/dL 11/15/20 11/15/20 Range/Units 04:20 07:02 Chloride 97 L (98-107) mmol/L Carbon Dioxide 36 H (22-30) mmol/L BUN 55 H (9-20) mg/dL Glucose 114 H (74-99) mg/dL POC Glucose (mg/dL) 155 H (75-99) mg/dL Microbiology - Last 24 Hours (Table) 11/11/20 09:40 Anaerobic Culture - Final Leg - Right 11/11/20 09:40 Gram Stain - Final Leg - Right Wound Culture - Final Assessment and Plan Assessment: #1. Acute coronary syndrome and status post PCI of the LAD. #2. Acute community acquired pneumonia involving the right lower lobe, recurrent, patient is status post 2 bronchoscopies in the past by Dr. Adamson. #3. History of underlying coronary artery disease. #4. Acute exacerbation of COPD. #5. Severe COPD, Gold stage III. #6. Acute on chronic hypoxic respiratory failure secondary to the ACS, and pneumonia and acute exacerbation of COPD. #7. History of pulmonary embolism maintained on Coumadin on an outpatient basis. #8. History of hyperhomocysteinemia. #9. Hypothyroidism. #10. Benign essential hypertension. #11. Previous MRSA infection. #12. Right leg chronic wound. Plan: Plan dated 11/13/2020. The patient's doing much better today. The patient could be transferred out to the 3 S. floor or the cardiac stepdown unit. His Symbicort yesterday was switched to Pulmicort and Perforomist area we continue prednisone 30 mg a day. He uses BiPAP at nighttime. He is on 6 L during the daytime. Additional recommendations and suggestions are forthcoming. We will continue to follow and make recommendations where appropriate. Overall prognosis remains guarded. Plan dated 11/14/2020. The patient is and continues to do much better. He's down to 5 L nasal cannula. He is getting saline at 5 mL an hour which can be discontinued. The patient will be transitioned from Coumadin factor X a inhibitor, specifically, Eliquis. The patient is feeling well. We him at prednisone 30 mg a day. He is also on Pulmicort and Perforomist. We will continue to follow make recommendations where appropriate. The patient could be discharged to the telemetry unit today. Plan dated 11/15/2020. The patient will be transferred out to the cardiac stepdown unit. Currently, the patient's on 5 L nasal cannula. Is not receiving any IV fluids. His lab work is reviewed. Clinically he is doing much better and is much more stable. We will continue to follow. The patient was started on Eliquis as opposed to Coumadin. This will be a better blood thinner for him. His prednisone will be weaned as well. Time with Patient: Less than 30
[2020-11-15 10:35] VITALS: TEMP 97.8
--- NOTE | 2020-11-15 10:58 | PN ---
PROGRESS NOTE Mr. Lorenzana is an 80-year-old male with known history of severe chronic obstructive lung disease, who presented with a chest discomfort, respiratory distress, underwent stenting of his LAD. He is feeling better today. His breathing is better. He denies any chest pain. He denies any dizziness. Hemodynamically, he is stable. His cough is better. He is ambulating in the room without difficulty. He denies any nausea or vomiting. He has a history of pulmonary embolism and continues to be at this time on Eliquis 5 mg twice a day, aspirin 81 mg daily Lipitor 40 mg daily, Plavix 75 mg daily, levothyroxine, Zestril 5 mg twice a day, metoprolol succinate 25 mg daily and spironolactone 25 mg daily. PHYSICAL EXAMINATION: Blood pressure 118/60 with a heart rate in 60s. LUNGS: No wheezes or rales. HEART: Regular rhythm S1, S2. No S3. No rub with a systolic murmur. ABDOMEN: Soft nontender. EXTREMITIES: No edema. His echocardiogram on presentation revealed ejection fraction 30-35%. LAB DATA: Lab data revealed BUN and creatinine of 55 and 1.0. IMPRESSION: 1. Status post stenting of the LAD. 2. Chronic obstructive lung disease. 3. History of pulmonary embolism. 4. Elevated BUN. 5. Ischemic cardiomyopathy. RECOMMENDATION: We will continue present therapy, increase his level of activity. From the cardiac standpoint, he is stable. I expect he should be able to be discharged home soon and followed as an outpatient. His aspirin can be held at the time of his discharge and just continue on the Plavix and the Eliquis. The patient has underwent the percutaneous revascularization on November 08. MMODL / IJN: [id number] /
[2020-11-15 11:49] LABS: Glucose,Whole Blood 121 mg/dL (75-99)
--- NOTE | 2020-11-15 16:32 | P.DS ---
Providers Date of admission: 11/08/20 04:13 Expected date of discharge: 11/15/20 Attending physician: Alba Alston MD Consults: 11/08/20 03:12 Consult Physician Stat Consulting Provider: [facility] Consult Reason/Comments: STEMI ACTIVATION COMPLETE Do you want consulting provider notified?: Yes 11/09/20 08:42 Consult Physician Routine Consulting Provider: Jeanette Breaux Consult Reason/Comments: COPD Do you want consulting provider notified?: Yes Primary care physician: [facility] Course: 80-year-old male with complex past medical history significant for severe COPD on home O2 that presented to the emergency room with worsening shortness of breath. No chest pain. Patient was evaluated in the ER and 12-lead EKG showed nonspecific ST segment changes. Troponin was found to be elevated and patient was taken by cardiology to the [facility] where he underwent left heart catheterization with successful stent placement to the proximal LAD using drug- eluting stents. Patient was subsequently admitted to the ICU. He was requiring BiPAP. He was subsequently started by cardiology on dual antiplatelet agents aspirin and Plavix. In addition he was started on lisinopril and spironolactone. Patient was restarted on Coumadin for history of PE that was later switched to eliquis. He will be maintained on eliquis. He was also given multiple doses of Lasix but due to worsening creatinine that was held later. Echocardiogram showed ejection fraction 30-35% that was consistent with ischemic cardiomyopathy. Patient was also seen in consultation with pulmonary, was treated with slow taper of prednisone, bronchodilators as well as Zosyn. Patient continued to improve and his oxygen requirement went down but continues to require O2 above his baseline. He is currently requiring 6L of NC with ambulation. Patient is insisting on going home. He will be discharged home with close follow-up by pulmonary and cardiology. Time for discharge 36 min Patient Condition at Discharge: Serious Plan - Discharge Summary Discharge Rx Participant: No New Discharge Prescriptions: New Clopidogrel [Plavix] 75 mg PO DAILY 30 Days #30 tab lisinopriL [Zestril] 5 mg PO BID 30 Days #60 tab Spironolactone [Aldactone] 25 mg PO DAILY 30 Days #30 tab Ipratropium-Albuterol Nebulize [Duoneb 0.5 mg-3 mg/3 ml Soln] 3 ml INHALATION RT-QID 30 Days #300 ml Apixaban [Eliquis] 5 mg PO BID 30 Days #60 tab Atorvastatin [Lipitor] 40 mg PO DAILY 30 Days #30 tab Nitroglycerin Sl Tabs [Nitrostat] 0.4 mg SUBLINGUAL Q5M PRN 30 Days #90 tab PRN Reason: Chest Pain Continue Fluticasone/Salmeterol [Advair 500-50 Diskus] 2 puff PO RT-BID traMADol HCL [Ultram] 50 mg PO BID Folic Acid 1 mg PO DAILY Metoprolol Succinate (ER) [Toprol XL] 25 mg PO DAILY Levothyroxine Sodium [Synthroid] 50 mcg PO DAILY metFORMIN HCL [Glucophage] 500 mg PO HS Calcium Carbonate/Vitamin D3 [Calcium 600-Vit D3 10 mcg (400 Iu)] 1 tab PO DAILY Albuterol Nebulized [Ventolin Nebulized] 2.5 mg INHALATION RT-Q6H PRN PRN Reason: Shortness Of Breath predniSONE 30 mg PO DAILY Acetaminophen [Tylenol Arthritis] 650 mg PO BID Ubidecarenone [Co Q-10] 100 mg PO DAILY Multivit-Min/FA/Lycopen/Lutein [Centrum Silver Tablet] 1 tab PO DAILY Discontinued Aspirin 81 mg PO HS Simvastatin [Zocor] 40 mg PO HS Warfarin Sodium [Coumadin] 10 mg PO HS Azithromycin [Zithromax] 250 mg PO [id number] Discharge Medication List Fluticasone/Salmeterol [Advair 500-50 Diskus] 2 puff PO RT-BID 11/24/18 [History] Folic Acid 1 mg PO DAILY 11/24/18 [History] Levothyroxine Sodium [Synthroid] 50 mcg PO DAILY 11/24/18 [History] Metoprolol Succinate (ER) [Toprol XL] 25 mg PO DAILY 11/24/18 [History] metFORMIN HCL [Glucophage] 500 mg PO HS 11/24/18 [History] traMADol HCL [Ultram] 50 mg PO BID 11/24/18 [History] Calcium Carbonate/Vitamin D3 [Calcium 600-Vit D3 10 mcg (400 Iu)] 1 tab PO DAILY 11/30/18 [History] Acetaminophen [Tylenol Arthritis] 650 mg PO BID 11/08/20 [History] Albuterol Nebulized [Ventolin Nebulized] 2.5 mg INHALATION RT-Q6H PRN 11/08/20 [History] Multivit-Min/FA/Lycopen/Lutein [Centrum Silver Tablet] 1 tab PO DAILY 11/08/20 [History] Ubidecarenone [Co Q-10] 100 mg PO DAILY 11/08/20 [History] predniSONE 30 mg PO DAILY 11/08/20 [History] Apixaban [Eliquis] 5 mg PO BID 30 Days #60 tab 11/15/20 [Rx] Atorvastatin [Lipitor] 40 mg PO DAILY 30 Days #30 tab 11/15/20 [Rx] Clopidogrel [Plavix] 75 mg PO DAILY 30 Days #30 tab 11/15/20 [Rx] Ipratropium-Albuterol Nebulize [Duoneb 0.5 mg-3 mg/3 ml Soln] 3 ml INHALATION RT-QID 30 Days #300 ml 11/15/20 [Rx] Nitroglycerin Sl Tabs [Nitrostat] 0.4 mg SUBLINGUAL Q5M PRN 30 Days #90 tab 11/15/20 [Rx] Spironolactone [Aldactone] 25 mg PO DAILY 30 Days #30 tab 11/15/20 [Rx] lisinopriL [Zestril] 5 mg PO BID 30 Days #60 tab 11/15/20 [Rx] Follow up Appointment(s)/Referral(s): Mariza Hou MD [Primary Care Provider] - 1-2 days [facility], [NON-STAFF] - 1-2 Days [facility] [NON-STAFF] - 1 Week Amadou Melendez MD [STAFF PHYSICIAN] - 1 Week
[2020-11-15 16:42] LABS: Glucose,Whole Blood 291 mg/dL (75-99)
[2020-11-15 17:45] VITALS: BP 117/58; PULSE 90; RESP 18
[2020-11-16] MEDS ORDERED: predniSONE 20 MG TAB PO SCH (09:00)
== END 2020-11-15 17:45 | disposition home or self-care (01) | DRG 246 ==
LOC: EC 03:04 → 2SICU 04:13 → 3SCARD 11-15 10:12
PROVIDERS: ADMIT Internal Medicine; ATTEND Internal Medicine
PROC: B2111ZZ Fluoroscopy of Multiple Coronary Arteries using Low Osmolar Contrast (ICD-10-PCS; 2020-11-08)
PROC: B241ZZ3 Ultrasonography of Multiple Coronary Arteries, Intravascular (ICD-10-PCS; 2020-11-08)
PROC: 5A09357 Assistance with Respiratory Ventilation, Less than 24 Consecutive Hours, Continuous Positive Airway Pressure (ICD-10-PCS; 2020-11-08)
PROC: 027034Z Dilation of Coronary Artery, One Artery with Drug-eluting Intraluminal Device, Percutaneous Approach (ICD-10-PCS; principal; 2020-11-08 03:41)
PROC: 4A023N7 Measurement of Cardiac Sampling and Pressure, Left Heart, Percutaneous Approach (ICD-10-PCS; 2020-11-08 09:00)
DX: I21.3 ST elevation (STEMI) myocardial infarction of unspecified site (principal); J18.9 Pneumonia, unspecified organism; J96.21 Acute and chronic respiratory failure with hypoxia; E72.11 Homocystinuria; L97.912 Non-pressure chronic ulcer of unspecified part of right lower leg with fat layer exposed; J44.1 Chronic obstructive pulmonary disease with (acute) exacerbation; J44.0 Chronic obstructive pulmonary disease with (acute) lower respiratory infection; D68.9 Coagulation defect, unspecified; Z79.890 Hormone replacement therapy; Z79.84 Long term (current) use of oral hypoglycemic drugs; Z79.01 Long term (current) use of anticoagulants; Z79.52 Long term (current) use of systemic steroids; Z87.891 Personal history of nicotine dependence; Z99.81 Dependence on supplemental oxygen; Z86.73 Personal history of transient ischemic attack (TIA), and cerebral infarction without residual deficits; E78.5 Hyperlipidemia, unspecified; Z79.82 Long term (current) use of aspirin; I25.5 Ischemic cardiomyopathy; E03.9 Hypothyroidism, unspecified; I10 Essential (primary) hypertension; I25.10 Atherosclerotic heart disease of native coronary artery without angina pectoris; S81.811A Laceration without foreign body, right lower leg, initial encounter; E11.9 Type 2 diabetes mellitus without complications; Z86.711 Personal history of pulmonary embolism; Z68.34 Body mass index [BMI] 34.0-34.9, adult; E66.01 Morbid (severe) obesity due to excess calories; Z86.14 Personal history of Methicillin resistant Staphylococcus aureus infection; I87.2 Venous insufficiency (chronic) (peripheral); Z79.02 Long term (current) use of antithrombotics/antiplatelets; Z79.899 Other long term (current) drug therapy; Z86.718 Personal history of other venous thrombosis and embolism
CPT/HCPCS: 36415; 71045; 80048; 80053; 83036; 83735; 83880; 84145; 84484; 85025; 85027; 85610; 85730; 87040; 87070; 87075; 87205; 92978; 93005; 93306; 93458; 94640; 94660; 94760; 96374; 99291

== ENCOUNTER 2021-01-28 06:53 | Inpatient (IN) | payer MEDICARE ==
[2021-01-28] MEDS ORDERED: ALBUTEROL NEBULIZED 2.5 MG/3 ML INHALATION STA (07:31)
[2021-01-28] MEDS ORDERED: IPRATROPIUM 0.5 MG/2.5 ML NEBU INHALATION STA (07:31)
[2021-01-28] MEDS ORDERED: methylPREDNISolone SOD SUCCI 125 MG/2 ML VIAL IV STA (07:31)
[2021-01-28] MEDS ORDERED: cefTRIAXone IN SWFI 1,000 MG/10 ML SYRINGE IVP STA (07:33)
[2021-01-28 07:46] LABS: Basophils % (A) 0 %; Eosinophils % (A) 0 %; HCT 41.9 % (39.0-53.0); HGB 13.7 gm/dL (13.0-17.5); Lymphocytes # (A) 1.3 k/uL (1.0-4.8); Lymphocytes % (A) 15 %; MCH 30.9 pg (25.0-35.0); MCHC 32.7 g/dL (31.0-37.0); MCV 94.7 fL (80.0-100.0); Mean Platelet Volume 7.7; Monocytes # (A) 0.4 k/uL (0-1.0); Monocytes % (A) 4 %; Neutrophils # (A) 6.9 k/uL (1.3-7.7); Neutrophils % (A) 79 %; Platelet Count 211 k/uL (150-450); RBC 4.43 m/uL (4.30-5.90); RDW 15.1 % (11.5-15.5); WBC 8.7 k/uL (3.8-10.6)
[2021-01-28] MEDS ORDERED: ACETAMINOPHEN TAB 500 MG TAB PO STA ×2 (07:58→23:57)
--- NOTE | 2021-01-28 07:58 | ED ---
General Adult HPI - General Chief complaint: Shortness of Breath Stated complaint: SOB Time Seen by Provider: 01/28/21 07:00 Source: patient, RN notes reviewed, old records reviewed Mode of arrival: wheelchair Limitations: no limitations - History of Present Illness Initial comments: This is an 80-year-old male who presents emergency Department with a past medical history significant for COPD. Patient states he comes in today because he been having difficulty breathing and has been getting worse over the last week. Patient states he has an increased cough and sputum production. Patient denies any fever chills per patient states he does have a COVID vaccine. Patient denies any chest pain. Patient denies any palpitations. Patient denies abdominal pain patient denies nausea vomiting diarrhea. Patient denies any swelling to legs or calf tenderness. - Related Data Home Medications Medication Instructions Recorded Confirmed Fluticasone/Salmeterol [Advair 1 puff PO RT-BID 11/24/18 01/28/21 500-50 Diskus] Folic Acid 1 mg PO DAILY 11/24/18 01/28/21 Levothyroxine Sodium [Synthroid] 50 mcg PO MOWEFR 11/24/18 01/28/21 Metoprolol Succinate (ER) [Toprol 25 mg PO DAILY@1200 11/24/18 01/28/21 XL] metFORMIN HCL [Glucophage] 500 mg PO HS 11/24/18 01/28/21 traMADol HCL [Ultram] 50 mg PO BID 11/24/18 01/28/21 Ubidecarenone [Co Q-10] 100 mg PO DAILY 11/08/20 01/28/21 predniSONE 40 mg PO DAILY 11/08/20 01/28/21 Acetaminophen Tab [Tylenol Tab] 500 mg PO BID PRN 01/28/21 01/28/21 Atorvastatin [Lipitor] 40 mg PO HS 01/28/21 01/28/21 Azithromycin 250 mg PO MOWEFR 01/28/21 01/28/21 Calcium Carbonate [Calcium] 600 mg PO DAILY 01/28/21 01/28/21 Ipratropium-Albuterol Nebulize 3 ml INHALATION RT-QID PRN 01/28/21 01/28/21 [Duoneb 0.5 mg-3 mg/3 ml Soln] Penicillin V Potassium [Pen Vee K] 500 mg PO QID PRN 01/28/21 01/28/21 Spironolactone [Aldactone] 25 mg PO DAILY@1200 01/28/21 01/28/21 Warfarin Sodium 5 mg PO FRSA 01/28/21 01/28/21 Warfarin Sodium [Jantoven] 10 mg PO SUMOTUWETH 01/28/21 01/28/21 lisinopriL [Zestril] 5 mg PO DAILY 01/28/21 01/28/21 Previous Rx's Medication Instructions Recorded Clopidogrel [Plavix] 75 mg PO DAILY 30 Days #30 tab 11/15/20 Nitroglycerin Sl Tabs [Nitrostat] 0.4 mg SUBLINGUAL Q5M PRN 30 Days 11/15/20 #90 tab Allergies Allergy/AdvReac Type Severity Reaction Status Date / Time No Known Allergies Allergy Verified 01/28/21 08:26 Review of Systems ROS Statement: Those systems with pertinent positive or pertinent negative responses have been documented in the HPI. ROS Other: All systems not noted in ROS Statement are negative. Past Medical History Past Medical History: COPD, CVA/TIA, Hyperlipidemia, Hypertension, Thyroid Disorder Additional Past Medical History / Comment(s): Wears oxygen @ 3 L per nc.-17/11, Hyperhomocysteinemia. Chronic cough. History of Any Multi-Drug Resistant Organisms: MRSA Date of last positivie culture/infection: 02/09/18 MDRO Source:: LT LEG Past Surgical History: Tonsillectomy Additional Past Surgical History / Comment(s): Carotid Endarterectomy. BRONCHOSCOPY, COLONOSCOPY, BILAT CATARACTS REMOVED Past Anesthesia/Blood Transfusion Reactions: No Reported Reaction Past Psychological History: No Psychological Hx Reported Smoking Status: Former smoker Past Alcohol Use History: None Reported, Occasional Past Drug Use History: None Reported - Past Family History Mother Family Medical History: No Reported History General Exam - General Exam Comments Initial Comments: GENERAL: Patient is well-developed and well-nourished. Patient is nontoxic and well- hydrated and is in mild distress. ENT: Neck is soft and supple. No significant lymphadenopathy is noted. Oropharynx is clear. Moist mucous membranes. Neck has full range of motion without eliciting any pain. EYES: The sclera were anicteric and conjunctiva were pink and moist. Extraocular movements were intact and pupils were equal round and reactive to light. Eyelids were unremarkable. PULMONARY: Diffuse expiratory wheezing CARDIOVASCULAR: There is a regular rate and rhythm without any murmurs gallops or rubs. ABDOMEN: Soft and nontender with normal bowel sounds. SKIN: Skin is clear with no lesions or rashes and otherwise unremarkable. NEUROLOGIC: Patient is alert and oriented x3. Cranial nerves II through XII are grossly intact. Motor and sensory are also intact. Normal speech, volume and content. Symmetrical smile. MUSCULOSKELETAL: Normal extremities with adequate strength and full range of motion. No lower extremity swelling or edema. No calf tenderness. LYMPHATICS: No significant lymphadenopathy is noted PSYCHIATRIC: Normal psychiatric evaluation. Limitations: no limitations Course Vital Signs 01/28/21 01/28/21 01/28/21 06:56 07:37 07:42 Temperature 99.8 F H Pulse Rate 95 88 Respiratory 24 18 24 Rate Blood Pressure 112/60 O2 Sat by Pulse 88 L 92 L Oximetry 01/28/21 01/28/21 01/28/21 07:59 08:00 08:18 Temperature Pulse Rate 87 87 86 Respiratory 19 Rate Blood Pressure 116/81 O2 Sat by Pulse 92 L Oximetry 01/28/21 01/28/21 01/28/21 08:30 08:41 09:00 Temperature Pulse Rate 87 86 85 Respiratory 21 16 17 Rate Blood Pressure 126/71 126/71 126/71 O2 Sat by Pulse 92 L 89 L 89 L Oximetry 01/28/21 09:30 Temperature Pulse Rate 84 Respiratory 18 Rate Blood Pressure 105/61 O2 Sat by Pulse 89 L Oximetry Medical Decision Making - Medical Decision Making EKG shows normal sinus rhythm at 92 bpm MT interval 176 dresses 102 QT interval 338 QTC is 417 per patient's EKG shows no ST segment elevation or depression. Chest x-ray shows questionable left lower lobe infiltrate. Patient received multiple breathing treatments and steroids in the emergency department. He was doing somewhat better. I spoke with some physicians Dr. Pastrana and he agreed to admit the patient admitted the patient and wrote admitting orders. Patient was also given a dose of antibiotics. - Lab Data Result diagrams: 01/28/21 07:30 01/28/21 07:30 Lab Results 01/28/21 01/28/21 01/28/21 Range/Units 07:30 07:30 07:30 WBC 8.7 (3.8-10.6) k/uL RBC 4.43 (4.30-5.90) m/uL Hgb 13.7 (13.0-17.5) gm/dL Hct 41.9 (39.0-53.0) % MCV 94.7 (80.0-100.0) fL MCH 30.9 (25.0-35.0) pg MCHC 32.7 (31.0-37.0) g/dL RDW 15.1 (11.5-15.5) % Plt Count 211 (150-450) k/uL MPV 7.7 Neutrophils % 79 % Lymphocytes % 15 % Monocytes % 4 % Eosinophils % 0 % Basophils % 0 % Neutrophils # 6.9 (1.3-7.7) k/uL Lymphocytes # 1.3 (1.0-4.8) k/uL Monocytes # 0.4 (0-1.0) k/uL Eosinophils # 0.0 (0-0.7) k/uL Basophils # 0.0 (0-0.2) k/uL PT 26.7 H (9.0-12.0) sec INR 2.8 H (<1.2) APTT 38.7 H (22.0-30.0) sec Sodium 137 (137-145) mmol/L Potassium 4.7 (3.5-5.1) mmol/L Chloride 101 (98-107) mmol/L Carbon Dioxide 31 H (22-30) mmol/L Anion Gap 5 mmol/L BUN 34 H (9-20) mg/dL Creatinine 0.95 (0.66-1.25) mg/dL Est GFR (CKD-EPI)AfAm 87 (>60 ml/min/1.73 sqM) Est GFR (CKD-EPI)NonAf 75 (>60 ml/min/1.73 sqM) Glucose 99 (74-99) mg/dL Plasma Lactic Acid Suraj (0.7-2.0) mmol/L Calcium 9.5 (8.4-10.2) mg/dL Total Bilirubin 0.3 (0.2-1.3) mg/dL AST 33 (17-59) U/L ALT 26 (4-49) U/L Alkaline Phosphatase 52 (38-126) U/L Troponin I (0.000-0.034) ng/mL NT-Pro-B Natriuret Pep pg/mL Total Protein 6.3 (6.3-8.2) g/dL Albumin 3.4 L (3.5-5.0) g/dL Coronavirus (PCR) (Not Detectd) 01/28/21 01/28/21 01/28/21 Range/Units 07:30 07:30 07:30 WBC (3.8-10.6) k/uL RBC (4.30-5.90) m/uL Hgb (13.0-17.5) gm/dL Hct (39.0-53.0) % MCV (80.0-100.0) fL MCH (25.0-35.0) pg MCHC (31.0-37.0) g/dL RDW (11.5-15.5) % Plt Count (150-450) k/uL MPV Neutrophils % % Lymphocytes % % Monocytes % % Eosinophils % % Basophils % % Neutrophils # (1.3-7.7) k/uL Lymphocytes # (1.0-4.8) k/uL Monocytes # (0-1.0) k/uL Eosinophils # (0-0.7) k/uL Basophils # (0-0.2) k/uL PT (9.0-12.0) sec INR (<1.2) APTT (22.0-30.0) sec Sodium (137-145) mmol/L Potassium (3.5-5.1) mmol/L Chloride (98-107) mmol/L Carbon Dioxide (22-30) mmol/L Anion Gap mmol/L BUN (9-20) mg/dL Creatinine (0.66-1.25) mg/dL Est GFR (CKD-EPI)AfAm (>60 ml/min/1.73 sqM) Est GFR (CKD-EPI)NonAf (>60 ml/min/1.73 sqM) Glucose (74-99) mg/dL Plasma Lactic Acid Suraj 1.4 (0.7-2.0) mmol/L Calcium (8.4-10.2) mg/dL Total Bilirubin (0.2-1.3) mg/dL AST (17-59) U/L ALT (4-49) U/L Alkaline Phosphatase (38-126) U/L Troponin I 0.029 (0.000-0.034) ng/mL NT-Pro-B Natriuret Pep 203 pg/mL Total Protein (6.3-8.2) g/dL Albumin (3.5-5.0) g/dL Coronavirus (PCR) (Not Detectd) 01/28/21 Range/Units 08:38 WBC (3.8-10.6) k/uL RBC (4.30-5.90) m/uL Hgb (13.0-17.5) gm/dL Hct (39.0-53.0) % MCV (80.0-100.0) fL MCH (25.0-35.0) pg MCHC (31.0-37.0) g/dL RDW (11.5-15.5) % Plt Count (150-450) k/uL MPV Neutrophils % % Lymphocytes % % Monocytes % % Eosinophils % % Basophils % % Neutrophils # (1.3-7.7) k/uL Lymphocytes # (1.0-4.8) k/uL Monocytes # (0-1.0) k/uL Eosinophils # (0-0.7) k/uL Basophils # (0-0.2) k/uL PT (9.0-12.0) sec INR (<1.2) APTT (22.0-30.0) sec Sodium (137-145) mmol/L Potassium (3.5-5.1) mmol/L Chloride (98-107) mmol/L Carbon Dioxide (22-30) mmol/L Anion Gap mmol/L BUN (9-20) mg/dL Creatinine (0.66-1.25) mg/dL Est GFR (CKD-EPI)AfAm (>60 ml/min/1.73 sqM) Est GFR (CKD-EPI)NonAf (>60 ml/min/1.73 sqM) Glucose (74-99) mg/dL Plasma Lactic Acid Suraj (0.7-2.0) mmol/L Calcium (8.4-10.2) mg/dL Total Bilirubin (0.2-1.3) mg/dL AST (17-59) U/L ALT (4-49) U/L Alkaline Phosphatase (38-126) U/L Troponin I (0.000-0.034) ng/mL NT-Pro-B Natriuret Pep pg/mL Total Protein (6.3-8.2) g/dL Albumin (3.5-5.0) g/dL Coronavirus (PCR) Detected A (Not Detectd) Critical Care Time Critical Care Time: Yes Total Critical Care Time: 35 Disposition Clinical Impression: COPD with acute exacerbation, Pneumonia due to COVID-19 virus Disposition: [facility] Time of Disposition: 09:21
[2021-01-28 08:02] LABS: Albumin 3.4 g/dL (3.5-5.0); Calcium 9.5 mg/dL (8.4-10.2); Potassium 4.7 mmol/L (3.5-5.1); Total Bilirubin 0.3 mg/dL (0.2-1.3); Total Protein 6.3 g/dL (6.3-8.2)
--- NOTE | 2021-01-28 08:02 | XR ---
EXAMINATION TYPE: XR chest 2V DATE OF EXAM: 01/28/2021 COMPARISON: 11/12/2020 HISTORY: 80-year-old male shortness of breath, difficulty breathing TECHNIQUE: AP and lateral views FINDINGS: Heart upper limits of normal in size. Large patient body habitus catheter JM densities over the lung s. The previous right basilar airspace disease has improved. There is new patchy airspace opacity at the left base. IMPRESSION: New developing consolidation/airspace disease at the left base. Correlate for pneumonia.
[2021-01-28 08:12] LABS: INR 2.8 (<1.2); Partial Thromboplastin Time 38.7 sec (22.0-30.0); Prothrombin Time 26.7 sec (9.0-12.0)
[2021-01-28] MEDS ORDERED: methylPREDNISolone SOD SUCCI 125 MG/2 ML VIAL IV SCH (12:00)
[2021-01-28] MEDS ORDERED: IPRATROPIUM-ALBUTEROL 3 ML NEB INHALATION SCH (12:00)
[2021-01-28] MEDS: ALBUTEROL HFA INHALER INHALATION SCH ×3 (12:30→21:16)
[2021-01-28] MEDS ORDERED: IPRATROPIUM-ALBUTEROL 3 ML NEB INHALATION PRN (12:42)
[2021-01-28] MEDS ORDERED: DEXAMETHASONE SOD PHOSPHATE 4 MG/ML 1 ML VIAL IV ONE (13:00)
[2021-01-28] MEDS: LEVOTHYROXINE 50 MCG TAB PO SCH (13:23)
[2021-01-28] MEDS: AZITHROMYCIN 250 MG TAB PO SCH (13:23)
--- NOTE | 2021-01-28 14:33 | P.HPIM ---
History of Present Illness H&P Date: 01/28/21 Chief Complaint: Dyspnea 80-year-old man with medical history of COPD, paroxysmal atrial fibrillation on Coumadin, hypothyroidism, hypertension, CAD, hyperlipidemia, diabetes type 2 presented with dyspnea on exertion. Patient normally wears 2 L of oxygen via nasal cannula at home and is able to do his house chores with relative ease and without dyspnea. However, he noted in the past several days he has had increasing dyspnea on exertion, barely able to make it to the bathroom without feeling short of breath. On top of this, patient has been using his home rescue inhaler much more frequently without any relief. Based on the symptoms he and his presented to the emergency room for further evaluation. Patient denies any sick contacts, fevers, chills, nausea, vomiting, chest pain, palpitations, syncope, presyncope, cough beyond baseline. Patient also denies abdominal pain, constipation, diarrhea, numbness/weakness, dysuria, dyschezia, melena. In the emergency room, afebrile, 103/51, 91% with 4 L of nasal cannula. CBC is unremarkable. Chemistries are unremarkable. EKG shows normal sinus rhythm. Chest x-ray shows fibrotic changes in the lower lobes, with new consolidation in the left base. Patient tested positive for coronavirus. Review of Systems Gen: awake, alert HEENT: normocephalic, atraumatic, good hearing acuity, moist mucous membranes Resp: Bilateral diffuse wheezing, crackles in the left lower base CVS: good distal perfusion x 4, regular rate and rhythm without murmurs GI: soft, NTTP, ND : no SPT, no CVAT, cee catheter not present MSK: no pitting edema, no clubbing Neuro: non-focal, moving all extremities Psych: cooperative, euthymic mood Past Medical History Past Medical History: COPD, CVA/TIA, Hyperlipidemia, Hypertension, Thyroid Disorder Additional Past Medical History / Comment(s): Wears oxygen @ 3 L per nc.-17/11, Hyperhomocysteinemia. Chronic cough. History of Any Multi-Drug Resistant Organisms: MRSA Date of last positivie culture/infection: 02/09/18 MDRO Source:: LT LEG Past Surgical History: Tonsillectomy Additional Past Surgical History / Comment(s): Carotid Endarterectomy. BRONCHOSCOPY, COLONOSCOPY, BILAT CATARACTS REMOVED Past Anesthesia/Blood Transfusion Reactions: No Reported Reaction Past Psychological History: No Psychological Hx Reported Smoking Status: Former smoker Past Alcohol Use History: None Reported, Occasional Past Drug Use History: None Reported - Past Family History Mother Family Medical History: No Reported History Medications and Allergies Home Medications Medication Instructions Recorded Confirmed Type Fluticasone/Salmeterol [Advair 1 puff PO RT-BID 11/24/18 01/28/21 History 500-50 Diskus] Folic Acid 1 mg PO DAILY 11/24/18 01/28/21 History Levothyroxine Sodium [Synthroid] 50 mcg PO MOWEFR 11/24/18 01/28/21 History Metoprolol Succinate (ER) [Toprol 25 mg PO DAILY@1200 11/24/18 01/28/21 History XL] metFORMIN HCL [Glucophage] 500 mg PO HS 11/24/18 01/28/21 History traMADol HCL [Ultram] 50 mg PO BID 11/24/18 01/28/21 History Ubidecarenone [Co Q-10] 100 mg PO DAILY 11/08/20 01/28/21 History predniSONE 40 mg PO DAILY 11/08/20 01/28/21 History Clopidogrel [Plavix] 75 mg PO DAILY 30 Days #30 tab 11/15/20 01/28/21 Rx Nitroglycerin Sl Tabs [Nitrostat] 0.4 mg SUBLINGUAL Q5M PRN 30 Days 11/15/20 Rx #90 tab Acetaminophen Tab [Tylenol Tab] 500 mg PO BID PRN 01/28/21 01/28/21 History Atorvastatin [Lipitor] 40 mg PO HS 01/28/21 01/28/21 History Azithromycin 250 mg PO MOWEFR 01/28/21 01/28/21 History Calcium Carbonate [Calcium] 600 mg PO DAILY 01/28/21 01/28/21 History Ipratropium-Albuterol Nebulize 3 ml INHALATION RT-QID PRN 01/28/21 01/28/21 History [Duoneb 0.5 mg-3 mg/3 ml Soln] Penicillin V Potassium [Pen Vee K] 500 mg PO QID PRN 01/28/21 01/28/21 History Spironolactone [Aldactone] 25 mg PO DAILY@1200 01/28/21 01/28/21 History Warfarin Sodium 5 mg PO FRSA 01/28/21 01/28/21 History Warfarin Sodium [Jantoven] 10 mg PO SUMOTUWETH 01/28/21 01/28/21 History lisinopriL [Zestril] 5 mg PO DAILY 01/28/21 01/28/21 History Allergies Allergy/AdvReac Type Severity Reaction Status Date / Time No Known Allergies Allergy Verified 01/28/21 08:26 Physical Exam Osteopathic Statement: *. No significant issues noted on an osteopathic structural exam other than those noted in the History and Physical/Consult. Vitals: Vital Signs Temp Pulse Resp BP Pulse Ox 01/28/21 13:26 80 18 103/51 91 L 01/28/21 10:48 98.2 F 84 16 106/59 90 L 01/28/21 09:30 84 18 105/61 89 L 01/28/21 09:00 85 17 126/71 89 L 01/28/21 08:41 86 16 126/71 89 L 01/28/21 08:30 87 21 126/71 92 L 01/28/21 08:18 86 01/28/21 08:00 87 19 116/81 92 L 01/28/21 07:59 87 01/28/21 07:42 24 01/28/21 07:37 88 18 92 L 01/28/21 06:56 99.8 F H 95 24 112/60 88 L Intake and Output 01/27/21 01/28/21 01/28/21 22:59 06:59 14:59 Other: Weight 110.223 kg Results CBC & Chem 7: 01/28/21 07:30 01/28/21 07:30 Labs: Abnormal Lab Results - Last 24 Hours (Table) 01/28/21 01/28/21 01/28/21 Range/Units 07:30 07:30 08:38 PT 26.7 H (9.0-12.0) sec INR 2.8 H (<1.2) APTT 38.7 H (22.0-30.0) sec Carbon Dioxide 31 H (22-30) mmol/L BUN 34 H (9-20) mg/dL Albumin 3.4 L (3.5-5.0) g/dL Coronavirus (PCR) Detected A (Not Detectd) Assessment and Plan Assessment: Acute COPD exacerbation Covid pneumonitis -Admit inpatient, telemetry -Pulmonary consult -Dexamethasone 6 g IV daily -Remdesivir dose 1/5 -Vitamin C/D, zinc, famotidine -Follow inflammatory markers -Continue home azithromycin -Standing nebulizers Paroxysmal Atrial Fibrillation - coumadin per pharmacy - continue home metoprolol CAD HTN HLD Diabetes type 2 Hypothyroidism -Home medications reviewed and reconciled Patient is a no code DVT prophylaxis covered with therapeutic AC
[2021-01-28] MEDS ORDERED: REMDESIVIR 200 MG in SODIUM CHLORIDE 0.9% 250 ML IVPB ONE (15:00)
--- NOTE | 2021-01-28 15:24 | P.CNPUL ---
History of Present Illness Consult date: 01/28/21 Requesting physician: Rene Lofton Reason for consult: dyspnea, hypoxemia, abnormal CXR/CT Chief complaint: Dyspnea, cough, sputum production History of present illness: 80-year-old white male patient with past medical history of COPD, hypertension, coronary artery disease with recent stenting, hypothyroidism, previous history of CVA/TIA, home oxygen at bedtime as 3 L, previous history of MRSA infection, presented to the emergency department with 7 day history of cough, progressive dyspnea, some phlegm production. Patient denied any fever or chills. Patient states that he did receive the COVID vaccine, completed Moderna COVID-19 vaccine back in July. Denied any nausea vomiting or diarrhea. He states his dyspnea was becoming progressively worse, he was having difficulty walking. Chest x-ray in the emergency department showed a new developing consolidation/airspace disease at the left lung base. COVID-19 PCR was positive. CBC was within normal limits, white count was 8.7, hemoglobin is 13.7, lymphocytes were normal at 1.3, INR was 2.8, sodium was 137, potassium is 4.7, chloride is 101, CO2 31, BUN is 34, creatinine 0.95, lactic acid was 1.4, the rest of LFTs were within normal limits, proBNP was 203, troponin was 0.029. EKG showed normal sinus rhythm with nonspecific T-wave abnormality. Patient is currently requiring 4 L of oxygen his pulse ox is ranging between 89-90%, he had a low-grade fever initially on presentation with a temp of 99.8F. Patient sees Dr. Adamson in the pulmonary clinic for his history of COPD and his FEV1 is in the range of 39% of predicted. He has a history of previous pulmonary embolism on chronic Coumadin. He has a history of hyper-homocystine anemia. He is also on azithromycin on Thursday schedule, on which he continues, he was started on IV Decadron, nebulized bronchodilators, he still within the window for Remdesivir on which he will be started today. Review of Systems All systems: negative Constitutional: Denies chills, Denies fever Eyes: denies blurred vision, denies pain Ears, nose, mouth and throat: Denies headache, Denies sore throat Cardiovascular: Reports chest pain, Denies shortness of breath Respiratory: Reports dyspnea, Reports home oxygen, Reports respiratory infections, Reports wheezing, Denies cough Gastrointestinal: Denies abdominal pain, Denies diarrhea, Denies nausea, Denies vomiting Musculoskeletal: Denies myalgias Integumentary: Denies pruritus, Denies rash Neurological: Denies numbness, Denies weakness Psychiatric: Denies anxiety, Denies depression Endocrine: Denies fatigue, Denies weight change Past Medical History Past Medical History: COPD, CVA/TIA, Hyperlipidemia, Hypertension, Thyroid Disorder Additional Past Medical History / Comment(s): Wears oxygen @ 3 L per nc.-17/11, Hyperhomocysteinemia. Chronic cough. History of Any Multi-Drug Resistant Organisms: MRSA Date of last positivie culture/infection: 02/09/18 MDRO Source:: LT LEG Past Surgical History: Tonsillectomy Additional Past Surgical History / Comment(s): Carotid Endarterectomy. BRONCHOSCOPY, COLONOSCOPY, BILAT CATARACTS REMOVED Past Anesthesia/Blood Transfusion Reactions: No Reported Reaction Past Psychological History: No Psychological Hx Reported Smoking Status: Former smoker Past Alcohol Use History: None Reported, Occasional Past Drug Use History: None Reported - Past Family History Mother Family Medical History: No Reported History Medications and Allergies Home Medications Medication Instructions Recorded Confirmed Type Fluticasone/Salmeterol [Advair 1 puff PO RT-BID 11/24/18 01/28/21 History 500-50 Diskus] Folic Acid 1 mg PO DAILY 11/24/18 01/28/21 History Levothyroxine Sodium [Synthroid] 50 mcg PO MOWEFR 11/24/18 01/28/21 History Metoprolol Succinate (ER) [Toprol 25 mg PO DAILY@1200 11/24/18 01/28/21 History XL] metFORMIN HCL [Glucophage] 500 mg PO HS 11/24/18 01/28/21 History traMADol HCL [Ultram] 50 mg PO BID 11/24/18 01/28/21 History Ubidecarenone [Co Q-10] 100 mg PO DAILY 11/08/20 01/28/21 History predniSONE 40 mg PO DAILY 11/08/20 01/28/21 History Clopidogrel [Plavix] 75 mg PO DAILY 30 Days #30 tab 11/15/20 01/28/21 Rx Nitroglycerin Sl Tabs [Nitrostat] 0.4 mg SUBLINGUAL Q5M PRN 30 Days 11/15/20 01/28/21 Rx #90 tab Acetaminophen Tab [Tylenol Tab] 500 mg PO BID PRN 01/28/21 01/28/21 History Atorvastatin [Lipitor] 40 mg PO HS 01/28/21 01/28/21 History Azithromycin 250 mg PO MOWEFR 01/28/21 01/28/21 History Calcium Carbonate [Calcium] 600 mg PO DAILY 01/28/21 01/28/21 History Ipratropium-Albuterol Nebulize 3 ml INHALATION RT-QID PRN 01/28/21 01/28/21 History [Duoneb 0.5 mg-3 mg/3 ml Soln] Penicillin V Potassium [Pen Vee K] 500 mg PO QID PRN 01/28/21 01/28/21 History Spironolactone [Aldactone] 25 mg PO DAILY@1200 01/28/21 01/28/21 History Warfarin Sodium 5 mg PO FRSA 01/28/21 01/28/21 History Warfarin Sodium [Jantoven] 10 mg PO SUMOTUWETH 01/28/21 01/28/21 History lisinopriL [Zestril] 5 mg PO DAILY 01/28/21 01/28/21 History Allergies Allergy/AdvReac Type Severity Reaction Status Date / Time No Known Allergies Allergy Verified 01/28/21 08:26 Physical Exam Vitals: Vital Signs Temp Pulse Pulse Resp BP BP Pulse Ox 01/28/21 14:42 98.3 F 88 22 158/78 90 L 01/28/21 13:26 80 18 103/51 91 L 01/28/21 10:48 98.2 F 84 16 106/59 90 L 01/28/21 09:30 84 18 105/61 89 L 01/28/21 09:00 85 17 126/71 89 L 01/28/21 08:41 86 16 126/71 89 L 01/28/21 08:30 87 21 126/71 92 L 01/28/21 08:18 86 01/28/21 08:00 87 19 116/81 92 L 01/28/21 07:59 87 01/28/21 07:42 24 01/28/21 07:37 88 18 92 L 01/28/21 06:56 99.8 F H 95 24 112/60 88 L Intake and Output 01/28/21 01/28/21 01/28/21 06:59 14:59 22:59 Other: Weight 110.223 kg GENERAL EXAM: Alert, very pleasant, 80-year-old white male, currently on 4 L of oxygen and pulse ox between 89-90% comfortable in no apparent distress. HEAD: Normocephalic/atraumatic. EYES: Normal reaction of pupils, equal size. Conjunctiva pink, sclera white. NOSE: Clear with pink turbinates. THROAT: No erythema or exudates. NECK: No masses, no JVD, no thyroid enlargement, no adenopathy. CHEST: No chest wall deformity. Symmetrical expansion. LUNGS: Equal air entry with diffuse crackles CVS: Regular rate and rhythm, normal S1 and S2, no gallops, no murmurs, no rubs ABDOMEN: Soft, nontender. No hepatosplenomegaly, normal bowel sounds, no guarding or rigidity. EXTREMITIES: No clubbing, no edema, no cyanosis, 2+ pulses and upper and lower extremities. MUSCULOSKELETAL: Muscle strength and tone normal. SPINE: No scoliosis or deformity SKIN: No rashes CENTRAL NERVOUS SYSTEM: Alert and oriented -3. No focal deficits, tone is normal in all 4 extremities. PSYCHIATRIC: Alert and oriented -3. Appropriate affect. Intact judgment and insight. Results - Laboratory Findings CBC and BMP: 01/28/21 07:30 01/28/21 07:30 PT/INR, D-dimer PT 26.7 sec (9.0-12.0) H 01/28/21 07:30 INR 2.8 (<1.2) H 01/28/21 07:30 Abnormal lab findings: Abnormal Labs 01/28/21 01/28/21 01/28/21 07:30 07:30 08:38 PT 26.7 H INR 2.8 H APTT 38.7 H Carbon Dioxide 31 H BUN 34 H Albumin 3.4 L Coronavirus (PCR) Detected A - Diagnostic Findings Chest x-ray: report reviewed, image reviewed Additional studies: EKG reviewed Assessment and Plan Plan: Assessment: #1. Acute on chronic hypoxic respiratory failure related to acute COVID-19 pneumonia. Patient presented with 7 day history of symptoms of cough, and w orsening shortness of breath. He has completed Moderna vaccine back in July, he tested positive for COVID-19 today on 01/28/2021. He is within the window for Remdesivir treatment on which she will be started today #2. Advanced COPD, with baseline FEV1 of 39% of predicted on home oxygen usually at 3 L #3. History of coronary artery disease with previous stenting #4. Ex-smoker #5. Hypertension #6. Diabetes mellitus #7. Previous history of CVA/TIA #8. Hypothyroidism #9. Previous history of pulmonary embolism on Coumadin #10. History of hyper-homocystine anemia #11. History of carotid endarterectomy Plan: Continue with IV Decadron Patient is a candidate for Remdesivir on which he will be started today Continue azithromycin continue bronchodilators Continue Coumadin, daily PT/INR We'll continue to follow I performed a history & physical examination of the patient and discussed their management with my nurse practitioner, Keren To. I reviewed the nurse practitioner's note and agree with the documented findings and plan of care. Lung sounds are positive for diminished breath sounds throughout the lung kline. The findings and the impression was discussed with the patient. I attest to the documentation by the nurse practitioner. Time with Patient: Greater than 30
[2021-01-28] MEDS: IPRATROPIUM-ALBUTEROL 3 ML NEB INHALATION SCH ×2 (16:08→21:17)
[2021-01-28 16:30] LABS: Glucose,Whole Blood 400 mg/dL (75-99)
[2021-01-28] MEDS: HEPARIN SODIUM,PORCINE/PF 5,000 UNIT/0.5 ML SYRINGE SQ SCH ×2 (16:52→22:31)
[2021-01-28] MEDS ORDERED: INSULIN ASPART (NovoLOG) 100 UNIT/ML VIAL SQ SCH (17:30)
[2021-01-28] MEDS: ATORVASTATIN 40 MG TAB PO SCH (19:41)
[2021-01-28] MEDS: FAMOTIDINE 20 MG TAB PO SCH (19:41)
[2021-01-28] MEDS: SYMBICORT 160-4.5 MCG INHALER INHALATION SCH (21:16)
[2021-01-28 21:51] LABS: Glucose,Whole Blood 304 mg/dL (75-99)
[2021-01-28] MEDS: INSULIN ASPART (NovoLOG) 100 UNIT/ML VIAL SQ SCH (22:31)
[2021-01-28] MEDS ORDERED: traMADol 50 MG TAB PO STA (23:57)
[2021-01-29] MEDS: ALBUTEROL HFA INHALER INHALATION SCH ×6 (00:08→20:26)
[2021-01-29] MEDS: IPRATROPIUM-ALBUTEROL 3 ML NEB INHALATION SCH (03:27)
[2021-01-29 06:59] LABS: Glucose,Whole Blood 159 mg/dL (75-99)
[2021-01-29] MEDS: CHOLECALCIFEROL 25 MCG (1000 IU) TABLET PO SCH (07:10)
[2021-01-29] MEDS: FAMOTIDINE 20 MG TAB PO SCH ×2 (07:10→21:23)
[2021-01-29] MEDS: CALCIUM CARBONATE 500 MG CHEWABLE PO SCH (07:10)
[2021-01-29] MEDS: ASCORBIC ACID 500 MG TAB PO SCH (07:10)
[2021-01-29] MEDS: lisinopriL 5 MG TAB PO SCH (07:10)
[2021-01-29] MEDS: ZINC SULFATE 220 MG CAP PO SCH (07:11)
[2021-01-29] MEDS: FOLIC ACID 1 MG TAB PO SCH (07:11)
[2021-01-29] MEDS: CLOPIDOGREL 75 MG TAB PO SCH (07:11)
[2021-01-29] MEDS: INSULIN ASPART (NovoLOG) 100 UNIT/ML VIAL SQ SCH ×4 (07:12→21:23)
[2021-01-29] MEDS: HEPARIN SODIUM,PORCINE/PF 5,000 UNIT/0.5 ML SYRINGE SQ SCH (07:12)
[2021-01-29] MEDS: DEXAMETHASONE SOD PHOSPHATE 10 MG/ML 1 ML VIAL IV SCH (07:12)
[2021-01-29] MEDS: SYMBICORT 160-4.5 MCG INHALER INHALATION SCH ×2 (08:12→20:26)
[2021-01-29] MEDS: TIOTROPIUM 2.5 MCG INHALER INHALATION SCH (09:46)
--- NOTE | 2021-01-29 10:43 | P.PN ---
Subjective Patient is feeling the same compared to yesterday. He is still having shortness of breath. Is currently on 4 L of oxygen by nasal cannula. Patient is on 3 L at home. No acute events overnight reported by nursing staff. Objective - Vital Signs Vital signs: Vital Signs Temp 98.4 F 01/29/21 10:00 Pulse 95 01/29/21 10:00 Resp 19 01/29/21 10:00 BP 127/75 01/29/21 10:00 Pulse Ox 89 L 01/29/21 10:00 Intake & Output 01/28/21 01/29/21 01/29/21 18:59 06:59 18:59 Weight 110.223 kg Other: Voiding Method Urinal # Voids 3 - Exam General: The patient is awake and alert, in no distress Eye: there is normal conjunctiva bilaterally. Neck: The neck is supple, there is no JVD. Cardiovascular: Normal S1-S2, no S3-S4, no murmurs. Respiratory: Lungs clear to auscultation bilaterally Gastrointestinal: Abdomen is soft, nontender Musculoskeletal: There is no pedal edema. Neurological:. Speech is normal. Skin: Skin is warm and dry - Labs CBC & Chem 7: 01/28/21 07:30 01/28/21 07:30 Labs: Abnormal Lab Results - Last 24 Hours (Table) 01/28/21 01/28/21 01/28/21 Range/Units 07:30 16:27 21:50 POC Glucose (mg/dL) 400 H 304 H (75-99) mg/dL Procalcitonin 0.13 H (0.02-0.09) ng/mL 01/29/21 Range/Units 06:56 POC Glucose (mg/dL) 159 H (75-99) mg/dL Procalcitonin (0.02-0.09) ng/mL Microbiology - Last 24 Hours (Table) 01/28/21 07:50 Blood Culture - Preliminary Blood No Growth after 24 hours 01/28/21 07:50 Blood Culture - Preliminary Blood No Growth after 24 hours 01/28/21 12:34 Gram Stain - Preliminary Sputum Sputum Culture - Preliminary Assessment and Plan Assessment: 80-year-old man with medical history of COPD, paroxysmal atrial fibrillation on Coumadin, hypothyroidism, hypertension, CAD, hyperlipidemia, diabetes type 2 presented with dyspnea on exertion. Patient normally wears 2 L of oxygen via nasal cannula at home. In the emergency room, Chest x-ray shows fibrotic changes in the lower lobes, with new consolidation in the left base. Patient tested positive for coronavirus. He was admitted to the hospital for further management Assessment and Plan Assessment: Acute COPD exacerbation Covid pneumonitis -Admit inpatient, telemetry -Pulmonary consult -Dexamethasone 6 g IV daily day #2 -Remdesivir dose 2/5 -Vitamin C/D, zinc, famotidine -Follow inflammatory markers -Continue home azithromycin -Standing nebulizers Paroxysmal Atrial Fibrillation - coumadin per pharmacy - continue home metoprolol CAD HTN HLD Diabetes type 2 Hypothyroidism -Home medications reviewed and reconciled Patient is a no code DVT prophylaxis covered with therapeutic AC
[2021-01-29] MEDS: METOPROLOL SUCCINATE (ER) 25 MG TAB.ER.24H PO SCH (11:36)
[2021-01-29] MEDS: SPIRONOLACTONE 25 MG TAB PO SCH (11:36)
[2021-01-29 11:50] LABS: Glucose,Whole Blood 145 mg/dL (75-99)
--- NOTE | 2021-01-29 13:48 | P.PN ---
Subjective Progress Note Date: 01/29/21 Principal diagnosis: Dyspnea 80-year-old white male patient with past medical history of COPD, hypertension, coronary artery disease with recent stenting, hypothyroidism, previous history of CVA/TIA, home oxygen at bedtime as 3 L, previous history of MRSA infection, presented to the emergency department with 7 day history of cough, progressive dyspnea, some phlegm production. Patient denied any fever or chills. Patient states that he did receive the COVID vaccine, completed Moderna COVID-19 vaccine back in July. Denied any nausea vomiting or diarrhea. He states his dyspnea was becoming progressively worse, he was having difficulty walking. Chest x-ray in the emergency department showed a new developing consolidation/airspace disease at the left lung base. COVID-19 PCR was positive. CBC was within normal limits, white count was 8.7, hemoglobin is 13.7, lymphocytes were normal at 1.3, INR was 2.8, sodium was 137, potassium is 4.7, chloride is 101, CO2 31, BUN is 34, creatinine 0.95, lactic acid was 1.4, the rest of LFTs were within normal limits, proBNP was 203, troponin was 0.029. EKG showed normal sinus rhythm with nonspecific T-wave abnormality. Patient is currently requiring 4 L of oxygen his pulse ox is ranging between 89-90%, he had a low-grade fever initially on presentation with a temp of 99.8F. Patient sees Dr. Adamson in the pulmonary clinic for his history of COPD and his FEV1 is in the range of 39% of predicted. He has a history of previous pulmonary embolism on chronic Coumadin. He has a history of hyper-homocystine anemia. He is also on azithromycin on Thursday schedule, on which he continues, he was started on IV Decadron, nebulized bronchodilators, he still within the window for Remdesivir on which he will be started today. On 01/29/2001 patient seen in follow-up on medical surgical floor, he is currently on 4 L of oxygen the pulse ox 89-92%. Afebrile, hemodynamically stable. Today is day 2 of Remdesivir treatment, patient remains Decadron 6 mg daily, Symbicort, he is on his maintenance of azithromycin, and multivitamins. He had no acute events overnight, resting comfortably in bed. His pro laura citonin level was negative at 0.13. Today's labs are pending, patient remains on Coumadin for chronic anticoagulation Objective - Vital Signs Vital signs: Vital Signs Temp 98.4 F 01/29/21 10:00 Pulse 95 01/29/21 10:00 Resp 19 01/29/21 10:00 BP 127/75 01/29/21 10:00 Pulse Ox 89 L 01/29/21 10:00 Intake & Output 01/28/21 01/29/21 01/29/21 18:59 06:59 18:59 Output Total 100 Balance -100 Weight 110.223 kg Output: Urine 100 Other: Voiding Method Urinal # Voids 3 - Exam GENERAL EXAM: Alert, very pleasant, 80-year-old white male, currently on 4 L of oxygen and pulse ox between 89-90% comfortable in no apparent distress. HEAD: Normocephalic/atraumatic. EYES: Normal reaction of pupils, equal size. Conjunctiva pink, sclera white. NOSE: Clear with pink turbinates. THROAT: No erythema or exudates. NECK: No masses, no JVD, no thyroid enlargement, no adenopathy. CHEST: No chest wall deformity. Symmetrical expansion. LUNGS: Equal air entry with diffuse crackles CVS: Regular rate and rhythm, normal S1 and S2, no gallops, no murmurs, no rubs ABDOMEN: Soft, nontender. No hepatosplenomegaly, normal bowel sounds, no guarding or rigidity. EXTREMITIES: No clubbing, no edema, no cyanosis, 2+ pulses and upper and lower extremities. MUSCULOSKELETAL: Muscle strength and tone normal. SPINE: No scoliosis or deformity SKIN: No rashes CENTRAL NERVOUS SYSTEM: Alert and oriented -3. No focal deficits, tone is normal in all 4 extremities. PSYCHIATRIC: Alert and oriented -3. Appropriate affect. Intact judgment and insight. - Labs CBC & Chem 7: 01/28/21 07:30 01/28/21 07:30 Labs: Abnormal Lab Results - Last 24 Hours (Table) 01/28/21 01/28/21 01/28/21 Range/Units 07:30 16:27 21:50 POC Glucose (mg/dL) 400 H 304 H (75-99) mg/dL Procalcitonin 0.13 H (0.02-0.09) ng/mL 01/29/21 01/29/21 Range/Units 06:56 11:48 POC Glucose (mg/dL) 159 H 145 H (75-99) mg/dL Procalcitonin (0.02-0.09) ng/mL Microbiology - Last 24 Hours (Table) 01/28/21 07:50 Blood Culture - Preliminary Blood No Growth after 24 hours 01/28/21 07:50 Blood Culture - Preliminary Blood No Growth after 24 hours 01/28/21 12:34 Gram Stain - Preliminary Sputum Sputum Culture - Preliminary Assessment and Plan Plan: Assessment: #1. Acute on chronic hypoxic respiratory failure related to acute COVID-19 pneumonia. Patient presented with 7 day history of symptoms of cough, and worsening shortness of breath. He has completed Moderna vaccine back in July, he tested positive for COVID-19 today on 01/28/2021. He is within the window for Remdesivir treatment which she was started on 01/28/2021 #2. Advanced COPD, with baseline FEV1 of 39% of predicted on home oxygen usually at 3 L #3. History of coronary artery disease with previous stenting #4. Ex-smoker #5. Hypertension #6. Diabetes mellitus #7. Previous history of CVA/TIA #8. Hypothyroidism #9. Previous history of pulmonary embolism on Coumadin #10. History of hyper-homocystine anemia #11. History of carotid endarterectomy Plan: Continue with IV Decadron Patient continues on Remdesivir, today is day 2 of treatment Continue azithromycin continue bronchodilators Continue Coumadin, daily PT/INR Obtain inflammatory markers, follow-up chest x-ray tomorrow Monitor for any worsening hypoxia dyspnea, fever, We'll continue to follow I performed a history & physical examination of the patient and discussed their management with my nurse practitioner, Keren To. I reviewed the nurse practitioner's note and agree with the documented findings and plan of care. Yenifer ng sounds are positive for diminished breath sounds throughout the lung kline. The findings and the impression was discussed with the patient. I attest to the documentation by the nurse practitioner. Time with Patient: Less than 30
[2021-01-29] MEDS: ACETAMINOPHEN TAB 325 MG TAB PO PRN ×2 (15:46→21:32)
[2021-01-29] MEDS: REMDESIVIR 100 MG in SODIUM CHLORIDE 0.9% 250 ML IVPB SCH (15:47)
[2021-01-29 16:28] LABS: Glucose,Whole Blood 151 mg/dL (75-99)
[2021-01-29] MEDS ORDERED: WARFARIN 10 MG TAB PO ONE (18:00)
[2021-01-29 20:59] LABS: Glucose,Whole Blood 148 mg/dL (75-99)
[2021-01-29] MEDS: ATORVASTATIN 40 MG TAB PO SCH (21:23)
[2021-01-29] MEDS: traMADol 50 MG TAB PO SCH (21:24)
[2021-01-30 07:57] LABS: Glucose,Whole Blood 113 mg/dL (75-99)
[2021-01-30 08:05] LABS: Prothrombin Time 28.9 sec (9.0-12.0)
[2021-01-30] MEDS: INSULIN ASPART (NovoLOG) 100 UNIT/ML VIAL SQ SCH ×4 (08:35→20:45)
[2021-01-30] MEDS: CHOLECALCIFEROL 25 MCG (1000 IU) TABLET PO SCH (08:36)
[2021-01-30] MEDS: ZINC SULFATE 220 MG CAP PO SCH (08:36)
[2021-01-30] MEDS: CLOPIDOGREL 75 MG TAB PO SCH (08:36)
[2021-01-30] MEDS: DEXAMETHASONE SOD PHOSPHATE 10 MG/ML 1 ML VIAL IV SCH (08:36)
[2021-01-30] MEDS: FAMOTIDINE 20 MG TAB PO SCH ×2 (08:36→20:44)
[2021-01-30] MEDS: ASCORBIC ACID 500 MG TAB PO SCH (08:36)
[2021-01-30] MEDS: AZITHROMYCIN 250 MG TAB PO SCH (08:36)
[2021-01-30] MEDS: FOLIC ACID 1 MG TAB PO SCH (08:37)
[2021-01-30] MEDS: traMADol 50 MG TAB PO SCH ×2 (08:37→20:46)
[2021-01-30] MEDS: lisinopriL 5 MG TAB PO SCH (08:37)
[2021-01-30] MEDS: CALCIUM CARBONATE 500 MG CHEWABLE PO SCH (08:38)
[2021-01-30] MEDS: SYMBICORT 160-4.5 MCG INHALER INHALATION SCH ×2 (08:40→19:08)
[2021-01-30] MEDS: ALBUTEROL HFA INHALER INHALATION SCH ×4 (08:40→19:08)
[2021-01-30] MEDS: ACETAMINOPHEN TAB 325 MG TAB PO PRN ×2 (08:44→20:45)
[2021-01-30] MEDS: TIOTROPIUM 2.5 MCG INHALER INHALATION SCH (08:55)
[2021-01-30 09:03] LABS: Basophils % (A) 0 %; Eosinophils % (A) 0 %; HCT 42.2 % (39.0-53.0); HGB 13.6 gm/dL (13.0-17.5); Lymphocytes # (A) 1.1 k/uL (1.0-4.8); Lymphocytes % (A) 10 %; MCH 30.6 pg (25.0-35.0); MCHC 32.1 g/dL (31.0-37.0); MCV 95.4 fL (80.0-100.0); Mean Platelet Volume 7.9; Monocytes # (A) 0.5 k/uL (0-1.0); Monocytes % (A) 5 %; Neutrophils % (A) 83 %; Platelet Count 275 k/uL (150-450); RBC 4.43 m/uL (4.30-5.90); WBC 10.8 k/uL (3.8-10.6)
[2021-01-30 09:08] LABS: African American GFR (CKD) >90 (>60 ml/min/1.73 sqM); Anion Gap 4 mmol/L; Blood Urea Nitrogen 39 mg/dL (9-20); Calcium 9.7 mg/dL (8.4-10.2); Carbon Dioxide 33 mmol/L (22-30); Chloride 102 mmol/L (98-107); Glucose 114 mg/dL (74-99); Non-African American GFR(CKD) 79 (>60 ml/min/1.73 sqM); Sodium 139 mmol/L (137-145)
[2021-01-30 12:08] LABS: Glucose,Whole Blood 150 mg/dL (75-99)
--- NOTE | 2021-01-30 12:25 | P.PN ---
Subjective Progress Note Date: 01/30/21 Principal diagnosis: Dyspnea 80-year-old white male patient with past medical history of COPD, hypertension, coronary artery disease with recent stenting, hypothyroidism, previous history of CVA/TIA, home oxygen at bedtime as 3 L, previous history of MRSA infection, presented to the emergency department with 7 day history of cough, progressive dyspnea, some phlegm production. Patient denied any fever or chills. Patient states that he did receive the COVID vaccine, completed Moderna COVID-19 vaccine back in July. Denied any nausea vomiting or diarrhea. He states his dyspnea was becoming progressively worse, he was having difficulty walking. Chest x-ray in the emergency department showed a new developing consolidation/airspace disease at the left lung base. COVID-19 PCR was positive. CBC was within normal limits, white count was 8.7, hemoglobin is 13.7, lymphocytes were normal at 1.3, INR was 2.8, sodium was 137, potassium is 4.7, chloride is 101, CO2 31, BUN is 34, creatinine 0.95, lactic acid was 1.4, the rest of LFTs were within normal limits, proBNP was 203, troponin was 0.029. EKG showed normal sinus rhythm with nonspecific T-wave abnormality. Patient is currently requiring 4 L of oxygen his pulse ox is ranging between 89-90%, he had a low-grade fever initially on presentation with a temp of 99.8F. Patient sees Dr. Adamson in the pulmonary clinic for his history of COPD and his FEV1 is in the range of 39% of predicted. He has a history of previous pulmonary embolism on chronic Coumadin. He has a history of hyper-homocystine anemia. He is also on azithromycin on Thursday schedule, on which he continues, he was started on IV Decadron, nebulized bronchodilators, he still within the window for Remdesivir on which he will be started today. On 01/29/2021 patient seen in follow-up on medical surgical floor, he is currently on 4 L of oxygen the pulse ox 89-92%. Afebrile, hemodynamically stable. Today is day 2 of Remdesivir treatment, patient remains Decadron 6 mg daily, Symbicort, he is on his maintenance of azithromycin, and multivitamins. He had no acute events overnight, resting comfortably in bed. His pro laura citonin level was negative at 0.13. Today's labs are pending, patient remains on Coumadin for chronic anticoagulation On 01/30/2021 patient seen in follow-up on medical surgical floor, she is sittin g up in a chair, breathing comfortably, he is currently on 4 L of oxygen and the pulse ox of 93%, afebrile, hemodynamically he stable, no complaints of chest discomfort, he stated that he is able to clear some phlegm at times, it is whitish to creamy in color, no hemoptysis, he continues on Remdesivir and today is day 3 of treatment, he requested incentive spirometer to the bedside, and he is able to achieve 2000 on the today. He is on dexamethasone 6 mg daily, he is on Coumadin, today's INR is 3.0. No nausea or vomiting, no diarrhea, tolerating oral intake, lung sounds reveal diminished breath sounds with wheezing in the right lung, no significant crackles were auscultated. Today's labs have been reviewed, white blood cell count is 10.8, hemoglobin is 13.6, INR is 3.0, CO2 33, and the rest of electrolytes are within normal limits, Bun is 39, creatinine 0.91 Objective - Vital Signs Vital signs: Vital Signs Temp 97.7 F 01/30/21 10:00 Pulse 77 01/30/21 10:00 Resp 15 01/30/21 10:00 BP 125/69 01/30/21 10:00 Pulse Ox 93 L 01/30/21 10:00 Intake & Output 01/29/21 01/30/21 01/30/21 18:59 06:59 18:59 Output Total 900 400 Balance -900 -400 Output: Urine 900 400 Other: Voiding Method Urinal # Bowel Movements 2 - Exam GENERAL EXAM: Alert, very pleasant, 80-year-old white male, currently on 4 L of oxygen and pulse ox between 91% comfortable in no apparent distress. HEAD: Normocephalic/atraumatic. EYES: Normal reaction of pupils, equal size. Conjunctiva pink, sclera white. NOSE: Clear with pink turbinates. THROAT: No erythema or exudates. NECK: No masses, no JVD, no thyroid enlargement, no adenopathy. CHEST: No chest wall deformity. Symmetrical expansion. LUNGS: Equal air entry with scattered wheezes CVS: Regular rate and rhythm, normal S1 and S2, no gallops, no murmurs, no rubs ABDOMEN: Soft, nontender. No hepatosplenomegaly, normal bowel sounds, no guarding or rigidity. EXTREMITIES: No clubbing, no edema, no cyanosis, 2+ pulses and upper and lower extremities. MUSCULOSKELETAL: Muscle strength and tone normal. SPINE: No scoliosis or deformity SKIN: No rashes CENTRAL NERVOUS SYSTEM: Alert and oriented -3. No focal deficits, tone is normal in all 4 extremities. PSYCHIATRIC: Alert and oriented -3. Appropriate affect. Intact judgment and insight. - Labs CBC & Chem 7: 01/30/21 07:02 01/30/21 07:02 Labs: Abnormal Lab Results - Last 24 Hours (Table) 01/29/21 01/29/21 01/30/21 Range/Units 16:26 20:57 07:02 WBC (3.8-10.6) k/uL Neutrophils # (1.3-7.7) k/uL PT 28.9 H (9.0-12.0) sec INR 3.0 H (<1.2) Carbon Dioxide (22-30) mmol/L BUN (9-20) mg/dL Glucose (74-99) mg/dL POC Glucose (mg/dL) 151 H 148 H (75-99) mg/dL 01/30/21 01/30/21 01/30/21 Range/Units 07:02 07:02 07:28 WBC 10.8 H (3.8-10.6) k/uL Neutrophils # 9.0 H (1.3-7.7) k/uL PT (9.0-12.0) sec INR (<1.2) Carbon Dioxide 33 H (22-30) mmol/L BUN 39 H (9-20) mg/dL Glucose 114 H (74-99) mg/dL POC Glucose (mg/dL) 113 H (75-99) mg/dL 01/30/21 Range/Units 12:06 WBC (3.8-10.6) k/uL Neutrophils # (1.3-7.7) k/uL PT (9.0-12.0) sec INR (<1.2) Carbon Dioxide (22-30) mmol/L BUN (9-20) mg/dL Glucose (74-99) mg/dL POC Glucose (mg/dL) 150 H (75-99) mg/dL Microbiology - Last 24 Hours (Table) 01/28/21 07:50 Blood Culture - Preliminary Blood No Growth after 48 hours 01/28/21 07:50 Blood Culture - Preliminary Blood No Growth after 48 hours Assessment and Plan Plan: Assessment: #1. Acute on chronic hypoxic respiratory failure related to acute COVID-19 pneumonia. Patient presented with 7 day history of symptoms of cough, and worsening shortness of breath. He has completed Moderna vaccine back in July, he tested positive for COVID-19 today on 01/28/2021. He is within the window for Remdesivir treatment which she was started on 01/28/2021 #2. Advanced COPD, with baseline FEV1 of 39% of predicted on home oxygen usually at 3 L #3. History of coronary artery disease with previous stenting #4. Ex-smoker #5. Hypertension #6. Diabetes mellitus #7. Previous history of CVA/TIA #8. Hypothyroidism #9. Previous history of pulmonary embolism on Coumadin #10. History of hyper-homocystine anemia #11. History of carotid endarterectomy Plan: Continue current medical treatment Continue with IV Decadron Patient continues on Remdesivir, today is day 3 of treatment Continue azithromycin continue bronchodilators Overall patient is breathing better, but still bronchospastic Provide incentive spirometer Continue Coumadin, daily PT/INR Obtain inflammatory markers, follow-up chest x-ray tomorrow We'll continue to follow I performed a history & physical examination of the patient and discussed their management with my nurse practitioner, Keren To. I reviewed the nurse practitioner's note and agree with the documented findings and plan of care. Lung sounds are positive for diminished breath sounds throughout the lung kline. The findings and the impression was discussed with the patient. I attest to the documentation by the nurse practitioner. Time with Patient: Less than 30
[2021-01-30] MEDS: METOPROLOL SUCCINATE (ER) 25 MG TAB.ER.24H PO SCH (12:57)
[2021-01-30] MEDS: LEVOTHYROXINE 50 MCG TAB PO SCH (12:58)
[2021-01-30] MEDS: SPIRONOLACTONE 25 MG TAB PO SCH (12:58)
--- NOTE | 2021-01-30 14:26 | P.PN ---
Subjective Patient is doing well today. He is currently on 2 L of oxygen. He denies any shortness of breath at rest. He is not ambulating much otherwise. Objective - Vital Signs Vital signs: Vital Signs Temp 97.7 F 01/30/21 10:00 Pulse 77 01/30/21 10:00 Resp 15 01/30/21 10:00 BP 125/69 01/30/21 10:00 Pulse Ox 93 L 01/30/21 10:00 Intake & Output 01/29/21 01/30/21 01/30/21 18:59 06:59 18:59 Output Total 900 400 Balance -900 -400 Output: Urine 900 400 Other: Voiding Method Urinal Urinal # Bowel Movements 2 - Exam General: The patient is awake and alert, in no distress Eye: there is normal conjunctiva bilaterally. Neck: The neck is supple, there is no JVD. Cardiovascular: Normal S1-S2, no S3-S4, no murmurs. Respiratory: Lungs clear to auscultation bilaterally Gastrointestinal: Abdomen is soft, nontender Musculoskeletal: There is no pedal edema. Neurological:. Speech is normal. Skin: Skin is warm and dry - Labs CBC & Chem 7: 01/30/21 07:02 01/30/21 07:02 Labs: Abnormal Lab Results - Last 24 Hours (Table) 01/29/21 01/29/21 01/30/21 Range/Units 16:26 20:57 07:02 WBC (3.8-10.6) k/uL Neutrophils # (1.3-7.7) k/uL PT 28.9 H (9.0-12.0) sec INR 3.0 H (<1.2) Carbon Dioxide (22-30) mmol/L BUN (9-20) mg/dL Glucose (74-99) mg/dL POC Glucose (mg/dL) 151 H 148 H (75-99) mg/dL 01/30/21 01/30/21 01/30/21 Range/Units 07:02 07:02 07:28 WBC 10.8 H (3.8-10.6) k/uL Neutrophils # 9.0 H (1.3-7.7) k/uL PT (9.0-12.0) sec INR (<1.2) Carbon Dioxide 33 H (22-30) mmol/L BUN 39 H (9-20) mg/dL Glucose 114 H (74-99) mg/dL POC Glucose (mg/dL) 113 H (75-99) mg/dL 01/30/21 Range/Units 12:06 WBC (3.8-10.6) k/uL Neutrophils # (1.3-7.7) k/uL PT (9.0-12.0) sec INR (<1.2) Carbon Dioxide (22-30) mmol/L BUN (9-20) mg/dL Glucose (74-99) mg/dL POC Glucose (mg/dL) 150 H (75-99) mg/dL Microbiology - Last 24 Hours (Table) 01/28/21 12:34 Gram Stain - Final Sputum Sputum Culture - Final Stenotrophomonas maltophilia Serratia marcescens 01/28/21 07:50 Blood Culture - Preliminary Blood No Growth after 48 hours 01/28/21 07:50 Blood Culture - Preliminary Blood No Growth after 48 hours Assessment and Plan Assessment: 80-year-old man with medical history of COPD, paroxysmal atrial fibrillation on Coumadin, hypothyroidism, hypertension, CAD, hyperlipidemia, diabetes type 2 presented with dyspnea on exertion. Patient normally wears 2 L of oxygen via nasal cannula at home. In the emergency room, Chest x-ray shows fibrotic changes in the lower lobes, with new consolidation in the left base. Patient tested positive for coronavirus. He was admitted to the hospital for further management Assessment and Plan Assessment: Acute COPD exacerbation Covid pneumonitis -Admit inpatient, telemetry -Pulmonary consult -Dexamethasone 6 g IV daily day #3 -Remdesivir dose 3/5 -Vitamin C/D, zinc, famotidine -Follow inflammatory markers -Continue home azithromycin -Standing nebulizers Paroxysmal Atrial Fibrillation - coumadin per pharmacy - continue home metoprolol CAD HTN HLD Diabetes type 2 Hypothyroidism -Home medications reviewed and reconciled Patient is a no code DVT prophylaxis covered with therapeutic AC
[2021-01-30 17:14] LABS: Glucose,Whole Blood 227 mg/dL (75-99)
[2021-01-30] MEDS: REMDESIVIR 100 MG in SODIUM CHLORIDE 0.9% 250 ML IVPB SCH (17:36)
[2021-01-30] MEDS ORDERED: WARFARIN 7.5 MG TAB PO ONE (18:00)
[2021-01-30 20:05] LABS: Glucose,Whole Blood 191 mg/dL (75-99)
[2021-01-30] MEDS: ATORVASTATIN 40 MG TAB PO SCH (20:44)
[2021-01-31 07:19] LABS: Glucose,Whole Blood 102 mg/dL (75-99)
[2021-01-31] MEDS: SYMBICORT 160-4.5 MCG INHALER INHALATION SCH (08:23)
[2021-01-31] MEDS: ALBUTEROL HFA INHALER INHALATION SCH ×2 (08:23→11:52)
[2021-01-31] MEDS: TIOTROPIUM 2.5 MCG INHALER INHALATION SCH (08:23)
[2021-01-31] MEDS: traMADol 50 MG TAB PO SCH (08:27)
[2021-01-31] MEDS: lisinopriL 5 MG TAB PO SCH (08:27)
[2021-01-31] MEDS: DEXAMETHASONE SOD PHOSPHATE 10 MG/ML 1 ML VIAL IV SCH (08:27)
[2021-01-31] MEDS: INSULIN ASPART (NovoLOG) 100 UNIT/ML VIAL SQ SCH ×2 (08:27→11:51)
[2021-01-31] MEDS: CLOPIDOGREL 75 MG TAB PO SCH (08:27)
[2021-01-31] MEDS: FOLIC ACID 1 MG TAB PO SCH (08:27)
[2021-01-31] MEDS: METOPROLOL SUCCINATE (ER) 25 MG TAB.ER.24H PO SCH (08:27)
[2021-01-31] MEDS: ZINC SULFATE 220 MG CAP PO SCH (08:28)
[2021-01-31] MEDS: CHOLECALCIFEROL 25 MCG (1000 IU) TABLET PO SCH (08:28)
[2021-01-31] MEDS: ASCORBIC ACID 500 MG TAB PO SCH (08:28)
[2021-01-31] MEDS: ACETAMINOPHEN TAB 325 MG TAB PO PRN (08:28)
[2021-01-31] MEDS: CALCIUM CARBONATE 500 MG CHEWABLE PO SCH (08:29)
[2021-01-31] MEDS: SPIRONOLACTONE 25 MG TAB PO SCH (08:29)
[2021-01-31] MEDS: FAMOTIDINE 20 MG TAB PO SCH (08:29)
[2021-01-31 09:14] LABS: INR 3.7 (<1.2); Prothrombin Time 35.2 sec (9.0-12.0)
--- NOTE | 2021-01-31 09:19 | XR ---
EXAMINATION TYPE: XR chest 1V portable DATE OF EXAM: 01/31/2021 COMPARISON: 01/28/2021 HISTORY: Shortness of breath TECHNIQUE: Single frontal view of the chest is obtained. FINDINGS: Hyperinflation noted there subsegmental changes at both lung bases. A calcification the ri ght midlung may be related to granuloma. No pneumothorax. Heart size normal. Atherosclerotic change o f the aorta. IMPRESSION: Stable right basilar subsegmental atelectasis or infiltrate correlate for COPD.
[2021-01-31 11:28] LABS: Glucose,Whole Blood 161 mg/dL (75-99)
--- NOTE | 2021-01-31 12:02 | P.DS ---
Providers Date of admission: 01/28/21 09:23 Expected date of discharge: 01/31/21 Attending physician: Guillermina Pastrana MD Consults: 01/28/21 09:53 Consult Physician Urgent Consulting Provider: Jeanette Breaux Consult Reason/Comments: COVID pneumonia Do you want consulting provider notified?: Yes Primary care physician: [facility] Course: 80-year-old male with medical history of COPD, paroxysmal atrial fibrillation on Coumadin, hypothyroidism, hypertension, CAD, hyperlipidemia, diabetes type 2 presented with dyspnea on exertion. Patient normally wears 2 L of oxygen via nasal cannula at home who presented to the emergency room with worsening shortness of breath. In the emergency room, Chest x-ray shows fibrotic changes in the lower lobes, with new consolidation in the left base. Patient tested positive for coronavirus. He was admitted to the hospital for further management. Patient was seen and evaluated by pulmonary during this admission. He was treated with bronchodilators, Decadron, and Remdesivir. His overall condition remains stable on his home oxygen 2 L. He was cleared by pulmonary for discharge. He will continue his home regimen including prophylactic antibiotic with azithromycin. Finish 10 days course of Decadron. Follow-up with pulmonary as directed. PT/OT consulted during this admission the patient and his declined going to rehab. Home healthcare will be set up. Patient was seen and evaluated by me on the day of discharge: General: The patient is awake and alert, in no distress Eye: there is normal conjunctiva bilaterally. Neck: The neck is supple, there is no JVD. Cardiovascular: Normal S1-S2, no S3-S4, no murmurs. Respiratory: Lungs clear to auscultation bilaterally Gastrointestinal: Abdomen is soft, nontender Musculoskeletal: There is no pedal edema. Neurological:. Speech is normal. Skin: Skin is warm and dry Patient Condition at Discharge: Fair Plan - Discharge Summary Discharge Rx Participant: No New Discharge Prescriptions: Continue Fluticasone/Salmeterol [Advair 500-50 Diskus] 1 puff PO RT-BID traMADol HCL [Ultram] 50 mg PO BID Folic Acid 1 mg PO DAILY Metoprolol Succinate (ER) [Toprol XL] 25 mg PO DAILY@1200 Levothyroxine Sodium [Synthroid] 50 mcg PO MOWEFR metFORMIN HCL [Glucophage] 500 mg PO HS Clopidogrel [Plavix] 75 mg PO DAILY 30 Days #30 tab Atorvastatin [Lipitor] 40 mg PO HS Azithromycin 250 mg PO MOWEFR Ipratropium-Albuterol Nebulize [Duoneb 0.5 mg-3 mg/3 ml Soln] 3 ml INHALATION RT-QID PRN PRN Reason: Shortness Of Breath lisinopriL [Zestril] 5 mg PO DAILY Penicillin V Potassium [Pen Vee K] 500 mg PO QID PRN PRN Reason: TOOTH INFECTION Warfarin Sodium [Jantoven] 10 mg PO SUMOTUWETH Ubidecarenone [Co Q-10] 100 mg PO DAILY Nitroglycerin Sl Tabs [Nitrostat] 0.4 mg SUBLINGUAL Q5M PRN 30 Days #90 tab PRN Reason: Chest Pain Acetaminophen Tab [Tylenol] 500 mg PO BID PRN PRN Reason: Pain Calcium Carbonate [Calcium] 600 mg PO DAILY Spironolactone [Aldactone] 25 mg PO DAILY@1200 Warfarin Sodium 5 mg PO FRSA Discontinued predniSONE 40 mg PO DAILY Discharge Medication List Fluticasone/Salmeterol [Advair 500-50 Diskus] 1 puff PO RT-BID 11/24/18 [History] Folic Acid 1 mg PO DAILY 11/24/18 [History] Levothyroxine Sodium [Synthroid] 50 mcg PO MOWEFR 11/24/18 [History] Metoprolol Succinate (ER) [Toprol XL] 25 mg PO DAILY@1200 11/24/18 [History] metFORMIN HCL [Glucophage] 500 mg PO HS 11/24/18 [History] traMADol HCL [Ultram] 50 mg PO BID 11/24/18 [History] Ubidecarenone [Co Q-10] 100 mg PO DAILY 11/08/20 [History] Clopidogrel [Plavix] 75 mg PO DAILY 30 Days #30 tab 11/15/20 [Rx] Nitroglycerin Sl Tabs [Nitrostat] 0.4 mg SUBLINGUAL Q5M PRN 30 Days #90 tab 11/15/20 [Rx] Acetaminophen Tab [Tylenol] 500 mg PO BID PRN 01/28/21 [History] Atorvastatin [Lipitor] 40 mg PO HS 01/28/21 [History] Azithromycin 250 mg PO MOWEFR 01/28/21 [History] Calcium Carbonate [Calcium] 600 mg PO DAILY 01/28/21 [History] Ipratropium-Albuterol Nebulize [Duoneb 0.5 mg-3 mg/3 ml Soln] 3 ml INHALATION RT-QID PRN 01/28/21 [History] Penicillin V Potassium [Pen Vee K] 500 mg PO QID PRN 01/28/21 [History] Spironolactone [Aldactone] 25 mg PO DAILY@1200 01/28/21 [History] Warfarin Sodium 5 mg PO FRSA 01/28/21 [History] Warfarin Sodium [Jantoven] 10 mg PO SUMOTUWETH 01/28/21 [History] lisinopriL [Zestril] 5 mg PO DAILY 01/28/21 [History] Follow up Appointment(s)/Referral(s): Mariza Hou MD [Primary Care Provider] - 1-2 days [facility], [NON-STAFF] - As Needed Discharge Disposition: HOME WITH HOME HEALTH SERVICES
--- NOTE | 2021-01-31 12:13 | P.PN ---
Subjective Progress Note Date: 01/31/21 Principal diagnosis: Dyspnea 80-year-old white male patient with past medical history of COPD, hypertension, coronary artery disease with recent stenting, hypothyroidism, previous history of CVA/TIA, home oxygen at bedtime as 3 L, previous history of MRSA infection, presented to the emergency department with 7 day history of cough, progressive dyspnea, some phlegm production. Patient denied any fever or chills. Patient states that he did receive the COVID vaccine, completed Moderna COVID-19 vaccine back in July. Denied any nausea vomiting or diarrhea. He states his dyspnea was becoming progressively worse, he was having difficulty walking. Chest x-ray in the emergency department showed a new developing consolidation/airspace disease at the left lung base. COVID-19 PCR was positive. CBC was within normal limits, white count was 8.7, hemoglobin is 13.7, lymphocytes were normal at 1.3, INR was 2.8, sodium was 137, potassium is 4.7, chloride is 101, CO2 31, BUN is 34, creatinine 0.95, lactic acid was 1.4, the rest of LFTs were within normal limits, proBNP was 203, troponin was 0.029. EKG showed normal sinus rhythm with nonspecific T-wave abnormality. Patient is currently requiring 4 L of oxygen his pulse ox is ranging between 89-90%, he had a low-grade fever initially on presentation with a temp of 99.8F. Patient sees Dr. Adamson in the pulmonary clinic for his history of COPD and his FEV1 is in the range of 39% of predicted. He has a history of previous pulmonary embolism on chronic Coumadin. He has a history of hyper-homocystine anemia. He is also on azithromycin on Thursday schedule, on which he continues, he was started on IV Decadron, nebulized bronchodilators, he still within the window for Remdesivir on which he will be started today. On 01/29/2021 patient seen in follow-up on medical surgical floor, he is currently on 4 L of oxygen the pulse ox 89-92%. Afebrile, hemodynamically stable. Today is day 2 of Remdesivir treatment, patient remains Decadron 6 mg daily, Symbicort, he is on his maintenance of azithromycin, and multivitamins. He had no acute events overnight, resting comfortably in bed. His pro laura citonin level was negative at 0.13. Today's labs are pending, patient remains on Coumadin for chronic anticoagulation On 01/30/2021 patient seen in follow-up on medical surgical floor, she is sittin g up in a chair, breathing comfortably, he is currently on 4 L of oxygen and the pulse ox of 93%, afebrile, hemodynamically he stable, no complaints of chest discomfort, he stated that he is able to clear some phlegm at times, it is whitish to creamy in color, no hemoptysis, he continues on Remdesivir and today is day 3 of treatment, he requested incentive spirometer to the bedside, and he is able to achieve 2000 on the today. He is on dexamethasone 6 mg daily, he is on Coumadin, today's INR is 3.0. No nausea or vomiting, no diarrhea, tolerating oral intake, lung sounds reveal diminished breath sounds with wheezing in the right lung, no significant crackles were auscultated. Today's labs have been reviewed, white blood cell count is 10.8, hemoglobin is 13.6, INR is 3.0, CO2 33, and the rest of electrolytes are within normal limits, Bun is 39, creatinine 0.91 On 01/31/2021 patient seen in follow-up on medical surgical floor, he sitting up in a chair, breathing comfortable, he states he is feeling better, less wheezy, less short of breath, he is currently on 4 L of oxygen pulse ox is 95%, no worsening dyspnea or hypoxia, he is been afebrile, no complaints of chest pain. Patient is on day 4 of Remdesivir treatment, he continues on dexamethasone 6 mg daily, he is on Coumadin, his INR today 3.7. Today's chest x-ray shows stable right basilar subsegmental atelectasis. Overall she is generally weak, requires assistance with ambulation. No acute events overnight, no combines chest pain, his pro calcitonin level was negative at 0.13. Objective - Vital Signs Vital signs: Vital Signs Temp 97.4 F L 01/31/21 10:00 Pulse 71 01/31/21 10:00 Resp 18 01/31/21 10:00 BP 122/79 01/31/21 10:00 Pulse Ox 95 01/31/21 10:00 Intake & Output 01/30/21 01/31/21 01/31/21 18:59 06:59 18:59 Output Total 800 300 Balance -800 -300 Output: Urine 800 300 Other: Voiding Method Urinal Urinal # Bowel Movements 1 - Exam GENERAL EXAM: Alert, very pleasant, 80-year-old white male, currently on 4 L of oxygen and pulse ox between 95% comfortable in no apparent distress. HEAD: Normocephalic/atraumatic. EYES: Normal reaction of pupils, equal size. Conjunctiva pink, sclera white. NOSE: Clear with pink turbinates. THROAT: No erythema or exudates. NECK: No masses, no JVD, no thyroid enlargement, no adenopathy. CHEST: No chest wall deformity. Symmetrical expansion. LUNGS: Equal air entry with scattered wheezes CVS: Regular rate and rhythm, normal S1 and S2, no gallops, no murmurs, no rubs ABDOMEN: Soft, nontender. No hepatosplenomegaly, normal bowel sounds, no guarding or rigidity. EXTREMITIES: No clubbing, no edema, no cyanosis, 2+ pulses and upper and lower extremities. MUSCULOSKELETAL: Muscle strength and tone normal. SPINE: No scoliosis or deformity SKIN: No rashes CENTRAL NERVOUS SYSTEM: Alert and oriented -3. No focal deficits, tone is normal in all 4 extremities. PSYCHIATRIC: Alert and oriented -3. Appropriate affect. Intact judgment and insight. - Labs CBC & Chem 7: 01/30/21 07:02 01/30/21 07:02 Labs: Abnormal Lab Results - Last 24 Hours (Table) 01/30/21 01/30/21 01/31/21 Range/Units 17:11 20:03 07:17 PT (9.0-12.0) sec INR (<1.2) POC Glucose (mg/dL) 227 H 191 H 102 H (75-99) mg/dL 01/31/21 01/31/21 Range/Units 07:58 11:27 PT 35.2 H (9.0-12.0) sec INR 3.7 H (<1.2) POC Glucose (mg/dL) 161 H (75-99) mg/dL Microbiology - Last 24 Hours (Table) 01/28/21 07:50 Blood Culture - Preliminary Blood No Growth after 72 hours 01/28/21 07:50 Blood Culture - Preliminary Blood No Growth after 72 hours 01/28/21 12:34 Gram Stain - Final Sputum Sputum Culture - Final Stenotrophomonas maltophilia Serratia marcescens Assessment and Plan Plan: Assessment: #1. Acute on chronic hypoxic respiratory failure related to acute COVID-19 pneumonia. Patient presented with 7 day history of symptoms of cough, and worsening shortness of breath. He has completed Moderna vaccine back in July, he tested positive for COVID-19 today on 01/28/2021. He is within the window for Remdesivir treatment which he was started on 01/28/2021 #2. Advanced COPD, with baseline FEV1 of 39% of predicted on home oxygen usually at 3 L #3. History of coronary artery disease with previous stenting #4. Ex-smoker #5. Hypertension #6. Diabetes mellitus #7. Previous history of CVA/TIA #8. Hypothyroidism #9. Previous history of pulmonary embolism on Coumadin #10. History of hyper-homocystine anemia #11. History of carotid endarterectomy Plan: Patient is improving Breathing easier Wean oxygen down to his home dose and patient usually wears 3 L of oxygen at home Vital signs have been stable, patient has been afebrile Today's chest x-ray has been noted Labs have been noted From pulmonary perspective patient is stable for discharge home today, and his Remdesivir treatment can be discontinued Outpatient follow-up with Dr. Adamson in the office in 2-3 weeks I performed a history & physical examination of the patient and discussed their management with my nurse practitioner, Keren To. I reviewed the nurse practitioner's note and agree with the documented findings and plan of care. Lung sounds are positive for diminished breath sounds throughout the lung kline. The findings and the impression was discussed with the patient. I attest to the documentation by the nurse practitioner. Time with Patient: Less than 30
[2021-01-31] MEDS: REMDESIVIR 100 MG in SODIUM CHLORIDE 0.9% 250 ML IVPB SCH (14:29)
[2021-01-31 14:38] VITALS: BP 135/71; PULSE 78; RESP 24; TEMP 97.6
[2021-01-31] MEDS ORDERED: WARFARIN 0.5 MG TAB PO ONE (18:00)
== END 2021-01-31 15:53 | disposition home health service (06) | DRG 177 ==
LOC: EC 06:53 → 4SSUR 09:23
PROVIDERS: ADMIT Internal Medicine; ATTEND Internal Medicine
PROC: XW033E5 Introduction of Remdesivir Anti-infective into Peripheral Vein, Percutaneous Approach, New Technology Group 5 (ICD-10-PCS; principal; 2021-01-28)
DX: U07.1 COVID-19 (principal); J12.82 Pneumonia due to coronavirus disease 2019; J96.21 Acute and chronic respiratory failure with hypoxia; J44.1 Chronic obstructive pulmonary disease with (acute) exacerbation; J44.0 Chronic obstructive pulmonary disease with (acute) lower respiratory infection; E03.9 Hypothyroidism, unspecified; I25.10 Atherosclerotic heart disease of native coronary artery without angina pectoris; I48.0 Paroxysmal atrial fibrillation; I10 Essential (primary) hypertension; E11.9 Type 2 diabetes mellitus without complications; E78.5 Hyperlipidemia, unspecified; Z95.5 Presence of coronary angioplasty implant and graft; Z87.891 Personal history of nicotine dependence; Z86.73 Personal history of transient ischemic attack (TIA), and cerebral infarction without residual deficits; Z86.14 Personal history of Methicillin resistant Staphylococcus aureus infection; Z86.711 Personal history of pulmonary embolism; Z79.01 Long term (current) use of anticoagulants; Z79.02 Long term (current) use of antithrombotics/antiplatelets; Z79.84 Long term (current) use of oral hypoglycemic drugs; Z79.890 Hormone replacement therapy; Z79.899 Other long term (current) drug therapy; Z99.81 Dependence on supplemental oxygen; Z98.890 Other specified postprocedural states
CPT/HCPCS: 36415; 71045; 71046; 80048; 80053; 83605; 83880; 84145; 84484; 85025; 85610; 85730; 87040; 87070; 87077; 87186; 87205; 87635; 93005; 94640; 96374; 96375; 99291

== ENCOUNTER → 2021-05-15 | Outpatient (CLI) | payer MEDICARE ==
[2021-05-15 23:52] LABS: HCT 39.7 % (39.6-50.0); HGB 12.2 g/dL (13.0-17.0); MCHC 30.7 g/dL (32.0-37.0); MCV 100.8 fL (80.0-97.0); Mean Platelet Volume 10.3 fL (9.5-12.2); Platelet Count 300 X 10*3/uL (140-440); RBC 3.94 X 10*6/uL (4.40-5.60); RDW 14.3 % (11.5-14.5); WBC 8.58 X 10*3/uL (4.50-10.00)
[2021-05-15 23:53] LABS: African American GFR (CKD) 81.4 (60.0-200.0); Anion Gap 13.1 mmol/L (10.00-18.00); BUN/Creat Ratio 24.6 Ratio (12.00-20.00); Blood Urea Nitrogen 24.6 mg/dL (9.0-27.0); Calcium 9.9 mg/dL (8.7-10.3); Carbon Dioxide 27.9 mmol/L (20.0-27.5); Non-African American GFR(CKD) 70.3 (60.0-200.0); Potassium 4.8 mmol/L (3.5-5.5)
== END | disposition home or self-care (01) ==
LOC: LABWHC1 15:40
PROVIDERS: ATTEND Internal Medicine Cardiovascular Disease
DX: I51.2 Rupture of papillary muscle, not elsewhere classified (principal)
CPT/HCPCS: 36415; 80048; 83880; 85027

== ENCOUNTER → 2021-06-19 | Outpatient (CLI) | payer MEDICARE ==
[2021-06-19 09:57] LABS: INR 1.2 (<1.2); Prothrombin Time 12.3 sec (9.0-12.0)
== END | disposition home or self-care (01) ==
LOC: LABWHC1 09:13
PROVIDERS: ATTEND Dentist Oral and Maxillofacial Surgery
DX: D68.9 Coagulation defect, unspecified (principal)
CPT/HCPCS: 36415; 85610

== ENCOUNTER → 2021-08-14 | Outpatient (CLI) | payer MEDICARE ==
--- NOTE | 2021-08-14 14:29 | US ---
EXAMINATION TYPE: US venous doppler duplex LE DATE OF EXAM: 08/14/2021 2:18 PM COMPARISON: NONE CLINICAL HISTORY: L97.225 NON PRESSURE CHR ULCER. Non pressure ulcer. SIDE PERFORMED: Bilateral TECHNIQUE: The lower extremity deep venous system is examined utilizing real time linear array sonog lori with graded compression, doppler sonography and color-flow sonography. VESSELS IMAGED: Common Femoral Vein Deep Femoral Vein Greater Saphenous Vein * Femoral Vein Popliteal Vein Small Saphenous Vein * Proximal Calf Veins (* superficial vessels) Right Leg: There appear to be internal echoes within the femoral vein and greater amount of internal echoes within the popliteal vein and prox calf veins. These vessels appear to compress incompletely. *Popliteal vein does not compress. Lack of color flow seen in femoral vein. Little to no color flow seen in popliteal vein. Left Leg: Color defect seen in femoral vein. Prox femoral vein appears to compress incompletely. Col or flow seen in all remaining veins at this time. IMPRESSION: Findings felt to reflect bilateral DVT as noted above.
== END | disposition home or self-care (01) ==
LOC: RADUSWWP 13:16
PROVIDERS: ATTEND Nurse Practitioner Family
DX: L97.225 Non-pressure chronic ulcer of left calf with muscle involvement without evidence of necrosis (principal)
CPT/HCPCS: 93970

== ENCOUNTER → 2021-09-04 | Outpatient (CLI) | payer MEDICARE ==
--- NOTE | 2021-09-04 15:12 | US ---
LOWER EXTREMITY VENOUS INSUFFICIENCY CLINICAL HISTORY: L97.225 NON-PRS CHR ULCER OF LEFT CALF. Left leg nonhealing wound SIDE PERFORMED: Bilateral 1) Color flow is present and patency is documented in the following vessels. No DVT or SVT is noted . Common Femoral Vein Deep Femoral Vein Femoral Vein Popliteal Vein Proximal Calf Veins Greater Saph Vein Upper Small Saph Vein 2) There is venous reflux noted at the following venous levels: Left proximal popliteal vein Left distal popliteal vein 3) DVT visualized in right proximal FEM Vein to calf veins Limited visualization of bilateral veins due to arterial shadowing Rouleaux flow visualized in left popliteal vein. IMPRESSION: 1. DVT noted within the right proximal femoral vein extending to the calf veins. 2. Reflux as noted above
--- NOTE | 2021-09-05 10:13 | US ---
EXAMINATION TYPE: US arterial LE single level DATE OF EXAM: 09/04/2021 3:06 PM CLINICAL HISTORY: L97.225 NON-PRS CHR ULCER OF LEFT CALF. Right leg DVT. Left calf ulcer. History of hypertension, MS, hyperlipidemia, and coronary artery disease. History of diabetes. Doppler Waveforms: Right: Multiphasic distally, monophasic right femoral level Left: Biphasic to multiphasic distally Ankle-Brachial Indices: Right: Deferred due to DVT Left: CNO Toe Brachial Indices: Right: 0.7 Left: 0.7 Monophasic waveform right femoral level may be technical. Cannot exclude proximal stenosis. TBI value s are within normal limits. IMPRESSION: Suboptimal study. Consider further workup.
== END | disposition home or self-care (01) ==
LOC: RADUSWWP 13:36
PROVIDERS: ATTEND Thoracic Surgery (Cardiothoracic Vascular Surgery)
DX: I82.411 Acute embolism and thrombosis of right femoral vein (principal); I87.2 Venous insufficiency (chronic) (peripheral); I25.10 Atherosclerotic heart disease of native coronary artery without angina pectoris; E78.5 Hyperlipidemia, unspecified; I10 Essential (primary) hypertension; E11.622 Type 2 diabetes mellitus with other skin ulcer; L97.225 Non-pressure chronic ulcer of left calf with muscle involvement without evidence of necrosis
CPT/HCPCS: 93922; 93970